=== PATIENT | female | born 1950 | race Two or more races ===

== ENCOUNTER 2021-05-01 09:41 | Emergency (ER) | payer MEDICARE, OTHER, SELFPAY ==
--- NOTE | ~2021-05-01 | XR_ITS ---
EXAMINATION: XR CHEST CLINICAL INFORMATION: Chest pain. COMPARISON: None TECHNIQUE: Frontal view of the chest was obtained. FINDINGS: The lungs are well-expanded and clear of acute process. Heart size and pulmonary vascularity is normal. There are dual pacer electrodes in right atrium and right ventricle. No gross bony abnormality seen. XR/XR chest 1V IMPRESSION: Unremarkable chest exam.
[2021-05-01 10:05] VITALS: BP 115/93; PULSE 60; RESP 18; TEMP 36.7; O2SAT 99; BMI 22.1
--- NOTE | 2021-05-01 10:23 | ED.GENADULT ---
HPI - General Adult General Chief complaint: General Medical Stated complaint: multiple complaints post vaccine Time Seen by Provider: 05/01/21 10:23 Source: patient Mode of arrival: ambulatory Limitations: no limitations History of Present Illness HPI narrative: 71 yo female with hx of HTN, HLD, PPM for ?heart block, cardiomyopathy states she has not felt well had diarrhea/constipation/body aches since January 29 post J+J shot last night felt sharp back and chest pain complaint: diffuse body pain Onset (ago): month(s) (January 29) Location: chest, back, abdomen and lower extremity Radiation: back Severity: moderate Quality: stabbing and aching Pain Consistency: intermittent Relieving factors: none Exacerbating factors: none Associated symptoms: chest pain, loss of appetite, malaise and weakness Treatments prior to arrival: none Related Data Allergies Allergy/AdvReac Type Severity Reaction Status Date / Time No Known Allergies Allergy Verified 05/01/21 10:33 Review of Systems Review of Systems: Constitutional : No Weight loss, No Fever, No Chills, No Fatigue, pos Malaise ENT/Mouth : No sore throat, No Rhinorrhea Eyes: No Eye Pain, No Swelling, No Redness Cardiovascular : pos Chest Pain, No SOB, No Dyspnea on Exertion, No Orthopnea, No Edema, No Palpitations Respiratory : No Cough, No Sputum, No Wheezing Gastrointestinal : No Nausea, No Vomiting, pos Diarrhea, pos Constipation, No abdominal Pain, No Hematochezia, No Melena Genitourinary : No Dysuria, No Urinary Frequency, No Hematuria, Musculoskeletal : No joint pain, pos Myalgias, No Joint Swelling Skin : No Skin Lesions, No rash Neuro : No Weakness, No Numbness, No Dizziness, No Headache Psych : No Anxiety/Panic, No Depression Heme/Lymph: No Bruising, No Bleeding,No Lymphadenopathy Endocrine : No Polyuria, No Polydipsia All other systems reviewed and are negative PMFSH Social History Social History Advance Directives: Yes Advance Directives Information Provided: Yes Advance Directives on File: No Physical Exam Vital Signs: Vital Signs: Last Vital Signs Temp 98.1 F 05/01/21 10:05 Pulse 60 05/01/21 10:05 Resp 18 05/01/21 10:05 BP 115/93 H 05/01/21 10:05 Pulse Ox 99 05/01/21 10:05 Body Mass Index 22.1 Appearance: Alert. Oriented X3. No acute distress. Eyes: Pupils equal, round and reactive to light. ENT: Pharynx normal. Neck: Normal inspection. Neck supple. CVS: Normal heart rate and rhythm. Pulses normal. Respiratory: No respiratory distress. Breath sounds normal. Abdomen: Soft and nontender. Skin: Skin warm and dry. Normal skin color. Normal skin turgor. Extremities: No lower extremity edema. No calf ttp Neuro: Oriented X 3. No motor deficit. No sensory deficit. Course Course Course Narrative: patient eloped from the ED Medical Decision Making [facility] Narrative Medical decision making narrative: 71 yo female with hx of HTN, HLD, PPM for ?heart block, cardiomyopathy states she has not felt well had diarrhea/constipation/body aches since January 29 post J+J shot last night felt sharp back and chest pain at this time very atypical presentation almost 3 months of issues, will obtain basic labs, infl markers, CXR and EKG - ACS and PE seem unlikely given the duratino of her symptoms, dispo per results and findings Lab Data Result diagrams: 05/01/21 10:56 05/01/21 10:56 Labs: Lab Results 05/01/21 05/01/21 05/01/21 Range/Units 10:56 10:56 10:56 WBC 8.4 (4.8-10.8) X10*3/uL RBC 4.20 (4.20-5.50) X10*6/uL Hgb 13.3 (12.0-16.0) g/dl Hct 41.8 (37-47) % MCV 99.5 H (80-98) fL MCH 31.7 (27.0-33.0) pg MCHC 31.8 (31.0-35.0) g/dl RDW 12.8 (11.0-16.0) % Plt Count 182 (160-400) X10*3/uL MPV 11.6 (9.4-12.3) fL Immature Gran % (Auto) 0.1 (0.0-0.4) % Neut % (Auto) 51.4 (45-73) % Lymph % (Auto) 38.1 (20-40) % Bureau % (Auto) 8.7 (2-11) % Eos % (Auto) 1.5 (0-4) % Baso % (Auto) 0.2 (0-2) % Lymph # (Auto) 3.2 (1.2-4.9) X10*3/uL Bureau # (Auto) 0.7 (0.1-1.2) X10*3/uL Eos # (Auto) 0.1 (0.0-0.4) X10*3/uL Baso # (Auto) 0.0 (0.0-0.2) X10*3/uL Abs Immat Gran (auto) 0.01 (0.00-0.03) X10*3/uL Absolute Neuts (auto) 4.3 (2.0-8.3) X10*3/uL Absolute Nucleated RBC 0.000 (0.0-0.012) X10*3/uL Nucleated RBC % (auto) 0.0 (0.0-0.2) /100WBC D-Dimer NG/ML Troponin I High Sens 3.6 (<3.5-17.0) ng/L Urine Color YELLOW Urine Appearance CLEAR Urine pH 7.0 (5.0-8.0) Ur Specific Elsie 1.015 (1.005-1.025) Urine Protein NEG (NEG-TRACE) MG/DL Urine Glucose (UA) NEG (NEG) MG/DL Urine Ketones NEG (NEG) MG/DL Urine Blood TRACE (NEG) Urine Nitrite NEG (NEG) Ur Leukocyte Esterase TRACE H (NEG) Urine RBC 0-2 (0) /HPF Urine WBC 1-4 (0-4) /HPF Ur Squamous Epith Cells 1+ /LPF Urine Bacteria NONE /LPF Urine Mucus 1+ /LPF COVID-19 (LEXIE) (Negative) COVID-19 Clin Com 05/01/21 05/01/21 Range/Units 10:57 12:04 WBC (4.8-10.8) X10*3/uL RBC (4.20-5.50) X10*6/uL Hgb (12.0-16.0) g/dl Hct (37-47) % MCV (80-98) fL MCH (27.0-33.0) pg MCHC (31.0-35.0) g/dl RDW (11.0-16.0) % Plt Count (160-400) X10*3/uL MPV (9.4-12.3) fL Immature Gran % (Auto) (0.0-0.4) % Neut % (Auto) (45-73) % Lymph % (Auto) (20-40) % Bureau % (Auto) (2-11) % Eos % (Auto) (0-4) % Baso % (Auto) (0-2) % Lymph # (Auto) (1.2-4.9) X10*3/uL Bureau # (Auto) (0.1-1.2) X10*3/uL Eos # (Auto) (0.0-0.4) X10*3/uL Baso # (Auto) (0.0-0.2) X10*3/uL Abs Immat Gran (auto) (0.00-0.03) X10*3/uL Absolute Neuts (auto) (2.0-8.3) X10*3/uL Absolute Nucleated RBC (0.0-0.012) X10*3/uL Nucleated RBC % (auto) (0.0-0.2) /100WBC D-Dimer 235 NG/ML Troponin I High Sens (<3.5-17.0) ng/L Urine Color Urine Appearance Urine pH (5.0-8.0) Ur Specific Elsie (1.005-1.025) Urine Protein (NEG-TRACE) MG/DL Urine Glucose (UA) (NEG) MG/DL Urine Ketones (NEG) MG/DL Urine Blood (NEG) Urine Nitrite (NEG) Ur Leukocyte Esterase (NEG) Urine RBC (0) /HPF Urine WBC (0-4) /HPF Ur Squamous Epith Cells /LPF Urine Bacteria /LPF Urine Mucus /LPF COVID-19 (LEXIE) Negative (Negative) COVID-19 Clin Com See Note ECG Data Attestation: I personally reviewed and interpreted this ECG as follows: Interpretation: Rate: 60 Rhythm: NSR [place]: normal Normal P waves. Normal SHANE. Normal QRS complex. ST T wave : no SAMMY, normal qTC: normal prior studies: no acute ischemia The study has been interpreted contemporaneously by me. . Discharge Plan Discharge Clinical Impression: Myalgia, Chest pain Patient Disposition: Elopement
--- NOTE | 2021-05-01 10:34 | ECG_ITS ---
Test Reason : SOB Blood Pressure : / mmHG Vent. Rate : 060 BPM Atrial Rate : 060 BPM P-R Int : 140 ms QRS Dur : 092 ms QT Int : 442 ms P-R-T Axes : -07 016 040 degrees QTc Int : 442 ms Normal sinus rhythm Normal ECG No previous ECGs available Referred By: Bell Chavez Electronically Signed By:James Milton
[2021-05-01 11:05] LABS: MANUAL DIFF FLAG NO
[2021-05-01 11:09] LABS: Appearance Urine CLEAR; Color Urine YELLOW; Glucose Urine UA NEG (NEG); Leukocyte Esterase Urine TRACE (NEG); Nitrite Urine NEG (NEG); Specific Gravity - Urine 1.015 (1.005-1.025); UACC Culture Trigger YES; Urine Blood TRACE (NEG); Urine Ketones NEG (NEG); Urine Protein NEG (NEG-TRACE)
[2021-05-01 11:15] LABS: Basophils Percent Auto 0.2 % (0-2); Eosinophils Absolute Auto 0.1 X10*3/uL (0.0-0.4); Eosinophils Percent Auto 1.5 % (0-4); Hematocrit 41.8 % (37-47); Hemoglobin 13.3 g/dl (12.0-16.0); Imm Gran Abs Auto 0.01 X10*3/uL (0.00-0.03); Imm Gran Pct Auto 0.1 % (0.0-0.4); Lymphocytes Absolute Auto 3.2 X10*3/uL (1.2-4.9); Lymphocytes Percent Auto 38.1 % (20-40); Mean Corpuscular HGB Conc 31.8 g/dl (31.0-35.0); Mean Corpuscular Hemoglobin 31.7 pg (27.0-33.0); Mean Corpuscular Volume 99.5 fL (80-98); Mean Platelet Volume 11.6 fL (9.4-12.3); Monocytes Absolute Auto 0.7 X10*3/uL (0.1-1.2); Monocytes Percent Auto 8.7 % (2-11); Neutrophils Absolute Auto 4.3 X10*3/uL (2.0-8.3); Neutrophils Percent Auto 51.4 % (45-73); Platelet Count 182 X10*3/uL (160-400); Red Cell Distribution Width 12.8 % (11.0-16.0); White Blood Count 8.4 X10*3/uL (4.8-10.8)
[2021-05-01 11:22] LABS: Mucus Urine 1+ /LPF; RBC Urine 0-2 /HPF (0); Squamous Epithelial Cell Urine 1+ /LPF
[2021-05-01 11:29] LABS: COVID-19 Test Negative (Negative); IDNOW Serial# 9DD0AD1C
[2021-05-01 11:32] LABS: Troponin-I High Sensitivity 3.6 ng/L (<3.5-17.0)
[2021-05-01 12:00] VITALS: BP 198/82; PULSE 59
[2021-05-01 12:24] LABS: D Dimer 235 NG/ML
[2021-05-01 13:54] LABS: Troponin-I High Sensitivity 3.7 ng/L (<3.5-17.0)
[2021-05-01 13:59] LABS: Alanine Aminotransferase 14 U/L (0-31); Albumin Level 4.1 g/dL (3.5-5.0); Alkaline Phosphatase 77 U/L (39-117); Anion Gap 14 (12-20); Aspartate Amino Transferase 19 U/L (5-31); Bilirubin Direct 0.2 mg/dL (0.0-0.5); Bilirubin Total 0.6 mg/dL (0.0-1.0); Blood Urea Nitrogen 13 mg/dL (9-16); C Reactive Protein 0.24 mg/dL (< or = 0.50); Calcium 9.8 mg/dL (8.4-10.2); Carbon Dioxide 25 mmol/L (22-29); Chloride 105 mmol/L (96-108); Creatinine Clr Calc Pharmacy 50.7; Estimated Glomerular Filt Rate > 60; Glucose Random 90 mg/dL (60-115); Lipase 28 U/L (8-78); Potassium 4.1 mmol/L (3.3-5.1); Sodium 140 mmol/L (135-145); Total Protein 7.5 g/dL (6.5-8.0)
--- NOTE | 2021-05-01 14:05 | PC.NURSE ---
DID NOT WANT TO WAIT, LAB CONTACTED AND THERE WAS A DELAY DUE TO BAR CODE SCANNER NOT WORKING WELL, PT LEFT AMA
[2021-05-01 14:19] LABS: Thyroid Stimulating Hormone 1.75 uIU/mL (0.32-4.0)
== END 2021-05-01 14:07 | disposition left against medical advice (07) ==
PROVIDERS: Emergency Provider Emergency Medicine; PCP Internal Medicine
DX: R07.9 Chest pain, unspecified (principal); M79.10 Myalgia, unspecified site; Z20.822 Contact with and (suspected) exposure to COVID-19; I10 Essential (primary) hypertension; E78.5 Hyperlipidemia, unspecified
CPT/HCPCS: 36415; 71045; 80048; 80076; 81001; 81003; 82550; 83690; 83735; 84443; 84484; 85025; 85379; 86140; 87086; 87635; 93005; 99283; 99284

== ENCOUNTER 2021-05-20 07:23 | Outpatient (REF) | payer MEDICARE, OTHER, SELFPAY ==
[2021-05-20 09:02] LABS: Alanine Aminotransferase 9 U/L (0-31); Alkaline Phosphatase 79 U/L (39-117); Anion Gap 12 (12-20); Aspartate Amino Transferase 15 U/L (5-31); Bilirubin Total 0.6 mg/dL (0.0-1.0); Blood Urea Nitrogen 18 mg/dL (9-16); Carbon Dioxide 27 mmol/L (22-29); Chloride 106 mmol/L (96-108); Cholesterol 160 mg/dL; Estimated Glomerular Filt Rate > 60; Glucose Fasting 108 mg/dL (60-99); HDL Cholesterol 33 mg/dL; LDL Cholesterol Calculated 98 mg/dl; Potassium 4.4 mmol/L (3.3-5.1); Sodium 141 mmol/L (135-145); Total Protein 7.2 g/dL (6.5-8.0); Triglycerides 147 mg/dL
[2021-05-20 09:10] LABS: B Type Natriuretic Peptide 44 pg/mL (<100)
[2021-05-24 13:01] LABS: Vitamin D 25-OH, D2 <4 ng/mL; Vitamin D 25-OH, D3 33 ng/mL; Vitamin D 25-OH, Total 33 ng/mL (30-100)
== END 2021-05-20 07:24 | disposition home or self-care (01) ==
LOC: HO.LAB 07:23
PROVIDERS: PCP Internal Medicine; Visit Provider Internal Medicine
DX: E78.5 Hyperlipidemia, unspecified (principal); I42.9 Cardiomyopathy, unspecified; E55.9 Vitamin D deficiency, unspecified
CPT/HCPCS: 36415; 80053; 80061; 82306; 83880

== ENCOUNTER 2021-05-24 09:50 | Outpatient (REF) | payer MEDICARE, OTHER, SELFPAY ==
--- NOTE | ~2021-05-24 | MM_ITS ---
EXAMINATION: MM SCREENING DIGITAL BREAST TOMOSYNTHESIS, BILATERAL CLINICAL INFORMATION: Screening. Asymptomatic. The lifetime risk of breast cancer based on the Tyrer-Cuzick Model is 2.1%. COMPARISON: Mammography: None TECHNIQUE: Digital breast tomosynthesis is performed in both the craniocaudal and mediolateral oblique views along with computer-aided detection (CAD). Synthesized 2D images are generated from the tomosynthesis. FINDINGS: The breasts are heterogeneously dense, which may obscure small masses (ACR BI-RADS breast composition Category c). About the retroareolar region of the right breast there is a 3 mm circumscribed density for which spot compression view and ultrasound is recommended. There is multiplicity and bilaterality of calcifications with no new abnormal left breast dominant mass. Pacemaker seen within the right axilla. MM/MM tomosynthesis screening BI IMPRESSION: 3 mm circumscribed right retroareolar density as described. ASSESSMENT: BI-RADS 0: Incomplete - Need Additional Imaging Evaluation RECOMMENDATION: 1. Additional views of the right breast. 2. Targeted ultrasound if warranted after review of the additional views. 3. Radiology department staff will contact the patient for additional imaging. This patient's information was entered into a reminder system with a target due date for their next mammogram.
== END 2021-05-24 09:51 | disposition home or self-care (01) ==
LOC: HO.MAMMO 09:50
PROVIDERS: Visit Provider Internal Medicine
DX: Z12.31 Encounter for screening mammogram for malignant neoplasm of breast (principal)
CPT/HCPCS: 77063; 77067

== ENCOUNTER → 2021-06-04 08:10 | Outpatient (BNVA) | payer MEDICARE, OTHER, SELFPAY | PROVIDERS: PCP Internal Medicine; Visit Provider Obstetrics & Gynecology ==

== ENCOUNTER → 2021-06-10 14:00 | Outpatient (BNVA) | payer MEDICARE, OTHER, SELFPAY | PROVIDERS: PCP Internal Medicine; Referring Provider Internal Medicine; Visit Provider Internal Medicine | DX: Z45.018 Encounter for adjustment and management of other part of cardiac pacemaker (principal); I49.5 Sick sinus syndrome; I42.9 Cardiomyopathy, unspecified; I65.29 Occlusion and stenosis of unspecified carotid artery; I10 Essential (primary) hypertension | CPT/HCPCS: 99202 ==

== ENCOUNTER → 2021-06-14 14:02 | Outpatient (BNVA) | payer MEDICARE, OTHER, SELFPAY | PROVIDERS: PCP Internal Medicine; Referring Provider Internal Medicine; Visit Provider Nurse Practitioner Family | DX: K21.9 Gastro-esophageal reflux disease without esophagitis (principal); K59.01 Slow transit constipation | CPT/HCPCS: 99202 ==

== ENCOUNTER 2021-06-16 | Outpatient (REF) | payer MEDICARE, OTHER, SELFPAY | END 2021-06-17 13:34 | disposition home or self-care (01) | LOC: HO.LNP | PROVIDERS: Visit Provider Nurse Practitioner Family | DX: K21.9 Gastro-esophageal reflux disease without esophagitis (principal) | CPT/HCPCS: 87338 ==

== ENCOUNTER 2021-06-28 15:08 | Outpatient (REF) | payer MEDICARE, OTHER, SELFPAY ==
--- NOTE | ~2021-06-28 | US_ITS ---
EXAMINATION: US EXTRACRANIAL CAROTID DUPLEX, BILATERAL CLINICAL INFORMATION: Occlusion and stenosis of bilateral carotid arteries COMPARISON: None TECHNIQUE: Real-time ultrasound and Doppler techniques (integrating B-mode 2-D vascular images, Doppler spectral analysis and color-flow Doppler imaging) were utilized to interrogate the extracranial carotid arteries, the vertebral arteries and proximal subclavian arteries bilaterally. The degree of stenosis is determined by criteria similar to NASCET. FINDINGS: Right Side: 1. There is mild atherosclerotic plaque seen in the bifurcation/proximal ICA region. 2. The common carotid artery PSV proximally is 60 cm/s and distally 76 cm/s. 3. The proximal internal carotid artery velocities are 50 cm/s systolic and 21 cm/s diastolic. 4. The proximal external carotid artery PSV is 99 cm/s. 5. The vertebral artery shows antegrade flow. 6. The subclavian artery waveforms are stenotic with peak systolic velocity of 247 cm/s. Left Side: 1. There is mild atherosclerotic plaque seen in the bifurcation/proximal ICA region. 2. The common carotid artery PSV proximally is 47 cm/s and distally 51 cm/s. 3. The proximal internal carotid artery velocities are 37 cm/s systolic and 11 cm/s diastolic. 4. The proximal external carotid artery PSV is 55 cm/s. 5. The vertebral artery shows antegrade flow. 6. The subclavian artery waveforms are normal. US/US carotid duplex BI IMPRESSION: 1. RIGHT: Minimal, non-hemodynamically significant stenosis of the proximal right internal carotid artery corresponding to a 0-49% stenosis by velocity criteria. 2. LEFT: Minimal, non-hemodynamically significant stenosis of the proximal left internal carotid artery corresponding to a 0-49% stenosis by velocity criteria. 3. Suspected stenosis in the right subclavian artery.
== END 2021-06-28 15:09 | disposition home or self-care (01) ==
LOC: HO.US 15:08
PROVIDERS: Visit Provider Internal Medicine
DX: I42.9 Cardiomyopathy, unspecified (principal); I65.23 Occlusion and stenosis of bilateral carotid arteries
CPT/HCPCS: 93880

== ENCOUNTER 2021-07-05 10:16 | Outpatient (REF) | payer MEDICARE, OTHER, SELFPAY ==
--- NOTE | ~2021-07-05 | MM_ITS ---
EXAMINATION: BONE DENSITOMETRY CLINICAL INDICATION: Menopause. COMPARISON: This is the patient's baseline examination. TECHNIQUE: Using a [employer] DXA System (software version: 13.1) manufactured by [employer], dual-energy x-ray absorptiometry was performed of the lumbar spine and left hip. The images are of good technical quality. Summary results are attached. FINDINGS: AP SPINE L1-L4: BMD 0.717 g/cm2, Z-score -1.8, T-score -3.9, osteoporosis. LEFT FEMUR, NECK: BMD 0.657 g/cm2, Z-score -0.7, T-score -2.7, osteoporosis. LEFT FEMUR, TOTAL: BMD 0.754 g/cm2, Z-score -0.2, T-score -2.0, osteopenia. IDENTIFIED RISK FACTORS: Menopause, height loss, history of fracture (adult), osteoporosis, tobacco use (current smoker). HISTORY OF FRACTURE: Wrist. MEDICATIONS: Calcium, vitamin D. MM/XR DEXA axial skeleton IMPRESSION: 1. DIAGNOSIS: Osteoporosis based on the lowest T-score value of -3.9 in the lumbar spine applying World Health Organization criteria. 2. 10-YEAR FRACTURE RISK PREDICTION, FRAX: Major osteoporotic fracture (clinical spine, forearm, hip or shoulder) 17.9%. Hip fracture 8.2%. 3. Treatment Recommendations: NOF guidelines recommend consideration for treatment in postmenopausal women and men age 50 and older presenting with the following: -A hip or vertebral (clinical or morphometric) fracture. -T-score less than or equal to -2.5 at the femoral neck or spine after appropriate evaluation to exclude secondary causes. -Low bone mass at the hip or spine and a 10-year fracture probability by FRAX of greater than or equal to 3% for hip fracture or greater than or equal to 20% for major osteoporotic fracture based on the [place] adapted WHO algorithm. 4. Other Recommendations: All treatment decisions require clinical judgment and consideration of individual patient factors, including patient preferences, comorbidities, previous drug use, risk factors not captured in the FRAX model (e.g. frailty, falls, vitamin D deficiency, increased bone turnover, interval significant decline in bone density) and possible under or overestimation of fracture risk by FRAX. Additional medical evaluation for secondary cause of low bone mineral density may be appropriate. FUTURE SCAN RECOMMENDATION: People with diagnosed cases of osteoporosis or at high risk for fracture should have regular bone mineral density tests. For patients eligible for Medicare, routine testing is allowed once every 2 years. The testing frequency can be increased to one year for patients who have rapidly progressing disease, those who are receiving or discontinuing medical therapy to restore bone mass, or have additional risk factors.
== END 2021-07-05 10:17 | disposition home or self-care (01) ==
LOC: HO.MAMMO 10:16
PROVIDERS: Visit Provider Obstetrics & Gynecology
DX: Z13.820 Encounter for screening for osteoporosis (principal); M81.0 Age-related osteoporosis without current pathological fracture; N95.1 Menopausal and female climacteric states; F17.200 Nicotine dependence, unspecified, uncomplicated; Z79.899 Other long term (current) drug therapy; K21.9 Gastro-esophageal reflux disease without esophagitis; K59.01 Slow transit constipation; Z87.81 Personal history of (healed) traumatic fracture; Z71.6 Tobacco abuse counseling
CPT/HCPCS: 77080; 99212

== ENCOUNTER → 2021-07-18 11:46 | Outpatient (BNVA) | payer MEDICARE, OTHER, SELFPAY | PROVIDERS: PCP Internal Medicine; Visit Provider Obstetrics & Gynecology | DX: M81.0 Age-related osteoporosis without current pathological fracture (principal) | CPT/HCPCS: Q3014 ==

== ENCOUNTER → 2021-07-23 09:00 | Outpatient (REF) | payer MEDICARE, OTHER, SELFPAY ==
--- NOTE | 2021-07-23 09:03 | CA_ITS ---
Transthoracic Echocardiogram Patient (Last, First, Middle): Sabina Roper, Gender: Female Date of : 1950 Age: 71 Procedure Date: 07/23/2021 Procedure Type: Transthoracic Echocardiogram Location: OP Height: 154.94 cm Weight: 56.25 kg BSA: 1.54 m2 Heart Rate: bpm BP: 180 / 88 mmHg Referring MD: Kalpesh Calderon MD Symptoms: I42.9 - Cardiomyopathy, unspecified Study Quality: Fair ECG Rhythm: Sinus Conclusions: - The left ventricular systolic function is low normal. The calculated ejection fraction is 54% by biplane method. - There is mild calcification of the aortic valve. - There is mild mitral annular calcification. - Small plaque is seen in the ascending aorta. Findings Left Ventricle Normal left ventricular cavity size. There is mildly increased left ventricular wall thickness. The left ventricular systolic function is low normal. The calculated ejection fraction is 54% by biplane method. E/E prime ratio is <8, consistent with normal filling pressures. Evidence suggests grade I (mild) diastolic dysfunction. Right Ventricle Normal right ventricular cavity size and systolic function. Atria Both atria are normal in size. Aortic Valve There is a normal trileaflet aortic valve. There is mild calcification of the aortic valve. There is no aortic valve stenosis. There is no aortic valve regurgitation. Mitral Valve There is mild mitral annular calcification. There is trace mitral valve regurgitation. There is no mitral valve stenosis. Pulmonic Valve The pulmonic valve was not well visualized. Tricuspid Valve There is trace tricuspid valve regurgitation. The pulmonary artery systolic pressure is normal. Great Vessels The asc aorta and aortic arch are normal in size. Small plaque is seen in the ascending aorta. Venous The inferior vena cava is normal in size and collapses greater than 50% with inspiration. Pericardium/Pleural There is no evidence of pericardial effusion. Prior Study Comparison No prior study available for comparison. Measurements 2D Linear Measurements RVIDd: 2.79 RVIDd Index: 1.81 IVSd: 1.26 0.6-0.9/0.6-1.0 cm LVIDd: 4.63 3.9-5.3/4.2-5.9 cm LVIDd Index: 3.01 2.4-3.2/2.2-3.1 cm/m2 LVIDs: 3.34 2.0-3.6 cm LVPWd: 1.11 0.7-1.1 cm Ao Root: 3.00 2.1-3.5 cm LA Diam: 3.90 2.7-3.8/3.0-4.0 cm LAIDs Index: 2.53 1.5-2.3 cm/m2 LV Mass: 253.50 67-162/88-224 g LV Mass Index: 164.61 43-95/49-115 g/m2 LVOT Diam: 2.20 3.0+(-)1.3 cm 2D Systolic Function EF 4C: 41.40 >55% EF 2C: 67.00 >55% EF BiP: 54.40 >55% Mitral Valve MV Pk E: 0.34 MV PK A: 0.70 MV Decel Time: 224.00 E/A: 0.50 E'Lateral: 5.87 E'Medial: 2.94 E/E' Med: 11.70 E/E' Lat: 5.80 Aortic Valve AoV Pk Gunnar: 1.06 AoV Mn Gunnar: 0.91 AoV VTI: 0.23 AoV Pk Grad: 4.00 Aov Mn Grad: 3.00 ALBERTINA Cont.VTI: 2.86 LVOT LVOT Pk Gunnar: 0.79 LVOT Mn Gunnar: 0.56 LVOT VTI: 0.18 LVOT Pk Grad: 2.00 LVOT Mn Grad: 1.00 LVOT Diam: 2.20 LVOT Area: 3.80 Diastolic Function MV Pk E: 0.34 MV Pk A: 0.70 E/A: 0.50 E'Medial: 2.94 E/E' Med: 11.70 E' Laterial: 5.87 E/E' Lat: 5.80 Tricuspid Valve TR Pk Gunnar: 2.16 TR Pk Grad: 19.00 RA Press: 3.00 RVSP: 22.00 Great Vessels Aorta Ao Root-2D: 3.00 2.0-3.7 cm Ao Asc: 3.00 2.1-3.4 cm Ao Arch: 2.50 Updated in Other Vendor System with Status of Final Kalpesh Calderon MD electronically signed on 07/23/2021 12:29:40 PM with status of Final
== END ==
LOC: HO.CARD 09:00
PROVIDERS: Visit Provider Internal Medicine
DX: I42.9 Cardiomyopathy, unspecified (principal)
CPT/HCPCS: 93306

== ENCOUNTER → 2021-08-09 11:34 | Outpatient (BNVA) | payer MEDICARE, OTHER, SELFPAY | PROVIDERS: PCP Internal Medicine; Referring Provider Internal Medicine; Visit Provider Nurse Practitioner Family | DX: Z12.11 Encounter for screening for malignant neoplasm of colon (principal); K21.9 Gastro-esophageal reflux disease without esophagitis; K59.04 Chronic idiopathic constipation | CPT/HCPCS: 99212 ==

== ENCOUNTER → 2021-08-13 09:01 | Outpatient (BNVA) | payer MEDICARE, OTHER, SELFPAY | PROVIDERS: PCP Internal Medicine; Referring Provider Internal Medicine; Visit Provider Internal Medicine | DX: Z01.810 Encounter for preprocedural cardiovascular examination (principal); I49.5 Sick sinus syndrome; I42.9 Cardiomyopathy, unspecified; I65.29 Occlusion and stenosis of unspecified carotid artery; I10 Essential (primary) hypertension | CPT/HCPCS: 99212 ==

== ENCOUNTER 2021-08-27 08:47 | Day surgery (SDC) | payer MEDICARE, OTHER, SELFPAY ==
[2021-08-22 09:39] VITALS: BMI 23.2
--- NOTE | 2021-08-26 10:13 | P.CONAN_ITS ---
Documented by User: Rashmi Murillo NP 08/26/21 10:18 HPI - Anesthesia Eval Consult details Narrative: 71yo F for Upper Endoscopy and Colonoscopy Cardiac cleared at low risk Pacemaker in situ (SSS) [facility] Active Problems Active Problems: All Active Problems (Updated 08/22/21 @ 09:37 by Helen Leone, LORI) Well woman exam (Acute) Menopausal state (Acute) Carotid artery disease (Acute) Carotid artery stenosis (Acute) Osteoporosis (Acute) Preoperative cardiovascular examination (Acute) Dyslipidemia (Acute) Sick sinus syndrome (Acute) Cardiomyopathy (Acute) GERD (gastroesophageal reflux disease) (Acute) Essential hypertension (Acute) Past Medical History Medical History Cardiomyopathy Dyslipidemia Essential hypertension GERD (gastroesophageal reflux disease) Sick sinus syndrome Stenosis of right subclavian artery Family History Family History Father Cancer Mother Stroke Surgical History Surgical History History of pacemaker (~09/2012) History of surgical procedure on eye proper using laser Social History Social History Household Members: None Housing: Apartment Alcohol intake: former Patient Tobacco Use Status: Current everyday Tobacco user Tobacco use type: Cigarette Cigarettes Per Day: 3 e-Cigarette/Vaping Use: Never Used Second Hand Smoke Exposure: No Are you DNR?: No Advance Directives: No Advance Directives Information Provided: No Advance Directives on File: No service: No Current occupational status: retired Meds Allergies Allergy/AdvReac Type Severity Reaction Status Date / Time iodine Allergy Severe swelling, Verified 08/22/21 09:34 rash Home Medications Medication Instructions Recorded Confirmed Last Taken Type aspirin 81 mg tablet,delayed 81 mg PO BEDTIME 05/13/21 08/27/21 08/26/21 06:00 History release (Adult Low Dose Aspirin) atorvastatin 40 mg tablet 40 mg PO BEDTIME 05/13/21 08/22/21 Unknown History omeprazole 20 mg capsule,delayed 20 mg PO BEDTIME 05/13/21 08/22/21 Unknown History release carvedilol 12.5 mg tablet 12.5 mg PO BEDTIME 08/22/21 08/22/21 Unknown History Exam Exam Date and Time: August 26, 2021 1013 Height,Weight and Vital Signs: Height 5 ft 1 in Weight 55.792 kg Pertinent Lab Results Pertinent Lab Results: Laboratory Tests 05/01/21 05/20/21 10:56 07:35 WBC 8.4 Hgb 13.3 Hct 41.8 Plt Count 182 Sodium 141 Potassium 4.4 Chloride 106 Carbon Dioxide 27 BUN 18 H Creatinine 0.79 Narrative Narrative: Pacer Interr 05/2021 This is a dual-chamber device programmed in DDD mode.? Battery life 3-5 years.? Normal lead parameters.? Atrial pacing 97%.? Ventricular pacing 0.1%. One tachy episode lasting for only a second, likely atrial tachycardia.? Overall, normal function. EKG 04/2021 Vent. Rate : 060 BPM ? ? Atrial Rate : 060 BPM ?? P-R Int : 140 ms? QRS Dur : 092 ms ? ? QT Int : 442 ms ? ? ? P-R-T Axes : -07 016 040 degrees ?? QTc Int : 442 ms ? Normal sinus rhythm Normal ECG No previous ECGs available ECHO 06/2021 Conclusions: - The left ventricular systolic function is low normal.? The ? ? calculated ejection fraction is 54% by biplane method. ? - There is mild calcification of the aortic valve. ? - There is mild mitral annular calcification.? - Small plaque is seen in the ascending aorta. ? ? US carotid duplex BI 05/2021 IMPRESSION: 1. RIGHT: Minimal, non-hemodynamically significant stenosis of the proximal right internal carotid artery corresponding to a 0-49% stenosis by velocity criteria. ? 2. LEFT: Minimal, non-hemodynamically significant stenosis of the proximal left internal carotid artery corresponding to a 0-49% stenosis by velocity criteria. ? 3. Suspected stenosis in the right subclavian artery. Assessment and Plan Assessment Anesthesia Assessment: Chart Reviewed Documented by User: Catalina Mitchell MD 08/27/21 10:53 [facility] Past Medical History Medical History Cardiomyopathy Dyslipidemia Essential hypertension GERD (gastroesophageal reflux disease) Sick sinus syndrome Stenosis of right subclavian artery Family History Family History Father Cancer Mother Stroke Surgical History Surgical History History of pacemaker (~09/2012) History of surgical procedure on eye proper using laser History of Problems with Anesthesia: No Social History Social History Household Members: None Housing: Apartment Alcohol intake: former Patient Tobacco Use Status: Current everyday Tobacco user Tobacco use type: Cigarette Cigarettes Per Day: 3 e-Cigarette/Vaping Use: Never Used Second Hand Smoke Exposure: No Are you DNR?: No Advance Directives: No Advance Directives Information Provided: No Advance Directives on File: No service: No Current occupational status: retired [email or web address] Allergies Allergy/AdvReac Type Severity Reaction Status Date / Time iodine Allergy Severe swelling, Verified 08/22/21 09:34 rash Home Medications Medication Instructions Recorded Confirmed Last Taken Type aspirin 81 mg tablet,delayed 81 mg PO BEDTIME 05/13/21 08/27/21 08/26/21 06:00 History release (Adult Low Dose Aspirin) atorvastatin 40 mg tablet 40 mg PO BEDTIME 05/13/21 08/22/21 Unknown History omeprazole 20 mg capsule,delayed 20 mg PO BEDTIME 05/13/21 08/22/21 Unknown History release carvedilol 12.5 mg tablet 12.5 mg PO BEDTIME 08/22/21 08/22/21 Unknown History Exam Airway Mallampati Class: II (Edentulous) TM Dist: >3cm Neck ROM: Full Denture: Upper Loose/Missing/Broken Teeth: Yes and Upper Heart: RRR Lungs: CTA Assessment and Plan Assessment Anesthesia Assessment: Anesthesia Plan Discussed Final Anesthetic Review History of Problems with Anesthesia: No NPO: Yes ASA Class: III Final Preanesthetic Review: Meds/Allgs Chart Reviewed, Consent Obtained/Reviewed and Anes Risks/Benef Reviewed Patient Risk: Intermediate Procedure Risk: Intermediate Anesthetic Plan Anesthetic Plan: MAC: Disposition: Standard PACU
[2021-08-27 09:28] VITALS: BP 153/62; PULSE 60; RESP 16; TEMP 36.6; O2SAT 97
[2021-08-27] MEDS: Lactated Ringers 1,000 ML 100 ML IVCONT (09:36)
--- NOTE | 2021-08-27 10:10 | MHC.SHP ---
Pre-Procedural Eval Section A Date of Service: 08/27/21 The patient is an INPATIENT: No Changes since office visit: Yes Patient answered all questions; No Cold of Flu in the past 2 weeks, No New Medical Problems and No Changes in Medication The History & Physical has been completed within 30 days and I have reviewed it.: Yes Section B Chief Complaint: Screening Details of Present Illness: Colon cancer screening, GERD, postprandial abdominal pain Allergies: Allergies Allergy/AdvReac Type Severity Reaction Status Date / Time iodine Allergy Severe swelling, Verified 08/22/21 09:34 rash Plan Diagnosis/Plan: Unchanged I have reviewed the history and physical and performed a pertinent physical examination on my patient. No changes have occurred unless specified.
--- NOTE | 2021-08-27 10:29 | P.BOP_ITS ---
Brief Operative Note Date of Service: 08/27/21 Pre-op diagnosis: COLON CANCER SCREENING, GERD, ABDOMINAL PAIN Post-op diagnosis: other (GERD, gastritis, colon polyps, diverticulosis, hemorrhoids) Procedure: FLEXIBLE TRANSORAL UPPER GASTROINTESTINAL ENDOSCOPY WITH BIOPSIES AND COLONOSCOPY TILL CECUM WITH BIOPSIES AND SNARE POLYPECTOMY UPPER ENDOSCOPY Consent: Indications for the procedure and potential complications of bleeding, perforation, reaction to medications and missed diagnosis were discussed with the patient and informed consent was obtained. Instrument: Olympus GIF H 190 mid size upper endoscope Monitoring: Vital signs and clinical assessment, continuous EKG monitoring, Pulse oximetry, Carbon Dioxide monitoring and blood pressure monitoring were done throughout the procedure. Procedure: The patient was placed in the left lateral decubitis position and pre-procedure medications were administered and a bite block was placed. The endoscope was inserted into the mouth and advanced under direct vision to the third part of duodenum. A careful inspection was made as the upper endoscope was withdrawn including a retroflexed examination of the proximal stomach; Findings and interventions are described below. Findings: Larynx: Normal Esophagus: GE junction at 35 cms. No esophagitis or Navarro's. Stomach: Mild patchy gastric erythema. Biopsies were obtained. Grade 2 flap valve on retroflexed examination of the cardia. Duodenum: Normal bulb and descending duodenum. Biopsies were obtained from 3rd part of duodenum to check for celiac sprue. Intervention: Biopsies as noted above COLONOSCOPY PROCEDURE NOTE Consent: Indications for the procedure and potential complications of bleeding, perforation, reaction to medications and missed diagnosis were discussed with the patient and informed consent was obtained. Instrument: Olympus PCF H 190 L variable stiffness pediatric colonoscope Monitoring: Vital signs and clinical assessment, intermittent blood pressure monitoring, continuous EKG monitoring, Pulse oximetry and Carbon Dioxide monitoring were done throughout the procedure. Colon withdrawl time was 25 minutes. Procedure: The patient was placed in the left lateral decubitis position and pre-procedure medications were administered. After a digital rectal examination of the ano-rectum, the video colonoscope was inserted into the rectum and advanced through the colon to the cecum. The colonoscope was slowly withdrawn in a retrograde panoramic fashion and the colon mucosa was carefully examined including a retroflexed view of the rectum. Findings and interventions are described below. Procedure Difficulty: Colon was long and tortuous in the was some loop formation. Patient was placed in the supine position and LLQ pressure was applied to intubate the ascending colon. Findings: Terminal Ileum: Not evaluated Cecum: Prominent ICV - biopsies were obtained Ascending Colon: A 10 mm sessile polyp removed with cold snare. Transverse Colon: Normal Descending Colon: Moderate diverticulosis Sigmoid Colon: Moderate diverticulosis Rectum: Normal Ano-rectum: Moderate internal hemorrhoids Colon preparation: Good to Fair despite copious irrigation Impression and Post Procedure Diagnosis: Endoscopy Findings: STOMACH: Gastritis DUODENUM: Normal - biopsied to check for celiac sprue Colonoscopy Findings: One medium sized polyp removed Moderate diverticulosis seen in the left colon Moderate hemorrhoids on retroflexed exam. Plan: Await pathology results Patient has an appointment on 09/10/21 in the GI Clinic with Anuja Rivas FN P-BC . Repeat Colonoscopy interval based on path results - in 2-3 years if polyps are adenomatous and due to fair prep. Above findings were reviewed with the patient and GERD, colon polyps and diver ticulosis handouts were given in the discharge area Surgeon: Gwendolyn Reyes MD Was an Bull Float Finisher used for this Procedure?: Yes Bull Float Finisher: Joan Singleton Estimated blood loss (mL): 0 Pathology: other ( A. small bowel, R/O Celiac B. gastric antrum, R/O H. pylori C. ascending colon polyp D. ileocecal valve biopsies) Condition: stable Disposition: PACU
--- NOTE | 2021-08-27 10:30 | W.PM.OPN ---
Operative Note Operative Note Date of Service: 08/27/21 Narrative: Pre-op diagnosis:?COLON CANCER SCREENING, GERD, ABDOMINAL PAIN Post-op diagnosis:?other (GERD, gastritis, colon polyps, diverticulosis, hemorrhoids) Procedure:? FLEXIBLE TRANSORAL UPPER GASTROINTESTINAL ENDOSCOPY WITH BIOPSIES AND COLONOSCOPY TILL CECUM WITH BIOPSIES AND SNARE POLYPECTOMY UPPER ENDOSCOPY Consent:?Indications for the procedure and potential complications of bleeding, perforation, reaction to medications and missed diagnosis were discussed with the patient and informed consent was obtained. Instrument:?Olympus GIF H 190 mid size upper endoscope Monitoring: Vital signs and clinical assessment, continuous EKG monitoring, Pulse oximetry, Carbon Dioxide monitoring and blood pressure monitoring were done throughout the procedure. Procedure:?The patient was placed in the left lateral decubitis position and pre-procedure medications were administered and a bite block was placed. The endoscope was inserted into the mouth and advanced under direct vision to the third part of duodenum. A careful inspection was made as the upper endoscope was withdrawn including a retroflexed examination of the proximal stomach; Findings and interventions are described below. Findings: Larynx:??Normal Esophagus:?GE junction at 35 cms. No esophagitis or Navarro's. Stomach:?Mild patchy gastric erythema. Biopsies were obtained. Grade 2 flap valve on retroflexed examination of the cardia. Duodenum:?Normal bulb and descending duodenum.? Biopsies were obtained from 3rd part of duodenum to check for celiac sprue. Intervention:?Biopsies as noted above COLONOSCOPY PROCEDURE NOTE Consent:?Indications for the procedure and potential complications of bleeding, perforation, reaction to medications and missed diagnosis were discussed with the patient and informed consent was obtained. Instrument:?Olympus PCF H 190 L variable stiffness pediatric colonoscope Monitoring:?Vital signs and clinical assessment, intermittent blood pressure monitoring, continuous EKG monitoring, Pulse oximetry and Carbon Dioxide monitoring were done throughout the procedure. Colon withdrawl time was 25 minutes. Procedure:?The patient was placed in the left lateral decubitis position and pre-procedure medications were administered. After a digital rectal examination of the ano-rectum, the video colonoscope was inserted into the rectum and advanced through the colon to the cecum. The colonoscope was slowly withdrawn in a retrograde panoramic fashion and the colon mucosa was carefully examined including a retroflexed view of the rectum. Findings and interventions are described below. Procedure Difficulty:??Colon was long and tortuous in the was some loop formation. Patient was placed in the supine position and LLQ pressure was applied to intubate the ascending colon. Findings: Terminal Ileum: Not evaluated Cecum:? Prominent ICV - biopsies were obtained Ascending Colon:??A 10 mm sessile polyp removed with cold snare. Transverse Colon:??Normal Descending Colon:? Moderate diverticulosis Sigmoid Colon:??Moderate diverticulosis Rectum:??Normal Ano-rectum:??Moderate internal hemorrhoids Colon preparation:? Good to Fair despite copious irrigation Impression and Post Procedure Diagnosis: Endoscopy Findings: STOMACH: Gastritis DUODENUM: Normal - biopsied to check for celiac sprue Colonoscopy Findings: One medium sized polyp removed Moderate diverticulosis seen in the left colon Moderate hemorrhoids on retroflexed exam. Plan: Await pathology results Patient has an appointment on 09/10/21 in the GI Clinic with Anuja Rivas FNP-BC . Repeat Colonoscopy interval based on path results - in 2-3 years if polyps are adenomatous and due to fair prep. Above findings were reviewed with the patient and GERD, colon polyps and diverticulosis handouts were given in the discharge area Surgeon:?Gwendolyn Reyes MD Was an Change Management Analyst used for this Procedure?:?Yes Change Management Analyst:?Joan Singleton Estimated blood loss (mL):?0 Pathology:?other ( A. small bowel, R/O Celiac? B. gastric antrum, R/O H. pylori? C. ascending colon polyp? D. ileocecal valve biopsies) Condition:?stable Disposition:?PACU
[2021-08-27 11:24] VITALS: BP 134/63; PULSE 60; RESP 16; TEMP 36.1; O2SAT 99
[2021-08-27 11:39] VITALS: BP 139/69; PULSE 60; RESP 18; TEMP 36.1; O2SAT 100
== END 2021-08-27 13:00 | disposition home or self-care (01) ==
PROVIDERS: Visit Provider Internal Medicine Gastroenterology
PROC: (CPT 45385; principal; 2021-08-27 10:00)
DX: Z12.11 Encounter for screening for malignant neoplasm of colon (principal); D12.2 Benign neoplasm of ascending colon; K57.30 Diverticulosis of large intestine without perforation or abscess without bleeding; K64.8 Other hemorrhoids; K56.2 Volvulus; K21.9 Gastro-esophageal reflux disease without esophagitis; K29.70 Gastritis, unspecified, without bleeding; K59.04 Chronic idiopathic constipation; I10 Essential (primary) hypertension; I42.9 Cardiomyopathy, unspecified; Z79.899 Other long term (current) drug therapy; Z95.0 Presence of cardiac pacemaker
CPT/HCPCS: 45385; 45380; 43239; 88305; 88342

== ENCOUNTER → 2021-09-10 11:47 | Outpatient (BNVA) | payer MEDICARE, OTHER, SELFPAY | PROVIDERS: PCP Internal Medicine; Visit Provider Nurse Practitioner Family | DX: K21.9 Gastro-esophageal reflux disease without esophagitis (principal); K59.04 Chronic idiopathic constipation; K57.90 Diverticulosis of intestine, part unspecified, without perforation or abscess without bleeding; D36.9 Benign neoplasm, unspecified site; Z98.890 Other specified postprocedural states | CPT/HCPCS: Q3014 ==

== ENCOUNTER 2021-09-11 08:13 | Outpatient (REF) | payer MEDICARE, OTHER, SELFPAY ==
[2021-09-12 13:37] LABS: Immunoglobulin A 231 mg/dL (70-320)
[2021-09-13 16:01] LABS: Transglutaminase Ab IgG <1.0 U/mL; Transglutaminase IgA <1.0 U/mL
== END 2021-09-11 08:14 | disposition home or self-care (01) ==
LOC: HO.LAB 08:13
PROVIDERS: PCP Student in an Organized Health Care Education/Training Program; Visit Provider Nurse Practitioner Family
DX: R14.0 Abdominal distension (gaseous) (principal); R10.11 Right upper quadrant pain; K21.9 Gastro-esophageal reflux disease without esophagitis
CPT/HCPCS: 36415; 82784; 83516

== ENCOUNTER 2022-02-19 08:15 | Outpatient (REF) | payer MEDICARE, OTHER, SELFPAY ==
[2022-02-19 08:36] LABS: MANUAL DIFF FLAG NO
[2022-02-19 08:44] LABS: Basophils Percent Auto 0.2 % (0-2); Eosinophils Absolute Auto 0.1 X10*3/uL (0.0-0.4); Eosinophils Percent Auto 1.2 % (0-4); Hematocrit 38.2 % (37.0-47.0); Hemoglobin 12.1 g/dl (12.0-16.0); Imm Gran Abs Auto 0.05 X10*3/uL (0.00-0.03); Imm Gran Pct Auto 0.5 % (0.0-0.4); Lymphocytes Absolute Auto 2.8 X10*3/uL (1.2-4.9); Lymphocytes Percent Auto 25.4 % (20-40); Mean Corpuscular HGB Conc 31.7 g/dl (31.0-35.0); Mean Corpuscular Hemoglobin 31.9 pg (27.0-33.0); Mean Corpuscular Volume 100.8 fL (80.0-98.0); Monocytes Absolute Auto 0.8 X10*3/uL (0.1-1.2); Monocytes Percent Auto 6.9 % (2-11); Neutrophils Absolute Auto 7.3 x10*3/uL (2.0-8.3); Neutrophils Percent Auto 65.8 % (45-73); Platelet Count 343 X10*3/uL (160-400); Red Blood Count 3.79 X10*6/uL (4.20-5.50); Red Cell Distribution Width 12.6 % (11.0-16.0)
[2022-02-19 09:30] LABS: Alanine Aminotransferase 14 U/L (0-31); Albumin Level 3.9 g/dL (3.5-5.0); Alkaline Phosphatase 70 U/L (39-117); Anion Gap 12 (12-20); Aspartate Amino Transferase 13 U/L (5-31); Bilirubin Total 0.5 mg/dL (0.0-1.0); Blood Urea Nitrogen 11 mg/dL (9-16); Calcium 10.2 mg/dL (8.4-10.2); Carbon Dioxide 30 mmol/L (22-29); Chloride 106 mmol/L (96-108); Cholesterol 150 mg/dL; Estimated Glomerular Filt Rate > 60; Glucose Fasting 101 mg/dL (60-99); HDL Cholesterol 27 mg/dL; LDL Cholesterol Calculated 102 mg/dl; Potassium 4.5 mmol/L (3.3-5.1); Sodium 143 mmol/L (135-145); Total Protein 7.5 g/dL (6.5-8.0); Triglycerides 109 mg/dL
[2022-02-19 09:39] LABS: Free T4 (Free Thyroxine) 1.08 ng/dL (0.71-1.85); Thyroid Stimulating Hormone 1.92 uIU/mL (0.32-4.0)
[2022-02-19 09:48] LABS: Folate 11.2 ng/mL (> or = 4.0); Vitamin B12 266 pg/mL (200-900)
== END 2022-02-19 08:16 | disposition home or self-care (01) ==
LOC: HO.LAB 08:15
PROVIDERS: PCP Internal Medicine; Visit Provider Internal Medicine
DX: R41.3 Other amnesia (principal); I10 Essential (primary) hypertension; E78.5 Hyperlipidemia, unspecified; K21.9 Gastro-esophageal reflux disease without esophagitis; E55.9 Vitamin D deficiency, unspecified; M81.0 Age-related osteoporosis without current pathological fracture
CPT/HCPCS: 36415; 80053; 80061; 82306; 82607; 82746; 84439; 84443; 85025

== ENCOUNTER → 2022-03-10 08:28 | Outpatient (BNVA) | payer MEDICARE, OTHER, SELFPAY | PROVIDERS: PCP Internal Medicine; Referring Provider Internal Medicine; Visit Provider Internal Medicine | DX: Z45.018 Encounter for adjustment and management of other part of cardiac pacemaker (principal); I49.5 Sick sinus syndrome; I42.9 Cardiomyopathy, unspecified; I65.29 Occlusion and stenosis of unspecified carotid artery; I10 Essential (primary) hypertension | CPT/HCPCS: 99212 ==

== ENCOUNTER → 2022-03-11 10:27 | Outpatient (BNVA) | payer MEDICARE, OTHER, SELFPAY | PROVIDERS: PCP Internal Medicine; Referring Provider Internal Medicine; Visit Provider Nurse Practitioner Family | DX: K21.9 Gastro-esophageal reflux disease without esophagitis (principal); K59.01 Slow transit constipation; K57.90 Diverticulosis of intestine, part unspecified, without perforation or abscess without bleeding; D12.6 Benign neoplasm of colon, unspecified; I10 Essential (primary) hypertension; E78.5 Hyperlipidemia, unspecified; Z88.8 Allergy status to other drugs, medicaments and biological substances | CPT/HCPCS: 99212 ==

== ENCOUNTER → 2022-03-27 14:23 | Outpatient (BNVA) | payer MEDICARE, OTHER, SELFPAY | PROVIDERS: PCP Internal Medicine; Visit Provider Internal Medicine Endocrinology, Diabetes & Metabolism | DX: M81.0 Age-related osteoporosis without current pathological fracture (principal) | CPT/HCPCS: 99202 ==

== ENCOUNTER 2022-04-03 08:26 | Outpatient (REF) | payer MEDICARE, OTHER, SELFPAY ==
[2022-04-03 09:20] LABS: Total Volume 24 Hour Urine 1950 mL
[2022-04-03 09:33] LABS: Phosphorus 3.2 mg/dL (2.7-4.5)
[2022-04-03 09:49] LABS: Creatinine, 24Hr Urine 1.5 G/Day (1.0-2.0); Creatinine, mg/dL 77.43
[2022-04-05 17:31] LABS: Calcium, 24 Hr Urine 199 mg/24 h; Calcium/Creatinine Ratio 134 mg/g creat (30-275); Creatinine 24Hr Urine 1.48 g/24 h (0.50-2.15)
[2022-04-07 22:07] LABS: Prot Elec - Albumin 3.9 g/dL (3.8-4.8); Prot Elec - Alpha1 0.3 g/dL (0.2-0.3); Prot Elec - Beta 1 0.4 g/dL (0.4-0.6); Prot Elec - Beta 2 0.4 g/dL (0.2-0.5); Prot Elec - Gamma 1.4 g/dL (0.8-1.7); Prot Elec - Total Protein 7.3 g/dL (6.1-8.1)
== END 2022-04-03 08:27 | disposition home or self-care (01) ==
LOC: HO.LAB 08:26
PROVIDERS: PCP Internal Medicine; Visit Provider Internal Medicine Endocrinology, Diabetes & Metabolism
DX: M81.0 Age-related osteoporosis without current pathological fracture (principal)
CPT/HCPCS: 82340; 82570; 84100; 84165; 86335

== ENCOUNTER 2022-05-28 10:03 | Outpatient (REF) | payer MEDICARE, OTHER, SELFPAY ==
--- NOTE | ~2022-05-28 | MM_ITS ---
EXAMINATION: MM SCREENING DIGITAL BREAST TOMOSYNTHESIS, BILATERAL CLINICAL INFORMATION: Screening. Asymptomatic. The lifetime risk of breast cancer based on the Tyrer-Cuzick Model is 2%. COMPARISON: Mammography: 05/24/2021; outside mammography 03/24/2019, 09/03/2017, 08/09/2015 ([facility] [place]). TECHNIQUE: Digital breast tomosynthesis is performed in both the craniocaudal and mediolateral oblique views along with computer-aided detection (CAD). Synthesized 2D images are generated from the tomosynthesis. FINDINGS: The breasts are heterogeneously dense, which may obscure small masses (ACR BI-RADS breast composition Category c). There are no significant masses, abnormal calcifications, or other abnormalities. Parenchymal pattern is similar to prior studies and there is no developing density or interval architectural abnormality. Pacemaker generator overlies left axilla on MLO view. There are scattered bilateral round and coarse round calcifications. No significant changes. MM/MM tomosynthesis screening BI IMPRESSION: No mammographic evidence of malignancy. ASSESSMENT: BI-RADS 2: Benign RECOMMENDATION: Routine annual mammography screening. This patient's information was entered into a reminder system with a target due date for their next mammogram.
== END 2022-05-28 10:04 | disposition home or self-care (01) ==
LOC: HO.MAMMO 10:03
PROVIDERS: PCP Internal Medicine; Visit Provider Internal Medicine
DX: Z12.31 Encounter for screening mammogram for malignant neoplasm of breast (principal)
CPT/HCPCS: 77063; 77067

== ENCOUNTER 2022-06-19 08:24 | Outpatient (REF) | payer MEDICARE, OTHER, SELFPAY ==
[2022-06-19 08:34] LABS: MANUAL DIFF FLAG NO
[2022-06-19 08:53] LABS: Basophils Percent Auto 0.4 % (0-2); Eosinophils Absolute Auto 0.3 X10*3/uL (0.0-0.4); Eosinophils Percent Auto 3.5 % (0-4); Hematocrit 38.2 % (37.0-47.0); Hemoglobin 11.8 g/dl (12.0-16.0); Imm Gran Abs Auto 0.02 X10*3/uL (0.00-0.03); Imm Gran Pct Auto 0.3 % (0.0-0.4); Lymphocytes Absolute Auto 3.6 X10*3/uL (1.2-4.9); Lymphocytes Percent Auto 44.4 % (20-40); Mean Corpuscular HGB Conc 30.9 g/dl (31.0-35.0); Mean Corpuscular Hemoglobin 30.9 pg (27.0-33.0); Mean Platelet Volume 11.6 fL (9.4-12.3); Monocytes Absolute Auto 0.8 X10*3/uL (0.1-1.2); Monocytes Percent Auto 9.6 % (2-11); Neutrophils Absolute Auto 3.3 x10*3/uL (2.0-8.3); Neutrophils Percent Auto 41.8 % (45-73); Platelet Count 215 X10*3/uL (160-400); Red Blood Count 3.82 X10*6/uL (4.20-5.50); Red Cell Distribution Width 13.9 % (11.0-16.0)
[2022-06-19 09:28] LABS: Alanine Aminotransferase 16 U/L (0-31); Alkaline Phosphatase 84 U/L (39-117); Anion Gap 11 (12-20); Aspartate Amino Transferase 18 U/L (5-31); Bilirubin Total 0.3 mg/dL (0.0-1.0); Blood Urea Nitrogen 13 mg/dL (9-16); Calcium 9.4 mg/dL (8.4-10.2); Carbon Dioxide 27 mmol/L (22-29); Chloride 108 mmol/L (96-108); Cholesterol 146 mg/dL; Estimated Glomerular Filt Rate > 60; Glucose Fasting 89 mg/dL (60-99); HDL Cholesterol 34 mg/dL; LDL Cholesterol Calculated 89 mg/dl; Potassium 4.6 mmol/L (3.3-5.1); Sodium 141 mmol/L (135-145); Total Protein 7.3 g/dL (6.5-8.0); Triglycerides 118 mg/dL
[2022-06-26 15:52] LABS: Vitamin D 25-OH, D2 <4 ng/mL; Vitamin D 25-OH, D3 25 ng/mL; Vitamin D 25-OH, Total 25 ng/mL (30-100)
== END 2022-06-19 08:25 | disposition home or self-care (01) ==
LOC: HO.LAB 08:24
PROVIDERS: PCP Internal Medicine; Visit Provider Internal Medicine
DX: E55.9 Vitamin D deficiency, unspecified (principal); D72.829 Elevated white blood cell count, unspecified; E78.5 Hyperlipidemia, unspecified
CPT/HCPCS: 36415; 80053; 80061; 82306; 85025

== ENCOUNTER → 2022-07-03 07:47 | Outpatient (BNVA) | payer MEDICARE, OTHER, SELFPAY | PROVIDERS: PCP Internal Medicine; Referring Provider Internal Medicine; Visit Provider Internal Medicine | DX: I49.5 Sick sinus syndrome (principal); I42.9 Cardiomyopathy, unspecified; I65.29 Occlusion and stenosis of unspecified carotid artery; I10 Essential (primary) hypertension | CPT/HCPCS: 93005; 99212 ==

== ENCOUNTER → 2022-07-07 14:16 | Outpatient (BNVA) | payer MEDICARE, OTHER, SELFPAY | PROVIDERS: PCP Internal Medicine; Visit Provider Internal Medicine | DX: I49.5 Sick sinus syndrome (principal) | CPT/HCPCS: 93280 ==

== ENCOUNTER → 2022-07-25 08:55 | Outpatient (BNVA) | payer MEDICARE, OTHER, SELFPAY | PROVIDERS: PCP Internal Medicine; Visit Provider Internal Medicine Endocrinology, Diabetes & Metabolism | DX: M81.0 Age-related osteoporosis without current pathological fracture (principal) | CPT/HCPCS: 99212 ==

== ENCOUNTER 2022-09-09 08:25 | Outpatient (REF) | payer MEDICARE, OTHER, SELFPAY ==
[2022-09-09 08:42] LABS: MANUAL DIFF FLAG NO
[2022-09-09 09:16] LABS: Basophils Percent Auto 0.3 % (0-2); Eosinophils Absolute Auto 0.1 X10*3/uL (0.0-0.4); Eosinophils Percent Auto 0.7 % (0-4); Hematocrit 41.3 % (37.0-47.0); Hemoglobin 13.2 g/dl (12.0-16.0); Imm Gran Abs Auto 0.06 X10*3/uL (0.00-0.03); Imm Gran Pct Auto 0.6 % (0.0-0.4); Lymphocytes Absolute Auto 3.2 X10*3/uL (1.2-4.9); Lymphocytes Percent Auto 33.8 % (20-40); Mean Corpuscular Hemoglobin 31.1 pg (27.0-33.0); Mean Corpuscular Volume 97.4 fL (80.0-98.0); Mean Platelet Volume 11.2 fL (9.4-12.3); Monocytes Absolute Auto 0.7 X10*3/uL (0.1-1.2); Monocytes Percent Auto 7.4 % (2-11); Neutrophils Absolute Auto 5.5 x10*3/uL (2.0-8.3); Neutrophils Percent Auto 57.2 % (45-73); Platelet Count 282 X10*3/uL (160-400); Red Blood Count 4.24 X10*6/uL (4.20-5.50); Red Cell Distribution Width 12.8 % (11.0-16.0); White Blood Count 9.6 X10*3/uL (4.8-10.8)
[2022-09-09 09:45] LABS: Alanine Aminotransferase 10 U/L (0-31); Albumin Level 4.1 g/dL (3.5-5.0); Alkaline Phosphatase 73 U/L (39-117); Anion Gap 15 (12-20); Aspartate Amino Transferase 14 U/L (5-31); Bilirubin Total 0.4 mg/dL (0.0-1.0); Blood Urea Nitrogen 18 mg/dL (9-16); Calcium 9.7 mg/dL (8.4-10.2); Carbon Dioxide 27 mmol/L (22-29); Chloride 104 mmol/L (96-108); Cholesterol 257 mg/dL; Estimated Glomerular Filt Rate 58; Glucose Fasting 144 mg/dL (60-99); HDL Cholesterol 33 mg/dL; Iron 69 mcg/dL (30-160); LDL Cholesterol Calculated 198 mg/dl; Percent Iron Saturation 26 % (15-50); Potassium 4.6 mmol/L (3.3-5.1); Sodium 141 mmol/L (135-145); Total Iron Binding Capacity 266 mcg/dL (228-428); Total Protein 7.8 g/dL (6.5-8.0); Triglycerides 134 mg/dL; Unsaturated Iron Binding 197 ug/dL
== END 2022-09-09 08:26 | disposition home or self-care (01) ==
LOC: HO.LAB 08:25
PROVIDERS: PCP Internal Medicine; Visit Provider Internal Medicine
DX: E78.5 Hyperlipidemia, unspecified (principal); M81.0 Age-related osteoporosis without current pathological fracture; D64.9 Anemia, unspecified
CPT/HCPCS: 36415; 80053; 80061; 83540; 85025

== ENCOUNTER → 2023-02-11 08:27 | Outpatient (BNVA) | payer MEDICARE, OTHER, SELFPAY | PROVIDERS: PCP Internal Medicine; Visit Provider Nurse Practitioner Family ==

== ENCOUNTER → 2023-02-13 08:29 | Outpatient (BNVA) | payer MEDICARE, OTHER, SELFPAY | PROVIDERS: PCP Internal Medicine; Visit Provider Internal Medicine Endocrinology, Diabetes & Metabolism | DX: M81.0 Age-related osteoporosis without current pathological fracture (principal) | CPT/HCPCS: 99212 ==

== ENCOUNTER → 2023-02-24 10:30 | Outpatient (BNVA) | payer MEDICARE, OTHER, SELFPAY | PROVIDERS: PCP Internal Medicine; Visit Provider Internal Medicine | DX: Z45.018 Encounter for adjustment and management of other part of cardiac pacemaker (principal); I42.9 Cardiomyopathy, unspecified; I49.5 Sick sinus syndrome; I10 Essential (primary) hypertension; E78.5 Hyperlipidemia, unspecified | CPT/HCPCS: 93280; 99212 ==

== ENCOUNTER 2023-03-03 09:27 | Outpatient (REF) | payer MEDICARE, OTHER, SELFPAY ==
[2023-03-03 13:05] LABS: Alanine Aminotransferase 13 U/L (0-31); Albumin Level 4.2 g/dL (3.5-5.0); Alkaline Phosphatase 69 U/L (39-117); Anion Gap 11 (12-20); Aspartate Amino Transferase 20 U/L (5-31); Bilirubin Total 0.8 mg/dL (0.0-1.0); Blood Urea Nitrogen 19 mg/dL (9-16); Calcium 9.7 mg/dL (8.4-10.2); Carbon Dioxide 25 mmol/L (22-29); Chloride 108 mmol/L (96-108); Cholesterol 181 mg/dL; Estimated Glomerular Filt Rate 52; Glucose Random 99 mg/dL (60-115); HDL Cholesterol 32 mg/dL; LDL Cholesterol Calculated 113 mg/dl; Potassium 4.8 mmol/L (3.3-5.1); Sodium 139 mmol/L (135-145); Total Protein 7.2 g/dL (6.5-8.0); Triglycerides 181 mg/dL
== END 2023-03-03 09:28 | disposition home or self-care (01) ==
LOC: HO.LAB 09:27
PROVIDERS: Nurse Practitioner Family; PCP Internal Medicine; Visit Provider Internal Medicine Endocrinology, Diabetes & Metabolism
DX: E78.5 Hyperlipidemia, unspecified (principal); I10 Essential (primary) hypertension; M81.0 Age-related osteoporosis without current pathological fracture
CPT/HCPCS: 36415; 80053; 80061

== ENCOUNTER → 2023-03-05 09:28 | Outpatient (BNVA) | payer MEDICARE, OTHER, SELFPAY | PROVIDERS: PCP Internal Medicine; Visit Provider Internal Medicine Endocrinology, Diabetes & Metabolism | DX: M81.0 Age-related osteoporosis without current pathological fracture (principal) | CPT/HCPCS: 96372; J0897 ==

== ENCOUNTER → 2023-03-11 10:29 | Outpatient (BNVA) | payer MEDICARE, OTHER, SELFPAY | PROVIDERS: PCP Internal Medicine; Referring Provider Internal Medicine; Visit Provider Nurse Practitioner Family | DX: K59.01 Slow transit constipation (principal); K21.9 Gastro-esophageal reflux disease without esophagitis | CPT/HCPCS: 99212 ==

== ENCOUNTER → 2023-03-26 09:28 | Outpatient (BNVA) | payer MEDICARE, OTHER, SELFPAY | PROVIDERS: PCP Internal Medicine; Referring Provider Internal Medicine; Visit Provider Nurse Practitioner Family ==

== ENCOUNTER → 2023-04-17 08:26 | Outpatient (BNVA) | payer MEDICARE, OTHER, SELFPAY | PROVIDERS: PCP Internal Medicine; Visit Provider Nurse Practitioner Family ==

== ENCOUNTER → 2023-05-04 08:27 | Outpatient (BNVA) | payer MEDICARE, OTHER, SELFPAY | PROVIDERS: PCP Internal Medicine; Visit Provider Nurse Practitioner Family ==

== ENCOUNTER 2023-06-09 08:35 | Outpatient (AMB) | payer MEDICARE, OTHER, SELFPAY ==
[2023-06-09 08:47] VITALS: BP 135/79; PULSE 59; BMI 22.8
--- NOTE | 2023-06-09 08:47 | MHC.OFFVIS ---
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 Patient will call the office if she feels that she to take any medications. So far patient has been doing well avoiding dietary triggers. Constipation Continue high-fiber diet. Patient was encouraged to increase fluid intake and activity to promote better bowel mobility. I will see patient in 3 months. We will discuss going for colonoscopy as he will be due in July. Patient then goes to [place] to stay with family for winter till spring time. We will try to get her in for colonoscopy before she leaves. Patient is agreeable to this plan and verbalizes understanding of instructions. She was given the opportunity to ask questions and all questions answered. ? TODAY'S VISIT Patient is here today for follow-up and to discuss going for colonoscopy. Patient states that she is using Dulcolax on as needed basis when she needs to go to the bathroom. Patient is eating lots of fruits and vegetables which also helps her to go to the bathroom. Recently patient had battery changed on her pacemaker. Patient no longer is using any PPI for acid reflux. Patient denies any issues with anesthesia in the past. No history of sleep apnea. On low-dose aspirin. Patient denies any cardiac or respiratory symptoms. Patient will be going to [place] for winter to spend time with family and would like to have the procedure done before she leaves. Patient states that she lives in September. Patient denies melena, hematochezia, unintentional weight loss or ribbon like stools. Patient denies dyspepsia, dysphagia or odynophagia PFSH Medical History Cardiomyopathy Dyslipidemia Essential hypertension GERD (gastroesophageal reflux disease) Memory loss Sick sinus syndrome Stenosis of right subclavian artery Tubular adenoma Surgical History History of esophagogastroduodenoscopy (EGD) History of pacemaker (~09/2012) History of surgical procedure on eye proper using laser Hx of colonoscopy Family History Father Cancer Mother Stroke Social History Household Members: None Housing: Apartment Alcohol intake: former Patient Tobacco Use Status: Current everyday Tobacco user Tobacco use type: Cigarette Cigarettes Per Day: 5 e-Cigarette/Vaping Use: Never Used Second Hand Smoke Exposure: No service: No Current occupational status: retired Cognitive needs: No Hearing needs: No Vision needs: Yes Female Reproductive History Menstrual Age of Menarche: 9 Review of Systems Const Denies weight gain and Denies weight loss ENT Reports no additional complaints, Denies dysphagia and Denies odynophagia Card Reports no additional complaints Resp Reports no additional complaints GI Denies abdominal pain, Denies belching, Denies melena, Denies bloating, Denies change in bowel habits, Denies dysphagia, Denies excessive flatus, Denies dyspepsia, Denies heartburn, Denies diarrhea, Denies loose stools, Denies nausea, Denies odynophagia and Denies vomiting Musc Reports no additional complaints Neuro Reports no additional complaints Psych Reports no additional complaints Endo Reports no additional complaints Physical Exam Vital Signs: Last Vital Signs Pulse 59 06/09/23 08:47 BP 135/79 06/09/23 08:47 BMI result Body Mass Index 22.8 Const General: healthy appearing, no acute distress and well developed Nutritional Appearance: well nourished Orientation/consciousness: patient oriented x3 HEENT Head: Yes normal to inspection, Yes normocephalic and Yes atraumatic Face and sinus: Yes normal facial exam Mouth: Normal oral and palatal mucosa present Throat: Yes posterior oropharynx normal, Yes tonsils normal and Yes uvula midline Eyes General: appearance normal, both eyes and all related structures Neck Neck: Yes normal visual inspection, Yes full ROM and Yes trachea midline Thyroid: Thyroid normal Resp Effort & Inspection: normal respiratory effort, able to speak in complete sentences, no tracheal deviation and symmetric chest movement Auscultation: clear to auscultation bilaterally Cardio Rate: regular rate Heart sounds: S1 normal heart sound present and S2 normal heart sound present GI Inspection: Yes normal to inspection and No distended Palpation (GI): Soft to palpation, not firm, nontender and No hepatosplenomegaly present Auscultation: normal bowel sounds General: Yes no CVA tenderness Back/Spine/Pelvis Back: no CVA tenderness Skin General skin exam: elasticity normal, turgor normal and dry skin Neuro General: patient oriented x3 Psych Appearance: grossly normal Mental Status: mental status grossly normal Speech and movement: Normal speech and movement present Affect: normal affect Assessment & Plan Assessment & Plan (1) Constipation by delayed colonic transit: Code(s): K59.01 - Slow transit constipation (2) GERD (gastroesophageal reflux disease): Code(s): K21.9 - Gastro-esophageal reflux disease without esophagitis Qualifiers: Esophagitis presence: without esophagitis Qualified Code(s): K21.9 - Gastro-esophageal reflux disease without esophagitis Plan: Continue avoiding dietary triggers and late night snacking. Staying upright for minimal 3 hours after meals discussed with patient. Patient denies dyspepsia, dysphagia or odynophagia (3) Screen for colon cancer: Code(s): Z12.11 - Encounter for screening for malignant neoplasm of colon Plan: Patient denies any ill effects from the anaesthesia or procedure in the past. Last colonoscopy 2 years ago and recommendation was made to repeat colorectal screening in 2 years. Patient denies melena, hematochezia, unintentional weight loss or ribbon like stools. Patient states that she is feeling fairly well. Recently had battery changed in her pacemaker. Will be seeing sales and service specialist in early July. Patient denies having any cardiac or respiratory issues. Patient is on low-dose aspirin. No issues with anesthesia in the past. We will do Dulcolax prep with 7 days before the procedure patient will take Dulcolax 2 tablets at nighttime. Day before the procedure she will do clear liquid diet and take to Dulcolax at noon and 2nd dose have in the evenings. Patient does not want to do any other prep that requires drinking lots of fluids. However patient was encouraged to drink fluids throughout the day to ensure that she does not become dehydrated. I will see her after the procedure, sooner on as needed basis. Patient is agreeable to this plan and verbalizes understanding of instructions. She was given the opportunity to ask questions and all questions answered. Thank you for allowing me to participate in her care Medications: Refilled bisacodyl 5 mg PO BEDTIME 30 days PRN 90 tabs 2RF constipation Coding Level of Care Code Est Pt Level 3 (34273) Diagnoses Constipation by delayed colonic transit K59.01 GERD (gastroesophageal reflux disease) K21.9 Esophagitis presence: without esophagitis Screen for colon cancer Z12.11 Time Spent (min) 35 Comment 15 minutes spent with patient and additional 10 minutes spent reviewing her records
== END 2023-06-09 10:08 | disposition home or self-care (01) ==
PROVIDERS: PCP Internal Medicine; Visit Provider Nurse Practitioner Family
DX: K59.01 Slow transit constipation (principal); K21.9 Gastro-esophageal reflux disease without esophagitis; Z12.11 Encounter for screening for malignant neoplasm of colon
CPT/HCPCS: 99213

== ENCOUNTER → 2023-06-09 08:35 | Outpatient (BNVA) | payer MEDICARE, OTHER, SELFPAY | PROVIDERS: PCP Internal Medicine; Visit Provider Nurse Practitioner Family | DX: Z12.11 Encounter for screening for malignant neoplasm of colon (principal); K59.01 Slow transit constipation; K21.9 Gastro-esophageal reflux disease without esophagitis | CPT/HCPCS: 99212 ==

== ENCOUNTER 2023-06-12 08:51 | Outpatient (AMB) | payer MEDICARE, OTHER, SELFPAY ==
--- NOTE | 2023-06-12 08:53 | MHC.OFFVIS ---
Intake Vital Signs 06/12/23 08:54 Height 5 ft 0.98 in Weight 120 lb 5.958 oz BMI 22.8 BP 140/78 H Blood Pressure Location Rt brachial Position Sitting Pulse 60 Pulse Source Pulse Oximeter Intake Visit Reasons: f/u osteoporosis Intake Note: Patient present for Osteoporosis follow up visit. Beater Out Required: No Accompanied by: Self / Same As Patient Allergies iodine Allergy (Severe, Verified 06/12/23 08:56) swelling, rash Medication List - Last Reconciled 06/12/23 by Karlos Crowe MD aspirin (Adult Low Dose Aspirin) 81 mg PO BEDTIME 90 days atorvastatin 80 mg PO BEDTIME 90 days bisacodyl 5 mg PO BEDTIME PRN 30 days carvedilol 12.5 mg PO ONCE cholecalciferol (vitamin D3) 25 mcg PO DAILY losartan 100 mg PO DAILY 90 days spironolactone 25 mg PO DAILY HPI HPI Comments History of Present Illness Details 73 YO Female with is seen in consultation at the request of PCP for Osteoporosis. First diagnosed in 6 mos ago . Received treatment in the past with alendronate , 6 mos ago for 2 mos . Was not able to Tolerate treatment well because of gastrointestinal side effects history of pathologic fracture in wrist bathroom fall or ONJ. Has several servings of dietary calcium per day Takes Calcium supplement 600 mg mg daily in divided doses. Takes ? IU of Vitamin D daily. uses PPI, but no anticoagulant, antiepileptic or glucocorticoid medication. Does weight bearing exercise walks every days per week in the form of walking . 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 No planned upcoming dental work or extractions.Has implants scheduled DXA dated 07/05/21 T Score -3.9 LS]: Labs: Secondary workup was negative. On alendrnate but having GI issues . Travels back and forth to [place] and can't recive anabolicc therapies. Wants to go with Prolia. Received a Prolia injection in January 2023 [facility] Medical History Cardiomyopathy Dyslipidemia Essential hypertension GERD (gastroesophageal reflux disease) Memory loss Sick sinus syndrome Stenosis of right subclavian artery Tubular adenoma Surgical History History of esophagogastroduodenoscopy (EGD) History of pacemaker (~09/2012) History of surgical procedure on eye proper using laser Hx of colonoscopy Family History Father Cancer Mother Stroke Social History Household Members: None Housing: Apartment Alcohol intake: former Patient Tobacco Use Status: Current everyday Tobacco user Tobacco use type: Cigarette Cigarettes Per Day: 5 e-Cigarette/Vaping Use: Never Used Second Hand Smoke Exposure: No service: No Current occupational status: retired Cognitive needs: No Hearing needs: No Vision needs: Yes Female Reproductive History Menstrual Age of Menarche: 9 Physical Exam Vital Signs: Last Vital Signs Pulse 60 06/12/23 08:54 BP 140/78 H 06/12/23 08:54 BMI result Body Mass Index 22.8 Assessment & Plan Assessment & Plan (1) Osteoporosis: Code(s): M81.0 - Age-related osteoporosis without current pathological fracture Plan: This is a 72-year-old female with a history of osteoporosis. Secondary causes have been ruled out. Currently on Prolia The plan is arrange for another Prolia injection in July 2023, will check basic metabolic panel with calcium 2 weeks prior Orders: Orders Albumin Level 6 Weeks M81.0 - Age-related osteoporosis without current pathological fracture Basic Metabolic Panel 6 Weeks M81.0 - Age-related osteoporosis without current pathological fracture Calcium 6 Weeks M81.0 - Age-related osteoporosis without current pathological fracture Coding Level of Care Code Est Pt Level 3 (45556) Diagnoses Osteoporosis M81.0
[2023-06-12 08:54] VITALS: BP 140/78; PULSE 60; BMI 22.8
== END 2023-06-12 09:08 | disposition home or self-care (01) ==
PROVIDERS: PCP Internal Medicine; Visit Provider Internal Medicine Endocrinology, Diabetes & Metabolism
DX: M81.0 Age-related osteoporosis without current pathological fracture (principal)
CPT/HCPCS: 99213

== ENCOUNTER → 2023-06-12 08:51 | Outpatient (BNVA) | payer MEDICARE, OTHER, SELFPAY | PROVIDERS: Visit Provider Internal Medicine Endocrinology, Diabetes & Metabolism | DX: M81.0 Age-related osteoporosis without current pathological fracture (principal) | CPT/HCPCS: 99212 ==

== ENCOUNTER 2023-06-15 13:37 | Outpatient (AMB) | payer MEDICARE, OTHER, SELFPAY ==
--- NOTE | 2023-06-15 13:43 | MHC.OFFVIS ---
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 No complaints. Last Pap/HPV was many years ago no history of abnormal Pap smear last 25 years Last Mammogram was BI-RADS 2 in 05/21, next screening mammogram scheduled in few months Last Colonoscopy was in 08/20, the recommendation was to repeat in 2-3 years, the patient has another screening colonoscopy scheduled in August Last DEXA scan was in 07/28 which showed osteoporosis, the patient took alendronate could not tolerated from GI side effects, recently was started on IV treatment by Dr. Crowe [facility] Medical History Cardiomyopathy Dyslipidemia Essential hypertension GERD (gastroesophageal reflux disease) Memory loss Sick sinus syndrome Stenosis of right subclavian artery Tubular adenoma Surgical History History of esophagogastroduodenoscopy (EGD) History of pacemaker (~09/2012) History of surgical procedure on eye proper using laser Hx of colonoscopy Family History Father Cancer Mother Stroke Social History Household Members: None Housing: Apartment Alcohol intake: former Patient Tobacco Use Status: Current everyday Tobacco user Tobacco use type: Cigarette Cigarettes Per Day: 5 Years Smoked: 25 e-Cigarette/Vaping Use: Never Used Second Hand Smoke Exposure: No service: No Current occupational status: retired Cognitive needs: No Hearing needs: No Vision needs: Yes Female Reproductive History Menstrual Age of Menarche: 9 Total pregnancies: 2 Full term: 2 Number of Living Children: 2 Date of Mammogram: 05/28/22 Date of last Bone Density Screenin07/05/21 Review of Systems Const All systems reviewed & are unremarkable except as noted in HPI and below Card Reports as per HPI Resp Reports as per HPI GI Reports as per HPI and Reports no additional complaints Reports as per HPI Physical Exam Vital Signs: Last Vital Signs BP 126/70 06/15/23 13:44 BMI result Body Mass Index 22.7 Const General: cooperative, healthy appearing and comfortable Chest Chest palpation & inspection: normal inspection of the chest and normal palpation of entire chest wall Breast/axilla inspection: normal inspection of the breasts and normal inspection of the axillae Breast/axilla palpation: normal palpation of the breasts, normal palpation of the axillae and no axillary lymphadenopathy Resp Effort & Inspection: normal respiratory effort Auscultation: clear to auscultation bilaterally Percussion: percussion normal Cardio Palpation: normal PMI Rate: regular rate Rhythm: regular rhythm Heart sounds: no murmurs and no rubs Peripheral pulses: Peripheral pulses 2+ throughout GI Inspection: Yes normal to inspection Palpation (GI): Soft to palpation, nontender, no guarding, not rigid and No hepatosplenomegaly present Percussion: Yes normal to percussion Auscultation: normal bowel sounds Rectal Exam - Female: deferred General: Yes bladder normal to palpation External Female Exam: No lesion Speculum Exam - Vagina: normal appearance of the vagina, normal palpation, normal vaginal discharge and not erythematous Speculum Exam - Cervix: normal appearance of the cervix and normal palpation Bimanual exam- vagina & uterus: normal bimanual exam, normal palpation, uterine size normal, bladder normal to palpation, consistency normal and normal palpation Bimanual Exam- Adnexa, other: normal adnexae, no masses and no tenderness Assessment & Plan Assessment & Plan (1) Well woman exam: Code(s): Z01.419 - Encounter for gynecological examination (general) (routine) without abnormal findings Plan: Co testing not indicated since the patient 's age is above 65 with no history of abnormal Pap smears last 25 years. Counseled the patient about the recommended dietary allowance of 1200 mg of Calcium & 800 IU of vitamin D. Mammogram ordered, referred her for screening colonoscopy done. Will order DEXA scan next year since the patient just restarted on IV treatment . The patient was instructed to schedule an annual exam in a year; all questions answered and the patient verbalized understanding. Orders: Orders XR DEXA axial skeleton Today N95.1 - Menopausal and female climacteric states MM screening mammo BI Today N95.1 - Menopausal and female climacteric states, Z12.31 - Encounter for screening mammogram for malignant neoplasm of breast Referrals Gastroenterology Referral N95.1 - Menopausal and female climacteric states, Z12.11 - Encounter for screening for malignant neoplasm of colon Coding Level of Care Code Est Pt Prev Care >65y(31107) Diagnoses Well woman exam Z01.419
[2023-06-15 13:44] VITALS: BP 126/70; BMI 22.7
== END 2023-06-15 14:36 | disposition home or self-care (01) ==
LOC: HO.HWS 13:37
PROVIDERS: PCP Internal Medicine; Visit Provider Obstetrics & Gynecology
DX: Z01.419 Encounter for gynecological examination (general) (routine) without abnormal findings (principal)
CPT/HCPCS: G0101

== ENCOUNTER → 2023-06-15 13:37 | Outpatient (BNVA) | payer MEDICARE, OTHER, SELFPAY | PROVIDERS: PCP Internal Medicine; Visit Provider Obstetrics & Gynecology | DX: Z01.419 Encounter for gynecological examination (general) (routine) without abnormal findings (principal) | CPT/HCPCS: G0101 ==

== ENCOUNTER 2023-07-02 08:28 | Outpatient (REF) | payer MEDICARE, OTHER, SELFPAY ==
--- NOTE | ~2023-07-02 | XR_ITS ---
EXAMINATION: XR LUMBOSACRAL SPINE CLINICAL INFORMATION: Low back pain. COMPARISON: None available. TECHNIQUE: Three views of the lumbosacral spine. FINDINGS: Dextroscoliosis of 15 degrees is measured from the superior endplate of T11 to the inferior plate of L4. The lumbar vertebra well preserved height and alignment. No vertebral compression fracture. Mild narrowing of disc spaces and small vertebral body osteophytes are present within the visualized lower thoracic and lumbar spine. Mild facet osteoarthritis of L4-5. Also, there appears to be right worse than left facet osteoarthritis at L5-S1. Sacrum and sacroiliac joints are intact. There is atherosclerotic calcification of the aorta and iliac arteries. XR/XR lumbar spine 2-3V IMPRESSION: * Mild discovertebral degenerative changes and dextroscoliosis of the lower thoracic and lumbar spine. * No vertebral compression fractures. * Facet osteoarthritis of the lumbar spine appears to be worst on the right at L5-S1.
[2023-07-02 09:37] LABS: Albumin Level 4.2 g/dL (3.5-5.0); Anion Gap 15 (12-20); Blood Urea Nitrogen 17 mg/dL (9-16); Calcium 10.5 mg/dL (8.4-10.2); Carbon Dioxide 21 mmol/L (22-29); Chloride 108 mmol/L (96-108); Estimated Glomerular Filt Rate 51; Glucose Random 113 mg/dL (60-115); Potassium 4.5 mmol/L (3.3-5.1); Sodium 139 mmol/L (135-145)
== END 2023-07-02 08:29 | disposition home or self-care (01) ==
LOC: HO.XRAY 08:28
PROVIDERS: Absent Provider Internal Medicine Endocrinology, Diabetes & Metabolism; PCP Internal Medicine; Visit Provider Internal Medicine
DX: M54.50 Low back pain, unspecified (principal); M81.0 Age-related osteoporosis without current pathological fracture
CPT/HCPCS: 36415; 72100; 80048; 82040

== ENCOUNTER 2023-07-09 09:07 | Outpatient (REF) | payer MEDICARE, OTHER, SELFPAY ==
--- NOTE | ~2023-07-09 | MM_ITS ---
EXAMINATION: BONE DENSITOMETRY CLINICAL INDICATION: Menopausal and female climacteric states. COMPARISON: Baseline BD dated 07/05/2021. TECHNIQUE: Using a [employer] DXA System (software version: 13.1) manufactured by [employer], dual-energy x-ray absorptiometry was performed of the lumbar spine and left hip. The images are of good technical quality. Summary results are attached. FINDINGS: LEFT FEMUR, NECK: Current: BMD 0.643 g/cm2, Z-score -0.7, T-score -2.8, osteoporosis. Baseline: BMD 0.657 g/cm2. LEFT FEMUR, TOTAL: Current: BMD 0.739 g/cm2, Z-score -0.1, T-score -2.1, osteopenia, 2.0% decrease from baseline (<5% change is not significant). Baseline: BMD 0.754 g/cm2. AP SPINE L1-L4: Current: BMD 0.720 g/cm2, Z-score -1.7, T-score -3.8, osteoporosis, 0.4% increase from baseline (<5% change is not significant). Baseline: BMD 0.717 g/cm2. IDENTIFIED RISK FACTORS: Osteoporosis, history of fracture (adult), tobacco use (current smoker), height loss, low body weight, low calcium intake, secondary osteoporosis, menopause. HISTORY OF FRACTURE: Wrist. MEDICATIONS: Calcium supplements or multivitamin, vitamin D. MM/XR DEXA axial skeleton IMPRESSION: 1. DIAGNOSIS: Severe osteoporosis based on the lowest T-score value of -3.8 in the lumbar spine and history of fracture applying World Health Organization criteria. 2. 10-YEAR FRACTURE RISK PREDICTION, FRAX: According to the guidelines, FRAX calculation should only be performed on patients in the osteopenia bone density category. Therefore, FRAX was not performed on this patient. 3. Treatment Recommendations: NOF guidelines recommend consideration for treatment in postmenopausal women and men age 50 and older presenting with the following: -A hip or vertebral (clinical or morphometric) fracture. -T-score less than or equal to -2.5 at the femoral neck or spine after appropriate evaluation to exclude secondary causes. -Low bone mass at the hip or spine and a 10-year fracture probability by FRAX of greater than or equal to 3% for hip fracture or greater than or equal to 20% for major osteoporotic fracture based on the [place] adapted WHO algorithm. 4. Other Recommendations: All treatment decisions require clinical judgment and consideration of individual patient factors, including patient preferences, comorbidities, previous drug use, risk factors not captured in the FRAX model (e.g. frailty, falls, vitamin D deficiency, increased bone turnover, interval significant decline in bone density) and possible under or overestimation of fracture risk by FRAX. Additional medical evaluation for secondary cause of low bone mineral density may be appropriate. FUTURE SCAN RECOMMENDATION: People with diagnosed cases of osteoporosis or at high risk for fracture should have regular bone mineral density tests. For patients eligible for Medicare, routine testing is allowed once every 2 years. The testing frequency can be increased to one year for patients who have rapidly progressing disease, those who are receiving or discontinuing medical therapy to restore bone mass, or have additional risk factors.
== END 2023-07-09 09:08 | disposition home or self-care (01) ==
LOC: HO.MAMMO 09:07
PROVIDERS: PCP Internal Medicine; Visit Provider Obstetrics & Gynecology
DX: Z13.820 Encounter for screening for osteoporosis (principal); Z78.0 Asymptomatic menopausal state
CPT/HCPCS: 77080

== ENCOUNTER → 2023-07-09 09:30 | Outpatient (BNV) | payer MEDICARE, OTHER, SELFPAY | PROVIDERS: PCP Internal Medicine; Visit Provider Radiology Diagnostic Radiology | DX: M81.0 Age-related osteoporosis without current pathological fracture (principal) | CPT/HCPCS: 77080 ==

== ENCOUNTER 2023-08-04 08:31 | Outpatient (AMB) | payer MEDICARE, OTHER, SELFPAY ==
--- NOTE | 2023-08-04 09:12 | A.OFFPC_ITS ---
Vital Signs 08/04/23 09:13 Height 5 ft 1 in Weight 114 lb 8 oz BMI 21.6 BP 110/64 Blood Pressure Location Lt brachial Position Sitting Pulse 60 Pulse Source Pulse Oximeter Pulse Oximetry (%) 95 Oxygen Delivery Method Room Air Intake Visit Reasons: bp,lipids Intake Note: Pt is here for BP and lipids F/U. Documentation Analyst Required: No Accompanied by: Self / Same As Patient Allergies iodine Allergy (Severe, Verified 08/04/23 09:30) swelling, rash Medication List - Last Reconciled 08/04/23 by Lucy Hodge MD aspirin (Adult Low Dose Aspirin) 81 mg PO BEDTIME 90 days atorvastatin 80 mg PO BEDTIME 90 days bisacodyl 5 mg PO BEDTIME PRN 30 days carvedilol 12.5 mg PO ONCE cholecalciferol (vitamin D3) 25 mcg PO DAILY losartan 100 mg PO DAILY 90 days spironolactone 25 mg PO DAILY Tobacco use date assessed: 03/03/23 Fall risk assessment: 1 Fall in past year Last assessed Fall Risk: 08/04/23 Dental Screening Dental Screen Date: 08/04/23 Did you have a dental visit in the last 12 months?: No Did you have a dental problem in the last 6 months where you did not have access to dental care?: No Was dental information given to patient?: Patient has dentist HPI HPI Comments History of Present Illness Details This is a 73-year-old female with hypertension, dyslipidemia, cardiomyopathy and severe osteoporosis that comes today for follow-up on her conditions. Blood pressure stable. Cholesterol well control. Euvolemic today denies gaining 5 lb in a week. On carvedilol for her cardiomyopathy and last ejection fraction was 54% in 2020. Bone density test done recently shows severe osteoporosis and she is currently on Prolia. No chest pain or shortness of breath. Complains of chronic low back pain and last x-ray shows osteoarthritis and also has neck pain with full active range of motion. I recommend to continue taking Tylenol since she declined physical therapy. [facility] Medical History Cardiomyopathy Dyslipidemia Essential hypertension GERD (gastroesophageal reflux disease) Memory loss Sick sinus syndrome Stenosis of right subclavian artery Tubular adenoma Surgical History History of esophagogastroduodenoscopy (EGD) History of pacemaker (~09/2012) History of surgical procedure on eye proper using laser Hx of colonoscopy Family History Father Cancer Mother Stroke Social History Household Members: None Housing: Apartment Alcohol intake: former Patient Tobacco Use Status: Current everyday Tobacco user Tobacco use type: Cigarette Cigarettes Per Day: 5 Years Smoked: 25 e-Cigarette/Vaping Use: Never Used Second Hand Smoke Exposure: No service: No Current occupational status: retired Cognitive needs: No Hearing needs: No Vision needs: Yes Female Reproductive History Menstrual Age of Menarche: 9 Questionnaire Thrive Questionnaire Date Thrive assessed: 03/03/23 DELIA-7 AMB Questionnaire DELIA-7 Date DELIA - 7 assessed: 03/03/23 Source: Developed by Drs. Karlos Espinosa, Denae Buckley, Aayush Veliz and colleagues, with an educational juliet from [employer]. Review of Systems Const All systems reviewed & are unremarkable except as noted in HPI and below Eyes Reports no additional complaints, Denies change in vision and Denies other visual disturbances Card Denies chest pain at rest, Denies chest pain with activity, Denies edema, Denies irregular heart rhythm, Denies claudication, Denies dyspnea, Denies dyspnea on exertion, Denies orthopnea, Denies paroxysmal nocturnal dyspnea and Denies slow heart rate Resp Denies cough, Denies dyspnea and Denies dyspnea on exertion GI Denies abdominal pain, Denies change in bowel habits, Denies excessive flatus, Denies nausea and Denies vomiting Denies urinary incontinence, Denies urinary hesitancy and Denies urinary urgency Musc Denies abnormal gait, Denies atrophy, Denies deformity and Denies limited range of motion Skin/Breast Denies bleeding lesions, Denies changing lesions and Denies rash Neuro Denies abnormal gait and Denies lack of coordination Physical exam (Primary Care) Vital Signs: Last Vital Signs Pulse 60 08/04/23 09:13 BP 110/64 08/04/23 09:13 Pulse Ox 95 08/04/23 09:13 Oxygen Delivery Method Room Air 08/04/23 09:13 BMI result Body Mass Index 21.6 Tobacco/Smoking Status: Tobacco use Status Tobacco use date assessed 03/03/23 08/04/23 09:13 Patient Tobacco Use Status Current everyday Tobacco 08/04/23 09:13 Tobacco use type Cigarette 08/04/23 09:13 e-Cigarette/Vaping Use Never Used 08/04/23 09:13 Thrive Assessment: Date of Thrive Assessment Date Thrive assessed 03/03/23 08/04/23 09:13 Eyes General: appearance normal, both eyes and all related structures Eyelids: Yes eyelids normal Conjunctivae: conjunctivae normal Neck Neck: Yes normal visual inspection and Yes supple Resp Effort & Inspection: normal respiratory effort Auscultation: clear to auscultation bilaterally Cardio Jugular venous distension: no JVD Rate: regular rate Rhythm: regular rhythm Heart sounds: S1 normal heart sound present and S2 normal heart sound present Extrem General: Yes full ROM Results AMB Hemoglobin A1c AMB Hemoglobin A1c 6.0 % Last Edit by SNOW O[place] on 08/04/23 09:27 Results Reviewed Results Reviewed: Laboratory Last Values Hgb A1c (Clinic) 6.0 % (4.0-6.0) 08/04/23 09:26 Assessment and Plan Assessment & Plan (1) Essential hypertension: Code(s): I10 - Essential (primary) hypertension Plan: Continue losartan. Blood pressure goal is equal or less than 130/80. (2) Cardiomyopathy: Code(s): I42.9 - Cardiomyopathy, unspecified Qualifiers: Cardiomyopathy type: unspecified Qualified Code(s): I42.9 - Cardiomyopathy, unspecified Plan: Continue carvedilol. (3) Dyslipidemia: Code(s): E78.5 - Hyperlipidemia, unspecified Plan: Continue statins. (4) Osteoporosis: Code(s): M81.0 - Age-related osteoporosis without current pathological fracture Plan: Continue Prolia. Follow-up with endocrinology. Orders: Orders AMB Hemoglobin A1c Today Z13.1 - Encounter for screening for diabetes mellitus Coding Level of Care Code Est Pt Level 4 (65869) Diagnoses Essential hypertension I10 Cardiomyopathy I42.9 Cardiomyopathy type: unspecified Dyslipidemia E78.5 Osteoporosis M81.0 Time Spent (min) 23
[2023-08-04 09:13] VITALS: BP 110/64; PULSE 60; O2SAT 95; BMI 21.6
== END 2023-08-04 09:44 | disposition home or self-care (01) ==
PROVIDERS: PCP Internal Medicine; Visit Provider Internal Medicine
DX: I10 Essential (primary) hypertension (principal); I42.9 Cardiomyopathy, unspecified; E78.5 Hyperlipidemia, unspecified; M81.0 Age-related osteoporosis without current pathological fracture; Z13.1 Encounter for screening for diabetes mellitus
CPT/HCPCS: 83036; 99214

== ENCOUNTER 2023-08-06 08:37 | Outpatient (AMB) | payer MEDICARE, OTHER, SELFPAY ==
[2023-08-06 09:13] VITALS: BP 116/60; BMI 21.2
--- NOTE | 2023-08-06 09:13 | MHC.OFFVIS ---
Intake Vital Signs 08/06/23 09:13 Height 5 ft 1 in Weight 112 lb 6.972 oz BMI 21.2 BP 116/60 Intake Visit Reasons: DEXA follow up Neurosurgical Nurse Practitioner Required: No Information Interpreted: non-clinical & clinical Accompanied by: Self / Same As Patient Allergies iodine Allergy (Severe, Verified 08/06/23 09:14) swelling, rash Post menopausal: Yes HPI HPI Comments History of Present Illness Details The patient is presenting for follow up regarding DEXA scan results. DEXA scan showed the following compared to DEXA scan done 2 years ago: LEFT FEMUR, NECK: Current: BMD 0.643 g/cm2, Z-score -0.7, T-score -2.8, osteoporosis. Baseline: BMD 0.657 g/cm2. LEFT FEMUR, TOTAL: Current: BMD 0.739 g/cm2, Z-score -0.1, T-score -2.1, osteopenia, 2.0% decrease from baseline (<5% change is not significant). Baseline: BMD 0.754 g/cm2. AP SPINE L1-L4: Current: BMD 0.720 g/cm2, Z-score -1.7, T-score -3.8, osteoporosis, 0.4% increase from baseline (<5% change is not significant). Baseline: BMD 0.717 g/cm2. The patient could not tolerate alendronate so was the refer to Rheumatology and was started on Prolia injection 6 months ago P [facility] Medical History Cardiomyopathy Dyslipidemia Essential hypertension GERD (gastroesophageal reflux disease) Memory loss Sick sinus syndrome Stenosis of right subclavian artery Tubular adenoma Surgical History History of esophagogastroduodenoscopy (EGD) History of pacemaker (~09/2012) History of surgical procedure on eye proper using laser Hx of colonoscopy Family History Father Cancer Mother Stroke Social History Household Members: None Housing: Apartment Alcohol intake: former Patient Tobacco Use Status: Current everyday Tobacco user Tobacco use type: Cigarette Cigarettes Per Day: 5 Years Smoked: 25 e-Cigarette/Vaping Use: Never Used Second Hand Smoke Exposure: No service: No Current occupational status: retired Cognitive needs: No Hearing needs: No Vision needs: Yes Female Reproductive History Menstrual Age of Menarche: 9 Physical Exam Vital Signs: Last Vital Signs BP 116/60 08/06/23 09:13 BMI result Body Mass Index 21.2 Assessment & Plan Assessment & Plan (1) Osteoporosis: Code(s): M81.0 - Age-related osteoporosis without current pathological fracture Plan: Discussed with the patient the results of DEXA scan showing T-score at-3.8 in the spine level and -2.8 at the femur levels, with a-2% decrease and +0.4% increase in bone mineral density at the spine and femur level respectively. Although the BMD changes are below 5% and not significant, given the severity of the T-score, the patient is a follow-up appointment with Rheumatology in a week. All questions answered, the patient verbalized understanding Coding Level of Care Code Est Pt Level 3 (02843) Diagnoses Osteoporosis M81.0
== END 2023-08-06 09:28 | disposition home or self-care (01) ==
PROVIDERS: PCP Internal Medicine; Visit Provider Obstetrics & Gynecology
DX: M81.0 Age-related osteoporosis without current pathological fracture (principal)
CPT/HCPCS: 99213

== ENCOUNTER → 2023-08-06 08:37 | Outpatient (BNVA) | payer MEDICARE, OTHER, SELFPAY | PROVIDERS: PCP Internal Medicine; Visit Provider Obstetrics & Gynecology | DX: M81.0 Age-related osteoporosis without current pathological fracture (principal); F17.210 Nicotine dependence, cigarettes, uncomplicated; Z78.0 Asymptomatic menopausal state; Z79.620 Long term (current) use of immunosuppressive biologic | CPT/HCPCS: 99212 ==

== ENCOUNTER 2023-08-28 07:47 | Day surgery (SDC) | payer MEDICARE, OTHER, SELFPAY ==
[2023-08-26 14:12] VITALS: BMI 22.9
[2023-08-28 08:27] VITALS: BMI 20.5
[2023-08-28 08:30] VITALS: PULSE 60; RESP 18; TEMP 36.3; O2SAT 96
[2023-08-28 08:43] VITALS: BMI 20.5
--- NOTE | 2023-08-28 09:10 | P.CONAN_ITS ---
[facility] Active Problems Active Problems: All Active Problems (Updated 08/26/23 @ 14:15 by Lindsay Whitmore RN) Constipation by delayed colonic transit (Acute) Lumbar pain (Acute) Hyperlipidemia (Acute) Leukocytosis (Acute) Preoperative cardiovascular examination (Acute) Osteoporosis (Acute) Carotid artery stenosis (Acute) Carotid artery disease (Acute) Menopausal state (Acute) Well woman exam (Acute) History of pacemaker (Acute ~09/2012) Memory loss (Acute) Tubular adenoma (Acute) Dyslipidemia (Acute) Sick sinus syndrome (Acute) Cardiomyopathy (Acute) GERD (gastroesophageal reflux disease) (Acute) Essential hypertension (Acute) Past Medical History Medical History (Updated 08/26/23 @ 14:15 by Lindsay Whitmore RN) Memory loss Tubular adenoma Stenosis of right subclavian artery Dyslipidemia Sick sinus syndrome Cardiomyopathy GERD (gastroesophageal reflux disease) Essential hypertension Family History Family History Father Cancer Mother Stroke Family history of problems with anesthesia: No Surgical History Surgical History (Updated 08/26/23 @ 14:15 by Lindsay Whitmore RN) History of esophagogastroduodenoscopy (EGD) Hx of colonoscopy History of surgical procedure on eye proper using laser History of pacemaker (~09/2012) History of Problems with Anesthesia: No Social History Social History Household Members: None Housing: Apartment Alcohol intake: former Patient Tobacco Use Status: Current everyday Tobacco user Tobacco use type: Cigarette Cigarettes Per Day: 3 Years Smoked: 25 e-Cigarette/Vaping Use: Never Used Second Hand Smoke Exposure: No Use of substances other than those prescribed or required for medical reasons: No Are you DNR?: No Advance Directives: No Advance Directives Information Provided: Yes service: No Current occupational status: retired Cognitive needs: No Hearing needs: No Vision needs: Yes Meds Allergies Allergy/AdvReac Type Severity Reaction Status Date / Time iodine Allergy Severe swelling, Verified 08/06/23 09:14 rash Home Medications Medication Instructions Recorded Confirmed Last Taken Type cholecalciferol (vitamin D3) 25 25 mcg PO DAILY 02/13/23 08/26/23 Unknown History mcg (1,000 unit) capsule carvedilol 12.5 mg tablet 12.5 mg PO DAILY 08/26/23 08/26/23 Unknown History spironolactone 25 mg tablet 25 mg PO DAILY 08/26/23 08/26/23 Unknown History Exam Exam Date and Time: August 28, 2023 0910 Height,Weight and Vital Signs: Height 5 ft 2.5 in Weight 51.71 kg Last Vital Signs Temp 97.4 F 08/28/23 08:30 Pulse 60 08/28/23 08:30 Resp 18 08/28/23 08:30 Pulse Ox 96 08/28/23 08:30 Airway Mallampati Class: II TM Dist: >3cm Neck ROM: Full Denture: Upper Heart: rrr Lungs: cta Assessment and Plan Assessment Anesthesia Assessment: Anesthesia Plan Discussed and Chart Reviewed Final Anesthetic Review Family History of Problems with Anesthesia: No History of Problems with Anesthesia: No NPO: Yes ASA Class: III Final Preanesthetic Review: No Changes in Pt Med Stat, Meds/Allgs Chart Reviewed and Consent Obtained/Reviewed Patient Risk: Intermediate Procedure Risk: Intermediate Anesthetic Plan Anesthetic Plan: MAC: Disposition: Standard PACU
[2023-08-28 09:11] VITALS: BP 135/69; PULSE 60; RESP 18; TEMP 36.3; O2SAT 96
[2023-08-28] MEDS: Lactated Ringers 1,000 ML 50 ML IVCONT (09:45)
--- NOTE | 2023-08-28 09:52 | MHC.SHP ---
Pre-Procedural Eval Section A Date of Service: 08/28/23 The patient is an INPATIENT: No The History & Physical has been completed within 30 days and I have reviewed it.: No Section B Chief Complaint: Surveillance for colon polyps Relevant Family History (Specify if Yes): No Relevant Social History: Tobacco Use Present Medications: see Short Stay Collaborative assessment Medical History: Significant History (Cardiomyopathy Dyslipidemia Essential hypertension GERD (gastroesophageal reflux disease) Memory loss Sick sinus syndrome Stenosis of right subclavian artery Tubular adenoma) History of Previous Operations: Relevant previous surgery/procedure and date(s) (History of esophagogastroduodenoscopy (EGD) History of pacemaker (~09/2012) History of surgical procedure on eye proper using laser Hx of colonoscopy) Allergies: Allergies Allergy/AdvReac Type Severity Reaction Status Date / Time iodine Allergy Severe swelling, Verified 08/06/23 09:14 rash Review of Systems Sugical H&P ROS: Negative: Constitution, Cardiovascular, Respiratory and Gastrointestinal Exam Surgical H&P Exam: Normal: Heart, Normal: Lungs, Normal: Extremities and Normal: Abdomen Plan Diagnosis/Plan: Unchanged I have reviewed the history and physical and performed a pertinent physical examination on my patient. No changes have occurred unless specified. Time Spent With Patient Time: Total time managing care of this patient today ____ minutes.
--- NOTE | 2023-08-28 11:22 | W.PM.OPN ---
Operative Note Operative Note Date of Service: 08/28/23 Narrative: COLONOSCOPY TILL CECUM WITH SNARE POLYPECTOMY Pre-op diagnosis: Surveillance for colon polyps Post-op diagnosis:? Colon polyp, diverticulosis, hemorrhoids Endoscopist:? Gwendolyn Reyes MD Anesthesia:?MAC Consent: Indications for the procedure and potential complications of bleeding, perforation, reaction to medications and missed diagnosis were discussed with the patient and informed consent was obtained. Instrument: Olympus CF H 190 L variable stiffness adult colonoscope Monitoring: Vital signs and clinical assessment, intermittent blood pressure monitoring, continuous EKG monitoring, Pulse oximetry and Carbon Dioxide monitoring were done throughout the procedure. Please see anesthesia flowsheet. Colon withdrawl time was 15 minutes. Procedure: The patient was placed in the left lateral decubitis position and pre-procedure medications were administered. After a digital rectal examination of the ano-rectum, the video colonoscope was inserted into the rectum and advanced through the colon to the cecum. The colonoscope was slowly withdrawn in a retrograde panoramic fashion and the colon mucosa was carefully examined including a retroflexed view of the rectum. Findings and interventions are described below. Procedure Difficulty: Without difficulty Findings: Terminal Ileum: Not evaluated Cecum: A 7-8 mm sessile polyp - removed with a cold snare Ascending Colon: Normal Transverse Colon: Normal Descending Colon: Moderate diverticulosis Sigmoid Colon: Moderate diverticulosis Rectum: Normal Ano-rectum: Moderate internal hemorrhoids Colon preparation: Fair - despite copious irrigation There was adherent stool throughout the colon which could not be suctioned. No large lesion seen - smaller polyps could be missed Impression and Post Procedure Diagnosis: Colonoscopy Findings: One small polyp removed Moderate diverticulosis seen in the left colon Moderate hemorrhoids on retroflexed exam. Colon preparation: Fair - despite copious irrigation There was adherent stool throughout the colon which could not be suctioned. No large lesion seen - smaller polyps could be missed Plan: Await pathology results Patient has an appointment on 09/10/23 in the GI Clinic with Anuja Rivas FNP-BC. Repeat Colonoscopy interval based on path results - in 5 years if polyps are adenomatous and due to a history of adenomatous colon polyps. Needs to use Miralax or solutab prep for future colonoscopies since pt had inadequate prep with dulcolax tablets Adult colonoscope for future colonoscopies. Above findings were reviewed with the patient and colon polyps handout was given in the discharge area
[2023-08-28 11:51] VITALS: BP 96/53; PULSE 60; RESP 16; TEMP 36.1; O2SAT 97
[2023-08-28 12:06] VITALS: BP 131/54; PULSE 59; RESP 16; O2SAT 97
[2023-08-28 12:21] VITALS: BP 149/69; PULSE 59; RESP 20; TEMP 36.5; O2SAT 98
== END 2023-08-28 13:00 | disposition home or self-care (01) ==
PROVIDERS: PCP Internal Medicine; Visit Provider Internal Medicine Gastroenterology
PROC: 0DJD8ZZ Inspection of Lower Intestinal Tract, Via Natural or Artificial Opening Endoscopic (ICD-10-PCS; CPT 45378; principal; 2023-08-28 10:10)
DX: Z12.11 Encounter for screening for malignant neoplasm of colon (principal); D12.0 Benign neoplasm of cecum; K57.30 Diverticulosis of large intestine without perforation or abscess without bleeding; K64.8 Other hemorrhoids; Z86.010 Personal history of colon polyps; K59.01 Slow transit constipation; I10 Essential (primary) hypertension; E78.5 Hyperlipidemia, unspecified; K21.9 Gastro-esophageal reflux disease without esophagitis; F17.210 Nicotine dependence, cigarettes, uncomplicated; Z95.0 Presence of cardiac pacemaker; Z79.82 Long term (current) use of aspirin; Z79.899 Other long term (current) drug therapy
CPT/HCPCS: 45385; 88305

== ENCOUNTER → 2023-08-28 07:47 | Outpatient (BNV) | payer MEDICARE, OTHER, SELFPAY | PROVIDERS: PCP Internal Medicine; Visit Provider Internal Medicine Gastroenterology | DX: Z12.11 Encounter for screening for malignant neoplasm of colon (principal); Z86.010 Personal history of colon polyps; D12.0 Benign neoplasm of cecum; K57.90 Diverticulosis of intestine, part unspecified, without perforation or abscess without bleeding | CPT/HCPCS: 45385 ==

== ENCOUNTER 2023-09-08 08:37 | Outpatient (AMB) | payer MEDICARE, OTHER, SELFPAY ==
--- NOTE | 2023-09-08 08:39 | MHC.OFFVIS ---
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 The vaginal discharge is whitish to yellowish in color, no redness or bleeding . [facility] Medical History Memory loss Tubular adenoma Stenosis of right subclavian artery Dyslipidemia Sick sinus syndrome Cardiomyopathy GERD (gastroesophageal reflux disease) Essential hypertension Surgical History History of esophagogastroduodenoscopy (EGD) Hx of colonoscopy History of surgical procedure on eye proper using laser History of pacemaker (~09/2012) Family History Father Cancer Mother Stroke Social History Household Members: None Housing: Apartment Alcohol intake: former Patient Tobacco Use Status: Current everyday Tobacco user Tobacco use type: Cigarette Cigarettes Per Day: 3 Years Smoked: 25 e-Cigarette/Vaping Use: Never Used Second Hand Smoke Exposure: No service: No Current occupational status: retired Cognitive needs: No Hearing needs: No Vision needs: Yes Female Reproductive History Menstrual Age of Menarche: 9 Review of Systems Const All systems reviewed & are unremarkable except as noted in HPI and below Physical Exam Vital Signs: Last Vital Signs BP 112/70 09/08/23 08:41 General: Yes no CVA tenderness External Female Exam: normal external appearance and normal appearance of the urethra Speculum Exam - Vagina: normal appearance of the vagina, normal palpation, no lesions and no masses Speculum Exam - Cervix: normal appearance of the cervix, normal palpation, no lesions, no masses and nontender Bimanual exam- vagina & uterus: normal bimanual exam, normal palpation, uterine size normal, normal palpation, uterine shape normal, No Cervical tenderness present and non-tender Bimanual Exam- Adnexa, other: Other (Right adnexa within normal, left adnexal fullness) Back/Spine/Pelvis Back: no CVA tenderness Results AMB Urinalysis Dipstick UR Leukocytes Negative Last Edit by Lachelle Cabrera, GIL on 09/08/23 09:08 UR Nitrite Negative Last Edit by Lachelle Cabrera, RADIATION PROTECTION TECHNICIAN on 09/08/23 09:08 UR Urobilinogen Normal Last Edit by Lachelle Cabrera, RADIATION PROTECTION TECHNICIAN on 09/08/23 09:08 UR Protein Negative Last Edit by Lachelle Cabrera, RADIATION PROTECTION TECHNICIAN on 09/08/23 09:08 UR Ph 6.0 Last Edit by Lachelle Cabrera, RADIATION PROTECTION TECHNICIAN on 09/08/23 09:08 UR Blood Moderate Last Edit by Lachelle Cabrera, RADIATION PROTECTION TECHNICIAN on 09/08/23 09:08 UR Specific [place] 1.015 Last Edit by Lachelle Cabrera, GIL on 09/08/23 09:08 UR Ketone Negative Last Edit by Lachelle Cabrera, RADIATION PROTECTION TECHNICIAN on 09/08/23 09:08 UR Bilirubin Negative Last Edit by Lachelle Cabrera, RADIATION PROTECTION TECHNICIAN on 09/08/23 09:08 UR Glucose Negative Last Edit by Lachelle Cabrera, GIL on 09/08/23 09:08 Assessment & Plan Assessment & Plan (1) Vaginal discharge: Code(s): N89.8 - Other specified noninflammatory disorders of vagina Plan: GC and chlamydia cultures with BV panel taken. Will treat with Flagyl 500 mg p.o. b.i.d. x 7 days, Instructions given to the patient to refrain from sexual activity or to use condoms consistently and correctly during the BV treatment regimen, not to douch, it might increase the risk for relapse, and to call if symptoms persist or recur. (2) Adnexal fullness: Code(s): N94.9 - Unspecified condition associated with female genital organs and menstrual cycle Plan: Discussed with the patient the finding on exam, left adnexal fullness. Will order pelvic ultrasound. Instructions given the patient to schedule a 2 week ultrasound for appointment. (3) Microscopic hematuria: Code(s): R31.29 - Other microscopic hematuria Plan: Urine dip showed +2 microscopic hematuria, urine culture sent, if positive will treat with antibiotics, if negative will repeat urine dip next visit if persistent microscopic hematuria will proceed with CT scan of abdomen pelvis and refer to urology for further management. All questions answered, the patient verbalized understanding Orders: Orders US pelvic and transvaginal Today N94.9 - Unspecified condition associated with female genital organs and menstrual cycle CT NG by PCR Today N89.8 - Other specified noninflammatory disorders of vagina Bacterial Vaginosis Panel Today N89.8 - Other specified noninflammatory disorders of vagina Medications: New metronidazole 500 mg PO BID 7 days 14 tabs 0RF Coding Level of Care Code Est Pt Level 3 (38704) Diagnoses Vaginal discharge N89.8 Adnexal fullness N94.9 Microscopic hematuria R31.29
[2023-09-08 08:41] VITALS: BP 112/70
== END 2023-09-08 09:06 | disposition home or self-care (01) ==
PROVIDERS: PCP Internal Medicine; Visit Provider Obstetrics & Gynecology
DX: N89.8 Other specified noninflammatory disorders of vagina (principal); N94.9 Unspecified condition associated with female genital organs and menstrual cycle; R31.29 Other microscopic hematuria; R35.0 Frequency of micturition
CPT/HCPCS: 99213

== ENCOUNTER 2023-09-08 08:37 | Outpatient (REF) | payer MEDICARE, OTHER, SELFPAY | END 2023-09-08 08:38 | disposition home or self-care (01) | LOC: HO.LNP 08:37 | PROVIDERS: PCP Internal Medicine; Visit Provider Obstetrics & Gynecology | DX: N89.8 Other specified noninflammatory disorders of vagina (principal); N94.9 Unspecified condition associated with female genital organs and menstrual cycle; R31.29 Other microscopic hematuria; R35.0 Frequency of micturition | CPT/HCPCS: 0353U; 81002; 87086; 87480; 87510; 87660; 96372; 99212; J0897 ==

== ENCOUNTER 2023-09-08 09:46 | Outpatient (AMB) | payer MEDICARE, OTHER, SELFPAY ==
--- NOTE | 2023-09-08 10:05 | AM.OFFVISNUR ---
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 60 mg subcut left upper arn 1 mL [id number] 04/26/26 [facility] Results AMB Urinalysis Dipstick UR Leukocytes Negative Last Edit by Lachelle Cabrera, CUSTOMER SERVICE TECHNICIAN on 09/08/23 09:08 UR Nitrite Negative Last Edit by Lachelle Cabrera, CUSTOMER SERVICE TECHNICIAN on 09/08/23 09:08 UR Urobilinogen Normal Last Edit by Lachelle Cabrera, CUSTOMER SERVICE TECHNICIAN on 09/08/23 09:08 UR Protein Negative Last Edit by Lachelle Cabrera, CUSTOMER SERVICE TECHNICIAN on 09/08/23 09:08 UR Ph 6.0 Last Edit by Lachelle Cabrera, CUSTOMER SERVICE TECHNICIAN on 09/08/23 09:08 UR Blood Moderate Last Edit by Lachelle Cabrera, CUSTOMER SERVICE TECHNICIAN on 09/08/23 09:08 UR Specific [place] 1.015 Last Edit by Lachelle Cabrera, CUSTOMER SERVICE TECHNICIAN on 09/08/23 09:08 UR Ketone Negative Last Edit by Lachelle Cabrera, CUSTOMER SERVICE TECHNICIAN on 09/08/23 09:08 UR Bilirubin Negative Last Edit by Lachelle Cabrera, CUSTOMER SERVICE TECHNICIAN on 09/08/23 09:08 UR Glucose Negative Last Edit by Lachelle Cabrera, CUSTOMER SERVICE TECHNICIAN on 09/08/23 09:08 Coding Assessment & Plan Assessment & Plan Orders: Orders AMB Denosumab Injection Practice Supplied Today M81.0 - Age-related osteoporosis without current pathological fracture
== END 2023-09-08 10:02 | disposition home or self-care (01) ==
PROVIDERS: Absent Provider Internal Medicine Endocrinology, Diabetes & Metabolism; PCP Internal Medicine; Referring Provider Internal Medicine; Visit Provider Internal Medicine Endocrinology, Diabetes & Metabolism
DX: M81.0 Age-related osteoporosis without current pathological fracture (principal)

== ENCOUNTER 2023-09-10 07:56 | Outpatient (AMB) | payer MEDICARE, OTHER, SELFPAY ==
--- NOTE | 2023-09-10 08:07 | MHC.OFFVIS ---
Intake Vital Signs 09/10/23 08:14 Height 5 ft 2 in Weight 114 lb BMI 20.8 BP 152/72 H Blood Pressure Location Lt brachial Position Sitting Pulse 59 Intake Visit Reasons: S/p colon- Eric Intake Note: Patient follow for Colonoscopy results. Patient cc: constipation on and off. Denies any other GI issues. Senior Policy Analyst Required: No Accompanied by: Self / Same As Patient Allergies iodine Allergy (Severe, Verified 09/10/23 08:07) swelling, rash HPI S/p colon- Eric HPI Details LAST VISIT Constipation by delayed colonic transit GERD (gastroesophageal reflux disease) Continue avoiding dietary triggers and late night snacking. Staying upright for minimal 3 hours after meals discussed with patient. Patient denies dyspepsia, dysphagia or odynophagia Screen for colon cancer Patient denies any ill effects from the anaesthesia or procedure in the past. Last colonoscopy 2 years ago and recommendation was made to repeat colorectal screening in 2 years. Patient denies melena, hematochezia, unintentional weight loss or ribbon like stools. Patient states that she is feeling fairly well. Recently had battery changed in her pacemaker. Will be seeing lens grinding machine operator in early July. Patient denies having any cardiac or respiratory issues. Patient is on low-dose aspirin. No issues with anesthesia in the past. We will do Dulcolax prep with 7 days before the procedure patient will take Dulcolax 2 tablets at nighttime. Day before the procedure she will do clear liquid diet and take to Dulcolax at noon and 2nd dose have in the evenings. Patient does not want to do any other prep that requires drinking lots of fluids. However patient was encouraged to drink fluids throughout the day to ensure that she does not become dehydrated. I will see her after the procedure, sooner on as needed basis. Patient is agreeable to this plan and verbalizes understanding of instructions. She was given the opportunity to ask questions and all questions answered. COLONOSCOPY Findings: Terminal Ileum: Not evaluated Cecum: A 7-8 mm sessile polyp - removed with a cold snare Ascending Colon: Normal Transverse Colon: Normal Descending Colon: Moderate diverticulosis Sigmoid Colon: Moderate diverticulosis Rectum: Normal Ano-rectum: Moderate internal hemorrhoids Colon preparation: Fair - despite copious irrigation There was adherent stool throughout the colon which could not be suctioned. No large lesion seen - smaller polyps could be missed Impression and Post Procedure Diagnosis: Colonoscopy Findings: One small polyp removed Moderate diverticulosis seen in the left colon Moderate hemorrhoids on retroflexed exam. Colon preparation: Fair - despite copious irrigation There was adherent stool throughout the colon which could not be suctioned. No large lesion seen - smaller polyps could be missed Plan: Repeat Colonoscopy interval based on path results - in 5 years if polyps are adenomatous and due to a history of adenomatous colon polyps. Needs to use Miralax or solutab prep for future colonoscopies since pt had inadequate prep with dulcolax tablets Adult colonoscope for future colonoscopies. PATHOLOGY Diagnosis Colon, cecal polyp: Tubular adenoma; negative for high-grade dysplasia and carcinoma TODAY'S VISIT: Patient is here today for follow-up and to discuss colonoscopy results. Patient denies any ill effects from the prep, anesthesia or procedure itself. One tubular adenoma found negative for high-grade dysplasia or carcinoma. Patient had suboptimal prep and will need to return for colorectal screening in 5 years, sooner if clinically necessary. Patient requested to take oral medications in pill form for prep instead of doing the MiraLax. Recommendation was made to try to do the MiraLax as well. Patient denies any issues with moving her bowels now that she is taking Dulcolax 10 mg every evening. Patient denies melena, hematochezia, unintentional weight loss or ribbon like stools. Patient no longer has acid reflux now that she is moving her bowels better. Patient reports to be feeling well. She is traveling to [place] October 03 and will state with her family till January. [facility] Medical History (Updated 09/08/23 @ 09:07 by Heath Blount MD) Memory loss Tubular adenoma Stenosis of right subclavian artery Dyslipidemia Sick sinus syndrome Cardiomyopathy GERD (gastroesophageal reflux disease) Essential hypertension Surgical History (Updated 09/10/23 @ 08:08 by Ana Luisa Minaya) History of esophagogastroduodenoscopy (EGD) Hx of colonoscopy History of surgical procedure on eye proper using laser History of pacemaker (~09/2012) Family History Father Cancer Mother Stroke Social History Household Members: None Housing: Apartment Alcohol intake: former Patient Tobacco Use Status: Current everyday Tobacco user Tobacco use type: Cigarette Cigarettes Per Day: 3 Years Smoked: 25 e-Cigarette/Vaping Use: Never Used Second Hand Smoke Exposure: No service: No Current occupational status: retired Cognitive needs: No Hearing needs: No Vision needs: Yes Female Reproductive History Menstrual Age of Menarche: 9 Review of Systems Const Denies weight gain and Denies weight loss ENT Reports no additional complaints, Denies dysphagia and Denies odynophagia Card Reports no additional complaints Resp Reports no additional complaints GI Denies abdominal pain, Denies belching, Denies melena, Denies bloating, Denies change in bowel habits, Denies dysphagia, Denies excessive flatus, Denies dyspepsia, Denies heartburn, Denies diarrhea, Denies loose stools, Denies nausea, Denies odynophagia and Denies vomiting Musc Reports no additional complaints Neuro Reports no additional complaints Psych Reports no additional complaints Endo Reports no additional complaints Physical Exam Vital Signs: Last Vital Signs Pulse 59 09/10/23 08:14 BP 152/72 H 09/10/23 08:14 BMI result Body Mass Index 20.8 Const General: healthy appearing, no acute distress and well developed Nutritional Appearance: well nourished Orientation/consciousness: patient oriented x3 HEENT Head: Yes normal to inspection, Yes normocephalic and Yes atraumatic Face and sinus: Yes normal facial exam Mouth: Normal oral and palatal mucosa present Throat: Yes posterior oropharynx normal, Yes tonsils normal and Yes uvula midline Eyes General: appearance normal, both eyes and all related structures Neck Neck: Yes normal visual inspection, Yes full ROM and Yes trachea midline Thyroid: Thyroid normal Resp Effort & Inspection: normal respiratory effort, able to speak in complete sentences, no tracheal deviation and symmetric chest movement Auscultation: clear to auscultation bilaterally Cardio Rate: regular rate Heart sounds: S1 normal heart sound present and S2 normal heart sound present GI Inspection: Yes normal to inspection and No distended Palpation (GI): Soft to palpation, not firm, nontender and No hepatosplenomegaly present Auscultation: normal bowel sounds General: Yes no CVA tenderness Back/Spine/Pelvis Back: no CVA tenderness Skin General skin exam: elasticity normal, turgor normal and dry skin Neuro General: patient oriented x3 Psych Appearance: grossly normal Mental Status: mental status grossly normal Speech and movement: Normal speech and movement present Assessment & Plan Assessment & Plan (1) GERD (gastroesophageal reflux disease): Code(s): K21.9 - Gastro-esophageal reflux disease without esophagitis Qualifiers: Esophagitis presence: without esophagitis Qualified Code(s): K21.9 - Gastro-esophageal reflux disease without esophagitis (2) Tubular adenoma: Code(s): D36.9 - Benign neoplasm, unspecified site (3) Status post colonoscopy: Code(s): Z98.890 - Other specified postprocedural states (4) Chronic idiopathic constipation: Code(s): K59.04 - Chronic idiopathic constipation Plan Continue Dulcolax tablets every day. Patient was encouraged to increase fluid intake and activity to promote better bowel motility. Patient will have colonoscopy in 5 years, sooner if clinically necessary. Patient currently reports to be feeling well. Denies acid reflux, dyspepsia, dysphagia or odynophagia. Patient was encouraged to continue avoiding dietary triggers. Patient states that now that she is moving her bowels better her symptoms of acid reflux have resolved. I will see patient in 6 months, sooner on as needed basis. Patient is agreeable to this plan and verbalizes understanding of instructions. She was given the opportunity to ask questions and all questions answered. Thank you for allowing me to participate in her care Medications: New bisacodyl (Dulcolax (bisacodyl)) 10 mg (2 x 5 mg) PO BEDTIME 180 tabs 4RF Coding Level of Care Code Est Pt Level 3 (92572) Diagnoses Gastroesophageal reflux disease without esophagitis K21.9 Esophagitis presence: without esophagitis Tubular adenoma D36.9 Status post colonoscopy Z98.890 Chronic idiopathic constipation K59.04 Time Spent (min) 30 Comment 20 minutes spent with patient and additional 10 minutes spent reviewing her records.
[2023-09-10 08:14] VITALS: BP 152/72; PULSE 59; BMI 20.8
== END 2023-09-10 08:33 | disposition home or self-care (01) ==
PROVIDERS: PCP Internal Medicine; Visit Provider Nurse Practitioner Family
DX: K21.9 Gastro-esophageal reflux disease without esophagitis (principal); D36.9 Benign neoplasm, unspecified site; Z98.890 Other specified postprocedural states; K59.04 Chronic idiopathic constipation
CPT/HCPCS: 99213

== ENCOUNTER → 2023-09-10 07:56 | Outpatient (BNVA) | payer MEDICARE, OTHER, SELFPAY | PROVIDERS: PCP Internal Medicine; Visit Provider Nurse Practitioner Family | DX: K21.9 Gastro-esophageal reflux disease without esophagitis (principal); K59.04 Chronic idiopathic constipation; Z86.010 Personal history of colon polyps | CPT/HCPCS: 99212 ==

== ENCOUNTER 2023-09-22 12:31 | Outpatient (REF) | payer MEDICARE, OTHER, SELFPAY ==
--- NOTE | ~2023-09-22 | US_ITS ---
EXAMINATION: ULTRASOUND PELVIC, COMPLETE CLINICAL INFORMATION: Adnexal fullness COMPARISON: None. TECHNIQUE: Pelvic ultrasound was performed using transvaginal and transabdominal technique with spectral doppler. FINDINGS: The uterus measures 4.2 x 2.2 x 3.4 cm. The uterus is anteverted. The endometrial stripe measures 3 mm. An 8 x 5 x 8 mm polyp and fluid are visible in the endometrial canal. The right ovary is not seen. The left ovary measures 3.0 x 2.6 x 2.7 cm, 8 mL. A 2.8 cm complex cyst with nonsimple fluid and an avascular mural nodule are seen. The mural nodule measures approximately 8 mm. Normal Doppler waveforms are seen in the left ovary. No free fluid in the pelvis. US/US pelvic and transvaginal IMPRESSION: 1. Endometrial polyp measuring 8 mm. Recommend biopsy. 2. 2.8 cm cyst with avascular mural nodule in the left ovary. Recommend MR pelvis without and with IV contrast or surgical evaluation.
== END 2023-09-22 12:32 | disposition home or self-care (01) ==
LOC: HO.US 12:31
PROVIDERS: PCP Internal Medicine; Visit Provider Obstetrics & Gynecology
DX: N94.9 Unspecified condition associated with female genital organs and menstrual cycle (principal)
CPT/HCPCS: 76830; 76856

== ENCOUNTER 2023-09-24 10:41 | Outpatient (REF) | payer MEDICARE, OTHER, SELFPAY ==
[2023-09-26 12:13] LABS: CA-125 15 U/mL (<35)
[2023-09-26 12:18] LABS: Carbohydrate Antigen 19-9 19 U/mL (<34)
== END 2023-09-24 10:42 | disposition home or self-care (01) ==
LOC: HO.LAB 10:41
PROVIDERS: Visit Provider Obstetrics & Gynecology
DX: N83.299 Other ovarian cyst, unspecified side (principal)
CPT/HCPCS: 36415; 82378; 86301; 86304

== ENCOUNTER 2023-09-25 11:41 | Outpatient (REF) | payer MEDICARE, OTHER, SELFPAY ==
--- NOTE | ~2023-09-25 | MM_ITS ---
EXAMINATION: MM SCREENING DIGITAL BREAST TOMOSYNTHESIS, BILATERAL CLINICAL INFORMATION: Screening. Asymptomatic. COMPARISON: Mammography: This study is compared with prior exams dating back to 2017. TECHNIQUE: Digital breast tomosynthesis is performed in both the craniocaudal and mediolateral oblique views along with computer-aided detection (CAD). Synthesized 2D images are generated from the tomosynthesis. FINDINGS: There are scattered areas of fibroglandular density (ACR BI-RADS breast composition Category b). There are no significant masses, abnormal calcifications, or other abnormalities. Scattered, bilateral, benign calcifications are present. Pacemaker is present in the superior aspect of the left side of the chest. MM/MM tomosynthesis screening BI IMPRESSION: No mammographic evidence of malignancy. ASSESSMENT: BI-RADS BI-RADS 1 - Negative RECOMMENDATION: Routine annual mammography screening. 1 year F/U This examination should not preclude the clinical evaluation of a suspicious palpable abnormality. This patient's information was entered into a reminder system with a target due date for their next mammogram.
== END 2023-09-25 11:42 | disposition home or self-care (01) ==
LOC: HO.MAMMO 11:41
PROVIDERS: Visit Provider Obstetrics & Gynecology
DX: Z12.31 Encounter for screening mammogram for malignant neoplasm of breast (principal)
CPT/HCPCS: 77063; 77067

== ENCOUNTER → 2023-09-25 13:00 | Outpatient (BNV) | payer MEDICARE, OTHER, SELFPAY | PROVIDERS: Visit Provider Radiology Diagnostic Radiology | DX: Z12.31 Encounter for screening mammogram for malignant neoplasm of breast (principal) | CPT/HCPCS: 77063; 77067 ==

== ENCOUNTER 2023-09-29 11:29 | Outpatient (AMB) | payer MEDICARE, OTHER, SELFPAY ==
[2023-09-29 12:40] VITALS: BP 140/80; PULSE 60; BMI 21.0
--- NOTE | 2023-09-29 12:40 | A.OFFVIS_ITS ---
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 Donaldson at [facility]. She had a pacemaker placed around 2011 for sick sinus syndrome. There is also a mention of cardiomyopathy, but she is not aware of any such thing. No prior heart failure of coronary disease or myocardial infarction. She is a chronic smoker and still smokes a few cigarettes a day. She has hypertension, high cholesterol. Since last seen, she has not had any new cardiac complaints like angina or shortness of breath or in fact anything cardiac related at all. Overall, she is feeling well. Since last seen by me, she has undergone pacemaker generator change. [facility], [facility] Medical History (Updated 09/29/23 @ 13:22 by Kalpesh Calderon MD) Memory loss Tubular adenoma Stenosis of right subclavian artery Dyslipidemia Sick sinus syndrome Cardiomyopathy GERD (gastroesophageal reflux disease) Essential hypertension Surgical History (Updated 09/10/23 @ 08:08 by Ana Luisa Minaya) History of esophagogastroduodenoscopy (EGD) Hx of colonoscopy History of surgical procedure on eye proper using laser History of pacemaker (~09/2012) Family History Father Cancer Mother Stroke Social History Household Members: None Housing: Apartment Alcohol intake: former Patient Tobacco Use Status: Current everyday Tobacco user Tobacco use type: Cigarette Cigarettes Per Day: 3 Years Smoked: 25 e-Cigarette/Vaping Use: Never Used Second Hand Smoke Exposure: No service: No Current occupational status: retired Cognitive needs: No Hearing needs: No Vision needs: Yes Female Reproductive History Menstrual Age of Menarche: 9 Review of Systems Const Denies chills, Denies fatigue, Denies fever(s), Denies frequent falls, Denies weakness, Denies weight gain and Denies weight loss ENT Denies dizziness Card Denies chest pain, Denies leg edema, Denies lightheadedness, Denies palpitations, Denies dyspnea, Denies dyspnea on exertion, Denies orthopnea and Denies other (Loss of consciousness) Resp Denies cough, Denies dyspnea and Denies dyspnea on exertion GI Denies hematochezia and Denies change in bowel habits Musc Denies abnormal gait, Denies muscle weakness, Denies numbness, Denies radiating pain into limb and Denies tingling Neuro Denies abnormal gait, Denies dizziness, Denies frequent falls, Denies numbness, Denies tingling and Denies weakness Endo Denies fatigue and Denies palpitations Physical Exam Vital Signs: Last Vital Signs Pulse 60 09/29/23 12:40 BP 140/80 H 09/29/23 12:40 BMI result Body Mass Index 21.0 Const General: comfortable and no acute distress Orientation/consciousness: patient oriented x3 HEENT Other: Unremarkable Head: Yes normal to inspection Neck Neck: Yes normal visual inspection Chest Chest palpation & inspection: normal inspection of the chest Resp Auscultation: clear to auscultation bilaterally Cardio Palpation: normal PMI Heart sounds: S1 normal heart sound present, S2 normal heart sound present, no gallops, no murmurs and no rubs GI Palpation (GI): Soft to palpation Back/Spine/Pelvis Other: unremarkable Skin General skin exam: no rashes or lesions noted Neuro General: patient oriented x3 Extrem General: Yes normal to inspection Psych Mental Status: mental status grossly normal Office Procedures Cardiac Device Check Cardiac Device Check Details: Pacemaker interrogated today. Dual-chamber device, programmed AAI-DDD mode. Battery status more than 13 years. Normal lead parameters. Atrial pacing 98%. No significant ventricular pacing. No significant arrhythmias. Overall, normal device function. 26382-DN Cardiac Device Check, pacemaker dual lead Procedure code (CPT) selection complete EKG Details: EKG with atrial paced rhythm at 60/Min. [id number], Complete Assessment & Plan Assessment & Plan (1) Sick sinus syndrome: Code(s): I49.5 - Sick sinus syndrome Plan: Status post pacemaker. Pacemaker interrogated today and function normally. Will need to arrange for remote monitoring. (2) Cardiomyopathy: Code(s): I42.9 - Cardiomyopathy, unspecified Qualifiers: Cardiomyopathy type: unspecified Qualified Code(s): I42.9 - Cardiomyopathy, unspecified Plan: She is on Carvedilol and Losartan. Patient herself is not aware of any cardiomyopathy or congestive heart failure. In the last echocardiogram, LVEF 54%. There was mild aortic and mitral calcification noted with small ascending aortic plaque. She is also on statins. Clinically, she does not have any shortness of breath or any other symptoms or signs of congestive heart failure. (3) Essential hypertension: Code(s): I10 - Essential (primary) hypertension Plan: Blood pressure is borderline high. Continue current medications. Medications: Changed From metronidazole 500 mg PO BID 7 days 14 tabs 0RF To metronidazole 500 mg PO BID Coding Level of Care Code Est Pt Level 3 (36020) Diagnoses Sick sinus syndrome I49.5 Cardiomyopathy, unspecified type I42.9 Cardiomyopathy type: unspecified Essential hypertension I10 CPT Codes Cardiac Device Check - Cardiac Device 2: 15051-CM Cardiac Device Check, pacemaker dual lead ([id number]) EKG - CPT: 18439-Lfhpreolvivpghnkp, Complete ([id number])
== END 2023-09-29 12:59 | disposition home or self-care (01) ==
PROVIDERS: PCP Internal Medicine; Visit Provider Internal Medicine
DX: I49.5 Sick sinus syndrome (principal); I42.9 Cardiomyopathy, unspecified; I10 Essential (primary) hypertension
CPT/HCPCS: 93010; 93280; 99213

== ENCOUNTER → 2023-09-29 11:29 | Outpatient (BNVA) | payer MEDICARE, OTHER, SELFPAY | PROVIDERS: PCP Internal Medicine; Visit Provider Internal Medicine | DX: Z45.018 Encounter for adjustment and management of other part of cardiac pacemaker (principal); I49.5 Sick sinus syndrome; I42.9 Cardiomyopathy, unspecified; I10 Essential (primary) hypertension | CPT/HCPCS: 93005; 93280; 99212 ==

== ENCOUNTER → 2023-10-06 23:59 | Outpatient (BNV) | payer MEDICARE, OTHER, SELFPAY ==
--- NOTE | 2023-10-09 09:20 | MHC.OFFVIS ---
Intake Intake Visit Reasons: Remote Device Check- [employer] Allergies iodine Allergy (Severe, Verified 10/07/23 08:02) swelling, rash PFSH Medical History Memory loss Tubular adenoma Stenosis of right subclavian artery Dyslipidemia Sick sinus syndrome Cardiomyopathy GERD (gastroesophageal reflux disease) Essential hypertension Surgical History History of esophagogastroduodenoscopy (EGD) Hx of colonoscopy History of surgical procedure on eye proper using laser History of pacemaker (~09/2012) Family History Father Cancer Mother Stroke Social History Household Members: None Housing: Apartment Alcohol intake: former Patient Tobacco Use Status: Current everyday Tobacco user Tobacco use type: Cigarette Cigarettes Per Day: 3 Years Smoked: 25 e-Cigarette/Vaping Use: Never Used Second Hand Smoke Exposure: No service: No Current occupational status: retired Cognitive needs: No Hearing needs: No Vision needs: Yes Female Reproductive History Menstrual Age of Menarche: 9 Office Procedures Cardiac Device Check Cardiac Device Check Details: Date of service- 10/06/2023 ; Battery life >13 years; normal lead parameters; AP 93%; 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 Overall normal device function. [id number] Cardiac Device Interrogation, pacemaker Procedure code (CPT) selection complete Assessment & Plan Assessment & Plan (1) Sick sinus syndrome: Code(s): I49.5 - Sick sinus syndrome Coding Level of Care Code Procedure Only Diagnoses Sick sinus syndrome I49.5 CPT Codes Cardiac Device Check - Cardiac Device 12: [id number] Cardiac Device Interrogation, pacemaker ([id number])
== END ==
PROVIDERS: PCP Internal Medicine; Visit Provider Internal Medicine
DX: I49.5 Sick sinus syndrome (principal); Z95.810 Presence of automatic (implantable) cardiac defibrillator
CPT/HCPCS: 93294

== ENCOUNTER 2023-10-07 07:57 | Outpatient (AMB) | payer MEDICARE, OTHER, SELFPAY ==
--- NOTE | 2023-10-07 07:58 | A.OFFVIS_ITS ---
Intake Vital Signs 10/07/23 08:01 Height 5 ft 2 in Weight 114 lb 10.246 oz BMI 21.0 BP 116/60 Intake Visit Reasons: ? EMB/ pre op Rn Clinical Required: No Information Interpreted: non-clinical & clinical Accompanied by: Self / Same As Patient Allergies iodine Allergy (Severe, Verified 10/07/23 08:02) swelling, rash Post menopausal: Yes HPI HPI Comments History of Present Illness Details Presenting for ultrasound follow-up. GC and chlamydia were negative BV panel was positive for Gardnerella, the patient was treated with Flagyl and her vaginal discharge persists Pelvic ultrasound showed the following: The uterus measures 4.2 x 2.2 x 3.4 cm. The uterus is anteverted. The endometrial stripe measures 3 mm. An 8 x 5 x 8 mm polyp and fluid are visible in the endometrial canal. The right ovary is not seen. The left ovary measures 3.0 x 2.6 x 2.7 cm, 8 mL. A 2.8 cm complex cyst with nonsimple fluid and an avascular mural nodule are seen. The mural nodule measures approximately 8 mm. Normal Doppler waveforms are seen in the left ovary. No free fluid in the pelvis. Screening mammogram was done in 09/21 was BI-RADS 1 CA 125, CEA and CA 19 9 were normal [facility] Medical History Memory loss Tubular adenoma Stenosis of right subclavian artery Dyslipidemia Sick sinus syndrome Cardiomyopathy GERD (gastroesophageal reflux disease) Essential hypertension Surgical History History of esophagogastroduodenoscopy (EGD) Hx of colonoscopy History of surgical procedure on eye proper using laser History of pacemaker (~09/2012) Family History Father Cancer Mother Stroke Social History Household Members: None Housing: Apartment Alcohol intake: former Patient Tobacco Use Status: Current everyday Tobacco user Tobacco use type: Cigarette Cigarettes Per Day: 3 Years Smoked: 25 e-Cigarette/Vaping Use: Never Used Second Hand Smoke Exposure: No service: No Current occupational status: retired Cognitive needs: No Hearing needs: No Vision needs: Yes Female Reproductive History Menstrual Age of Menarche: 9 Review of Systems Const All systems reviewed & are unremarkable except as noted in HPI and below Reports as per HPI and Reports no additional complaints GI Reports no additional complaints Reports no additional complaints Physical Exam Vital Signs: Last Vital Signs BP 116/60 10/07/23 08:01 BMI result Body Mass Index 21.0 Office Procedures Endometrial Biopsy Details: The patient was counseled regarding the indication and benefits of endometrial sampling to rule out endometrial pathology including not limited to endometrial hyperplasia or endometrial cancer and others; The alternatives (Either do nothing vs. hysteroscopy D&C) & the risks were discussed with the patient including but not limited: pain, uterine perforation, bleeding, infection, possible injury to bladder, bowel, ureter, possible need for blood transfusion with all its possible risks. The patient verbalized understanding all questions answered and signed consent. The patient was placed into the dorsal lithotomy position; a speculum was inserted in the vagina. Using aseptic technique for the procedure, the cervix was cleansed with Betadine. The anterior lip of the cervix was grasped with a single tooth tenaculum. The uterus was sounded to 5 cm with a 4 mm Pipelle was used. Tissues samples were obtained and placed in formalin, in a patient labeled container and sent to the pathology department. The patient as to abort the procedure because of her intolerance to pain after 2 passes. At the end of the procedure, there was minimal bleeding noted The patient tolerated the procedure well and was discharged in good condition with the following instructions: Nothing in the vagina until the bleeding stops. No sex until the bleeding stops, to call if any of the following occurs: fever (>100.4), flu-like symptoms, abdominal pain, heavy bleeding, four smelling vaginal discharge. The patient was instructed to schedule a Follow up appointment in 2 weeks to discuss pathology results of the biopsy and treatment options. This note was generated with a voice recognition program. Some errors may have been overlooked during the review of this note. Sometimes these errors may affect the content or meaning of a given sentence. [id number] Biopsy Assessment & Plan Assessment & Plan (1) Abnormal ultrasound of endometrium: Comment: Endometrial fluid with 0.8 cm possible polyp Code(s): R93.5 - Abnormal findings on diagnostic imaging of other abdominal regions, including retroperitoneum Plan: Discussed with the patient the pelvic ultrasound findings, endometrial fluid with possible endometrial polyp. Recommended to the patient that the next step is an endometrial sampling via hysteroscopy D&C possible polypectomy versus endometrial biopsy to r/o endometrial pathology including hyperplasia or cancer. All the pros and cons risks and benefits of each approach were discussed with the patient, endometrial biopsy being less invasive, office procedure with less sensitivity and inability diagnose a polyp and removal versus hysteroscopy done under anesthesia more invasive more sensitive to endometrial cancer and possibility of diagnosing and endometrial polyp with the possibility of polypectomy. All questions were answered pt verbalized understanding and decided to proceed with endometrial biopsy. EMB done, see procedure note. Instructions given the patient to schedule a 1 week follow-up appoint (2) Complex ovarian cyst: Code(s): N83.299 - Other ovarian cyst, unspecified side Plan: Discussed with the patient the finding on ultrasound showing a 2.8 cm complex ovarian cyst with a mural nodule, differential diagnosis discussed with the patient include but not limited to benign, pre malignant a malignant ovarian pathology; in addition, discussed the patient the normal levels of CA 125, CA 19-9 and CEA, with their sensitivity, specificity, false-positive and false- negative rates . Will order CT scan of abdomen pelvis with contrast and refer to [facility]c at [facility] for further management Orders: Orders CT abdomen pelvis w IV con Today N83.299 - Other ovarian cyst, unspecified side AMB Endometrial Biopsy Today R93.5 - Abnormal findings on diagnostic imaging of other abdominal regions, including retroperitoneum Referrals Gynecologic Oncology Referral N83.299 - Other ovarian cyst, unspecified side, R93.5 - Abnormal findings on diagnostic imaging of other abdominal regions, including retroperitoneum Coding Level of Care Code Est Pt Level 3 (76002) Procedure Only Diagnoses Abnormal ultrasound of endometrium R93.5 Complex ovarian cyst N83.299 CPT Codes Endometrial Biopsy - CPT: 28867-Dklxbvobnpn Biopsy ([id number])
[2023-10-07 08:01] VITALS: BP 116/60; BMI 21.0
== END 2023-10-07 08:38 | disposition home or self-care (01) ==
PROVIDERS: PCP Internal Medicine; Visit Provider Obstetrics & Gynecology
DX: N83.292 Other ovarian cyst, left side (principal); R93.5 Abnormal findings on diagnostic imaging of other abdominal regions, including retroperitoneum
CPT/HCPCS: 58100; 99213

== ENCOUNTER 2023-10-07 07:57 | Outpatient (REF) | payer MEDICARE, OTHER, SELFPAY | END 2023-10-07 07:58 | disposition home or self-care (01) | LOC: HO.LNP 07:57 | PROVIDERS: PCP Internal Medicine; Visit Provider Obstetrics & Gynecology | DX: R93.5 Abnormal findings on diagnostic imaging of other abdominal regions, including retroperitoneum (principal); N83.292 Other ovarian cyst, left side | CPT/HCPCS: 58100; 88305; 99212 ==

== ENCOUNTER 2023-10-15 07:55 | Outpatient (AMB) | payer MEDICARE, OTHER, SELFPAY ==
[2023-10-15 08:03] VITALS: BP 110/68; BMI 21.0
--- NOTE | 2023-10-15 08:03 | A.OFFVIS_ITS ---
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 The pathology showed the following: Endometrium, biopsy: Superficial fragments of inactive endometrium with some features of polyp; no atypia identified; blood and mucoinflammatory material The patient is scheduled to see Dr. Baird at [facility] On[facility] on 10[facility]21 [facility] Medical History Memory loss Tubular adenoma Stenosis of right subclavian artery Dyslipidemia Sick sinus syndrome Cardiomyopathy GERD (gastroesophageal reflux disease) Essential hypertension Surgical History History of esophagogastroduodenoscopy (EGD) Hx of colonoscopy History of surgical procedure on eye proper using laser History of pacemaker (~09/2012) Family History Father Cancer Mother Stroke Social History Household Members: None Housing: Apartment Alcohol intake: former Patient Tobacco Use Status: Current everyday Tobacco user Tobacco use type: Cigarette Cigarettes Per Day: 3 Years Smoked: 25 e-Cigarette/Vaping Use: Never Used Second Hand Smoke Exposure: No service: No Current occupational status: retired Cognitive needs: No Hearing needs: No Vision needs: Yes Female Reproductive History Menstrual Age of Menarche: 9 Physical Exam Vital Signs: Last Vital Signs BP 110/68 10/15/23 08:03 BMI result Body Mass Index 21.0 Assessment & Plan Assessment & Plan (1) Endometrial polyp: Code(s): N84.0 - Polyp of corpus uteri Plan: Discussed with the patient the results the pathology inactive endometrium with features of a polyp consistent with abnormal endometrium by ultrasound. Recommended to the patient hysteroscopy D&C possible polypectomy. Since the patient has complex medical history with being high surgical risk will refer to a tertiary care center with more resources, to [facility] for possible hysteroscopy D&C in case the plan was not to proceed with surgical management for the complex ovarian cyst by Dr. Baird and will send the pathology results to Dr. Baird office; depending on the surgical plan , the patient might need hysteroscopic polypectomy in addition to laparoscopic oophorectomy unless hysterectomy is planned. All questions answered, the patient verbalized understanding and agreed with the plan. Coding Level of Care Code Est Pt Level 3 (18990) Diagnoses Endometrial polyp N84.0
== END 2023-10-15 08:38 | disposition home or self-care (01) ==
PROVIDERS: PCP Internal Medicine; Visit Provider Obstetrics & Gynecology
DX: N84.0 Polyp of corpus uteri (principal)
CPT/HCPCS: 99213

== ENCOUNTER → 2023-10-15 07:55 | Outpatient (BNVA) | payer MEDICARE, OTHER, SELFPAY | PROVIDERS: PCP Internal Medicine; Visit Provider Obstetrics & Gynecology | DX: N84.0 Polyp of corpus uteri (principal) | CPT/HCPCS: 99212 ==

== ENCOUNTER 2023-11-04 09:47 | Outpatient (AMB) | payer MEDICARE, OTHER, SELFPAY ==
[2023-11-04 09:52] VITALS: BP 138/80; PULSE 60; O2SAT 98; BMI 20.8
--- NOTE | 2023-11-04 09:52 | MHC.PC.OV ---
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: Not Required per policy Accompanied by: Self / Same As Patient Allergies iodine Allergy (Severe, Verified 11/04/23 09:52) swelling, rash Medication List - Last Reconciled 11/04/23 by Julito Pittman MD aspirin (Adult Low Dose Aspirin) 81 mg PO BEDTIME 90 days atorvastatin 80 mg PO BEDTIME 90 days bisacodyl (Dulcolax (bisacodyl)) 10 mg (2 x 5 mg) PO BEDTIME carvedilol 12.5 mg PO DAILY cholecalciferol (vitamin D3) 25 mcg PO DAILY losartan 100 mg PO DAILY 90 days Tobacco use date assessed: 03/03/23 Fall risk assessment: No Falls in past year Last assessed Fall Risk: 11/04/23 Dental Screening Dental Screen Date: 11/04/23 Did you have a dental visit in the last 12 months?: Yes Did you have a dental problem in the last 6 months where you did not have access to dental care?: No Was dental information given to patient?: Patient has dentist HPI clearance for surgery on 11/17 hysterectomy HPI Details having a total hysterectomy at [facility];has HTN hyperlipidemia controlled; PPM for SSS functioning well [facility] Medical History Memory loss Tubular adenoma Stenosis of right subclavian artery Dyslipidemia Sick sinus syndrome Cardiomyopathy GERD (gastroesophageal reflux disease) Essential hypertension Surgical History History of esophagogastroduodenoscopy (EGD) Hx of colonoscopy History of surgical procedure on eye proper using laser History of pacemaker (~09/2012) Family History Father Cancer Mother Stroke Social History Household Members: None Housing: Apartment Alcohol intake: former Patient Tobacco Use Status: Current everyday Tobacco user Tobacco use type: Cigarette Cigarettes Per Day: 3 Years Smoked: 25 e-Cigarette/Vaping Use: Never Used Second Hand Smoke Exposure: No service: No Current occupational status: retired Cognitive needs: No Hearing needs: No Vision needs: Yes Female Reproductive History Menstrual Age of Menarche: 9 Questionnaire Thrive Questionnaire Date Thrive assessed: 03/03/23 DELIA-7 AMB Questionnaire DELIA-7 Date DELIA - 7 assessed: 03/03/23 Source: Developed by Drs. Karlos Espinosa, Denae Buckley, Aayush Veliz and colleagues, with an educational juliet from [employer]. Review of Systems Const Denies chills, Denies fatigue, Denies headache(s) and Denies weight loss Eyes Denies change in vision, Denies diplopia and Denies eye pain ENT Denies vertigo, Denies dizziness, Denies headache(s) and Denies nasal discharge Card Denies chest pain, Denies rapid heart rate and Denies dyspnea on exertion Resp Denies chest congestion, Denies cough, Denies pain with cough and Denies dyspnea on exertion GI Denies abdominal pain, Denies hematochezia and Denies change in bowel habits Musc Denies myalgias, Denies arthralgias and Denies joint swelling Skin/Breast Denies lesions and Denies unusual bruising Neuro Denies vertigo, Denies dizziness, Denies headache(s) and Denies focal weakness Endo Denies fatigue Physical exam (Primary Care) Vital Signs: Last Vital Signs Pulse 60 11/04/23 09:52 BP 138/80 11/04/23 09:52 Pulse Ox 98 11/04/23 09:52 Oxygen Delivery Method Room Air 11/04/23 09:52 BMI result Body Mass Index 20.8 Tobacco/Smoking Status: Tobacco use Status Tobacco use date assessed 03/03/23 11/04/23 09:53 Patient Tobacco Use Status Current everyday Tobacco 11/04/23 09:53 Tobacco use type Cigarette 11/04/23 09:53 e-Cigarette/Vaping Use Never Used 11/04/23 09:53 Thrive Assessment: Date of Thrive Assessment Date Thrive assessed 03/03/23 11/04/23 09:53 Const General: cooperative, healthy appearing and no acute distress Orientation/consciousness: oriented to person, oriented to place and oriented to time HENMT Head: Yes normal to inspection, Yes normocephalic and Yes atraumatic Mouth: Normal oral and palatal mucosa present and tongue normal Throat: Yes posterior oropharynx normal and Yes uvula midline Eyes General: appearance normal, both eyes and all related structures Neck Neck: Yes normal visual inspection, Yes full ROM and Yes no lymphadenopathy Thyroid: Thyroid normal Carotids: normal carotid upstroke Chest Chest palpation & inspection: normal inspection of the chest Resp Effort & Inspection: normal respiratory effort and able to speak in complete sentences Auscultation: clear to auscultation bilaterally Cardio Jugular venous distension: no JVD Palpation: normal PMI Rate: regular rate Rhythm: regular rhythm Heart sounds: S1 normal heart sound present and S2 normal heart sound present GI Inspection: Yes normal to inspection Palpation (GI): Soft to palpation and No hepatosplenomegaly present Auscultation: normal bowel sounds General: Yes no CVA tenderness Back/Spine/Pelvis Back: no CVA tenderness Skin General skin exam: no rashes or lesions noted Neuro General: oriented to person, oriented to place and oriented to time Extrem General: Yes normal to inspection and Yes full ROM Assessment and Plan Assessment & Plan (1) Preoperative cardiovascular examination: Code(s): Z01.810 - Encounter for preprocedural cardiovascular examination Plan: low risk for cardiovascular complications; cleared for surgery (2) History of pacemaker: Onset Date: ~09/2012 Comment: [employer] Pacemaker change April 2023 Code(s): Z95.0 - Presence of cardiac pacemaker Plan: stable (3) Dyslipidemia: Code(s): E78.5 - Hyperlipidemia, unspecified Plan: stable (4) Essential hypertension: Code(s): I10 - Essential (primary) hypertension Plan: stable Coding Level of Care Code Est Pt Level 4 (61238) Diagnoses Preoperative cardiovascular examination Z01.810 History of pacemaker Z95.0 Dyslipidemia E78.5 Essential hypertension I10
== END 2023-11-04 11:21 | disposition home or self-care (01) ==
PROVIDERS: PCP Internal Medicine; Visit Provider Internal Medicine
DX: Z01.810 Encounter for preprocedural cardiovascular examination (principal); Z95.0 Presence of cardiac pacemaker; E78.5 Hyperlipidemia, unspecified; I10 Essential (primary) hypertension
CPT/HCPCS: 99214

== ENCOUNTER → 2024-01-05 23:59 | Outpatient (BNV) | payer MEDICARE, OTHER, SELFPAY ==
--- NOTE | 2024-01-10 14:24 | A.OFFVIS_ITS ---
Intake Intake Visit Reasons: Remote Device Check- [employer] Allergies iodine Allergy (Severe, Verified 11/04/23 09:52) swelling, rash PFSH Medical History Memory loss Tubular adenoma Stenosis of right subclavian artery Dyslipidemia Sick sinus syndrome Cardiomyopathy GERD (gastroesophageal reflux disease) Essential hypertension Surgical History History of esophagogastroduodenoscopy (EGD) Hx of colonoscopy History of surgical procedure on eye proper using laser History of pacemaker (~09/2012) Family History Father Cancer Mother Stroke Social History Household Members: None Housing: Apartment Alcohol intake: former Patient Tobacco Use Status: Current everyday Tobacco user Tobacco use type: Cigarette Cigarettes Per Day: 3 Years Smoked: 25 e-Cigarette/Vaping Use: Never Used Second Hand Smoke Exposure: No service: No Current occupational status: retired Cognitive needs: No Hearing needs: No Vision needs: Yes Female Reproductive History Menstrual Age of Menarche: 9 Office Procedures Cardiac Device Check Cardiac Device Check Details: Date of service- 01/05/2024 ; Battery life >13 years; normal lead parameters; AP >95%; INSPECTOR SUBASSEMBLIES 0.1%; no significant arrhythmias. Overall normal device function. [id number] Cardiac Device Interrogation, pacemaker Procedure code (CPT) selection complete Assessment & Plan Assessment & Plan (1) Sick sinus syndrome: Code(s): I49.5 - Sick sinus syndrome Plan x Coding Level of Care Code Procedure Only Diagnoses Sick sinus syndrome I49.5 CPT Codes Cardiac Device Check - Cardiac Device 12: [id number] Cardiac Device Interrogation, pacemaker ([id number])
== END ==
PROVIDERS: PCP Internal Medicine; Visit Provider Internal Medicine
DX: I49.5 Sick sinus syndrome (principal); Z95.0 Presence of cardiac pacemaker
CPT/HCPCS: 93294

== ENCOUNTER 2024-03-02 09:02 | Outpatient (REF) | payer MEDICARE, OTHER, SELFPAY ==
[2024-03-02 11:27] LABS: Alanine Aminotransferase 14 U/L (0-31); Alkaline Phosphatase 59 U/L (39-117); Anion Gap 10 (12-20); Aspartate Amino Transferase 18 U/L (5-31); Bilirubin Total 0.8 mg/dL (0.0-1.0); Blood Urea Nitrogen 13 mg/dL (9-16); Calcium 9.8 mg/dL (8.4-10.2); Carbon Dioxide 27 mmol/L (22-29); Chloride 109 mmol/L (96-108); Cholesterol 168 mg/dL (<200); Estimated Glomerular Filt Rate 59; Glucose Fasting 104 mg/dL (60-99); Glucose Random 102 mg/dL (60-115); HDL Cholesterol 36 mg/dL (>40); LDL Cholesterol Calculated 104 mg/dL (<100); Potassium 4.4 mmol/L (3.3-5.1); Sodium 142 mmol/L (135-145); Total Protein 7.6 g/dL (6.5-8.0); Triglycerides 140 mg/dL (<150)
== END 2024-03-02 09:03 | disposition home or self-care (01) ==
LOC: HO.LAB 09:02
PROVIDERS: PCP Internal Medicine; Visit Provider Internal Medicine Endocrinology, Diabetes & Metabolism
DX: I10 Essential (primary) hypertension (principal); E78.5 Hyperlipidemia, unspecified; M81.0 Age-related osteoporosis without current pathological fracture
CPT/HCPCS: 36415; 80048; 80053; 80061

== ENCOUNTER 2024-03-04 09:37 | Outpatient (REF) | payer MEDICARE, OTHER, SELFPAY | END 2024-03-04 09:38 | disposition home or self-care (01) | LOC: HO.LAB 09:37 | PROVIDERS: PCP Internal Medicine; Visit Provider Internal Medicine Endocrinology, Diabetes & Metabolism | DX: M81.0 Age-related osteoporosis without current pathological fracture (principal) | CPT/HCPCS: 36415; 82310 ==

== ENCOUNTER 2024-03-10 08:44 | Outpatient (AMB) | payer MEDICARE, OTHER, SELFPAY ==
[2024-03-10 09:36] VITALS: BP 146/72; PULSE 70; BMI 20.8
--- NOTE | 2024-03-10 09:36 | MHC.OFFVIS ---
Intake Vital Signs 03/10/24 09:36 Height 5 ft 2 in Weight 114 lb BMI 20.8 BP 146/72 H Blood Pressure Location Lt brachial Position Sitting Pulse 70 Pulse Source Pulse Oximeter Intake Visit Reasons: f/u osteoporosis-confirmed Intake Note: Patient present today for Osteoporosis follow up visit. Sprinkler Tender Required: No Accompanied by: Self / Same As Patient Allergies iodine Allergy (Severe, Verified 03/10/24 09:49) swelling, rash Medication List - Last Reconciled 03/10/24 by Karlos Crowe MD aspirin (Adult Low Dose Aspirin) 81 mg PO BEDTIME 90 days atorvastatin 80 mg PO BEDTIME 90 days bisacodyl (Dulcolax (bisacodyl)) 10 mg (2 x 5 mg) PO BEDTIME carvedilol 12.5 mg PO DAILY cholecalciferol (vitamin D3) 25 mcg PO DAILY losartan 100 mg PO DAILY 90 days HPI HPI Comments History of Present Illness Details 74 YO Female with is seen in consultation at the request of PCP for Osteoporosis. First diagnosed in 6 mos ago . Received treatment in the past with alendronate , 6 mos ago for 2 mos . Was not able to Tolerate treatment well because of gastrointestinal side effects history of pathologic fracture in wrist bathroom fall or ONJ. Has several servings of dietary calcium per day Takes Calcium supplement 600 mg mg daily in divided doses. Takes ? IU of Vitamin D daily. uses PPI, but no anticoagulant, antiepileptic or glucocorticoid medication. Does weight bearing exercise walks every days per week in the form of walking . Fracture history: as above Height loss: Y PATIENT ACCESS history: menoapause at age 48 Denies history of Kidney stones: Has family history of Osteoporosis or hip fracture in sister UTD on dental cleanings and sees dentist every 6 months. No planned upcoming dental work or extractions.Has implants scheduled DXA dated 07/05/21 T Score -3.9 LS]: Labs: Secondary workup was negative. On alendrnate but having GI issues . Travels back and forth to [place] and can't recive anabolicc therapies. Wants to go with Prolia. Received a Prolia injection in January 2023. Due for another Prolia injection today No fx since last visit. No unusual back pain [facility] Medical History Memory loss Tubular adenoma Stenosis of right subclavian artery Dyslipidemia Sick sinus syndrome Cardiomyopathy GERD (gastroesophageal reflux disease) Essential hypertension Surgical History History of hysterectomy History of esophagogastroduodenoscopy (EGD) Hx of colonoscopy History of surgical procedure on eye proper using laser History of pacemaker (~09/2012) Family History Father Cancer Mother Stroke Social History Household Members: None Housing: Apartment Alcohol intake: former Patient Tobacco Use Status: Current everyday Tobacco user Tobacco use type: Cigarette Cigarettes Per Day: 3 Years Smoked: 25 e-Cigarette/Vaping Use: Never Used Second Hand Smoke Exposure: No service: No Current occupational status: retired Cognitive needs: No Hearing needs: No Vision needs: Yes Female Reproductive History Menstrual Age of Menarche: 9 Physical Exam Vital Signs: Last Vital Signs Pulse 70 03/10/24 09:36 BP 146/72 H 03/10/24 09:36 BMI result Body Mass Index 20.8 Assessment & Plan Assessment & Plan (1) Osteoporosis: Code(s): M81.0 - Age-related osteoporosis without current pathological fracture Plan: This is a 72-year-old female with a history of osteoporosis. Secondary causes have been ruled out. Currently on Prolia The plan is arrange for another Prolia injection today. Orders: Orders Calcium 6 Months M81.0 - Age-related osteoporosis without current pathological fracture Albumin Level 6 Months M81.0 - Age-related osteoporosis without current pathological fracture Basic Metabolic Panel 6 Months M81.0 - Age-related osteoporosis without current pathological fracture Coding Level of Care Code Est Pt Level 3 (54586) Diagnoses Osteoporosis M81.0
== END 2024-03-10 10:07 | disposition home or self-care (01) ==
PROVIDERS: PCP Internal Medicine; Visit Provider Internal Medicine Endocrinology, Diabetes & Metabolism
DX: M81.0 Age-related osteoporosis without current pathological fracture (principal)
CPT/HCPCS: 99213

== ENCOUNTER 2024-03-10 08:44 | Outpatient (AMB) | payer MEDICARE, OTHER, SELFPAY ==
--- NOTE | 2024-03-10 09:11 | AM.OFFVISNUR ---
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
== END 2024-03-10 11:32 | disposition home or self-care (01) ==
PROVIDERS: PCP Internal Medicine; Visit Provider Internal Medicine Endocrinology, Diabetes & Metabolism
DX: M81.0 Age-related osteoporosis without current pathological fracture (principal)

== ENCOUNTER → 2024-03-10 08:44 | Outpatient (BNVA) | payer MEDICARE, OTHER, SELFPAY | PROVIDERS: PCP Internal Medicine; Visit Provider Internal Medicine Endocrinology, Diabetes & Metabolism | DX: M81.0 Age-related osteoporosis without current pathological fracture (principal) | CPT/HCPCS: 96372; 99212; J0897 ==

== ENCOUNTER 2024-03-16 09:14 | Outpatient (AMB) | payer MEDICARE, OTHER, SELFPAY ==
--- NOTE | 2024-03-16 09:21 | A.OFFVIS_ITS ---
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: No Information Interpreted: non-clinical & clinical Bottle Packer: Bottle Packer Present (Lachelle Cabrera ERNSTAugusto) Accompanied by: Self / Same As Patient Allergies iodine Allergy (Severe, Verified 03/16/24 09:27) swelling, rash Post menopausal: Yes HPI HPI Comments History of Present Illness Details Presenting complaining of vaginal discharge associated with foul odor , urinary frequency and urgency [facility] Medical History Memory loss Tubular adenoma Stenosis of right subclavian artery Dyslipidemia Sick sinus syndrome Cardiomyopathy GERD (gastroesophageal reflux disease) Essential hypertension Surgical History History of hysterectomy History of esophagogastroduodenoscopy (EGD) Hx of colonoscopy History of surgical procedure on eye proper using laser History of pacemaker (~09/2012) Family History Father Cancer Mother Stroke Social History Household Members: None Housing: Apartment Alcohol intake: former Patient Tobacco Use Status: Current everyday Tobacco user Tobacco use type: Cigarette Cigarettes Per Day: 3 Years Smoked: 25 e-Cigarette/Vaping Use: Never Used Second Hand Smoke Exposure: No service: No Current occupational status: retired Cognitive needs: No Hearing needs: No Vision needs: Yes Female Reproductive History Menstrual Age of Menarche: 9 Review of Systems Const All systems reviewed & are unremarkable except as noted in HPI and below Card Reports as per HPI and Reports no additional complaints Resp Reports as per HPI and Reports no additional complaints GI Reports as per HPI and Reports no additional complaints Reports as per HPI Physical Exam Vital Signs: Last Vital Signs BP 116/74 03/16/24 09:26 BMI result Body Mass Index 20.6 Const General: cooperative, healthy appearing and comfortable General: Yes bladder normal to palpation External Female Exam: No lesion Speculum Exam - Vagina: normal appearance of the vagina, normal vaginal discharge and not erythematous Speculum Exam - Cervix: Cervix absent Bimanual exam- vagina & uterus: bladder normal to palpation and uterus absent Bimanual Exam- Adnexa, other: Other (No masses detected) Assessment & Plan Assessment & Plan (1) Bacterial vaginosis: Code(s): N76.0 - Acute vaginitis; B96.89 - Other specified bacterial agents as the cause of diseases classified elsewhere Plan: BV panel taken. Per CDC recommendation. Will treat with Metrogel 0.75% q.h.s. for 5 days, Instructions given to the patient to refrain from sexual activity or to use condoms consistently and correctly during the BV treatment regimen, not to douch, it might increase the risk for relapse, and to call if symptoms persist or recur. (2) UTI (urinary tract infection): Code(s): N39.0 - Urinary tract infection, site not specified Plan: Urine dip showed microscopic hematuria, will send urine for culture, treat with Macrobid 100 mg p.o. b.i.d. for 5 days. Instructions given to patient to call in case of fever above 100.4, persistent of her symptoms, flank pain, nausea or vomiting. (3) Microscopic hematuria: Code(s): R31.29 - Other microscopic hematuria Plan: Urine dip showed microscopic hematuria will send a urine for culture. Instructions given the patient to schedule a 2 week repeat urine dip appointment. All questions answered, the patient verbalized understanding. Medications: New metronidazole 0.75%(37.5mg/5gram) 1 appful vaginal BEDTIME 5 days 37.5 grams 0RF nitrofurantoin monohyd/m-cryst 100 mg (Macrobid) 100 mg PO BID 5 days 10 caps 0RF Coding Level of Care Code Est Pt Level 3 (87717) Diagnoses Bacterial vaginosis N76.0; B96.89 UTI (urinary tract infection) N39.0 Microscopic hematuria R31.29
[2024-03-16 09:26] VITALS: BP 116/74; BMI 20.6
== END 2024-03-16 09:51 | disposition home or self-care (01) ==
LOC: HO.HWS 09:14
PROVIDERS: PCP Internal Medicine; Visit Provider Obstetrics & Gynecology
DX: N76.0 Acute vaginitis (principal); B96.89 Other specified bacterial agents as the cause of diseases classified elsewhere; N39.0 Urinary tract infection, site not specified; R31.29 Other microscopic hematuria
CPT/HCPCS: 99213

== ENCOUNTER 2024-03-16 09:14 | Outpatient (REF) | payer MEDICARE, OTHER, SELFPAY ==
[2024-03-17 12:40] LABS: BV Int Neg Control Negative (Negative); BV Int Pos Control Positive (Positive)
== END 2024-03-16 09:15 | disposition home or self-care (01) ==
LOC: HO.LNP 09:14
PROVIDERS: PCP Internal Medicine; Visit Provider Obstetrics & Gynecology
DX: N76.0 Acute vaginitis (principal); B96.89 Other specified bacterial agents as the cause of diseases classified elsewhere; N39.0 Urinary tract infection, site not specified
CPT/HCPCS: 87086; 87480; 87510; 87660; 99212

== ENCOUNTER 2024-03-30 09:43 | Outpatient (REF) | payer MEDICARE, OTHER, SELFPAY ==
[2024-03-30 15:06] LABS: BV Int Neg Control Negative (Negative); BV Int Pos Control Positive (Positive)
== END 2024-03-30 09:44 | disposition home or self-care (01) ==
LOC: HO.LNP 09:43
PROVIDERS: PCP Internal Medicine; Visit Provider Obstetrics & Gynecology
DX: R31.29 Other microscopic hematuria (principal); N76.0 Acute vaginitis; B96.89 Other specified bacterial agents as the cause of diseases classified elsewhere
CPT/HCPCS: 81002; 87480; 87510; 87660; 99212

== ENCOUNTER 2024-03-30 09:43 | Outpatient (AMB) | payer MEDICARE, OTHER, SELFPAY ==
[2024-03-30 09:58] VITALS: BMI 20.6
--- NOTE | 2024-03-30 09:58 | MHC.OFFVIS ---
Vital Signs 03/30/24 09:58 Height 5 ft 2 in Weight 112 lb 6.972 oz BMI 20.6 Intake Visit Reasons: 2 week follow up per Dr. Blount Environmental Aid Required: No Information Interpreted: non-clinical & clinical Pecan Gatherer: Pecan Gatherer Present (Lachelle EVANS) Accompanied by: Self / Same As Patient Allergies iodine Allergy (Severe, Verified 03/30/24 09:59) swelling, rash Post menopausal: Yes HPI Comments Details: Presenting for follow-up regarding microscopic hematuria. The patient had vaginal discharge last visit BV panel showed positive Gardnerella vaginalis and urine dip was positive for microscopic hematuria. The patient was treated with Macrobid 100 mg p.o. b.i.d. for 5 days, urine culture was negative; in addition to metronidazole 500 mg p.o. b.i.d. for 7 days. The patient is still complaining of urinary frequency and back pain with vaginal odor discharge [facility] Medical History Memory loss Tubular adenoma Stenosis of right subclavian artery Dyslipidemia Sick sinus syndrome Cardiomyopathy GERD (gastroesophageal reflux disease) Essential hypertension Surgical History History of hysterectomy History of esophagogastroduodenoscopy (EGD) Hx of colonoscopy History of surgical procedure on eye proper using laser History of pacemaker (~09/2012) Family History Father Cancer Mother Stroke Social History Household Members: None Housing: Apartment Alcohol intake: former Patient Tobacco Use Status: Current everyday Tobacco user Tobacco use type: Cigarette Cigarettes Per Day: 3 Years Smoked: 25 e-Cigarette/Vaping Use: Never Used Second Hand Smoke Exposure: No service: No Current occupational status: retired Cognitive needs: No Hearing needs: No Vision needs: Yes Female Reproductive History Menstrual Age of Menarche: 9 Review of Systems Const All systems reviewed & are unremarkable except as noted in HPI and below Reports as per HPI and Reports no additional complaints Card Reports as per HPI and Reports no additional complaints Resp Reports as per HPI and Reports no additional complaints GI Reports no additional complaints Reports no additional complaints Physical Exam Vital Signs: BMI result Body Mass Index 20.6 Const General: cooperative, healthy appearing and comfortable General: Yes bladder normal to palpation External Female Exam: No lesion Speculum Exam - Vagina: normal appearance of the vagina, normal vaginal discharge and not erythematous Speculum Exam - Cervix: Cervix absent Bimanual exam- vagina & uterus: bladder normal to palpation and uterus absent Bimanual Exam- Adnexa, other: Other (No masses detected) Results AMB Urinalysis Dipstick UR Leukocytes Negative Last Edit by Lachelle Cabrera CMA on 03/30/24 10:24 UR Nitrite Negative Last Edit by Lachelle Cabrera, BB SHOT PACKER on 03/30/24 10:24 UR Urobilinogen Normal Last Edit by Lachelle Cabrera, GIL on 03/30/24 10:24 UR Protein Negative Last Edit by Lachelle Cabrera, GIL on 03/30/24 10:24 UR Ph 7.0 Last Edit by Lachelle Cabrera, GIL on 03/30/24 10:24 UR Blood Trace Last Edit by Lachelle Cabrera, GIL on 03/30/24 10:24 UR Specific [place] 1.010 Last Edit by Lachelle Cabrera, GIL on 03/30/24 10:24 UR Ketone Negative Last Edit by Lachelle Cabrera, BB SHOT PACKER on 03/30/24 10:24 UR Bilirubin Negative Last Edit by Lachelle Cabrera, GIL on 03/30/24 10:24 UR Glucose Negative Last Edit by Lachelle Cabrera, GIL on 03/30/24 10:24 Assessment & Plan Assessment & Plan (1) Microscopic hematuria: Code(s): R31.29 - Other microscopic hematuria Category: Medical Plan: Repeat urine dip showed persistent microscopic hematuria, will order CT scan of abdomen pelvis and refer to Urology for further management Discussed with the patient the possible causes of microscopic hematuria including but not limited to: interstitial cystitis, polyps, stones, masses, urethral inflammatory processes and others. Instructed the patient to call our office back in case a referral appointment is not scheduled, missed or canceled so that we will assist on rescheduling another appointment, the patient verbalized understanding agreed with the plan. All questions answered and the patient verbalized understanding. (2) Bacterial vaginosis: Code(s): N76.0 - Acute vaginitis; B96.89 - Other specified bacterial agents as the cause of diseases classified elsewhere Category: Medical Plan: BV panel collected will treat with clindamycin cream 2% 5 g applicator intravaginally at bedtime for 7 days, prescription sent to patient's pharmacy. Instructions given the patient to call in case symptoms not improve or get worse Orders: Orders Bacterial Vaginosis Panel Today B96.89 - Other specified bacterial agents as the cause of diseases classified elsewhere, N76.0 - Acute vaginitis AMB Urinalysis Dipstick Today R35.0 - Frequency of micturition CT abdomen pelvis wo/w IV con Today R31.29 - Other microscopic hematuria Referrals Urology Referral R31.29 - Other microscopic hematuria Medications: New clindamycin phosphate 2% for 3 days 1 appful vaginal BEDTIME 7 days 40 grams 0RF Coding Level of Care Code Est Pt Level 3 (89943) Diagnoses Microscopic hematuria R31.29 Bacterial vaginosis N76.0; B96.89
== END 2024-03-30 15:57 | disposition home or self-care (01) ==
LOC: HO.HWS 09:43
PROVIDERS: PCP Internal Medicine; Visit Provider Obstetrics & Gynecology
DX: R31.29 Other microscopic hematuria (principal); N76.0 Acute vaginitis; B96.89 Other specified bacterial agents as the cause of diseases classified elsewhere; R35.0 Frequency of micturition
CPT/HCPCS: 99213

== ENCOUNTER 2024-05-23 | Outpatient (REF) | payer MEDICARE, OTHER, SELFPAY | END 2024-05-23 00:01 | disposition home or self-care (01) | LOC: CF | PROVIDERS: Visit Provider Nurse Practitioner Family | DX: K59.04 Chronic idiopathic constipation (principal); K21.9 Gastro-esophageal reflux disease without esophagitis; R31.29 Other microscopic hematuria | CPT/HCPCS: 99212 ==

== ENCOUNTER 2024-05-23 08:16 | Outpatient (AMB) | payer MEDICARE, OTHER, SELFPAY ==
--- NOTE | 2024-05-23 08:30 | MHC.OFFVIS ---
Vital Signs 05/23/24 08:38 Height 5 ft 2 in Weight 111 lb 1.808 oz BMI 20.3 BP 146/76 H Blood Pressure Location Lt brachial Position Sitting Pulse 60 Pulse Source Pulse Oximeter Pulse Oximetry (%) 96 Oxygen Delivery Method Room Air Intake Visit Reasons: 6 Month Follow Up CIC, GERD Intake Note: Sabina presents in office today for a scheduled 6 mos. FUV CC: Sabina was rx'd dulcolax at her last visit. Pt reports that they are doing fairly well since their last visit. Pt denies any new concerns or sx. Pt does report a concern involving the inability for her to keep her weight consistent. Pt has been losing weight over the last year or two. Pt also has a question regarding her daily medication regimen. 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 Patient was encouraged to increase fluid intake and activity to promote better bowel motility. Patient will have colonoscopy in 5 years, sooner if clinically necessary. Patient currently reports to be feeling well. Denies acid reflux, dyspepsia, dysphagia or odynophagia. Patient was encouraged to continue avoiding dietary triggers. Patient states that now that she is moving her bowels better her symptoms of acid reflux have resolved. I will see patient in 6 months, sooner on as needed basis. Patient is agreeable to this plan and verbalizes understanding of instructions. She was given the opportunity to ask questions and all questions answered. ? Thank you for allowing me to participate in her care Medications New bisacodyl (Dulcolax (bisacodyl)) 10 mg (2 x 5 mg) PO BEDTIME 180 tabs 4RF TODAY'S VISIT Patient is here today for follow-up. Patient reports that since the last time I have seen her she has been having bowel movements daily. Patient takes Dulcolax as prescribed. Patient reports that she was unable to go to [place] over the winter as she had to go for hysterectomy. Since the procedure patient has been having issues urinating. Patient has urinary frequency. Frequent UTIs. Patient was on antibiotics last month for urinary tract infection. Patient has been following up with her therapist speech Dr. Blount as well as with urology. Patient has appointment with them in the next couple weeks. Patient denies any melena, hematochezia. Patient is concerned that she lost 10 lb or so within the last year. Patient reports that she has good appetite and is eating well. Denies any postprandial abdominal pain, cramping, bloating. Patient denies any dyspepsia, dysphagia or odynophagia [facility] Medical History Memory loss Tubular adenoma Stenosis of right subclavian artery Dyslipidemia Sick sinus syndrome Cardiomyopathy GERD (gastroesophageal reflux disease) Essential hypertension Surgical History History of hysterectomy History of esophagogastroduodenoscopy (EGD) Hx of colonoscopy History of surgical procedure on eye proper using laser History of pacemaker (~09/2012) Family History Father Cancer Mother Stroke Social History Household Members: None Housing: Apartment Alcohol intake: former Patient Tobacco Use Status: Current everyday Tobacco user Tobacco use type: Cigarette Cigarettes Per Day: 3 Years Smoked: 25 e-Cigarette/Vaping Use: Never Used Second Hand Smoke Exposure: No service: No Current occupational status: retired Cognitive needs: No Hearing needs: No Vision needs: Yes Female Reproductive History Menstrual Age of Menarche: 9 Review of Systems Const Denies weight gain and Denies weight loss ENT Reports no additional complaints, Denies dysphagia and Denies odynophagia Card Reports no additional complaints Resp Reports no additional complaints GI Denies abdominal pain, Denies belching, Denies melena, Denies bloating, Denies change in bowel habits, Denies dysphagia, Denies excessive flatus, Denies dyspepsia, Denies heartburn, Denies diarrhea, Denies loose stools, Denies nausea, Denies odynophagia and Denies vomiting Reports no additional complaints Musc Reports no additional complaints Neuro Reports no additional complaints Psych Reports no additional complaints Endo Reports no additional complaints Physical Exam Vital Signs: Last Vital Signs Pulse 60 05/23/24 08:38 BP 146/76 H 05/23/24 08:38 Pulse Ox 96 05/23/24 08:38 Oxygen Delivery Method Room Air 05/23/24 08:38 BMI result Body Mass Index 20.3 Const General: healthy appearing, no acute distress and well developed Nutritional Appearance: well nourished Orientation/consciousness: patient oriented x3 Resp Effort & Inspection: normal respiratory effort, able to speak in complete sentences, no tracheal deviation and symmetric chest movement Auscultation: clear to auscultation bilaterally Cardio Rate: regular rate Heart sounds: S1 normal heart sound present and S2 normal heart sound present GI Inspection: Yes normal to inspection and No distended Palpation (GI): Soft to palpation, not firm, nontender and No hepatosplenomegaly present Auscultation: normal bowel sounds General: Yes no CVA tenderness Back/Spine/Pelvis Back: no CVA tenderness Skin General skin exam: elasticity normal, turgor normal and dry skin Neuro General: patient oriented x3 Psych Appearance: grossly normal Mental Status: mental status grossly normal Speech and movement: Normal speech and movement present Assessment & Plan Assessment & Plan (1) Chronic idiopathic constipation: Code(s): K59.04 - Chronic idiopathic constipation Plan Patient will continue taking Dulcolax. Patient will try protein shakes 1 to 2 times a day. Patient denies any abdominal pain or discomfort. Reports to be feeling fairly well. Patient did lose few lb in the last year or so. Patient was encouraged to increase fluid intake and activity to promote better bowel motility. Patient will return in 6 months, sooner on as needed basis. She is agreeable to this plan and verbalizes understanding of instructions. She was given the opportunity to ask questions and all questions answered. Thank you for allowing me to participate in her care Coding Level of Care Code Est Pt Level 3 (38570) Diagnoses Chronic idiopathic constipation K59.04 Time Spent (min) 30 Comment 20 minutes spent with patient and additional 10 minutes spent reviewing her records
[2024-05-23 08:38] VITALS: BP 146/76; PULSE 60; O2SAT 96; BMI 20.3
== END 2024-05-23 09:10 | disposition home or self-care (01) ==
PROVIDERS: PCP Internal Medicine; Visit Provider Nurse Practitioner Family
DX: K59.04 Chronic idiopathic constipation (principal)
CPT/HCPCS: 99213

== ENCOUNTER 2024-06-01 13:43 | Outpatient (REF) | payer MEDICARE, OTHER, SELFPAY | END 2024-06-01 13:44 | disposition home or self-care (01) | LOC: HO.CT 13:43 | PROVIDERS: Visit Provider Obstetrics & Gynecology | DX: Z13.89 Encounter for screening for other disorder (principal) ==

== ENCOUNTER 2024-06-08 13:13 | Outpatient (REF) | payer MEDICARE, OTHER, SELFPAY | END 2024-06-08 13:14 | disposition home or self-care (01) | LOC: HO.CT 13:13 | PROVIDERS: Visit Provider Obstetrics & Gynecology | DX: Z13.89 Encounter for screening for other disorder (principal) ==

== ENCOUNTER 2024-06-30 08:42 | Outpatient (AMB) | payer MEDICARE, OTHER, SELFPAY ==
[2024-06-30 08:55] VITALS: BP 138/80; BMI 19.8
--- NOTE | 2024-06-30 08:55 | A.OFFVIS_ITS ---
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 Accompanied by: Self / Same As Patient Allergies iodine Allergy (Severe, Verified 06/30/24 09:13) swelling, rash Medication List - Last Reconciled 06/30/24 by Lucy Hodge MD aspirin (Adult Low Dose Aspirin) 81 mg PO BEDTIME 90 days atorvastatin 80 mg PO BEDTIME 90 days bisacodyl (Dulcolax (bisacodyl)) 10 mg (2 x 5 mg) PO BEDTIME carvedilol 12.5 mg PO DAILY cholecalciferol (vitamin D3) 25 mcg PO DAILY clindamycin phosphate 2% 1 appful vaginal BEDTIME 7 days losartan 100 mg PO DAILY 90 days methylprednisolone 32 mg PO DAILY 1 day metronidazole 0.75%(37.5mg/5gram) 1 appful vaginal BEDTIME 5 days nitrofurantoin monohyd/m-cryst 100 mg (Macrobid) 100 mg PO BID 5 days HPI HPI Comments History of Present Illness Details This is a 74-year-old female with sick sinus syndrome and cardiomyopathy that comes for her Medicare annual wellness exam. Sick sinus syndrome and cardiomyopathy are follow by cardiology. She denies gaining 5 lb in a week. No chest pain or shortness on breath. Mammogram done 2023 was normal. Colonoscopy done 2022. Pap smear and biopsy were done 2022. PPP handed to patient. She complains of some weight loss that has not been intentional and I will order a thyroid test. She also has some ear discomfort and would like to see ENT. Healthcare proxy is her sons and I gave her the paper to give it to them. DEXA scan done 2022 showing osteoporosis and this is follow by Endocrinology which is giving Prolia. [facility] Medical History (Updated 06/30/24 @ 10:57 by Lucy Hodge MD) Sick sinus syndrome Carotid artery disease Memory loss Tubular adenoma Stenosis of right subclavian artery Dyslipidemia Cardiomyopathy GERD (gastroesophageal reflux disease) Essential hypertension Surgical History History of hysterectomy History of esophagogastroduodenoscopy (EGD) Hx of colonoscopy History of surgical procedure on eye proper using laser History of pacemaker (~09/2012) Family History (Updated 06/30/24 @ 09:18 by Lucy Hodge MD) Father Cancer Mother Stroke Social History Household Members: None Housing: Apartment Alcohol intake: former Patient Tobacco Use Status: Current everyday Tobacco user Tobacco use type: Cigarette Cigarettes Per Day: 3 Years Smoked: 25 e-Cigarette/Vaping Use: Never Used Second Hand Smoke Exposure: No service: No Current occupational status: retired Cognitive needs: No Hearing needs: No Vision needs: Yes Female Reproductive History Menstrual Age of Menarche: 9 Questionnaire Medicare Wellness Checkup [age] What gender do you identify with?: female During the past 4 weeks, how much have you been bothered by emotional problems such as feeling anxious, depressed, irritable, sad or downhearted, and blue?: not at all During the past 4 weeks, has your physical & emotional health limited your social activities with family, friends, neighbors, or groups?: not at all During the past 4 weeks, how much bodily pain have you generally had?: severe pain During the past 4 weeks, was someone available to help you if you needed & wanted help?: yes, quite a bit During the past 4 weeks, what was the hardest physical activity you could do for at least 2 minutes?: light Can you get to places out of walking distance without help? (For eg., can you travel alone on buses, taxis or drive your car?): Yes Can you go shopping for groceries or clothes without someone's help?: Yes Can you prepare your own meals?: Yes Can you do your housework without help?: Yes Because of any health problems, do you need the help of another person with your personal care needs such as eating, bathing, dressing or getting around the house?: Yes Can you handle your own money without help?: Yes During the past 4 weeks, how would you rate your health in general?: good During the past 4 weeks how have things been going for you?: pretty well Are you having difficulties driving your car?: no Do you always fasten your seat belt when you are in a car?: yes, usually During past 4 weeks, have you been bothered by the following: never: Sexual problems? and Teeth or denture problems?, sometimes: Trouble eating well?, often: Falling or dizzy when standing up and Problems using the telephone? and always: Tiredness or fatigue? Have you fallen 2 or more times in the past year?: No Are you afraid of falling?: Yes Are you a smoker?: yes, but I'm not ready to quit During the past 4 weeks, how many drinks of wine, beer, or other alcoholic beverages did you have?: no alcohol at all Do you exercise for about 20 minutes 3 or more times a week?: no, I usually do not exercise this much Have you been given information to help with the following?: no: Hazards in your house that might hurt you? and no: Keeping track of your medications? How often do you have trouble taking medicines the way you have been told to take them?: I always take medicine as prescribed How confident are you that you can control & manage most of your health problems?: somewhat confident What is your race?: or origin or descent Mini Mental State Exam (MMSE) Orientation What is the (year) (season) (date) (day) (month)?: year, date, day and month Where are we (state) (county) (town or city) (hospital) (floor)?: state, county, town or city, hospital/clinic and floor Registration Name of 3 unrelated objects clearly and slowly, then ask patient to repeat all 3 of them. (1st repeat determines score. Make sure they can repeat all three): object 1, object 2 and object 3 Attention & Calculation (CHOOSE ONE) Spell WORLD backwards (DLROW): 5 letters Recall Ask patient to repeat the 3 items from question #3.: object 1 and object 2 Language Show patient a wristwatch & ask what it is. Repeat for pencil.: watch and pencil Ask the patient to repeat the phrase 'No ifs, ands, or buts' after you.: correct Ask the patient to 'take a piece of paper with their right hand' 'fold paper in half' 'place paper on floor': take paper in right hand, fold paper in half and place paper on floor Print the sentence 'CLOSE YOUR EYES' on a piece. If patient actually closes eyes then score.: followed written direction Give patient a blank piece of paper & ask to write a sentence. Score if it contains a noun & verb.: sentence contains subject and verb Score Score: 27 Activity of Daily Living Bathing - sponge bath, tub bath or shower: receives no assistance (gets in/out by self, if usual bathing means Dressing - getting clothes from closets & drawers, including inner/outer garments & fasteners.: gets clothes & gets completely dressed without help Transfer: moves in & out of bed and chair without help (may use support object) Continence: has occasional 'accidents' Feeding: feeds self without help Total Score: 0 Information obtained from: patient Using telephone: independent Traveling: independent Shopping: independent Preparing meals: independent Housework: independent Taking medicine: independent PHQ-9 Over the last 2 weeks, how often have you been bothered by any of the following problems? 1. Little interest or pleasure in doing things: more than half the days 2. Feeling down, depressed, or hopeless: more than half the days 3. Trouble falling or staying asleep, or sleeping too much: more than half the days 4. Feeling tired or having little energy: more than half the days 5. Poor appetite or overeating: more than half the days 6. Feeling bad about yourself - or that you are a failure or have let yourself or your family down: more than half the days 7. Trouble concentrating on things, such as reading the newspaper or watching television: more than half the days 8. Moving or speaking so slowly that other people could have noticed. Or the opposite - being so fidgety or restless that you have been moving around a lot more than usual: more than half the days 9. Thoughts that you would be better off or of hurting yourself in some way: not at all Total score: 16 Depression Screening Interpretation: Positive (no suicidal thoughts) Depression Screening Follow-up: Existing condition, Follow-up Visit Requested and Declines treatment Depression Screening Done: Yes 61030 - PHQ-9 Billing: Yes Source: Developed by Drs. Karlos Espinosa, Denae Buckley, Aayush Veliz and colleagues, with an educational juliet from [employer]. DELIA-7 AMB Questionnaire DELIA-7 Date DELIA - 7 assessed: 06/30/24 Feeling nervous, anxious, or on edge: 1 = Several days Not being able to stop or control worryin = Not at all Worrying too much about different things: 1 = Several days Trouble relaxin = Not at all Being so restless that it is hard to sit still: 0 = Not at all Becoming easily annoyed or irritable: 1 = Several days Feeling afraid as if something awful might happen: 1 = Several days Total DELIA-7 score (0-4 normal; 5-9 mild; 10-14 moderate; 15-21 severe): 4 Source: Developed by Drs. Karlos Espinosa, Denae Buckley, Aayush Veliz and colleagues, with an educational juliet from [employer]. DELIA-7 Assessment Billing DELIA-7 Assessment Tool: DELIA-7 Assessment 51762 Fall Risk Assessment Fall Risk Assessment Fall risk assessment: No Falls in past year Thrive Questionnaire Date Thrive assessed: 06/30/24 I am a: Patient What is your living situation today?: I have a steady place to live Within the past 12 months, did the food you bought not last and you didn't have the money to get more?: Never true Within the past 12 months, did you worry whether your food would run out before you got money to buy more?: Never true Do you have trouble paying for medicines?: No Do you have trouble getting transportation to medical appointments?: No Do you have trouble paying your heating and electricity bill?: No Do you have trouble taking care of your child, family member or friend?: No Do you have trouble with day-to-day activities such as bathing, preparing meals, shopping, managing finances, etc.?: No Are you currently unemployed and looking for a job?: No Are you interested in more education?: No Please select the resources that you would like help with: None Currently or been in a relationship where the following occur: No concerns reported THRIVE Score: 0 AUDIT C Alcohol Use Questionnaire (AUDIT-C) 1. How often do you have a drink containing alcohol?: Never Total Score: 0 Score Reviewed/Action Taken: No Review of Systems Const All systems reviewed & are unremarkable except as noted in HPI and below Card Denies chest pain at rest, Denies chest pain with activity, Denies edema, Denies irregular heart rhythm, Denies claudication, Denies dyspnea, Denies dyspnea on exertion, Denies orthopnea, Denies paroxysmal nocturnal dyspnea and Denies slow heart rate Resp Denies cough, Denies dyspnea and Denies dyspnea on exertion Musc Denies atrophy, Denies deformity and Denies limited range of motion Physical Exam Vital Signs: Last Vital Signs BP 138/80 06/30/24 08:55 BMI result Body Mass Index 19.8 Const General: cooperative Orientation/consciousness: patient oriented x3 Resp Effort & Inspection: normal respiratory effort Auscultation: clear to auscultation bilaterally Cardio Jugular venous distension: no JVD Rate: regular rate Rhythm: regular rhythm Heart sounds: S1 normal heart sound present and S2 normal heart sound present Neuro General: patient oriented x3 and no focal motor deficits Gait exam (Neuro): Normal gait present Romberg Test: Negative Extrem General: Yes full ROM Immunizations pneumoc 20-katie conj-dip cr(PF) 0.5 mL IM syringe Performing Provider: Lucy Hodge MD [facility] Administered by: NATHAN Taylor on 06/30/24 09:40 Dose Route Admin Location Dispensed Lot Number Expiration Date NDC Clinical Data Specialist 0.5 mL IM Left Deltoid 0.5 mL [id number] 06/30/25 0770-2028-55 [employer] VIS Given Date VIS Provided VIS Publication Date 06/30/24 Single Vaccine 22 Eligibility Eligibility Date Funding Source Not [facility] Eligible 06/30/24 Private Assessment & Plan Assessment & Plan (1) Medicare annual wellness visit, subsequent: Code(s): Z00.00 - Encounter for general adult medical examination without abnormal findings Plan: Repeat in a year. (2) Ear discomfort: Code(s): H92.09 - Otalgia, unspecified ear Plan: Referred to ENT. (3) Weight loss: Code(s): R63.4 - Abnormal weight loss Plan: TSH ordered. (4) Cardiomyopathy: Code(s): I42.9 - Cardiomyopathy, unspecified Qualifiers: Cardiomyopathy type: unspecified Qualified Code(s): I42.9 - Cardiomyopa thy, unspecified Plan: Follow-up with Cardiology. The goal is to not gain 5 lb in a week. (5) Sick sinus syndrome: Code(s): I49.5 - Sick sinus syndrome Plan: Follow-up with Cardiology. Continue pacemaker. Orders: Orders Thyroid Stimulating Hormone Today R63.4 - Abnormal weight loss Pneumococcal 20 Immunization Today Z23 - Encounter for immunization Referrals Ear/Nose/Throat Referral H92.09 - Otalgia, unspecified ear Quality Reporting (2019) Fall Risk Screening ([facility] 139) Fall risk assessment: No Falls in past year Depression/Bipolar (159/160/161/177) PHQ-9: Total score: 16 Coding Level of Care Code Medicare Subsequent (G0439) Est Pt Level 3 (16061) Diagnoses Medicare annual wellness visit, subsequent Z00.00 Ear discomfort H92.09 Weight loss R63.4 Cardiomyopathy, unspecified type I42.9 Cardiomyopathy type: unspecified Sick sinus syndrome I49.5 CPT Codes Advance Care Planning - Time spent: 1-15 minutes, on File ([id number]) Additional Codes DELIA-7 Assessment Billing - DELIA-7 Assessment Tool: DELIA-7 Assessment 16946 ([id number]) Time Spent (min) 40 Advance Care Planning Advance Care Planning discussion: Exists, not on file Date of discussion: 06/30/24 Who was present: Patient and me Forms completed: Health Care Proxy Time spent: 1-15 minutes, on File Actual minutes spent: 2
== END 2024-06-30 09:43 | disposition home or self-care (01) ==
PROVIDERS: PCP Internal Medicine; Visit Provider Internal Medicine
DX: Z23 Encounter for immunization (principal); Z00.00 Encounter for general adult medical examination without abnormal findings; H92.03 Otalgia, bilateral; R63.4 Abnormal weight loss; I42.9 Cardiomyopathy, unspecified; I49.5 Sick sinus syndrome
CPT/HCPCS: 1123F; 90471; 90677; 99213; G0439

== ENCOUNTER 2024-07-06 12:43 | Outpatient (REF) | payer MEDICARE, OTHER, SELFPAY ==
[2024-07-06 16:38] LABS: Urine Cytology See Pathology rpt
== END 2024-07-06 12:44 | disposition home or self-care (01) ==
LOC: HO.LNP 12:43
PROVIDERS: PCP Internal Medicine; Visit Provider Nurse Practitioner Family
DX: N39.0 Urinary tract infection, site not specified (principal); R31.29 Other microscopic hematuria; F17.210 Nicotine dependence, cigarettes, uncomplicated
CPT/HCPCS: 81003; 88112; 99202

== ENCOUNTER 2024-07-06 12:43 | Outpatient (AMB) | payer MEDICARE, OTHER, SELFPAY ==
--- NOTE | 2024-07-06 12:53 | A.OFFVIS_ITS ---
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 Hazel. She has a past medical history of nicotine dependence, sick sinus syndrome, carotid artery disease, memory loss, dyslipidemia, cardiomyopathy, GERD, and hypertension. She presents to the office today as a new patient for microscopic hematuria in the setting of nicotine dependence. In discussion with the patient today she reports having followed up with her PCP at which time urinalysis noted microscopic hematuria and recommendations were made for urology referral for further assessment evaluation. She reports being unable to perform CT urogram that was ordered as she has an allergy/anaphylaxis to iodine. When asked she reports a longstanding history of nicotine dependence for approximately 25 years. She reports currently she only smokes approximately 5 cigarettes per day. 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 In office urinalysis results reviewed with the patient today trace microscopic hematuria. Discussed at length potential causes of microscopic hematuria. Discussed further workup to include cystoscopy with bilateral retrogrades given patient's allergy to contrast dye. She otherwise denies any bothersome urinary issues or concerns. She denies urinary urgency, urinary frequency, incontinence, nocturia, dysuria, foul smelling urine, changes to urinary stream, flank pain, fever, and or chills. She is happy with her current voiding parameters. [facility] Medical History Sick sinus syndrome Carotid artery disease Memory loss Tubular adenoma Stenosis of right subclavian artery Dyslipidemia Cardiomyopathy GERD (gastroesophageal reflux disease) Essential hypertension Surgical History History of hysterectomy History of esophagogastroduodenoscopy (EGD) Hx of colonoscopy History of surgical procedure on eye proper using laser History of pacemaker (~09/2012) Family History (Updated 06/30/24 @ 09:18 by Lucy Hodge MD) Father Cancer Mother Stroke Social History Household Members: None Housing: Apartment Alcohol intake: former Patient Tobacco Use Status: Current everyday Tobacco user Tobacco use type: Cigarette Cigarettes Per Day: 3 Years Smoked: 25 e-Cigarette/Vaping Use: Never Used Second Hand Smoke Exposure: No service: No Current occupational status: retired Cognitive needs: No Hearing needs: No Vision needs: Yes Female Reproductive History Menstrual Age of Menarche: 9 Review of Systems Eyes Reports no additional complaints ENT Reports no additional complaints Card Reports as per HPI Resp Reports no additional complaints GI Reports as per HPI Reports as per HPI Musc Reports no additional complaints Neuro Reports as per HPI Psych Reports no additional complaints Endo Reports no additional complaints Dusty/Lymph Reports no additional complaints Aller/Immun Reports no additional complaints Physical Exam Const General: cooperative, healthy appearing, comfortable, no acute distress, well developed, alert and awake Orientation/consciousness: patient oriented x3 Limitations: no limitations HEENT Head: Yes normal to inspection, Yes normocephalic and Yes atraumatic Ears: hearing grossly normal bilaterally Eyes General: appearance normal, both eyes and all related structures Neck Neck: Yes normal visual inspection and Yes trachea midline Chest Chest palpation & inspection: normal inspection of the chest Resp Effort & Inspection: normal respiratory effort and able to speak in complete sentences Cardio Rate: regular rate GI Inspection: Yes normal to inspection General: Yes no CVA tenderness Back/Spine/Pelvis Back: no CVA tenderness Skin General skin exam: no rashes or lesions noted Neuro General: patient oriented x3 Extrem General: Yes normal to inspection Psych Appearance: grossly normal and well kempt Mental Status: mental status grossly normal Speech and movement: Normal speech and movement present and Clear speech present Affect: normal affect Attitude: cooperative Thought process: Normal thought process present Thought content: Normal thought content present Insight: Fair insight present (Psych) Judgement: Fair judgement present (Psych) Results AMB Urinalysis, Automated UA Leukoctes 15 Renetta/uL Last Edit by SNOW Amanda on 07/06/24 13:14 UA Nitrite Negative Last Edit by SNOW Amanda on 07/06/24 13:14 UA Urobilinogen 0.2 mg/dL Last Edit by Sedrick Perdomo CCM on 07/06/24 13:1 4 UA Protein 30 mg/dL Last Edit by Sedrick Perdomo [facility] on 07/06/24 13:14 UA pH 7.0 Last Edit by Sedrick Perdomo [facility] on 07/06/24 13:14 UA Blood 10 Luigi/uL Last Edit by Sedrick Perdomo [facility] on 07/06/24 13:14 UA Specific [place] 1.010 Last Edit by Sedrick Perdomo CCM on 07/06/24 13: 14 UA Ketone Positive Last Edit by Sedrick Perdomo CCM on 07/06/24 13:14 UA Bilirubin 1 mg/dL Last Edit by Sedrick Perdomo [facility] on 07/06/24 13:14 UA Glucose 0 mg/dL Last Edit by Sedrick Perdomo [facility] on 07/06/24 13:14 Results Reviewed Results Reviewed: Laboratory Last Values Urine pH (Auto) 7.0 07/06/24 13:14 Specific [place] (Auto) 1.010 07/06/24 13:14 Urine Protein (Auto) 30 mg/dL 07/06/24 13:14 Glucose (UA)(Auto) 0 mg/dL 07/06/24 13:14 Urine Ketones (Auto) Positive 07/06/24 13:14 Urine Blood (Auto) 10 Luigi/uL 07/06/24 13:14 Urine Nitrite (Auto) Negative 07/06/24 13:14 Urine Bilirubin (Auto) 1 mg/dL 07/06/24 13:14 Urine Urobilinogen (Auto) 0.2 mg/dL 07/06/24 13:14 Leukocyte Esterase (Auto) 15 Renetta/uL 07/06/24 13:14 Assessment & Plan Assessment & Plan (1) Microscopic hematuria: Code(s): R31.29 - Other microscopic hematuria Category: Medical (2) Nicotine dependence: Code(s): F17.200 - Nicotine dependence, unspecified, uncomplicated Category: Medical Plan: Risks, benefits and alternatives to therapy were discussed. These include but are not limited to infection, bleeding, damage to local organs and tissues, need for further interventions. ? Anesthetic risks regarding cardiac arrhythmia, blood clots, and potential mortality were discussed. The patient understands the typical recovery time and the outpatient nature of the procedure. After consideration of these risks the patient gives full informed consent and they wish to move ahead with the procedure. Plan In office urinalysis results reviewed with the patient today; as noted above; will send for urine cytology. Discussed at length potential causes of microscopic hematuria Discussed further workup to include cystoscopy with bilateral retrogrades in the OR as patient with iodine allergy Will obtain CT KUB for further assessment evaluation. Patient currently denies any bothersome urinary issues. She reports be happy with current voiding parameters. Follow-up per doctor's orders; or sooner with any issues, concerns, and or questions. Orders: Orders CT kidney stone Today R31.29 - Other microscopic hematuria AMB Urinalysis Automated Today Z13.9 - Encounter for screening, unspecified Patient Instructions: The patient had an opportunity to ask questions regarding the treatment plan. All questions were answered. Physical exam, labs, and imaging were discussed and reviewed in detail. As well as risks, benefits, and discussion of treatment choices. No major barriers to understanding were identified. The patient expressed understanding and agreement with the above treatment plan. The patient was made aware they should contact our office by phone for worsening of their current condition, the appearance of new symptoms, or with any questions or concerns. Compliance is encouraged with any medications and follow up testing that is ordered. It is a privilege to be allowed the opportunity to participate in? your urological care.? Again, if you have any questions or concerns If you have any questions or concerns please do not hesitate to contact me. The office is [phone]. This note is constructed using voice recognition software. While every effort has been made to ensure accuracy historical records administrator errors may have been included. Yours sincerely, GERMAINE Mae Coding Level of Care Code New Pt Level 4 (76713) Diagnoses Microscopic hematuria R31.29 Nicotine dependence F17.200
== END 2024-07-06 13:37 | disposition home or self-care (01) ==
PROVIDERS: PCP Internal Medicine; Visit Provider Nurse Practitioner Family
DX: R31.29 Other microscopic hematuria (principal); F17.200 Nicotine dependence, unspecified, uncomplicated; Z13.9 Encounter for screening, unspecified
CPT/HCPCS: 99204; 99214

== ENCOUNTER 2024-07-21 09:19 | Outpatient (AMB) | payer MEDICARE, OTHER, SELFPAY ==
[2024-07-21 09:48] VITALS: BP 138/82; PULSE 60; BMI 19.7
--- NOTE | 2024-07-21 09:48 | A.OFFVIS_ITS ---
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: No Allergies iodine Allergy (Severe, Verified 07/21/24 09:52) swelling, rash Medication List - Last Reconciled 07/21/24 by Santa England NP-C aspirin (Adult Low Dose Aspirin) 81 mg PO BEDTIME 90 days atorvastatin 80 mg PO BEDTIME 90 days carvedilol 12.5 mg PO DAILY cholecalciferol (vitamin D3) 25 mcg PO DAILY losartan 100 mg PO DAILY 90 days metronidazole 0.75%(37.5mg/5gram) 1 appful vaginal BEDTIME 5 days HPI HPI Preop/Carelink transmission for device ck: Details: Sabina is a 74-year-old female with past medical history of hypertension, hyperlipidemia, sick sinus syndrome status post pacemaker placement, cardiomyopathy with normalization of EF who presents for follow-up and preop clearance. Today she reports that she has been doing very well with no concerning cardiac symptoms. She denies chest discomfort at rest or with activity. No shortness of breath, PND, orthopnea or edema. No lightheadedness, presyncope, syncope, falls. Continues to smoke 4-5 cigarettes per day. Takes meds as directed. Has been busy with her gardening. [facility] Medical History Sick sinus syndrome Carotid artery disease Memory loss Tubular adenoma Stenosis of right subclavian artery Dyslipidemia Cardiomyopathy GERD (gastroesophageal reflux disease) Essential hypertension Surgical History History of hysterectomy History of esophagogastroduodenoscopy (EGD) Hx of colonoscopy History of surgical procedure on eye proper using laser History of pacemaker (~09/2012) Family History Father Cancer Mother Stroke Social History Household Members: None Housing: Apartment Alcohol intake: former Patient Tobacco Use Status: Current everyday Tobacco user Tobacco use type: Cigarette Cigarettes Per Day: 3 Years Smoked: 25 e-Cigarette/Vaping Use: Never Used Second Hand Smoke Exposure: No service: No Current occupational status: retired Cognitive needs: No Hearing needs: No Vision needs: Yes Female Reproductive History Menstrual Age of Menarche: 9 Review of Systems Const All systems reviewed & are unremarkable except as noted in HPI and below ENT Denies dizziness Card Denies chest pain, Denies chest pain at rest, Denies chest pain with activity, Denies rapid heart rate, Denies pedal edema, Denies edema, Denies leg edema, Denies lightheadedness, Denies palpitations, Denies dyspnea, Denies dyspnea on exertion and Denies orthopnea Resp Denies cough, Denies dyspnea and Denies dyspnea on exertion GI Denies hematochezia and Denies change in stool character Musc Denies abnormal gait, Denies limited range of motion, Denies muscle cramps, Denies muscle weakness, Denies numbness, Denies radiating pain into limb, Denies stiffness and Denies tingling Neuro Denies abnormal gait, Denies dizziness, Denies numbness and Denies tingling Endo Denies palpitations Physical Exam Vital Signs: Last Vital Signs BP 138/82 07/21/24 09:48 BMI result Body Mass Index 19.7 Const General: cooperative, healthy appearing, comfortable and no acute distress Orientation/consciousness: patient oriented x3 Neck Neck: Yes normal visual inspection and Yes no JVD Chest Other: pacer site benign Resp Effort & Inspection: normal respiratory effort Auscultation: clear to auscultation bilaterally, no rales, no rhonchi and no wheezes Cardio Jugular venous distension: no JVD Rate: regular rate Rhythm: regular rhythm Heart sounds: S1 normal heart sound present, S2 normal heart sound present, no murmurs and no rubs Neuro General: patient oriented x3 Extrem General: Yes normal to inspection and No no pedal edema Psych Appearance: grossly normal Mental Status: mental status grossly normal Speech and movement: Normal speech and movement present Office Procedures Cardiac Device Check Cardiac Device Check Details: Medtronic dual-chamber pacemaker interrogation today shows battery 12.7 years, AAI to DDD mode, low rate 60, atrial threshold 0.625 volts at 0.4 milliseconds, RV threshold 0.875 volts at 0.4 milliseconds, no AF, no VT, activity 2.8 hours per day, V paced 0.1%, a paced 97.2% [id number]-[id number] Cardiac Device Check, pacemaker dual lead Procedure code (CPT) selection complete EKG Details: Today, read by me, atrial paced rhythm with prolonged AV conduction, nonspecific T-wave rate 60, QTC 416 milliseconds [id number], Complete Assessment & Plan Assessment & Plan (1) Cardiomyopathy: Code(s): I42.9 - Cardiomyopathy, unspecified Category: Medical Qualifiers: Cardiomyopathy type: unspecified Qualified Code(s): I42.9 - Cardiomyopathy, unspecified Plan: Notes indicate history of cardiomyopathy. Last echocardiogram 07/23/2021 showed EF 54%, mild calcification of the aortic valve, mild mitral annular calcification, small plaque in the ascending aorta. He has been on carvedilol and losartan for neurohormonal modulation. She has no symptoms indicating decompensated heart failure. She has good activity tolerance. Blood pressure and heart rate well controlled. Labs done on 03/02/2024 showed potassium 4.4, creatinine 0.93. Will continue current med management. Will update echocardiogram. Echo does not need to be completed prior to her upcoming procedure. Cardiology follow-up in 1 year, sooner if needed. (2) History of pacemaker: Onset Date: ~09/2012 Comment: MEDTRONIC Pacemaker change April 2023 Code(s): Z95.0 - Presence of cardiac pacemaker Category: Surgical Plan: Medtronic dual-chamber pacemaker in place. Functioning normally on interrogation today. She has remote monitoring in use. Next office interrogation due in 1 year. (3) Sick sinus syndrome: Code(s): I49.5 - Sick sinus syndrome Category: Medical Plan: As above (4) Essential hypertension: Code(s): I10 - Essential (primary) hypertension Category: Medical Plan: Well controlled. No med changes made (5) Dyslipidemia: Code(s): E78.5 - Hyperlipidemia, unspecified Category: Medical Plan: [place] LDL goal less than 100. Labs done 03/02/2024 shows LDL 104. Continue atorvastatin. She tells me she has been losing weight and will discuss this with her PCP. (6) Preoperative cardiovascular examination: Code(s): Z01.810 - Encounter for preprocedural cardiovascular examination Category: Medical Plan: Preop for cystoscopy under general anesthesia next week. She may proceed with low cardiac risk. She does have a dual-chamber pacemaker in place. Echocardiogram has been ordered but does not need to be completed before this procedure. She was just seen in the office and has no signs of decompensated heart failure and no reports of anginal sounding symptoms. Plan Time spent on chart review, documentation, interview and assessment Orders: Orders CA echo transthoracic complete Today I42.9 - Cardiomyopathy, unspecified Coding Level of Care Code Est Pt Level 4 (85674) Diagnoses Cardiomyopathy, unspecified type I42.9 Cardiomyopathy type: unspecified History of pacemaker Z95.0 Sick sinus syndrome I49.5 Essential hypertension I10 Dyslipidemia E78.5 Preoperative cardiovascular examination Z01.810 CPT Codes Cardiac Device Check - Cardiac Device 2: [id number] Cardiac Device Check, pacemaker dual lead ([id number]) EKG - CPT: 09036-[id number], Complete ([id number]) Time Spent (min) 30
== END 2024-07-21 10:27 | disposition home or self-care (01) ==
PROVIDERS: PCP Internal Medicine; Visit Provider Nurse Practitioner Family
DX: I42.9 Cardiomyopathy, unspecified (principal); Z95.0 Presence of cardiac pacemaker; I49.5 Sick sinus syndrome; I10 Essential (primary) hypertension; E78.5 Hyperlipidemia, unspecified; Z01.810 Encounter for preprocedural cardiovascular examination
CPT/HCPCS: 93010; 93280; 99214

== ENCOUNTER → 2024-07-21 09:19 | Outpatient (BNVA) | payer MEDICARE, OTHER, SELFPAY | PROVIDERS: PCP Internal Medicine; Visit Provider Nurse Practitioner Family | DX: Z01.810 Encounter for preprocedural cardiovascular examination (principal); I42.9 Cardiomyopathy, unspecified; I49.5 Sick sinus syndrome; I10 Essential (primary) hypertension; E78.5 Hyperlipidemia, unspecified; F17.210 Nicotine dependence, cigarettes, uncomplicated; Z45.018 Encounter for adjustment and management of other part of cardiac pacemaker | CPT/HCPCS: 93005; 93280; 99212 ==

== ENCOUNTER 2024-07-26 07:40 | Day surgery (SDC) | payer MEDICARE, OTHER, SELFPAY ==
[2024-07-22 11:14] VITALS: BMI 19.6
[2024-07-26 08:50] VITALS: BMI 19.4
[2024-07-26 09:00] VITALS: BP 155/75; PULSE 60; RESP 16; TEMP 36.2; O2SAT 97
[2024-07-26] MEDS: Lactated Ringers 1,000 ML 80 ML IVCONT (09:12)
--- NOTE | 2024-07-26 09:38 | HO.ANESPROP2 ---
HPI - Anesthesia Eval Consult details Narrative: for cysto, retrogrades PMFSH Active Problems Active Problems: All Active Problems Nicotine dependence (Acute) Sick sinus syndrome (Acute) Medicare annual wellness visit, subsequent (Acute) Ear discomfort (Acute) Weight loss (Acute) UTI (urinary tract infection) (Acute) Urinary frequency (Acute) Bacterial vaginosis (Acute) Endometrial polyp (Acute) Complex ovarian cyst (Acute) Abnormal ultrasound of endometrium (Acute) Microscopic hematuria (Acute) Adnexal fullness (Acute) Vaginal discharge (Acute) Constipation by delayed colonic transit (Acute) Lumbar pain (Acute) Hyperlipidemia (Acute) Leukocytosis (Acute) Preoperative cardiovascular examination (Acute) Osteoporosis (Acute) Carotid artery stenosis (Acute) Menopausal state (Acute) Well woman exam (Acute) History of pacemaker (Acute ~09/2012) Memory loss (Acute) Tubular adenoma (Acute) Dyslipidemia (Acute) Cardiomyopathy (Acute) GERD (gastroesophageal reflux disease) (Acute) Essential hypertension (Acute) Past Medical History Medical History Sick sinus syndrome Carotid artery disease Memory loss Tubular adenoma Stenosis of right subclavian artery Dyslipidemia Cardiomyopathy GERD (gastroesophageal reflux disease) Essential hypertension Narrative: seen by cardiology 07/21. see note. Echo 2020 was OK, low-normal EF. Family History Family History Father Cancer Mother Stroke Family history of problems with anesthesia: No Surgical History Surgical History History of hysterectomy History of esophagogastroduodenoscopy (EGD) Hx of colonoscopy History of surgical procedure on eye proper using laser History of pacemaker (~09/2012) History of Problems with Anesthesia: No Social History Social History Household Members: None Housing: Apartment Alcohol intake: former Patient Tobacco Use Status: Current everyday Tobacco user Tobacco use type: Cigarette Cigarettes Per Day: 4 Years Smoked: 25 e-Cigarette/Vaping Use: Never Used Second Hand Smoke Exposure: No Use of substances other than those prescribed or required for medical reasons: No Are you DNR?: No Advance Directives: No Advance Directives Information Provided: Yes service: No Current occupational status: retired Cognitive needs: No Hearing needs: No Vision needs: Yes Meds Allergies Allergy/AdvReac Type Severity Reaction Status Date / Time iodine Allergy Severe swelling, Verified 07/26/24 08:49 rash Active Medications: Current Medications Lactated Ringer's (Lr) 1,000 mls @ 80 mls/hr IVCONT .[id number] Last Admin: 07/26/24 09:12 Dose: 80 mls/hr Home Medications ?Medication ?Instructions ?Recorded ?Confirmed ?Last Taken ?Type cholecalciferol (vitamin D3) 25 25 mcg PO DAILY 02/13/23 07/26/24 Unknown History mcg (1,000 unit) capsule Exam Height,Weight and Vital Signs: Height 5 ft 2 in Weight 48.081 kg Last Vital Signs Temp 97.2 F 07/26/24 09:00 Pulse 60 07/26/24 09:00 Resp 16 07/26/24 09:00 BP 155/75 H 07/26/24 09:00 Pulse Ox 97 07/26/24 09:00 O2 Del Method Room Air 07/26/24 09:00 Airway Mallampati Class: II TM Dist: >3cm Neck ROM: Full Denture: Upper Heart: ok. see above. Lungs: ok Assessment and Plan Assessment Anesthesia Assessment: Anesthesia Plan Discussed and Chart Reviewed Final Anesthetic Review Family History of Problems with Anesthesia: No History of Problems with Anesthesia: No NPO: Yes ASA Class: IV Final Preanesthetic Review: No Changes in Pt Med Stat, Meds/Allgs Chart Reviewed, Consent Obtained/Reviewed and Anes Risks/Benef Reviewed Patient Risk: Intermediate Procedure Risk: Low Anesthetic Plan Anesthetic Plan: GA and Agree w/ Assess. and Plan Disposition: Standard PACU
--- NOTE | 2024-07-26 09:47 | MHC.SHP ---
Pre-Procedural Eval Section A - 24 Hr Update-Section A only Date of Service: 07/26/24 The patient is an INPATIENT: No The patient has been examined within 24 hours of the surgical procedure. The History & Physical has been completed within 30 days and I have reviewed it.: Yes Section B - Complete if H&P > 30 days Chief Complaint: Other microscopic hematuria Allergies: Allergies Allergy/AdvReac Type Severity Reaction Status Date / Time iodine Allergy Severe swelling, Verified 07/26/24 08:49 rash Plan Diagnosis/Plan: Unchanged I have reviewed the history and physical and performed a pertinent physical examination on my patient. No changes have occurred unless specified. Cystoscopy bilateral retrogrades, possible bladder biopsy, resection bladder tumor. Time Spent With Patient Time: Total time managing care of this patient today ____ minutes.
[2024-07-26 10:43] VITALS: BP 128/76; PULSE 60; RESP 16; TEMP 36.4; O2SAT 96
[2024-07-26 10:48] VITALS: BP 136/76; PULSE 59; RESP 18; O2SAT 96
[2024-07-26 10:53] VITALS: BP 170/79; PULSE 59; RESP 16; O2SAT 95
--- NOTE | 2024-07-26 10:55 | P.OP_ITS ---
Operative Note Operative Note Date of Service: 07/26/24 Narrative: PreOperative Diagnosis:?? microscopic hematuria Post Operative Diagnosis:?? ?microscopic hematuria Procedure: Cystoscopy, Bilateral retrogrades Surgeon:?Dr Bud Mccann Anesthesia:? General Indications for procedure: Microscopic hematuria, nicotine dependence, patient has allergy to IV contrast. Procedure: After informed consent was verified the patient was brought to the operating placed on the OR table in supine position.? General Anesthesia was administered per protocol.? The patient was placed in lithotomy position, prepped and draped in the usual sterile fashion.? Safety pause time-out and side of surgery confirmed.? Antibiotics confirmed. A 22 Georgian cystoscope was inserted transurethrally, The bladder was visualized.? Moderate trabeculations, and cellule changes were noted. No suspicious bladder lesions visualized. Both ureteric orifices were in normal position. The? right ureteric orifice was cannulated? and a retrograde examination was performed, no abnormalities were noted. The left side was evaluated with retrograde in similar fashion, no abnormalities were noted. The bladder was emptied.? The rigid cystoscope was removed. ? The patient tolerated the procedure well and was brought to the recovery room in stable condition. Complications: None Drains: none
[2024-07-26 10:58] VITALS: BP 177/75; PULSE 60; RESP 16; O2SAT 96
[2024-07-26 11:12] VITALS: BP 160/72; PULSE 60; RESP 16; TEMP 36.2; O2SAT 96
== END 2024-07-26 11:40 | disposition home or self-care (01) ==
PROVIDERS: Visit Provider Urology
PROC: 0TJB8ZZ Inspection of Bladder, Via Natural or Artificial Opening Endoscopic (ICD-10-PCS; CPT 52005; principal; 2024-07-26 09:50)
DX: R31.29 Other microscopic hematuria (principal); N32.89 Other specified disorders of bladder; I49.5 Sick sinus syndrome; I25.10 Atherosclerotic heart disease of native coronary artery without angina pectoris; Z95.0 Presence of cardiac pacemaker; I10 Essential (primary) hypertension; Z79.82 Long term (current) use of aspirin; Z79.899 Other long term (current) drug therapy; Z91.041 Radiographic dye allergy status; F17.210 Nicotine dependence, cigarettes, uncomplicated; Z98.890 Other specified postprocedural states
CPT/HCPCS: 52005; C1758; C1769; J0690; J2704; J3010; Q9967

== ENCOUNTER → 2024-07-26 07:40 | Outpatient (BNV) | payer MEDICARE, OTHER, SELFPAY | PROVIDERS: Visit Provider Urology | DX: R31.29 Other microscopic hematuria (principal) | CPT/HCPCS: 74420 ==

== ENCOUNTER 2024-08-11 10:35 | Outpatient (AMB) | payer MEDICARE, OTHER, SELFPAY ==
--- NOTE | 2024-08-11 10:35 | A.OFFVIS_ITS ---
Vital Signs 08/11/24 10:39 Height 5 ft 2 in Weight 104 lb BMI 19.0 BP 130/74 Intake Visit Reasons: annual Repair Operator Required: No Information Interpreted: non-clinical & clinical Administrative Services Officer: Administrative Services Officer Present (Lachelle EVANS) Accompanied by: Self / Same As Patient Allergies iodine Allergy (Severe, Verified 08/11/24 10:40) swelling, rash Post menopausal: Yes HPI Comments Details: Presenting for annual exam. No complaints. Last Pap/HPV was many years ago with no history of abnormal Pap smears in the past 25 years Last Mammogram was BI-RADS 1 in 09/21 Last Colonoscopy was in 08/22 Last DEXA scan was done in 07/22 and the patient is receiving IV Prolia by endocrinology [facility] Medical History Sick sinus syndrome Carotid artery disease Memory loss Tubular adenoma Stenosis of right subclavian artery Dyslipidemia Cardiomyopathy GERD (gastroesophageal reflux disease) Essential hypertension Surgical History History of hysterectomy History of esophagogastroduodenoscopy (EGD) Hx of colonoscopy History of surgical procedure on eye proper using laser History of pacemaker (~09/2012) Family History Father Cancer Mother Stroke Social History Household Members: None Housing: Apartment Alcohol intake: former Patient Tobacco Use Status: Current everyday Tobacco user Tobacco use type: Cigarette Cigarettes Per Day: 4 Years Smoked: 25 e-Cigarette/Vaping Use: Never Used Second Hand Smoke Exposure: No service: No Current occupational status: retired Cognitive needs: No Hearing needs: No Vision needs: Yes Female Reproductive History Menstrual Age of Menarche: 9 Menopause type: surgical Date of Mammogram: 09/25/23 Review of Systems Const All systems reviewed & are unremarkable except as noted in HPI and below Card Reports as per HPI Resp Reports as per HPI GI Reports as per HPI and Reports no additional complaints Reports as per HPI Physical Exam Vital Signs: Last Vital Signs BP 130/74 08/11/24 10:39 BMI result Body Mass Index 19.0 Const General: cooperative, healthy appearing and comfortable Chest Chest palpation & inspection: normal inspection of the chest and normal palpation of entire chest wall Breast/axilla inspection: normal inspection of the breasts and normal inspection of the axillae Breast/axilla palpation: normal palpation of the breasts, normal palpation of the axillae and no axillary lymphadenopathy Resp Effort & Inspection: normal respiratory effort Auscultation: clear to auscultation bilaterally Percussion: percussion normal Cardio Palpation: normal PMI Rate: regular rate Rhythm: regular rhythm Heart sounds: no murmurs and no rubs Peripheral pulses: Peripheral pulses 2+ throughout GI Inspection: Yes normal to inspection Palpation (GI): Soft to palpation, nontender, no guarding, not rigid and No hepatosplenomegaly present Percussion: Yes normal to percussion Auscultation: normal bowel sounds Rectal Exam - Female: deferred General: Yes bladder normal to palpation External Female Exam: No lesion Speculum Exam - Vagina: normal appearance of the vagina, normal palpation, normal vaginal discharge and not erythematous Speculum Exam - Cervix: normal appearance of the cervix and normal palpation Bimanual exam- vagina & uterus: normal bimanual exam, normal palpation, uterine size normal, bladder normal to palpation, consistency normal and normal palpation Bimanual Exam- Adnexa, other: normal adnexae, no masses and no tenderness Assessment & Plan Assessment & Plan (1) Well woman exam: Code(s): Z01.419 - Encounter for gynecological examination (general) (routine) without abnormal findings Category: Medical Plan: Co testing not indicated since the patient 's age is above 65 with no history of abnormal Pap smears last 25 years. Counseled the patient about the recommended dietary allowance of 1200 mg of Calcium & 800 IU of vitamin D. Mammogram ordered. The patient was instructed to perform monthly self-breast exams and to schedule a 2 week DEXA scan follow-up appointment and an annual exam in a year; All questions answered and the patient verbalized understanding. Orders: Orders MM tomosynthesis screening BI Today Z12.31 - Encounter for screening mammogram for malignant neoplasm of breast Coding Level of Care Code Est Pt Prev Care >65y(84724) Diagnoses Well woman exam Z01.419
[2024-08-11 10:39] VITALS: BP 130/74; BMI 19.0
== END 2024-08-11 11:07 | disposition home or self-care (01) ==
LOC: HO.HWS 10:35
PROVIDERS: Visit Provider Obstetrics & Gynecology
DX: Z01.419 Encounter for gynecological examination (general) (routine) without abnormal findings (principal)
CPT/HCPCS: 99397

== ENCOUNTER → 2024-08-11 10:35 | Outpatient (BNVA) | payer MEDICARE, OTHER, SELFPAY | PROVIDERS: Visit Provider Obstetrics & Gynecology | DX: Z01.419 Encounter for gynecological examination (general) (routine) without abnormal findings (principal) | CPT/HCPCS: 99397 ==

== ENCOUNTER 2024-08-24 07:53 | Outpatient (AMB) | payer MEDICARE, OTHER, SELFPAY ==
[2024-08-24 08:04] VITALS: BP 134/86; PULSE 58; O2SAT 98; BMI 19.4
--- NOTE | 2024-08-24 08:04 | A.OFFVIS_ITS ---
Vital Signs 08/24/24 08:04 Height 5 ft 2 in Weight 106 lb 4.205 oz BMI 19.4 BP 134/86 Blood Pressure Location Rt brachial Position Sitting Pulse 58 Pulse Source Pulse Oximeter Pulse Oximetry (%) 98 Oxygen Delivery Method Room Air Intake Visit Reasons: 3 MONTH FOLLOW UP Intake Note: Sabina presents in office today for a scheduled 3 mos FUV. CC; Progress visit, no new rx or orders placed at last visit. Pt reports that they have been doing decent since their last visit. Pt denies any GI concerns at this time with the exception of the concern over their unintentional weight loss. Pt is happy to hear that they have gained 2 lbs. However, they are concerned that they are not able to keep weight on detention. Unified Communications Architect Required: No Allergies iodine Allergy (Severe, Verified 08/24/24 08:07) swelling, rash HPI HPI 3 MONTH FOLLOW UP: Details: LAST VISIT: Chronic idiopathic constipation Plan Patient will continue taking Dulcolax. Patient will try protein shakes 1 to 2 times a day. Patient denies any abdominal pain or discomfort. Reports to be feeling fairly well. Patient did lose few lb in the last year or so. Patient was encouraged to increase fluid intake and activity to promote better bowel motility. Patient will return in 6 months, sooner on as needed basis. She is agreeable to this plan and verbalizes understanding of instructions. She was given the opportunity to ask questions and all questions answered. ? Thank you for allowing me to participate in her care TODAY'S VISIT: Patient is here today for follow-up. Patient reports that she has been doing fairly well. Reports to have good appetite. Eating 3 meals a day with snacks in between. Patient is worried that she is still losing weight. Patient lost 10 lb in the last year Occasional left upper quadrant pain and cramping. Patient denies any nausea or vomiting. Patient denies any melena, hematochezia or ribbon like stools. Colonoscopy in July of 2023, tubular adenoma found and colonoscopy was recommended in 5 years [facility] Medical History Sick sinus syndrome Carotid artery disease Memory loss Tubular adenoma Stenosis of right subclavian artery Dyslipidemia Cardiomyopathy GERD (gastroesophageal reflux disease) Essential hypertension Surgical History History of hysterectomy History of esophagogastroduodenoscopy (EGD) Hx of colonoscopy History of surgical procedure on eye proper using laser History of pacemaker (~09/2012) Family History Father Cancer Mother Stroke Social History Household Members: None Housing: Apartment Alcohol intake: former Patient Tobacco Use Status: Current everyday Tobacco user Tobacco use type: Cigarette Cigarettes Per Day: 4 Years Smoked: 25 e-Cigarette/Vaping Use: Never Used Second Hand Smoke Exposure: No service: No Current occupational status: retired Cognitive needs: No Hearing needs: No Vision needs: Yes Female Reproductive History Menstrual Age of Menarche: 9 Review of Systems Const Denies weight gain and Denies weight loss ENT Reports no additional complaints, Denies dysphagia and Denies odynophagia Card Reports no additional complaints Resp Reports no additional complaints GI Reports abdominal pain, Denies belching, Denies melena, Reports bloating, Denies change in bowel habits, Denies dysphagia, Denies excessive flatus, Denies dyspepsia, Denies heartburn, Denies diarrhea, Denies loose stools, Denies nausea, Denies odynophagia and Denies vomiting Reports no additional complaints Musc Reports no additional complaints Neuro Reports no additional complaints Psych Reports no additional complaints Endo Reports no additional complaints Physical Exam Vital Signs: Last Vital Signs Pulse 58 08/24/24 08:04 BP 134/86 08/24/24 08:04 Pulse Ox 98 08/24/24 08:04 Oxygen Delivery Method Room Air 08/24/24 08:04 BMI result Body Mass Index 19.4 Const General: healthy appearing, no acute distress and well developed Nutritional Appearance: well nourished Orientation/consciousness: patient oriented x3 Resp Effort & Inspection: normal respiratory effort, able to speak in complete sentences, no tracheal deviation and symmetric chest movement Auscultation: clear to auscultation bilaterally Cardio Rate: regular rate Heart sounds: S1 normal heart sound present and S2 normal heart sound present GI Inspection: Yes normal to inspection and No distended Palpation (GI): Soft to palpation, not firm, nontender and No hepatosplenomegaly present Auscultation: normal bowel sounds General: Yes no CVA tenderness Back/Spine/Pelvis Back: no CVA tenderness Skin General skin exam: elasticity normal, turgor normal and dry skin Neuro General: patient oriented x3 Psych Appearance: grossly normal Mental Status: mental status grossly normal Speech and movement: Normal speech and movement present Assessment & Plan Assessment & Plan (1) Weight loss, unintentional: Code(s): R63.4 - Abnormal weight loss (2) Abdominal bloating: Code(s): R14.0 - Abdominal distension (gaseous) (3) Chronic idiopathic constipation: Code(s): K59.04 - Chronic idiopathic constipation Plan Patient continues to keep losing weight even though she is eating well. Discussed with patient high-calorie diet to help her gain weight. List of food and prep given to patient. Patient will be sent for MRI. Reports to have a left upper quadrant pain. Patient can have CT with IV contrast as she is allergic to iodine. Patient will return next month before she will had out to [place]. Patient is agreeable to this plan and verbalizes understanding of instructions. She was given the opportunity to ask questions and all questions answered. Thank you for allowing me to participate in her care Orders: Orders MR abdomen wo/w con Today K50.00 - Crohn's disease of small intestine without complications, R10.9 - Unspecified abdominal pain Coding Level of Care Code Est Pt Level 4 (17382) Diagnoses Weight loss, unintentional R63.4 Abdominal bloating R14.0 Chronic idiopathic constipation K59.04 Time Spent (min) 35 Comment 25 minutes spent with patient and additional 10 minutes spent reviewing her records
== END 2024-08-24 09:01 | disposition home or self-care (01) ==
PROVIDERS: PCP Internal Medicine; Visit Provider Nurse Practitioner Family
DX: R63.4 Abnormal weight loss (principal); R14.0 Abdominal distension (gaseous); K59.04 Chronic idiopathic constipation
CPT/HCPCS: 99214

== ENCOUNTER → 2024-08-24 07:53 | Outpatient (BNVA) | payer MEDICARE, OTHER, SELFPAY | PROVIDERS: PCP Internal Medicine; Visit Provider Nurse Practitioner Family | DX: R63.4 Abnormal weight loss (principal); K59.04 Chronic idiopathic constipation; R14.0 Abdominal distension (gaseous) | CPT/HCPCS: 99212 ==

== ENCOUNTER 2024-08-25 15:26 | Outpatient (AMB) | payer MEDICARE, OTHER, SELFPAY ==
--- NOTE | 2024-08-25 15:26 | MHC.OFFVIS ---
Intake Visit Reasons: BI retrograde- follow up Intake Note: Patient is present for Telephone Post Op Bi Retrograde Procedure Date: 07/26/24 Urology Med: None Antibiotic Allergy:None Blood Thinner: Aspirin Fund Accountant Required: No Accompanied by: Self / Same As Patient Allergies iodine Allergy (Severe, Verified 09/29/24 10:34) swelling, rash HPI Comments Details: 08/24/24--Sabina is here in telehealth follow-up, s/p cysto b/L -- discussed OR results WNL, no bx indicated sched for renal US FU 09/23/24. Review of chart: 07/06/24--Sabina is a very pleasant 74-year-old female patient of Dr. Hazel. She has a past medical history of nicotine dependence, sick sinus syndrome, carotid artery disease, memory loss, dyslipidemia, cardiomyopathy, GERD, and hypertension. She presents to the office today as a new patient for microscopic hematuria in the setting of nicotine dependence. In discussion with the patient today she reports having followed up with her PCP at which time urinalysis noted microscopic hematuria and recommendations were made for urology referral for further assessment evaluation. She reports being unable to perform CT urogram that was ordered as she has an allergy/anaphylaxis to iodine. When asked she reports a longstanding history of nicotine dependence for approximately 25 years. She reports currently she only smokes approximately 5 cigarettes per day. She discusses having had a recent hysterectomy for ongoing strap maker issues she had been experiencing. In office urinalysis results reviewed with the patient today trace microscopic hematuria. Discussed at length potential causes of microscopic hematuria. Discussed further workup to include cystoscopy with bilateral retrogrades given patient's allergy to contrast dye. She otherwise denies any bothersome urinary issues or concerns. She denies urinary urgency, urinary frequency, incontinence, nocturia, dysuria, foul smelling urine, changes to urinary stream, flank pain, fever, and or chills. She is happy with her current voiding parameters. FOR[facility]LY [facility] Medical History Compression fracture of T12 vertebra Sick sinus syndrome Carotid artery disease Memory loss Tubular adenoma Stenosis of right subclavian artery Dyslipidemia Cardiomyopathy GERD (gastroesophageal reflux disease) Essential hypertension Surgical History History of hysterectomy History of esophagogastroduodenoscopy (EGD) Hx of colonoscopy History of surgical procedure on eye proper using laser History of pacemaker (~09/2012) Family History Father Cancer Mother Stroke Social History Household Members: None Housing: Apartment Alcohol intake: former Patient Tobacco Use Status: Former Tobacco user Tobacco use type: Cigarette Cigarettes Per Day: 4 Years Smoked: 25 e-Cigarette/Vaping Use: Never Used Second Hand Smoke Exposure: No service: No Current occupational status: retired Cognitive needs: No Hearing needs: No Vision needs: Yes Female Reproductive History Menstrual Age of Menarche: 9 Review of Systems Const All systems reviewed & are unremarkable except as noted in HPI and below Reports no additional complaints Eyes Reports no additional complaints ENT Reports no additional complaints Card Reports no additional complaints Resp Reports no additional complaints GI Reports no additional complaints Reports as per HPI Musc Reports no additional complaints Skin/Breast Reports system reviewed and no additional complaints, except as documented Neuro Reports no additional complaints Psych Reports no additional complaints Endo Reports no additional complaints Dusty/Lymph Reports no additional complaints Aller/Immun Reports no additional complaints Telehealth Telehealth Telehealth Platform: Telephone Location of provider rendering services: practice address Location of patient: address on file Patient Identification confirmed using: Name, : Yes Telehealth method: voice only Patient verbally consented to treatment: Yes Patient verbally consented to billing insurance company: Yes Patient informed of any privacy concerns related to visit: Yes Minutes spent on Phone/Video with Pt.: 13 Assessment & Plan Assessment & Plan (1) Microscopic hematuria: Code(s): R31.29 - Other microscopic hematuria Category: Medical (2) Nicotine dependence: Code(s): F17.200 - Nicotine dependence, unspecified, uncomplicated Category: Medical Plan Persistent microscopic hematuria, History of nicotine use. Cystoscopy in OR - WNL; renal US pending Patient Instructions: The patient had an opportunity to ask questions regarding treatment plan. The patient expressed understanding and agreement with the above treatment plan. The patient is aware they should contact our office by phone for worsening of their current condition or the appearance of new symptoms. Compliance is encouraged with any medications and followup testing that is ordered. It is a privilege to be allowed the opportunity to participate in the urologic care of your patient. If you have any questions or concerns regarding treatment for the above conditions please do not hesitate to contact me. The office telephone contact is [phone]. This note is constructed in part using voice recognition software. While every effort has been made to ensure accuracy insurance verification specialist errors may have been included. Yours sincerely, Bud Mccann MD Coding Level of Care Code Tele Est Pt Level 3 (31340) Diagnoses Microscopic hematuria R31.29 Nicotine dependence F17.200
== END 2024-08-25 15:54 | disposition home or self-care (01) ==
LOC: HO.HUSH 15:26
PROVIDERS: PCP Internal Medicine; Visit Provider Urology
DX: R31.29 Other microscopic hematuria (principal); F17.200 Nicotine dependence, unspecified, uncomplicated
CPT/HCPCS: 99442

== ENCOUNTER → 2024-08-25 15:26 | Outpatient (BNVA) | payer MEDICARE, OTHER, SELFPAY | PROVIDERS: PCP Internal Medicine; Visit Provider Urology ==

== ENCOUNTER → 2024-08-31 10:06 | Outpatient (REF) | payer MEDICARE, OTHER, SELFPAY ==
--- NOTE | 2024-08-31 10:10 | CA_ITS ---
Transthoracic Echocardiogram Patient (Last, First, Middle): Sabina Roper, Gender: Female Date of : 1950 Age: 74 Procedure Date: 08/31/2024 Procedure Type: Transthoracic Echocardiogram Location: OP Height: 154.94 cm Weight: 48.08 kg BSA: 1.44 m2 Heart Rate: bpm BP: 140 / 84 mmHg Registered Nurse Practitioner: TO Referring MD: Santa England CONTINUOUS PROCESS MACHINE OPERATORQuin Trim Installer: Van Sparks MD Symptoms: I42.9 - Cardiomyopathy, unspecified Study Quality: Adequate ECG Rhythm: Sinus Conclusions: - 1. Normal LV ejection fraction 55-60% with impaired relaxation filling pattern 2. Mildly dilated left atrium next 3. Cardiac valvular Dopplers within normal limits 4. Normal RV systolic pressure 5. No gross pericardial effusion Findings Left Ventricle Normal left ventricular size, thickness, and systolic function. The visually estimated ejection fraction is between 55-60%. Spectral Doppler is indicative of an impaired relaxation filling pattern. E/E prime ratio is between 8 and 15 consistent with indeterminate filling pressures. Right Ventricle Normal right ventricular cavity size and systolic function. There is an ICD wire seen in the right ventricle. Atria The left atrium is mildly dilated. There is no evidence of interatrial shunt. The right atrium is normal in size. Aortic Valve Normal aortic valve structure and function. There is no aortic valve stenosis. There is no aortic valve regurgitation. Mitral Valve There is mild anterior and posterior mitral leaflet thickening. There is trace mitral valve regurgitation. There is no mitral valve stenosis. Pulmonic Valve The pulmonic valve is likely normal. Tricuspid Valve Likely normal tricuspid valve structure and function. There is mild tricuspid valve regurgitation. The right ventricular systolic pressure is normal. The right ventricular systolic pressure is 23 mmHg. Normal right atrial pressure. There is no evidence of pulmonary hypertension. Great Vessels The aorta was not well visualized. The pulmonary artery was not well visualized. There is no dilatation of the ascending aorta measuring 3.20 cm. Small plaque is seen in the sino tubular ridge. Venous The inferior vena cava is normal in size and collapses greater than 50% with inspiration. Pericardium/Pleural There is no evidence of pericardial effusion. Measurements 2D Linear Measurements IVSd: 1.34 0.6-0.9/0.6-1.0 cm LVIDd: 3.85 3.9-5.3/4.2-5.9 cm LVIDd Index: 2.67 2.4-3.2/2.2-3.1 cm/m2 LVIDs: 2.54 2.0-3.6 cm LVPWd: 0.85 0.7-1.1 cm LA Diam: 3.80 2.7-3.8/3.0-4.0 cm LAIDs Index: 2.64 1.5-2.3 cm/m2 LV Mass: 169.81 67-162/88-224 g LV Mass Index: 117.93 43-95/49-115 g/m2 LVOT Diam: 1.90 3.0+(-)1.3 cm 2D Systolic Function EF 4C: 55.90 >55% EF 2C: 57.00 >55% EF BiP: 55.40 >55% Mitral Valve MV Pk E: 0.38 MV PK A: 0.64 MV Decel Time: 195.00 E/A: 0.60 E'Lateral: 7.72 E'Medial: 3.37 E/E' Med: 11.20 E/E' Lat: 4.90 PHT: 57.00 MVA PHT: 3.86 Decel [place]: 1.93 Aortic Valve AoV Pk Gunnar: 1.23 AoV Mn Gunnar: 0.82 AoV VTI: 0.24 AoV Pk Grad: 6.00 Aov Mn Grad: 3.00 ALBERTINA Cont.VTI: 2.07 LVOT LVOT Pk Gunnar: 0.90 LVOT Mn Gunnar: 0.53 LVOT VTI: 0.18 LVOT Pk Grad: 3.00 LVOT Mn Grad: 1.00 LVOT Diam: 1.90 LVOT Area: 2.84 Diastolic Function MV Pk E: 0.38 MV Pk A: 0.64 E/A: 0.60 E'Medial: 3.37 E/E' Med: 11.20 E' Laterial: 7.72 E/E' Lat: 4.90 Right Ventricle TAPSE (mm): 17.70 TVS' Gunnar: 9.68 Tricuspid Valve TR Pk Gunnar: 2.24 TR Pk Grad: 20.00 RA Press: 3.00 RVSP: 23.00 Great Vessels Aorta Sinus of Valsalva: 3.49 2.0-3.5 cm Ao Asc: 3.20 2.1-3.4 cm Updated in Other Vendor System with Status of Final Van Sparks MD electronically signed on 08/31/2024 1:15:20 PM with status of Final
== END ==
LOC: HO.CARD 10:06
PROVIDERS: Visit Provider Nurse Practitioner Family
DX: I42.9 Cardiomyopathy, unspecified (principal)
CPT/HCPCS: 93306

== ENCOUNTER → 2024-08-31 10:10 | Outpatient (BNV) | payer MEDICARE, OTHER, SELFPAY | PROVIDERS: Visit Provider Internal Medicine Cardiovascular Disease | DX: I36.1 Nonrheumatic tricuspid (valve) insufficiency (principal); R93.1 Abnormal findings on diagnostic imaging of heart and coronary circulation | CPT/HCPCS: 93306 ==

== ENCOUNTER 2024-08-31 10:59 | Outpatient (REF) | payer MEDICARE, OTHER, SELFPAY ==
--- NOTE | ~2024-08-31 | US_ITS ---
EXAMINATION: US RETROPERITONEAL LIMITED (RENAL ONLY) CLINICAL INFORMATION: Other microscopic hematuria. COMPARISON: None available. TECHNIQUE: Real-time imaging of the kidneys. FINDINGS: RIGHT KIDNEY: 10.4 x 4.0 x 4.8 cm (SAG x AP x TRV). The kidney is normal in size, contour, and echogenicity. Renal cortical thickness is normal. No calculi or focal parenchymal lesions. No hydronephrosis. LEFT KIDNEY: 9.2 x 4.2 x 3.1 cm (SAG x AP x TRV). The kidney is normal in size, contour, and echogenicity. Renal cortical thickness is normal. No calculi or focal parenchymal lesions. No hydronephrosis. US/US renal BI IMPRESSION: Normal renal ultrasound.. Electronically signed by: Gilbert Daniel MD 10/13/2024 07:39 AM JOSHUA
== END 2024-08-31 11:00 | disposition home or self-care (01) ==
LOC: HO.US 10:59
PROVIDERS: Visit Provider Urology
DX: R31.29 Other microscopic hematuria (principal)
CPT/HCPCS: 76775

== ENCOUNTER 2024-09-05 08:02 | Outpatient (REF) | payer MEDICARE, OTHER, SELFPAY ==
[2024-09-05 09:07] LABS: Anion Gap 8 (12-20); Blood Urea Nitrogen 11 mg/dL (9-16); Calcium 9.4 mg/dL (8.4-10.2); Carbon Dioxide 28 mmol/L (22-29); Chloride 111 mmol/L (96-108); Estimated Glomerular Filt Rate > 60; Glucose Random 97 mg/dL (60-115); Potassium 3.8 mmol/L (3.3-5.1); Sodium 143 mmol/L (135-145)
== END 2024-09-05 08:03 | disposition home or self-care (01) ==
LOC: HO.LAB 08:02
PROVIDERS: PCP Internal Medicine; Visit Provider Internal Medicine Endocrinology, Diabetes & Metabolism
DX: M81.0 Age-related osteoporosis without current pathological fracture (principal)
CPT/HCPCS: 36415; 80048; 82040

== ENCOUNTER 2024-09-08 09:35 | Outpatient (AMB) | payer MEDICARE, OTHER, SELFPAY ==
--- NOTE | 2024-09-08 09:58 | AM.OFFVISNUR ---
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 Pt tolerated well. Pt denies any adverse reactions with previous injections. Pt reporting recent fall on Thursday that was unwitnessed and she fell on her back. Pt denies hitting her head of LOC. Pt does have a bruise to the inner calf of her left leg and on the left lower back. Pt is having pain even at rest. Pt is being seen by Dr. Crowe today will report this to him. Assessment & Plan Assessment & Plan Orders: Orders AMB Denosumab Injection Practice Supplied Today M81.0 - Age-related osteoporosis without current pathological fracture Medications: New Prolia (denosumab) 60 mg subcut ONCE 1 mL 0RF NS M81.0 - Age-related osteoporosis without current pathological fracture
== END 2024-09-08 14:13 | disposition home or self-care (01) ==
PROVIDERS: PCP Internal Medicine; Visit Provider Internal Medicine Endocrinology, Diabetes & Metabolism
DX: M81.0 Age-related osteoporosis without current pathological fracture (principal)

== ENCOUNTER 2024-09-08 09:35 | Outpatient (AMB) | payer MEDICARE, OTHER, SELFPAY ==
--- NOTE | 2024-09-08 09:44 | A.OFFVIS_ITS ---
Vital Signs 09/08/24 09:45 Height 5 ft 2 in Weight 107 lb 5.842 oz BMI 19.6 BP 108/82 Blood Pressure Location Rt brachial Position Sitting Pulse 61 Pulse Source Pulse Oximeter Intake Visit Reasons: f/u osteoporosis-conf Intake Note: Patient present today for Osteoporosis follow up visit. Retail Sales Consultant Required: No Accompanied by: Self / Same As Patient Allergies iodine Allergy (Severe, Verified 09/08/24 09:49) swelling, rash Medication List - Last Reconciled 09/08/24 by Karlos Crowe MD aspirin (Adult Low Dose Aspirin) 81 mg PO BEDTIME 90 days atorvastatin 80 mg PO BEDTIME 90 days carvedilol 12.5 mg PO DAILY cholecalciferol (vitamin D3) 25 mcg PO DAILY losartan 100 mg PO DAILY 90 days HPI Comments Details: 74 YO Female with is seen in consultation at the request of PCP for Osteoporosis. First diagnosed in 6 mos ago . Received treatment in the past with alendronate , 6 mos ago for 2 mos . Was not able to Tolerate treatment well because of gastrointestinal side effects history of pathologic fracture in wrist bathroom fall or ONJ. Has several servings of dietary calcium per day Takes Calcium supplement 600 mg mg daily in divided doses. Takes ? IU of Vitamin D daily. uses PPI, but no anticoagulant, antiepileptic or glucocorticoid medication. Does weight bearing exercise walks every days per week in the form of walking . 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 No planned upcoming dental work or extractions.Has implants scheduled DXA dated 07/05/21 T Score -3.9 LS]: Labs: Secondary workup was negative. On alendrnate but having GI issues . Travels back and forth to [place] and can't recive anabolicc therapies. Wants to go with Prolia. Received a Prolia injection in January 2023. Due for another Prolia injection today No fx since last visit. Did have fall. Receiving Prolia injection today. Feel outside and injured lower back. FORMERLY [facility] Medical History Sick sinus syndrome Carotid artery disease Memory loss Tubular adenoma Stenosis of right subclavian artery Dyslipidemia Cardiomyopathy GERD (gastroesophageal reflux disease) Essential hypertension Surgical History History of hysterectomy History of esophagogastroduodenoscopy (EGD) Hx of colonoscopy History of surgical procedure on eye proper using laser History of pacemaker (~09/2012) Family History Father Cancer Mother Stroke Social History Household Members: None Housing: Apartment Alcohol intake: former Patient Tobacco Use Status: Current everyday Tobacco user Tobacco use type: Cigarette Cigarettes Per Day: 4 Years Smoked: 25 e-Cigarette/Vaping Use: Never Used Second Hand Smoke Exposure: No service: No Current occupational status: retired Cognitive needs: No Hearing needs: No Vision needs: Yes Female Reproductive History Menstrual Age of Menarche: 9 Physical Exam Vital Signs: Last Vital Signs Pulse 61 09/08/24 09:45 BP 108/82 09/08/24 09:45 BMI result Body Mass Index 19.6 Const Other: Tenderness to palpation of lower lumbar spine Assessment & Plan Assessment & Plan (1) Osteoporosis: Code(s): M81.0 - Age-related osteoporosis without current pathological fracture Category: Medical Plan: This is a 72-year-old female with a history of osteoporosis. Secondary causes have been ruled out. Currently on Prolia The plan is received a Prolia injection today. Will check x-ray of the lumbar spine to rule out acute fracture. I also message patient's primary care provider for patient to follow up with primary care provider regarding pain management and management pending x-ray Orders: Orders XR lumbar spine 2-3V Today M81.0 - Age-related osteoporosis without current pathological fracture Coding Level of Care Code Est Pt Level 3 (45854) Diagnoses Osteoporosis M81.0
[2024-09-08 09:45] VITALS: BP 108/82; PULSE 61; BMI 19.6
== END 2024-09-08 10:32 | disposition home or self-care (01) ==
PROVIDERS: PCP Internal Medicine; Visit Provider Internal Medicine Endocrinology, Diabetes & Metabolism
DX: M81.0 Age-related osteoporosis without current pathological fracture (principal)
CPT/HCPCS: 99213

== ENCOUNTER 2024-09-08 09:35 | Outpatient (REF) | payer MEDICARE, OTHER, SELFPAY ==
--- NOTE | ~2024-09-08 | XR_ITS ---
EXAMINATION: XR LUMBAR SPINE CLINICAL INFORMATION: M81.0 - Age-related osteoporosis without current pathological fracture COMPARISON: Prior study July 02, 2023 TECHNIQUE: Frontal lateral and coned-down L5-S1 frontal lateral, total of 3 views FINDINGS: Five [id number] lumbar vertebrae were identified maintaining normal height and alignments. Newly developed partial compression fracture T12. Diffuse bone cortical thinning suggests demineralization, this can be more accurately measured on DEXA exam . Narrowing of intervertebral disc spaces suggest underlying degenerative disc disease. Next amount of stool in the colon possible constipation., Heavy aortic vascular calcifications. Paravertebral soft tissues are unremarkable. There are radiolucencies, most likely superimposed bowel gas.. No radiographic evidence of osteolytic or osteoblastic lesions. XR/XR lumbar spine 2-3V IMPRESSION: 1. Newly developed partial compression fracture of T12. Uncertain etiology. MRI could be utilized for further investigation. 2. Diffuse bone cortical thinning suggests demineralization, this can be more accurately measured on DEXA exam. 3. Narrowing of intervertebral disc spaces suggest underlying degenerative disc disease. 4. Heavy aortic vascular calcifications. 5. Excess amount of stool in the colon possible constipation. Electronically signed by: Gilbert Daniel MD 09/11/2024 09:40 AM EDT
== END 2024-09-08 09:36 | disposition home or self-care (01) ==
LOC: HO.XRAY 09:35
PROVIDERS: PCP Internal Medicine; Visit Provider Internal Medicine Endocrinology, Diabetes & Metabolism
DX: M81.0 Age-related osteoporosis without current pathological fracture (principal); M48.54XA Collapsed vertebra, not elsewhere classified, thoracic region, initial encounter for fracture; Z79.899 Other long term (current) drug therapy
CPT/HCPCS: 72100; 96372; 99212; J0897

== ENCOUNTER 2024-09-11 08:16 | Emergency (ER) | payer MEDICARE, OTHER, SELFPAY ==
--- NOTE | ~2024-09-11 | XR_ITS ---
EXAMINATION: XR RIBS, LEFT CLINICAL INFORMATION: Fall. COMPARISON: None available. TECHNIQUE: 3 views of the left ribs and frontal view of the chest were obtained. FINDINGS: The clinical history provided reads only fall. It does not indicate exactly where pathology is suspected, limiting the study. The study is further limited, as no BB marker is placed in the region of pain. Osseous structures are unremarkable. Ribs are intact. No fractures are identified. No infiltrate, effusion, or pneumothorax is appreciated. Moderate hiatus hernia. Cardiac silhouette appears normal in size. Tips of left subclavian pulse generator device leads project over the right atrium and right ventricle. Atherosclerotic aorta. Mild thoracolumbar dextrocurvature. XR/XR ribs LT min 3V w CXR1V IMPRESSION: No acute finding. Electronically signed by: Ruperto Elias MD 09/11/2024 10:23 AM EDT RP
[2024-09-11 08:23] VITALS: BP 186/94; PULSE 60; RESP 18; TEMP 35.9; O2SAT 98; BMI 18.3
--- NOTE | 2024-09-11 08:34 | ED_ITS ---
HPI - Back Pain/Injury General Chief Complaint: Back Pain/Injury Stated Complaint: back pain Time Seen by Provider: 09/11/24 08:24 Source: patient and family (son) Mode of arrival: ambulatory Limitations: no limitations History of Present Illness ED Provider: DR. Bah HPI Narrative: 74-year-old female brought in with her son for evaluation of low back pain, patient sustained a mechanical fall 4 days ago been having low back pain that is worsening now, patient was seen by her orthopedic who ordered some x-rays last week, patient has been taking Tylenol for the pain, pain started after the fall, worse with movement or taking a deep breath. No head injury, not an anticoagulation. Related Data Home Medications ?Medication ?Instructions ?Recorded ?Confirmed cholecalciferol (vitamin D3) 25 25 mcg PO DAILY 02/13/23 07/26/24 mcg (1,000 unit) capsule Previous Rx's ?Medication ?Instructions ?Recorded aspirin 81 mg tablet,delayed 81 mg PO BEDTIME 90 days #90 tabs 08/14/22 release (Adult Low Dose Aspirin) atorvastatin 80 mg tablet 80 mg PO BEDTIME 90 days #90 tabs 03/29/24 carvedilol 12.5 mg tablet 12.5 mg PO DAILY #90 tabs 08/07/24 losartan 100 mg tablet 100 mg PO DAILY 90 days #90 tabs 08/07/24 Allergies Allergy/AdvReac Type Severity Reaction Status Date / Time iodine Allergy Severe swelling, Verified 09/11/24 08:26 rash Review of Systems Review of Systems: All other systems are reviewed and are negative Constitutional: Reports as per HPI and Reports no additional constitutional complaints Eyes: Reports as per HPI and Reports no additional eye complaints Reports system reviewed and no additional complaints, except as documented Cardiovascular: Reports as per HPI and Reports no additional cardiovascular complaints Respiratory: Reports as per HPI and Reports no additional respiratory complaints Gastrointestinal: Reports as per HPI and Reports no additional gastrointestinal complaints Genitourinary: Reports no additional female genitourinary complaints Musculoskeletal: Reports no additional musculoskeletal complaints Skin/Breast: Reports system reviewed and no additional complaints, except as docu Psychiatric: Reports no additional psychiatric complaints Endocrine: Reports no additional endocrine complaints Hematologic/Lymphatic: Reports no additional hematologic/lymphatic complaints Allergic/Immunologic: Reports no additional allergic/immunologic complaints Reports system reviewed and no additional complaints, except as documented and Reports Abnormal speech present [facility] Past Medical History Medical History Sick sinus syndrome Carotid artery disease Memory loss Tubular adenoma Stenosis of right subclavian artery Dyslipidemia Cardiomyopathy GERD (gastroesophageal reflux disease) Essential hypertension Surgical History History of hysterectomy History of esophagogastroduodenoscopy (EGD) Hx of colonoscopy History of surgical procedure on eye proper using laser History of pacemaker (~09/2012) Family History Family History Father Cancer Mother Stroke Social History Social History Household Members: None Housing: Apartment Alcohol intake: former Patient Tobacco Use Status: Current everyday Tobacco user Tobacco use type: Cigarette Cigarettes Per Day: 4 Years Smoked: 25 e-Cigarette/Vaping Use: Never Used Second Hand Smoke Exposure: No Advance Directives: Yes Advance Directives Information Provided: Yes Advance Directives on File: No Do you have a plan to hurt others: No Plan service: No Current occupational status: retired Cognitive needs: No Hearing needs: No Vision needs: Yes Physical Exam Vital Signs: Vital Signs: Last Vital Signs Temp 96.6 F L 09/11/24 08:23 Pulse 60 09/11/24 08:23 Resp 18 09/11/24 08:23 BP 186/94 H 09/11/24 08:23 Pulse Ox 98 09/11/24 08:23 O2 Del Method Room Air 09/11/24 08:23 BMI result Body Mass Index 18.3 Vital signs have been reviewed and appear to be correct. Blood pressure elevated likely due to pain. Heart rate normal. Respiratory rate normal. Temperature normal. Oxygen saturation normal. Appearance: Alert. Oriented X3. No acute distress. Head: Normal external exam. Normocephalic. Atraumatic. No Cruz signs noted. No raccoon eyes noted Eyes: PERRLA. EOMI. Conjunctiva and sclera normal. Eyelids normal. ENT: TM's Normal. Pharynx normal. Uvula midline. Moist mucous membranes. No trismus noted. No drooling noted. No muffled voice noted. Neck: Normal inspection. Neck supple. FROM. No adenopathy. Thyroid Normal. No meningeal signs. No neck mass noted. CVS: Normal heart rate and rhythm. Heart sound normal. No murmurs noted. Pulses normal throughout. Respiratory: No respiratory distress. Painless inspiration. Breath sounds normal. No wheezes/rales/rhonchi noted. Chest nontender. No accessory muscle usage noted or decreased air movement noted. Abdomen: Soft and nontender. Bowel sounds normal in all 4 quadrants. No distention noted. No organomegaly noted. No visible injury noted. Back: left CVA tenderness, pain over left lower ribs, mid back tenderness with no step-off. Skin: Skin warm and dry. Normal skin color. Normal skin turgor. No rashes/lesions/lacerations noted. Extremities: No lower extremity edema. Extremities exhibit normal range of motion. Extremities nontender. Neuro: Oriented X 3. Cranial nerve exam: II-XII are grossly intact No motor deficit. No sensory deficit. Reflexes normal. Course Reevaluation(s) Reevaluation #1: Patient received oxycodone orally for the back pain but did not manage the pain well patient require a dose of 1 mg of Dilaudid with 15 mg Toradol, patient now start feel dizzy and nauseous, will give Zofran. Rib x-ray showed no acute rib fracture, back x-ray is showing T12 compression deformity. Patient was instructed to follow-up with PCP, use a back belt, use NSAIDs versus Tylenol to control pain. Time: 10:43 Medications Administered Discontinued Medications Generic Name Dose Route Start Last Admin Trade Name Sebastiánq PRN Reason Stop Dose Admin Hydromorphone HCl 1 mg 09/11/24 09:16 09/11/24 09:41 Hydromorphone Hcl 1 Mg/Ml Syringe IM 09/11/24 09:17 1 mg ONCE ONE Administration Protocol Ketorolac Tromethamine 15 mg 09/11/24 09:16 09/11/24 09:41 Ketorolac Tromethamine 15 Mg/Ml Vial IM 09/11/24 09:17 15 mg ONCE ONE Administration Ondansetron HCl 4 mg 09/11/24 10:08 09/11/24 10:11 Ondansetron Odt 4 Mg Tab.Rapdis TRANSLINGU 09/11/24 10:09 4 mg ONCE ONE Administration Oxycodone HCl 5 mg 09/11/24 08:33 09/11/24 08:41 Oxycodone Hcl Immed Release 5 Mg Tablet PO 09/11/24 08:34 5 mg ONCE ONE Administration Medical Decision Making Differential Diagnosis Differential Diagnoses: The differential diagnosis associated with the presentation includes ( Rib fracture, lumbar vertebral fracture, muscular pain.) Admission/Observation Consideration of admission/observation: Escalation of care including admission/observation considered Independent Interpretation I performed an independent interpretation of an: Plain X-Ray ( left rib/chest/ lumbar spine x-ray:Osseous structures are unremarkable. Ribs are intact. No fractures are identified. No infiltrate, effusion, or pneumothorax is appreciated.1. Newly developed partial compression fracture of T12. Uncertain etiology. ) Radiology Impression Discussion of test interpretation with radiology: I have reviewed the radiologist's reading. Discharge Plan Discharge Clinical Impression: Closed compression fracture of thoracic vertebra Patient Disposition: Home, Self-Care Instructions: Vertebral Compression Fracture (ED) Additional Instructions: Take Tylenol 500 mg tablet or ibuprofen 200 mg tablet (qstg-axh-arbjwme medication ) every 6 hours if needed for pain. Prescriptions: No Action aspirin [Adult Low Dose Aspirin] 81 mg tablet,delayed release (DR/EC) 81 mg PO BEDTIME 90 Days Qty: 90 0RF atorvastatin 80 mg tablet 80 mg PO BEDTIME 90 Days Qty: 90 0RF losartan 100 mg tablet 100 mg PO DAILY 90 Days Qty: 90 3RF carvedilol 12.5 mg tablet 12.5 mg PO DAILY Qty: 90 1RF cholecalciferol (vitamin D3) 25 mcg (1,000 unit) capsule 25 mcg PO DAILY Referrals: Lucy Haas MD [Primary Care Provider] - Print Language: Israeli
[2024-09-11] MEDS: oxyCODONE HCl Immed Release 5 MG TABLET PO (08:41)
[2024-09-11] MEDS: Ketorolac Tromethamine 15 MG/ML VIAL IM (09:41)
[2024-09-11] MEDS: HYDROmorphone HCl 1 MG/ML SYRINGE IM (09:41)
[2024-09-11] MEDS: Ondansetron ODT 4 MG TAB.RAPDIS TRANSLINGU ×2 (10:11→10:56)
[2024-09-11 11:08] VITALS: BP 186/94; PULSE 60; RESP 18; TEMP 35.9; O2SAT 98
== END 2024-09-11 11:09 | disposition home or self-care (01) ==
PROVIDERS: Emergency Provider Emergency Medicine; PCP Internal Medicine
DX: S22.089A Unspecified fracture of T11-T12 vertebra, initial encounter for closed fracture (principal); M54.50 Low back pain, unspecified; W19.XXXA Unspecified fall, initial encounter; Y93.89 Activity, other specified; Y92.89 Other specified places as the place of occurrence of the external cause; Y99.8 Other external cause status; Z79.899 Other long term (current) drug therapy
CPT/HCPCS: 71101; 96372; 99283; 99284; J1171; J1885

== ENCOUNTER 2024-09-15 12:45 | Outpatient (AMB) | payer MEDICARE, OTHER, SELFPAY ==
[2024-09-15 12:48] VITALS: PULSE 66; O2SAT 96; BMI 19.4
--- NOTE | 2024-09-15 12:48 | A.OFFPC_ITS ---
Vital Signs 09/15/24 12:48 Height 5 ft 2 in Weight 106 lb BMI 19.4 BP not taken reason Patient Refused Pulse 66 Pulse Source Pulse Oximeter Pulse Oximetry (%) 96 Oxygen Delivery Method Room Air Intake Visit Reasons: [facility] [place] Fell (back pain) Customer Order Clerk Required: No Accompanied by: Self / Same As Patient Allergies iodine Allergy (Severe, Verified 09/15/24 12:48) swelling, rash Tobacco use date assessed: 09/15/24 Fall risk assessment: 1 Fall in past year Last assessed Fall Risk: 09/15/24 Dental Screening Dental Screen Date: 09/15/24 Did you have a dental visit in the last 12 months?: No Did you have a dental problem in the last 6 months where you did not have access to dental care?: No Was dental information given to patient?: Patient has dentist HPI HPI Comments History of Present Illness Details 74 y/o female patient who [facility] for [facility]. Pt was admitted at [facility] on 09/11/23 after she suffered a mechanical Fall at home and injured her Back. She was discharged home the same day with pain medications. Lumbar Xray showed T12 compression fracture. Today Pt is in severe pain asking for something stronger that NSAIDs and Acetaminophen. Denies numbness or tingling. [facility] Medical History Sick sinus syndrome Carotid artery disease Memory loss Tubular adenoma Stenosis of right subclavian artery Dyslipidemia Cardiomyopathy GERD (gastroesophageal reflux disease) Essential hypertension Surgical History History of hysterectomy History of esophagogastroduodenoscopy (EGD) Hx of colonoscopy History of surgical procedure on eye proper using laser History of pacemaker (~09/2012) Family History Father Cancer Mother Stroke Social History Household Members: None Housing: Apartment Alcohol intake: former Patient Tobacco Use Status: Current everyday Tobacco user Tobacco use type: Cigarette Cigarettes Per Day: 4 Years Smoked: 25 e-Cigarette/Vaping Use: Never Used Second Hand Smoke Exposure: No service: No Current occupational status: retired Cognitive needs: No Hearing needs: No Vision needs: Yes Female Reproductive History Menstrual Age of Menarche: 9 Questionnaire PHQ-9 Over the last 2 weeks, how often have you been bothered by any of the following problems? 1. Little interest or pleasure in doing things: more than half the days 2. Feeling down, depressed, or hopeless: more than half the days 3. Trouble falling or staying asleep, or sleeping too much: more than half the days 4. Feeling tired or having little energy: more than half the days 5. Poor appetite or overeating: more than half the days 6. Feeling bad about yourself - or that you are a failure or have let yourself or your family down: more than half the days 7. Trouble concentrating on things, such as reading the newspaper or watching television: more than half the days 8. Moving or speaking so slowly that other people could have noticed. Or the opposite - being so fidgety or restless that you have been moving around a lot more than usual: more than half the days 9. Thoughts that you would be better off or of hurting yourself in some way: not at all Total score: 16 Depression Screening Interpretation: Positive (no suicidal thoughts) Depression Screening Follow-up: Existing condition, Follow-up Visit Requested and Declines treatment Depression Screening Done: Yes 40908 - PHQ-9 Billing: Yes Source: Developed by Drs. Karlos Espinosa, Aayush Hansen and colleagues, with an educational juliet from [employer]. Thrive Questionnaire Date Thrive assessed: 06/30/24 AUDIT C Alcohol Use Questionnaire (AUDIT-C) 1. How often do you have a drink containing alcohol?: Monthly or less 2. How many drinks containing alcohol do you have on a typical day when you are drinking?: 1 or 2 3. How often do you have six or more drinks on one occasion?: Never Total Score: 1 DELIA-7 AMB Questionnaire DELIA-7 Date DELIA - 7 assessed: 06/30/24 Source: Developed by Drs. Karlos Espinosa, Aayush Hansen and colleagues, with an educational juliet from [employer]. Review of Systems Const All systems reviewed & are unremarkable except as noted in HPI and below Physical exam (Primary Care) Vital Signs: Last Vital Signs Pulse 66 09/15/24 12:48 Pulse Ox 96 09/15/24 12:48 Oxygen Delivery Method Room Air 09/15/24 12:48 BMI result Body Mass Index 19.4 Tobacco/Smoking Status: Tobacco use Status Tobacco use date assessed 09/15/24 09/15/24 12:54 Patient Tobacco Use Status Current everyday Tobacco 09/15/24 12:54 Tobacco use type Cigarette 09/15/24 12:54 e-Cigarette/Vaping Use Never Used 09/15/24 12:54 PHQ-9: PHQ-9 Score PHQ-9: Total score 16 09/15/24 12:54 Depression Screening Interpretation: Positive (no suicidal thoughts) Depression Screening Follow-up: Existing condition, Follow-up Visit Requested and Declines treatment Thrive Assessment: Date of Thrive Assessment Date Thrive assessed 06/30/24 09/15/24 12:54 Const General: cooperative and no acute distress; No comfortable Nutritional Appearance: thin Orientation/consciousness: patient oriented x3 Back/Spine/Pelvis Back: back tenderness Thoracic/Lumbar Spine: pain with thoraco-lumbar ROM, thoraco-lumbar ROM limited, thoraco-lumbar spasm and thoracic spinal tenderness Skin General skin exam: no rashes or lesions noted Neuro General: patient oriented x3, gait normal and moves all extremities Coding Level of Care Code Est Pt Level 4 (16748) Diagnoses Compression fracture of T12 vertebra, initial encounter S22.080A Encounter type: initial encounter Time Spent (min) 20 Comment Spent reviewing Hospital notes and Patient education. Assessment & Plan Assessment & Plan (1) Compression fracture of T12 vertebra: Code(s): S22.080A - Wedge compression fracture of T11-T12 vertebra, initial encounter for closed fracture Category: Medical Qualifiers: Encounter type: initial encounter Qualified Code(s): S22.080A - Wedge compression fracture of T11-T12 vertebra, initial encounter for closed fracture Plan: Referred to Physical therapy, pain management and Orthopedics. Ordered NSAIDs and Acetaminophen Ordered Metaxalone. Orders: Orders PT Evaluation and Treatment Today S22.080A - Wedge compression fracture of T11- T12 vertebra, initial encounter for closed fracture Referrals Orthopedics Referral S22.080A - Wedge compression fracture of T11-T12 vertebra, initial encounter for closed fracture Pain Management Referral S22.080A - Wedge compression fracture of T11-T12 vertebra, initial encounter for closed fracture Medications: New metaxalone 800 mg PO TID 20 tabs 0RF S22.080A - Wedge compression fracture of T11-T12 vertebra, initial encounter for closed fracture lidocaine 5% leave on most painful area for up to 12 hrs 1 patch topical DAILY 30 ea 0RF S22.080A - Wedge compression fracture of T11-T12 vertebra, initial encounter for closed fracture acetaminophen 1,000 mg (2 x 500 mg) PO Q6H PRN 60 caps 0RF pain S22.080A - Wedge compression fracture of T11-T12 vertebra, initial encounter for closed fracture
== END 2024-09-15 13:29 | disposition home or self-care (01) ==
PROVIDERS: PCP Internal Medicine; Visit Provider Nurse Practitioner Family
DX: S22.080A Wedge compression fracture of T11-T12 vertebra, initial encounter for closed fracture (principal)

== ENCOUNTER → 2024-09-15 12:45 | Outpatient (BNVA) | payer MEDICARE, OTHER, SELFPAY | PROVIDERS: PCP Internal Medicine; Visit Provider Nurse Practitioner Family | DX: S22.080D Wedge compression fracture of T11-T12 vertebra, subsequent encounter for fracture with routine healing (principal); W19.XXXD Unspecified fall, subsequent encounter | CPT/HCPCS: 96127; 99212 ==

== ENCOUNTER 2024-09-23 12:56 | Outpatient (AMB) | payer MEDICARE, OTHER, SELFPAY ==
--- NOTE | 2024-09-23 13:03 | A.OFFVIS_ITS ---
Intake Visit Reasons: follow up US(US Pending) Intake Note: Patient is present for US F/U Urology Medication:NONE Antibiotic Allergy:NONE Blood Thinner:ASPIRIN Assistant Art Director Required: No Allergies iodine Allergy (Severe, Verified 09/23/24 13:04) swelling, rash HPI Comments Details: 09/23/24-- Sabina is here in follow-up, renal ultrasound films, 08/31/24--kidneys within normal limits, no parenchymal lesions, calculi or hydronephrosis noted. Persistent microscopic hematuria, Urinalysis 1+ blood in his signs of infection. History of nicotine use. Will continue to monitor. Follow-up in 1 year with nurse practitioner. Review of chart: 08/24/24--fu cysto b/L -- discussed OR results WNL, no bx indicated sched for renal US FU 09/23/24 07/06/24--Sabina is a very pleasant 74-year-old female patient of Dr. Hazel. She has a past medical history of nicotine dependence, sick sinus syndrome, carotid artery disease, memory loss, dyslipidemia, cardiomyopathy, GERD, and hypertension. She presents to the office today as a new patient for microscopic hematuria in the setting of nicotine dependence. In discussion with the patient today she reports having followed up with her PCP at which time urinalysis noted microscopic hematuria and recommendations were made for urology referral for further assessment evaluation. She reports being unable to perform CT urogram that was ordered as she has an allergy/anaphylaxis to iodine. When asked she reports a longstanding history of nicotine dependence for approximately 25 years. She reports currently she only smokes approximately 5 cigarettes per day. She discusses having had a recent hysterectomy for ongoing tobacco prevention health educator issues she had been experiencing. In office urinalysis results reviewed with the patient today trace microscopic hematuria. Discussed at length potential causes of microscopic hematuria. Discussed further workup to include cystoscopy with bilateral retrogrades given patient's allergy to contrast dye. She otherwise denies any bothersome urinary issues or concerns. She denies urinary urgency, urinary frequency, incontinence, nocturia, dysuria, foul smelling urine, changes to urinary stream, flank pain, fever, and or chills. She is happy with her current voiding parameters. [facility] Medical History Sick sinus syndrome Carotid artery disease Memory loss Tubular adenoma Stenosis of right subclavian artery Dyslipidemia Cardiomyopathy GERD (gastroesophageal reflux disease) Essential hypertension Surgical History History of hysterectomy History of esophagogastroduodenoscopy (EGD) Hx of colonoscopy History of surgical procedure on eye proper using laser History of pacemaker (~09/2012) Family History Father Cancer Mother Stroke Social History Household Members: None Housing: Apartment Alcohol intake: former Patient Tobacco Use Status: Current everyday Tobacco user Tobacco use type: Cigarette Cigarettes Per Day: 4 Years Smoked: 25 e-Cigarette/Vaping Use: Never Used Second Hand Smoke Exposure: No service: No Current occupational status: retired Cognitive needs: No Hearing needs: No Vision needs: Yes Female Reproductive History Menstrual Age of Menarche: 9 Review of Systems Const All systems reviewed & are unremarkable except as noted in HPI and below Reports no additional complaints Eyes Reports no additional complaints ENT Reports no additional complaints Card Reports no additional complaints Resp Reports no additional complaints GI Reports no additional complaints Reports as per HPI Musc Reports no additional complaints Skin/Breast Reports system reviewed and no additional complaints, except as documented Neuro Reports no additional complaints Psych Reports no additional complaints Endo Reports no additional complaints Dusty/Lymph Reports no additional complaints Aller/Immun Reports no additional complaints Results AMB Urinalysis, Automated UA Leukoctes 70 Renetta/uL Last Edit by SNOW Amanda on 09/23/24 13:18 UA Nitrite Negative Last Edit by SNOW Amanda on 09/23/24 13:18 UA Urobilinogen 0.2 mg/dL Last Edit by SNOW Amanda on 09/23/24 13:1 8 UA Protein 15 mg/dL Last Edit by SNOW Amanda on 09/23/24 13:18 UA pH 6.0 Last Edit by SNOW Amanda on 09/23/24 13:18 UA Blood 25 Luigi/uL Last Edit by SNOW Amanda on 09/23/24 13:18 UA Specific Cobb 1.015 Last Edit by SNOW Amanda on 09/23/24 13: 18 UA Ketone Negative Last Edit by SNOW Amanda on 09/23/24 13:18 UA Bilirubin 0 mg/dL Last Edit by SNOW Amanda on 09/23/24 13:18 UA Glucose 0 mg/dL Last Edit by SNOW Amanda on 09/23/24 13:18 Results Reviewed Results Reviewed: Laboratory Last Values Urine pH (Auto) 6.0 09/23/24 13:18 Specific Cobb (Auto) 1.015 09/23/24 13:18 Urine Protein (Auto) 15 mg/dL 09/23/24 13:18 Glucose (UA)(Auto) 0 mg/dL 09/23/24 13:18 Urine Ketones (Auto) Negative 09/23/24 13:18 Urine Blood (Auto) 25 Luigi/uL 09/23/24 13:18 Urine Nitrite (Auto) Negative 09/23/24 13:18 Urine Bilirubin (Auto) 0 mg/dL 09/23/24 13:18 Urine Urobilinogen (Auto) 0.2 mg/dL 09/23/24 13:18 Leukocyte Esterase (Auto) 70 Renetta/uL 09/23/24 13:18 08/31/24--US Renal- reviewed films- kidneys within normal limits, no parenchema lesions, calculi or hydronephrosis Collected: 07/06/24 Location: [facility] Received: 07/08/24 Diagnosis Urine: Negative for high-grade urothelial carcinoma. See comment. COMMENT: Cellular specimen consisting of rare single urothelial cells, numerous squamous cells and rare red blood cells. Assessment & Plan Assessment & Plan (1) Microscopic hematuria: Code(s): R31.29 - Other microscopic hematuria Category: Medical (2) Nicotine dependence: Code(s): F17.200 - Nicotine dependence, unspecified, uncomplicated Category: Medical Plan Persistent microscopic hematuria, Urinalysis 1+ blood in his signs of infection. History of nicotine use. Will continue to monitor. Follow-up in 1 year with nurse practitioner. Orders: Orders AMB Urinalysis Automated Today Z13.9 - Encounter for screening, unspecified Patient Instructions: The patient had an opportunity to ask questions regarding treatment plan. The patient expressed understanding and agreement with the above treatment plan. The patient is aware they should contact our office by phone for worsening of their current condition or the appearance of new symptoms. Compliance is encouraged with any medications and followup testing that is ordered. It is a privilege to be allowed the opportunity to participate in the urologic care of your patient. If you have any questions or concerns regarding treatment for the above conditions please do not hesitate to contact me. The office telephone contact is [phone]. This note is constructed in part using voice recognition software. While every effort has been made to ensure accuracy algorithm developer errors may have been included. Yours sincerely, Bud Mccann MD Coding Level of Care Code Est Pt Level 3 (70891) Diagnoses Microscopic hematuria R31.29 Nicotine dependence F17.200
== END 2024-09-23 13:36 | disposition home or self-care (01) ==
PROVIDERS: Visit Provider Urology
DX: R31.29 Other microscopic hematuria (principal); F17.200 Nicotine dependence, unspecified, uncomplicated; Z13.9 Encounter for screening, unspecified
CPT/HCPCS: 99213

== ENCOUNTER → 2024-09-23 12:56 | Outpatient (BNVA) | payer OTHER, SELFPAY | PROVIDERS: Visit Provider Urology | DX: R31.29 Other microscopic hematuria (principal); F17.210 Nicotine dependence, cigarettes, uncomplicated | CPT/HCPCS: 81003 ==

== ENCOUNTER 2024-09-28 12:15 | Outpatient (REF) | payer MEDICARE, OTHER, SELFPAY ==
--- NOTE | ~2024-09-28 | MM_ITS ---
EXAMINATION: MM SCREENING DIGITAL BREAST TOMOSYNTHESIS, BILATERAL CLINICAL INFORMATION: Screening. Asymptomatic. COMPARISON: Mammography: Comparison is made with available priors TECHNIQUE: Digital breast mammography with tomosynthesis is performed in both the craniocaudal and mediolateral oblique views along with computer-aided detection (CAD). FINDINGS: The breasts are heterogeneously dense, which may obscure small masses (ACR BI-RADS breast composition Category c). Pacemaker obscures the superior posterior left breast on MLO view. There are no significant masses, abnormal calcifications, or other abnormalities. MM/MM tomosynthesis screening BI IMPRESSION: No mammographic evidence of malignancy. ASSESSMENT: BI-RADS BI-RADS 2 - Benign Findings RECOMMENDATION: Routine annual mammography screening. 1 year F/U This examination should not preclude the clinical evaluation of a suspicious palpable abnormality. This patient's information was entered into a reminder system with a target due date for their next mammogram. Electronically signed by: Brielle Chamberlain DO 10/07/2024 09:35 AM JOSHUA
== END 2024-09-28 12:16 | disposition home or self-care (01) ==
LOC: HO.MAMMO 12:15
PROVIDERS: PCP Internal Medicine; Visit Provider Obstetrics & Gynecology
DX: Z12.31 Encounter for screening mammogram for malignant neoplasm of breast (principal)
CPT/HCPCS: 77063; 77067

== ENCOUNTER → 2024-09-28 12:30 | Outpatient (BNV) | payer MEDICARE, OTHER, SELFPAY | PROVIDERS: PCP Internal Medicine; Visit Provider Internal Medicine | DX: Z12.31 Encounter for screening mammogram for malignant neoplasm of breast (principal) | CPT/HCPCS: 77063; 77067 ==

== ENCOUNTER 2024-09-29 09:08 | Outpatient (AMB) | payer MEDICARE, OTHER, SELFPAY ==
[2024-09-29 09:21] VITALS: BP 158/71; PULSE 59; O2SAT 100; BMI 19.4
--- NOTE | 2024-09-29 09:21 | A.OFFVIS_ITS ---
Vital Signs 09/29/24 09:21 Height 5 ft 2 in Weight 106 lb BMI 19.4 BP 158/71 H Blood Pressure Location Lt brachial Position Sitting Pulse 59 Pulse Source Pulse Oximeter Pulse Oximetry (%) 100 Oxygen Delivery Method Room Air Intake Visit Reasons: Wedge compression fracture of T11-T12 vertebra Allergies iodine Allergy (Severe, Verified 09/29/24 09:22) swelling, rash Medication List - Last Reconciled 09/29/24 by Bambi Begum acetaminophen 1,000 mg (2 x 500 mg) PO Q6H PRN aspirin (Adult Low Dose Aspirin) 81 mg PO BEDTIME 90 days atorvastatin 80 mg PO BEDTIME 90 days carvedilol 12.5 mg PO DAILY cholecalciferol (vitamin D3) 25 mcg PO DAILY lidocaine 5% 1 patch topical DAILY losartan 100 mg PO DAILY 90 days metaxalone 800 mg PO TID naproxen 500 mg PO BID PRN 5 days HPI Comments Details: Sabina is a very pleasant 74-year-old female who presents the office today for evaluation and management of her lower back pain Three weeks ago patient presented to the emergency room for back pain after fall. She states she was picking up some toys off the floor, holding onto a gate and the gait moved and she fell backwards. She suffered immediate back pain that persisted so she sought treatment in the ER. X-ray was performed, results as per below, diagnosed with a T12 compression fracture Since the ER visit pain has improved some, rated today as 5/10. Taking over the counter medications, nonsteroidal anti-inflammatory medications, Tylenol and muscle relaxers with some improvement Wearing a back brace which provides her the most comfort. She is requesting a refill of the metaxalone. She endorses midline lower back pain over T12 vertebrae, tender to palpation and worse with moving, deep breathing, sneezing Pain is most significant during the day. In terms of muscle damage condition is described as shooting, shocking, tingling Denies radiation of the pain down either lower extremity. Denies red flag symptoms including new loss of bowel, bladder or saddle anesthesia. Denies history of back surgeries. Denies current use of anticoagulants. Does have a pacemaker, this was replaced about 1 year ago at [facility] in [place] Denies current use of nicotine, tobacco, alcohol or illicit substances [facility] Medical History (Updated 09/29/24 @ 09:52 by Maricruz Crespo APRN, MARKETING SUPPORT SPECIALIST) Compression fracture of T12 vertebra Sick sinus syndrome Carotid artery disease Memory loss Tubular adenoma Stenosis of right subclavian artery Dyslipidemia Cardiomyopathy GERD (gastroesophageal reflux disease) Essential hypertension Surgical History History of hysterectomy History of esophagogastroduodenoscopy (EGD) Hx of colonoscopy History of surgical procedure on eye proper using laser History of pacemaker (~09/2012) Family History Father Cancer Mother Stroke Social History Household Members: None Housing: Apartment Alcohol intake: former Patient Tobacco Use Status: Current everyday Tobacco user Tobacco use type: Cigarette Cigarettes Per Day: 4 Years Smoked: 25 e-Cigarette/Vaping Use: Never Used Second Hand Smoke Exposure: No service: No Current occupational status: retired Cognitive needs: No Hearing needs: No Vision needs: Yes Female Reproductive History Menstrual Age of Menarche: 9 Review of Systems Const All systems reviewed & are unremarkable except as noted in HPI and below Physical Exam Vital Signs: Last Vital Signs Pulse 59 09/29/24 09:21 BP 158/71 H 09/29/24 09:21 Pulse Ox 100 09/29/24 09:21 Oxygen Delivery Method Room Air 09/29/24 09:21 BMI result Body Mass Index 19.4 General: awake, alert, oriented. Answers questions appropriately. Fully engaged in examination. Skin: warm, dry, intact HEENT: Normocephalic. Hearing intact. Cardiac: External chest normal in appearance. Respiratory: No cough, audible wheezing or stridor. Abdomen: without gross distension. MS: No obvious swelling or deformities. Able to stand on bilateral tiptoes and bilateral heels.? Able to transition from sit to stand unassisted. Ambulates with bilaterally normal heel strike and toe off Bilateral lower extremity strength 5/5 SLR negative bilaterally Valsalva positive Tenderness to palpation over T12 vertebrae 2+ Patellar Reflexes Bilaterally Neurological: Oriented to person, place, time and situation. Thought process intact. No gait abnormalities appreciated. Psychiatric: Appropriate mood and affect. Good judgment and insight. Results Reviewed Results Reviewed: 09/11/24 XR/XR lumbar spine 2-3V FINDINGS: Five [id number] lumbar vertebrae were identified maintaining normal height and alignments. Newly developed partial compression fracture T12. Diffuse bone cortical thinning suggests demineralization, this can be more accurately measured on DEXA exam . Narrowing of intervertebral disc spaces suggest underlying degenerative disc disease. Next amount of stool in the colon possible constipation., Heavy aortic vascular calcifications. Paravertebral soft tissues are unremarkable. There are radiolucencies, most likely superimposed bowel gas.. No radiographic evidence of osteolytic or osteoblastic lesions. IMPRESSION: 1. Newly developed partial compression fracture of T12. Uncertain etiology. MRI could be utilized for further investigation. 2. Diffuse bone cortical thinning suggests demineralization, this can be more accurately measured on DEXA exam. 3. Narrowing of intervertebral disc spaces suggest underlying degenerative disc disease. 4. Heavy aortic vascular calcifications. 5. Excess amount of stool in the colon possible constipation. 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 metaxalone 400 mg PO TID PRN 60 tabs. Patient was prescribed this previously reports good pain relief with this medication Discussed options for treatment including kyphoplasty.. Informational pamphlets provided. Patient is aware that we need the results of the MRI before proceeding with any interventional treatments. We will follow up after MRI to review with plan for T12 kypho under sedation. All questions and concerns have been answered and patient agrees with the plan. Follow up after MRI, sooner if needed. Orders: Orders MR thoracic spine wo con Today S22.000A - Wedge compression fracture of unspecified thoracic vertebra, initial encounter for closed fracture Medications: Changed From metaxalone 800 mg PO TID 20 tabs 0RF S22.080A - Wedge compression fracture of T11-T12 vertebra, initial encounter for closed fracture To metaxalone 400 mg PO TID PRN 60 tabs 0RF muscle pain S22.080A - Wedge compression fracture of T11-T12 vertebra, initial encounter for closed fracture Coding Level of Care Code New Pt Level 4 (69904) Complex EM visit Add On G2211 Diagnoses Traumatic compression fracture of T12 thoracic vertebra S22.080A Back pain M54.9
== END 2024-09-29 09:53 | disposition home or self-care (01) ==
LOC: HO.PMC 09:09
PROVIDERS: PCP Internal Medicine; Visit Provider Registered Nurse Emergency
DX: S22.080A Wedge compression fracture of T11-T12 vertebra, initial encounter for closed fracture (principal); M54.9 Dorsalgia, unspecified
CPT/HCPCS: 99204; 99214; G2211

== ENCOUNTER → 2024-09-29 09:08 | Outpatient (BNVA) | payer MEDICARE, OTHER, SELFPAY | PROVIDERS: PCP Internal Medicine; Visit Provider Registered Nurse Emergency | DX: S22.080A Wedge compression fracture of T11-T12 vertebra, initial encounter for closed fracture (principal); W18.30XA Fall on same level, unspecified, initial encounter; Y93.9 Activity, unspecified; Y92.9 Unspecified place or not applicable; Y99.9 Unspecified external cause status; M80.08XA Age-related osteoporosis with current pathological fracture, vertebra(e), initial encounter for fracture; I42.9 Cardiomyopathy, unspecified; I10 Essential (primary) hypertension; E78.5 Hyperlipidemia, unspecified; Z28.21 Immunization not carried out because of patient refusal | CPT/HCPCS: 90471; 99202; 99212 ==

== ENCOUNTER 2024-09-29 09:49 | Outpatient (AMB) | payer MEDICARE, OTHER, SELFPAY ==
[2024-09-29 10:15] VITALS: BP 142/80; BMI 18.8
--- NOTE | 2024-09-29 10:15 | MHC.PC.OV ---
Vital Signs 09/29/24 10:15 Height 5 ft 2 in Weight 103 lb BMI 18.8 BP 142/80 H Blood Pressure Location Lt brachial Position Sitting Intake Visit Reasons: 4 month f/u - see comments Intake Note: Patient here for a 4 month follow up Spinner Fixer Required: No Accompanied by: Self / Same As Patient Allergies iodine Allergy (Severe, Verified 09/29/24 10:34) swelling, rash Medication List - Last Reconciled 09/29/24 by Lucy Hodge MD acetaminophen 1,000 mg (2 x 500 mg) PO Q6H PRN aspirin (Adult Low Dose Aspirin) 81 mg PO BEDTIME 90 days atorvastatin 80 mg PO BEDTIME 90 days carvedilol 12.5 mg PO DAILY cholecalciferol (vitamin D3) 25 mcg PO DAILY lidocaine 5% 1 patch topical DAILY losartan 100 mg PO DAILY 90 days metaxalone 400 mg PO TID PRN naproxen 500 mg PO BID PRN 5 days Tobacco use date assessed: 09/15/24 Fall risk assessment: 1 Fall in past year Last assessed Fall Risk: 09/29/24 Dental Screening Dental Screen Date: 09/15/24 HPI HPI Comments History of Present Illness Details This is a 74-year-old female with hypertension, dyslipidemia, osteoporosis and cardiomyopathy that comes today complaining of back pain that has been aggravated after she fell with no loss of consciousness. Went to ER and say that pain was relieved by naproxen. Had x-ray of lumbar spine showing wedge compression fracture of T12. MRI still pending. Went to pain management and was evaluated for this matter. Blood pressure borderline normal to elevated and she is compliant with her medications. On statins for her dyslipidemia and lipid panel will be order. DEXA scan shows severe osteoporosis in 2022 that is follow by Endocrinology and currently is taking Prolia every 6 months. Has cardiomyopathy with preserved ejection fraction and echocardiogram done this month shows impaired relaxation fillimg pattern. Denies gaining 5 lb in a week. No chest pain or shortness on breath. [facility] Medical History (Updated 09/29/24 @ 11:55 by Lucy Hodge MD) Compression fracture of T12 vertebra Sick sinus syndrome Carotid artery disease Memory loss Tubular adenoma Stenosis of right subclavian artery Dyslipidemia Cardiomyopathy GERD (gastroesophageal reflux disease) Essential hypertension Surgical History History of hysterectomy History of esophagogastroduodenoscopy (EGD) Hx of colonoscopy History of surgical procedure on eye proper using laser History of pacemaker (~09/2012) Family History Father Cancer Mother Stroke Social History Household Members: None Housing: Apartment Alcohol intake: former Patient Tobacco Use Status: Former Tobacco user Tobacco use type: Cigarette Cigarettes Per Day: 4 Years Smoked: 25 e-Cigarette/Vaping Use: Never Used Second Hand Smoke Exposure: No service: No Current occupational status: retired Cognitive needs: No Hearing needs: No Vision needs: Yes Female Reproductive History Menstrual Age of Menarche: 9 Questionnaire Thrive Questionnaire Date Thrive assessed: 06/30/24 DELIA-7 AMB Questionnaire DELIA-7 Date DELIA - 7 assessed: 06/30/24 Source: Developed by Drs. Karlos Espinosa, Denae Buckley, Aayush Veliz and colleagues, with an educational juliet from [employer]. Review of Systems Const All systems reviewed & are unremarkable except as noted in HPI and below Card Denies chest pain at rest, Denies chest pain with activity, Denies edema, Denies irregular heart rhythm, Denies claudication, Denies dyspnea, Denies dyspnea on exertion, Denies orthopnea, Denies paroxysmal nocturnal dyspnea and Denies slow heart rate Resp Denies cough, Denies dyspnea and Denies dyspnea on exertion Musc Denies abnormal gait, Reports back pain, Denies atrophy, Denies deformity and Denies limited range of motion Neuro Denies abnormal gait and Denies lack of coordination Physical exam (Primary Care) Vital Signs: Last Vital Signs BP 142/80 H 09/29/24 10:15 BMI result Body Mass Index 18.8 Tobacco/Smoking Status: Tobacco use Status Tobacco use date assessed 09/15/24 09/29/24 10:23 Patient Tobacco Use Status Former Tobacco user 09/29/24 10:23 Tobacco use type Cigarette 09/29/24 10:23 e-Cigarette/Vaping Use Never Used 09/29/24 10:23 Thrive Assessment: Date of Thrive Assessment Date Thrive assessed 06/30/24 09/29/24 10:23 Resp Effort & Inspection: normal respiratory effort Auscultation: clear to auscultation bilaterally Cardio Jugular venous distension: no JVD Rate: regular rate Rhythm: regular rhythm Heart sounds: S1 normal heart sound present and S2 normal heart sound present Extrem General: Yes full ROM Office Procedures Flu Questionnaire Does the patient have a severe egg allergy?: No Immunizations Fluarix Triv [id number] (PF) 45 mcg (15 mcg x 3)/0.5 mL IM syringe Performing Provider: Lucy Hodge MD [facility] [place] [facility] Documented (not given) by: NATHAN Taylor on 09/29/24 10:28 Reason Not Given: Patient Refused Coding Level of Care Code Est Pt Level 4 (27484) Complex EM visit Add On G2211 Diagnoses Traumatic compression fracture of T12 thoracic vertebra, closed, initial encounter S22.080A Encounter type: initial encounter Fracture type: closed Age-related osteoporosis with current pathological fracture, initial encounter M80.00XA Osteoporosis type: age-related Presence of current pathological fracture: with current pathological fracture Encounter type: initial encounter Dyslipidemia E78.5 Essential hypertension I10 Cardiomyopathy, unspecified type I42.9 Cardiomyopathy type: unspecified Time Spent (min) 24 Assessment & Plan Assessment & Plan (1) Traumatic compression fracture of T12 thoracic vertebra: Code(s): S22.080A - Wedge compression fracture of T11-T12 vertebra, initial encounter for closed fracture Category: Medical Qualifiers: Encounter type: initial encounter Fracture type: closed Qualified Code(s): S22.080A - Wedge compression fracture of T11-T12 vertebra, initial encounter for closed fracture Plan: Continue naproxen as needed. MRI still pending. Follow-up with pain management. (2) Osteoporosis: Code(s): M81.0 - Age-related osteoporosis without current pathological fracture Category: Medical Qualifiers: Osteoporosis type: age-related Presence of current pathological fracture: with current pathological fracture Encounter type: initial encounter Qualified Code(s): M80.00XA - Age-related osteoporosis with current pathological fracture, unspecified site, initial encounter for fracture Plan: Continue Prolia every 6 months. (3) Dyslipidemia: Code(s): E78.5 - Hyperlipidemia, unspecified Category: Medical Plan: Continue statins. Follow a low-cholesterol diet. Repeat lipid panel. (4) Essential hypertension: Code(s): I10 - Essential (primary) hypertension Category: Medical Plan: Continue losartan. Blood pressure goal is equal or less than 130/80. (5) Cardiomyopathy: Code(s): I42.9 - Cardiomyopathy, unspecified Category: Medical Qualifiers: Cardiomyopathy type: unspecified Qualified Code(s): I42.9 - Cardiomyopathy, unspecified Plan: Continue carvedilol. Follow-up with Cardiology. The goal is to not gain 5 lb in a week. Orders: Orders Lipid Panel 4 Months E78.5 - Hyperlipidemia, unspecified Comprehensive Aspen. Panel Fast 4 Months S22.080A - Wedge compression fracture of T11-T12 vertebra, initial encounter for closed fracture Influenza [id number] Immunization Today Z23 - Encounter for immunization Medications: Refilled naproxen 500 mg PO BID 5 days PRN 10 tabs 0RF pain
== END 2024-09-29 10:45 | disposition home or self-care (01) ==
LOC: HO.HMCH 09:50
PROVIDERS: PCP Internal Medicine; Visit Provider Internal Medicine
DX: S22.080A Wedge compression fracture of T11-T12 vertebra, initial encounter for closed fracture (principal); I42.9 Cardiomyopathy, unspecified; M80.00XA Age-related osteoporosis with current pathological fracture, unspecified site, initial encounter for fracture; E78.5 Hyperlipidemia, unspecified; I10 Essential (primary) hypertension

== ENCOUNTER 2024-10-05 08:13 | Outpatient (AMB) | payer MEDICARE, OTHER, SELFPAY ==
[2024-10-05 08:30] VITALS: PULSE 60; O2SAT 98; BMI 18.9
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
== END 2024-10-05 09:19 | disposition home or self-care (01) ==
LOC: HO.HGI 08:14
PROVIDERS: PCP Internal Medicine; Visit Provider Nurse Practitioner Family
DX: R63.4 Abnormal weight loss (principal); R14.0 Abdominal distension (gaseous); K59.04 Chronic idiopathic constipation
CPT/HCPCS: 99213

== ENCOUNTER → 2024-10-05 08:13 | Outpatient (BNVA) | payer OTHER, SELFPAY | PROVIDERS: PCP Internal Medicine; Visit Provider Nurse Practitioner Family ==

== ENCOUNTER → 2025-02-16 09:28 | Outpatient (BNV) | payer MEDICARE, OTHER, SELFPAY | PROVIDERS: PCP Internal Medicine; Visit Provider Radiology Diagnostic Radiology | DX: R10.9 Unspecified abdominal pain (principal); R63.4 Abnormal weight loss | CPT/HCPCS: 74183 ==

== ENCOUNTER 2025-02-16 10:37 | Outpatient (REF) | payer MEDICARE, OTHER, SELFPAY ==
--- NOTE | ~2025-02-16 | MR_ITS ---
EXAMINATION: MRI Abdomen without and with contrast HISTORY: Unspecified abdominal pain, WEIGHT LOSS, EVAL PANCREAS COMPARISON: None TECHNIQUE: Axial in and out of phase T1-weighted gradient echo, axial diffusion weighted, and axial and coronal HASTE T2 with fat saturation images were obtained through the abdomen. 3D MRCP Reconstructed and thin and thick slab images of the biliary tree were obtained. Subsequently, fat suppressed axial and coronal T1-weighted images were obtained after the intravenous administration of 4.5 mL Gadavist. FINDINGS: There is no significant signal loss within the liver on opposed phase images to suggest steatosis. No enhancing liver mass is seen. The hepatic and portal veins are patent. There is no intra or extrahepatic biliary ductal dilatation. The gallbladder is unremarkable. The common bile duct is normal in caliber. No filling defects are identified to suggest choledocholithiasis. The pancreas is unremarkable. No pancreatic mass is seen. The pancreatic duct is normal in caliber. The spleen and adrenal glands are unremarkable. Tiny T2 hyperintense, nonenhancing foci are seen in the kidneys consistent with cysts. No retroperitoneal adenopathy or ascites is identified in the upper abdomen. There is a small hiatal hernia. There is a severe compression deformity of T12. The L1 vertebral body demonstrates increased T1 and T2 signal intensity, with fat suppression consistent with a hemangioma. 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 MR/MR abdomen wo/w con IMPRESSION: No evidence of a pancreatic mass. No explanation is seen for the patient's abdominal pain and weight loss. Electronically signed by: Karlos Padron MD 02/17/2025 07:10 AM EDT
[2025-02-16] MEDS: gadobutroL 7.5 ML VIAL IVPUSH (12:05)
--- OUTSIDE RECORDS SUMMARY | 2025-02-16 12:22 | XMS_ITS | Data Portability ---
Author Organization [place] - [facility], Allergy Address [address] [address] Care Team Providers Care Plate And Weld Inspector Name Role Phone PILI KAY Referring Provider [phone] Assessment Encounter Date Assessment Date Assessment LastModified by Organization Details LastModified Time 02/07/2025 02/07/2025 75-year-old female presents for evaluation of right ear fullness. On examination there is a large ball of fungal and squamous debris removed from the canal today. TM normal to inspection. Recommended Lotrisone injection was was performed today. She was instructed in dry ear precaution and will follow-up in 2 to 3 weeks for reevaluation. [email or web address] Not available 02/07/2025 15:00:53 Plan of Treatment Reminders Order Date Submit Date Provider Last Modified By Organization Details Last Modified Time Details Appointments Establish ed 15 2024 01:00P M JOSE DENSON PA-C Not available Not available Not available Lab None recorded. Referral None recorded. Procedures None recorded. Surgeries None recorded. Imaging None recorded. Medication Orders None recorded. Patient TargetsNo targets recorded. Patient InstructionsNo instructions recorded. Reason for Referral None Reported. Problems Name Problem SNOMED Code Status Onset Date Resolution Date Notes Provider Name and Address Organization Details Recorded Time Candidal otitis externa 27777133 Active 025 JOSE DENSON PA-C 100 [facility], [place], [address] , [facility] 15:00:58 Problem Notes None recorded. Medical Equipment None Reported. Allergies No known drug allergies Medications Name Sig Start Date Stop Date Status Note LastModified by Organization Details LastModified Time atorvastatin 80 mg tablet TAKE 1 TABLET BY MOUTH EVERYDAY AT BEDTIME active Not Available Not Available No t Available carvedilol 12.5 mg tablet TAKE 1 TABLET BY MOUTH EVERY DAY active Not Available Not Available No t Available metronidazol e 0.75 % (37.5 mg/5 gram) vaginal gel INSERT 1 APPFUL VAGINALLY BEDTIME FOR 5 DAYS active Not Available Not Available No t Available methylpredni solone 32 mg tablet TAKE 1 TABLET BY MOUTH EVERY DAY ONCE active Not Available Not Available No t Available Mapap (acetaminoph en) 500 mg capsule TAKE 2 CAPSULES BY MOUTH EVERY 6 HOURS NEEDED FOR PAIN active Not Available Not Available No t Available clindamycin 2 % vaginal cream INSERT 1 APPLICATORF UL VAGINALLY BEDTIME FOR 7 DAYS FOR 3 DAYS active Not Available Not Available No t Available losartan 100 mg tablet TAKE 1 TABLET ORALLY DAILY FOR 90 DAYS active Not Available Not Available No t Available naproxen 500 mg tablet TAKE 1 TABLET BY MOUTH 2 TIMES A DAY NEEDED FOR PAIN FOR 5 DAYS active Not Available Not Available N ot Available metaxalone 800 mg tablet TAKE 1 TABLET ORALLY 3 TIMES A DAY active Not Available Not Available Not Available nitrofuranto in monohydrate/ macrocrystal s 100 mg capsule TAKE 1 CAPSULE BY MOUTH TWICE A DAY FOR 5 DAYS active Not Available Not Available No t Available Vitals Date Recorded Body height Body mass index (BMI) Body weight Provider Name and Address Organization Details Last Updated DateTime 02/07/2025 157.48 cm 18.3 kg/m2 42946.24 g Lory Mane [facility] 02/07/2025 13:37:06 Social History Question Answer Notes LastModified by Organizat ion Details LastModified Time Tobacco Smoking Status Current Every Day Smoker Lory ho [facility] 02/07/2025 13:37:57 What Is Your Level Of Alcohol Consumption? None [email or web address] Information not available 02/07/2025 Sex: Unknown Functional Status None recorded. Mental Status None recorded. Family History Nothing Reported. Medical History Condition Response Allergies/Hayfever N Heart Problems Y Anxiety N Tonsil Infections N Emphysema N Migraines N Thyroid Problems N Glaucoma N Depression N COPD N Developmental Delay N Nasal or Sinus Problems N Anemia N Immune System Disorder N Anesthesia Complications N Heart Attack ([place]) N Other Skin Condition N Diabetes N Rhinitis N Bleeding Disorder N Food Allergy N Arthritis N Hearing Loss N Hyperlipidemia N Cancer N Stroke N Dementia N Nasal polyps N Asthma N High Cholesterol N Sleep Disorder N GERD/Reflux N Liver Disease N Headaches N Fibromyalgia N Hypertension Y Speech Delay N Kidney Disease N Gynecological HistoryNo gynecological history recorded. Obstetrics History GPAL:G 0 P 0 0 0 0 Past Encounters Encounter ID Performer Location Encounter Start Date Encounter Closed Date Diagnosis/Indication Diagnosis SNOMED-CT Code Diagnosis ICD10 Code Diagnosis Note [id number] JOSE DENSON PA-C [facility] [address] [place] [address] 02/07/2025 13:02:11 02/07/2025 14:01:33 Candidal otitis externa 48387458 B37.84 Health Concerns Section Related Observation LastModified by Organization Detai ls LastModified Time None Recorded Concern Status LastModified by Organization Details LastModified Time None Recorded Advance Directives Directive None Recorded Payers Encounter Date Sequence Insurance Name Policy Number Policy Moreno Covered Member ID Moreno Member ID Guarantor Name 02/07/2025 1 [place]: [facility] [id number] [address] [facility] 02/07/2025 2 [facility] INDEMNITY PLAN - [employer] [id number] [facility] [id number] [facility] Notes Date Note Type Note Provider Name and Address Organization Details Recorded Time 02/07/2025 text/html 75-year-old female presents for evaluation of right ear blockage that has been present for over 6 months. No pain or drainage. The ear is itchy. JOSE DENSON PA-C [address] [place] [address], [place], [address], [facility] - [facility] 02/07/2025 15:01:18 OBGyn Episode No OBEpisode recorded.
--- OUTSIDE RECORDS SUMMARY | 2025-02-16 12:22 | XMS_ITS | Continuity of Care Document ---
Author Organization [place] - [facility], [facility] Address [address] [place] [address] Care Team Providers Care Analytical Data Miner Name Role Phone PILI KAY Referring Provider [phone] Assessment Encounter Date Assessment Date Assessment LastModified [...] in 2 to 3 weeks for reevaluation. [email or web address] Not available 02/07/2025 15:00:53 Plan of Treatment [...] Organization Details Recorded Time Candidal otitis externa 21380091 Active 025 JOSE DENSON PA-C [address] [place] [address], [place], [address] , [facility] 15:00:58 Problem Notes None recorded. Medical [...] Updated DateTime 02/07/2025 157.48 cm 18.3 kg/m2 36618.24 g Lory Mane [facility] 02/07/2025 13:37:06 Social History Question Answer Notes LastModified by Organizat ion Details LastModified Time Tobacco Smoking Status Current Every Day Smoker Lory ho [facility] 02/07/2025 13:37:57 What Is Your Level [...] Disorder N Anesthesia Complications N Heart Attack ([place]) N Other Skin Condition N Diabetes N [...] SNOMED-CT Code Diagnosis ICD10 Code Diagnosis Note [id number] JOSE DENSON PA-C [facility] [address] [place] [address] 02/07/2025 13:02:11 02/07/2025 14:01:33 Candidal otitis externa [id number] B37.84 Health Concerns Section Related Observation LastModified by Organization Detai ls LastModified Time None Recorded Concern Status LastModified by Organization Details LastModified Time None Recorded Payers Encounter Date Sequence Insurance Name Policy Number Policy Moreno Covered Member ID Moreno Member ID Guarantor Name 02/07/2025 1 [place] [facility] [id number] [facility] 02/07/2025 2 [facility] INDEMNITY PLAN - [facility] [id number] [facility] [id number] [facility] Notes Date Note Type Note Provider Name and Address Organization Details Recorded Time 02/07/2025 text/html 75-year-old female presents for evaluation of right ear blockage that has been present for over 6 months. No pain or drainage. The ear is itchy. JOSE DENSON PA-C [address] [place] [address], [phone], [facility] - [facility] 02/07/2025 15:01:18 OBGyn Episode No OBEpisode recorded.
== END 2025-02-16 10:38 | disposition home or self-care (01) ==
LOC: HO.MRI 10:37
PROVIDERS: PCP Internal Medicine; Visit Provider Nurse Practitioner Family
DX: R10.9 Unspecified abdominal pain (principal); K50.00 Crohn's disease of small intestine without complications; R63.4 Abnormal weight loss
CPT/HCPCS: 74183; A9585

== ENCOUNTER 2025-03-01 09:13 | Outpatient (AMB) | payer MEDICARE, OTHER, SELFPAY ==
--- NOTE | 2025-03-01 09:44 | A.OFFPC_ITS ---
Vital Signs 03/01/25 09:46 Height 5 ft 2 in Weight 102 lb BMI 18.7 BP 132/82 Blood Pressure Location Lt brachial Position Sitting Intake Visit Reasons: bp Intake Note: Patient here for a follow up BP Exercise Manager Required: No Accompanied by: Self / Same As Patient Allergies iodine Allergy (Severe, Verified 03/01/25 10:05) swelling, rash Medication List - Last Reconciled 03/01/25 by Lucy Hodge MD aspirin (Adult Low Dose Aspirin) 81 mg PO BEDTIME 90 days atorvastatin 80 mg PO BEDTIME 90 days carvedilol 12.5 mg PO DAILY cholecalciferol (vitamin D3) 25 mcg PO DAILY lidocaine 5% 1 patch topical DAILY losartan 100 mg PO DAILY 90 days Tobacco use date assessed: 03/01/25 Fall risk assessment: No Falls in past year Last assessed Fall Risk: 03/01/25 Dental Screening Dental Screen Date: 03/01/25 Did you have a dental visit in the last 12 months?: Yes Did you have a dental problem in the last 6 months where you did not have access to dental care?: No Was dental information given to patient?: Patient has dentist HPI HPI Comments History of Present Illness Details The patient is a 75-year-old female presenting with ongoing back pain due to a compression fracture of the T12 vertebra. She reports the fracture occurred following a fall, after which she saw a rug touch up painter, Patricia Crespo, in August. The specialist ordered an MRI of the thoracic spine to further evaluate the fracture, but the patient has not had it completed due to administrative issues. She also notes suffering from additional symptoms of sciatic pain, which have impacted her mobility and daily activities. The patient's medical history is significant for osteoporosis, which is managed with Prolia injections twice yearly; her next injection is scheduled for next month. The patient also has a history of hypertension, managed with losartan 100 mg daily, and hyperlipidemia, for which she takes atorvastatin. She suffers from chronic constipation, but denies incontinence. 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 [facility] Medical History (Updated 03/01/25 @ 10:18 by Lucy Hodge MD) Compression fracture of T12 vertebra Sick sinus syndrome Carotid artery disease Memory loss Tubular adenoma Stenosis of right subclavian artery Dyslipidemia Cardiomyopathy GERD (gastroesophageal reflux disease) Essential hypertension Surgical History History of hysterectomy History of esophagogastroduodenoscopy (EGD) Hx of colonoscopy History of surgical procedure on eye proper using laser History of pacemaker (~09/2012) Family History Father Cancer Mother Stroke Social History Household Members: None Housing: Apartment Alcohol intake: former Patient Tobacco Use Status: Current everyday Tobacco user Tobacco use type: Cigarette Cigarettes Per Day: 4 Years Smoked: 25 e-Cigarette/Vaping Use: Never Used Second Hand Smoke Exposure: No service: No Current occupational status: retired Cognitive needs: No Hearing needs: No Vision needs: Yes Female Reproductive History Menstrual Age of Menarche: 9 Questionnaire PHQ-9 Over the last 2 weeks, how often have you been bothered by any of the following problems? 1. Little interest or pleasure in doing things: not at all 2. Feeling down, depressed, or hopeless: not at all 3. Trouble falling or staying asleep, or sleeping too much: not at all 4. Feeling tired or having little energy: several days 5. Poor appetite or overeating: several days 6. Feeling bad about yourself - or that you are a failure or have let yourself or your family down: not at all 7. Trouble concentrating on things, such as reading the newspaper or watching television: not at all 8. Moving or speaking so slowly that other people could have noticed. Or the opposite - being so fidgety or restless that you have been moving around a lot more than usual: not at all 9. Thoughts that you would be better off or of hurting yourself in some way: not at all Total score: 2 Depression Screening Interpretation: Negative Depression Screening Done: Yes 26694 - PHQ-9 Billing: Yes Source: Developed by Drs. Karlos Espinosa, Denae Buckley, Aayush Veliz and colleagues, with an educational juliet from [employer]. Thrive Questionnaire Date Thrive assessed: 03/01/25 I am a: Patient What is your living situation today?: I have a steady place to live Within the past 12 months, did the food you bought not last and you didn't have the money to get more?: Never true Within the past 12 months, did you worry whether your food would run out before you got money to buy more?: Never true Do you have trouble paying for medicines?: No Do you have trouble getting transportation to medical appointments?: No Do you have trouble paying your heating and electricity bill?: No Do you have trouble taking care of your child, family member or friend?: No Do you have trouble with day-to-day activities such as bathing, preparing meals, shopping, managing finances, etc.?: No Are you currently unemployed and looking for a job?: No Are you interested in more education?: No Please select the resources that you would like help with: None Currently or been in a relationship where the following occur: No concerns reported THRIVE Score: 0 AUDIT C Alcohol Use Questionnaire (AUDIT-C) 1. How often do you have a drink containing alcohol?: Monthly or less 2. How many drinks containing alcohol do you have on a typical day when you are drinking?: 1 or 2 3. How often do you have six or more drinks on one occasion?: Never Total Score: 1 Score Reviewed/Action Taken: No DELIA-7 AMB Questionnaire DELIA-7 Date DELIA - 7 assessed: 03/01/25 Feeling nervous, anxious, or on edge: 0 = Not at all Not being able to stop or control worryin = Not at all Worrying too much about different things: 0 = Not at all Trouble relaxin = Not at all Being so restless that it is hard to sit still: 0 = Not at all Becoming easily annoyed or irritable: 0 = Not at all Feeling afraid as if something awful might happen: 0 = Not at all Total DELIA-7 score (0-4 normal; 5-9 mild; 10-14 moderate; 15-21 severe): 0 Source: Developed by Drs. Karlos Espinosa, Aayush Hansen and colleagues, with an educational juliet from [employer]. DELIA-7 Assessment Billing DELIA-7 Assessment Tool: DELIA-7 Assessment 29038 Review of Systems Const All systems reviewed & are unremarkable except as noted in HPI and below Card Denies chest pain at rest, Denies chest pain with activity, Denies edema, Denies irregular heart rhythm, Denies claudication, Denies dyspnea, Denies dyspnea on exertion, Denies orthopnea, Denies paroxysmal nocturnal dyspnea and Denies slow heart rate Resp Denies cough, Denies dyspnea and Denies dyspnea on exertion GI Denies abdominal pain, Denies change in bowel habits, Denies excessive flatus, Denies nausea and Denies vomiting Denies urinary incontinence, Denies urinary hesitancy and Denies urinary urgency Musc Denies abnormal gait, Reports back pain, Denies atrophy, Denies deformity and Denies limited range of motion Skin/Breast Denies bleeding lesions, Denies changing lesions and Denies rash Neuro Denies abnormal gait and Denies lack of coordination Physical exam (Primary Care) Vital Signs: Last Vital Signs BP 132/82 03/01/25 09:46 BMI result Body Mass Index 18.7 Tobacco/Smoking Status: Tobacco use Status Tobacco use date assessed 03/01/25 03/01/25 09:54 Patient Tobacco Use Status Current everyday Tobacco 03/01/25 09:54 Tobacco use type Cigarette 03/01/25 09:54 e-Cigarette/Vaping Use Never Used 03/01/25 09:54 PHQ-9: PHQ-9 Score PHQ-9: Total score 2 03/01/25 10:08 Depression Screening Interpretation: Negative Thrive Assessment: Date of Thrive Assessment Date Thrive assessed 03/01/25 03/01/25 09:54 Currently or been in a relationship where the following occur: No concerns reported Resp Effort & Inspection: normal respiratory effort Auscultation: clear to auscultation bilaterally Cardio Jugular venous distension: no JVD Rate: regular rate Rhythm: regular rhythm Heart sounds: S1 normal heart sound present and S2 normal heart sound present Extrem General: Yes full ROM Coding Level of Care Code Est Pt Level 4 (15344) Complex EM visit Add On G2211 Diagnoses Traumatic compression fracture of T12 thoracic vertebra, closed, initial encounter S22.080A Encounter type: initial encounter Fracture type: closed 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 Age-related osteoporosis with current pathological fracture, initial encounter M80.00XA Osteoporosis type: age-related Presence of current pathological fracture: with current pathological fracture Encounter type: initial encounter Essential hypertension I10 Cardiomyopathy, unspecified type I42.9 Cardiomyopathy type: unspecified Dyslipidemia E78.5 Additional Codes DELIA-7 Assessment Billing - DELIA-7 Assessment Tool: DELIA-7 Assessment 52435 ([id number]) PHQ-9 - 44037 - PHQ-9 Billing: Yes ([id number]) Time Spent (min) 24 Assessment & Plan Assessment & Plan (1) Traumatic compression fracture of T12 thoracic vertebra: Code(s): S22.080A - Wedge compression fracture of T11-T12 vertebra, initial encounter for closed fracture Category: Medical Qualifiers: Encounter type: initial encounter Fracture type: closed Qualified Code(s): S22.080A - Wedge compression fracture of T11-T12 vertebra, initial en counter for closed fracture (2) Tarlov cyst: Code(s): G96.191 - Perineural cyst Category: Medical (3) Osteoporosis: Code(s): M81.0 - Age-related osteoporosis without current pathological fracture Category: Medical Qualifiers: Osteoporosis type: age-related Presence of current pathological fracture: with current pathological fracture Encounter type: initial encounter Qualified Code(s): M80.00XA - Age-related osteoporosis with current pathological fracture, unspecified site, initial encounter for fracture (4) Essential hypertension: Code(s): I10 - Essential (primary) hypertension Category: Medical (5) Cardiomyopathy: Code(s): I42.9 - Cardiomyopathy, unspecified Category: Medical Qualifiers: Cardiomyopathy type: unspecified Qualified Code(s): I42.9 - Cardiomyopathy, unspecified (6) Dyslipidemia: Code(s): E78.5 - Hyperlipidemia, unspecified Category: Medical Plan The plan involves expediting the thoracic spine MRI and coordinating a neurosurgical consultation for the spinal cyst. Pain management follow-up is essential, and the patient is encouraged to ensure the MRI is completed. Continued management of osteoporosis with Prolia is integral to her care, and she should maintain an active lifestyle as tolerated to prevent deconditioning. Routine blood work will be performed in six months. The patient's standing issues with constipation will be addressed through ongoing medication and dietary management. Patient was informed and verbally consented to the use of an ambient scribe for clinic note documentation during this visit. I discussed with the patient the current state of her back pain, emphasizing the necessity of completing the thoracic spine MRI to guide further management. We reviewed her recent MRI findings, indicating a T12 compression deformity and benign findings at L1 and S2. I recommended a neurosurgical consultation for the Tarlov cyst and explained that it may not necessitate intervention unless symptomatic. I provided information on maintaining activity levels to prevent further loss of mobility and outlined the follow-up required with her pain management team. Potential adjustments in her regimen are on hold until MRI results are available. Orders: Orders Lipid Panel 6 Months E78.5 - Hyperlipidemia, unspecified Vitamin D 25-OH Total 6 Months E55.9 - Vitamin D deficiency, unspecified Comprehensive [place]. Panel Fast 6 Months I42.9 - Cardiomyopathy, unspecified Referrals Neurosurgery Referral G96.191 - Perineural cyst Medications: Refilled atorvastatin 80 mg PO BEDTIME 90 tabs 3RF 90 days aspirin (Adult Low Dose Aspirin) 81 mg PO BEDTIME 90 tabs 0RF 90 days losartan 100 mg PO DAILY 90 tabs 3RF 90 days carvedilol 12.5 mg PO DAILY 90 tabs 1RF lidocaine 5% leave on most painful area for up to 12 hrs 1 patch topical DAILY 30 ea 0RF S22.080A - Wedge compression fracture of T11-T12 vertebra, initial encounter for closed fracture Patient Instructions: - Follow up with Patricia Crespo to schedule your thoracic spine MRI. - Maintain activity to your tolerance to prevent further deconditioning. - Await further instructions after completing the MRI. - Contact the neurosurgeon, Bert Grijalva, for an appointment. - Keep up with routine medications, including Prolia for your osteoporosis. - Expect routine blood work in six months. - Monitor for any new symptoms and report to the clinic if necessary.
[2025-03-01 09:46] VITALS: BP 132/82; BMI 18.7
--- OUTSIDE RECORDS SUMMARY | 2025-03-01 10:11 | XMS_ITS | Data Portability ---
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 [email or web address] Not available 02/07/2025 15:00:53 Plan of Treatment [...] Organization Details Recorded Time Candidal otitis externa 15011037 Active 025 JOSE DENSON PA-C 100 [facility] 100, [place], [address] , [facility] 15:00:58 Problem Notes None recorded. Medical [...] Updated DateTime 02/07/2025 157.48 cm 18.3 kg/m2 64409.24 g Lory Mane [facility] 02/07/2025 13:37:06 Social History Question Answer Notes LastModified by Organizat ion Details LastModified Time Tobacco Smoking Status Current Every Day Smoker Lory ho [facility] 02/07/2025 13:37:57 What Is Your Level [...] Disorder N Anesthesia Complications N Heart Attack (LA) N Other Skin Condition N Diabetes N Rhinitis N Bleeding Disorder N Food Allergy N Arthritis N Hearing Loss N Hyperlipidemia N Cancer N Stroke N Dementia N Nasal polyps N Asthma N Sleep Disorder N GERD/Reflux N High Cholesterol N Liver Disease N Headaches N Fibromyalgia N Hypertension Y Speech Delay N Kidney Disease N Gynecological HistoryNo gynecological history recorded. Obstetrics History GPAL:G 0 P 0 0 0 0 Past Encounters Encounter ID Performer Location Encounter Start Date Encounter Closed Date Diagnosis/Indication Diagnosis SNOMED-CT Code Diagnosis ICD10 Code Diagnosis Note [id number] JOSE DENSON PA-C [facility] [address] [address] 02/07/2025 13:02:11 02/07/2025 14:01:33 Candidal otitis externa 83878052 B37.84 Health Concerns Section Related Observation LastModified by Organization Detai ls LastModified Time None Recorded Concern Status LastModified by Organization Details LastModified Time None Recorded Advance Directives Directive None Recorded Payers Encounter Date Sequence Insurance Name Policy Number Policy Moreno Covered Member ID Moreno Member ID Guarantor Name 02/07/2025 1 [place] [facility] Ramu Alarcon [place] [id number] 02/07/2025 2 [facility] INDEMNITY PLAN - UNICARE [id number] 38 Sabina Alarcon-Lit axel [id number] [facility] Notes Date Note Type Note Provider Name and Address Organization Details Recorded Time 02/07/2025 text/html 75-year-old female presents for evaluation of right ear blockage that has been present for over 6 months. No pain or drainage. The ear is itchy. JOSE DENSON PA-C [address] [place] [address], [phone], [facility] - [facility] 02/07/2025 15:01:18 OBGyn Episode No OBEpisode recorded.
== END 2025-03-01 10:22 | disposition home or self-care (01) ==
LOC: HO.HMCH 09:14
PROVIDERS: PCP Internal Medicine; Visit Provider Internal Medicine
DX: S22.080A Wedge compression fracture of T11-T12 vertebra, initial encounter for closed fracture (principal); I42.9 Cardiomyopathy, unspecified; G96.191 Perineural cyst; M80.00XA Age-related osteoporosis with current pathological fracture, unspecified site, initial encounter for fracture; I10 Essential (primary) hypertension; E78.5 Hyperlipidemia, unspecified

== ENCOUNTER → 2025-03-01 09:13 | Outpatient (BNVA) | payer MEDICARE, OTHER, SELFPAY | PROVIDERS: PCP Internal Medicine; Visit Provider Internal Medicine | DX: S22.080D Wedge compression fracture of T11-T12 vertebra, subsequent encounter for fracture with routine healing (principal); G96.191 Perineural cyst; I10 Essential (primary) hypertension; E78.5 Hyperlipidemia, unspecified; I42.9 Cardiomyopathy, unspecified; M81.0 Age-related osteoporosis without current pathological fracture | CPT/HCPCS: 96127; 99212 ==

== ENCOUNTER 2025-03-03 08:28 | Outpatient (REF) | payer MEDICARE, OTHER, SELFPAY ==
--- OUTSIDE RECORDS SUMMARY | 2025-03-03 08:55 | XMS_ITS | Data Portability ---
Author Organization [place] - [facility], Allergy Address [address] [address] Care Team Providers Care Sr. Manager Marketing Name Role Phone PILI KAY Referring Provider [phone] Assessment Encounter Date Assessment Date Assessment LastModified [...] in 2 to 3 weeks for reevaluation. [email or web address] Not available 02/07/2025 15:00:53 Plan of Treatment [...] Organization Details Recorded Time Candidal otitis externa 55445535 Active 025 JOSE DENSON PA-C 100 [facility] 100, [place], [address] , [facility] 15:00:58 Problem Notes None recorded. Medical [...] Updated DateTime 02/07/2025 157.48 cm 18.3 kg/m2 72481.24 g Lory Mane [facility] 02/07/2025 13:37:06 Social History Question Answer Notes LastModified by Organizat ion Details LastModified Time Tobacco Smoking Status Current Every Day Smoker Lory ho [facility] 02/07/2025 13:37:57 What Is Your Level Of Alcohol Consumption? None [email or web address] Information not available 02/07/2025 Sex: Unknown Functional Status None recorded. Mental Status None recorded. Family History Nothing Reported. Medical History Condition Response Allergies/Hayfever N Heart Problems Y Anxiety N Tonsil Infections N Emphysema N Migraines N Thyroid Problems N Depression N COPD N Developmental Delay N Glaucoma N Nasal or Sinus Problems N Anemia N Immune System Disorder N Anesthesia Complications N Heart Attack (SD) N Other Skin Condition N Diabetes N Rhinitis N Bleeding Disorder N Food Allergy N Hearing Loss N Arthritis N Hyperlipidemia N Cancer N Stroke N Dementia N Nasal polyps N Asthma N Sleep Disorder N High Cholesterol N GERD/Reflux N Liver Disease N Headaches N Fibromyalgia N Hypertension Y Speech Delay N Kidney Disease N Gynecological HistoryNo gynecological history recorded. Obstetrics History GPAL:G 0 P 0 0 0 0 Past Encounters Encounter ID Performer Location Encounter Start Date Encounter Closed Date Diagnosis/Indication Diagnosis SNOMED-CT Code Diagnosis ICD10 Code Diagnosis Note [id number] JOSE DENSON PA-C [facility] [address] [address] 02/07/2025 13:02:11 02/07/2025 14:01:33 Candidal otitis externa 66643738 B37.84 Health Concerns Section Related Observation LastModified by Organization Detai ls LastModified Time None Recorded Concern Status LastModified by Organization Details LastModified Time None Recorded Advance Directives Directive None Recorded Payers Encounter Date Sequence Insurance Name Policy Number Policy Moreno Covered Member ID Moreno Member ID Guarantor Name 02/07/2025 1 [place]: [facility] Ramu Alarcon [place] [id number] 44 [facility] 02/07/2025 2 [facility] INDEMNITY PLAN - UNICARE [id number] 38 Sabina Alarcon-Lit axel [id number] [facility] Notes Date Note Type Note Provider Name and Address Organization Details Recorded Time 02/07/2025 text/html 75-year-old female presents for evaluation of right ear blockage that has been present for over 6 months. No pain or drainage. The ear is itchy. JOSE DENSON PA-C [address] [place] [address], [phone], [facility] - [facility] 02/07/2025 15:01:18 OBGyn Episode No OBEpisode recorded.
[2025-03-03 11:08] LABS: Alanine Aminotransferase 16 U/L (0-31); Albumin Level 4.1 g/dL (3.5-5.0); Alkaline Phosphatase 63 U/L (39-117); Anion Gap 9 (12-20); Aspartate Amino Transferase 23 U/L (5-31); Bilirubin Total 0.4 mg/dL (0.0-1.0); Blood Urea Nitrogen 15 mg/dL (9-16); Calcium 9.9 mg/dL (8.4-10.2); Carbon Dioxide 28 mmol/L (22-29); Chloride 110 mmol/L (96-108); Cholesterol 192 mg/dL (<200); Estimated Glomerular Filt Rate > 60; Glucose Fasting 88 mg/dL (60-99); Glucose Random 88 mg/dL (60-115); HDL Cholesterol 47 mg/dL (>40); LDL Cholesterol Calculated 120 mg/dL (<100); Potassium 4.1 mmol/L (3.3-5.1); Sodium 143 mmol/L (135-145); Total Protein 7.4 g/dL (6.5-8.0); Triglycerides 129 mg/dL (<150)
== END 2025-03-03 08:29 | disposition home or self-care (01) ==
LOC: HO.LAB 08:28
PROVIDERS: PCP Internal Medicine; Visit Provider Internal Medicine Endocrinology, Diabetes & Metabolism
DX: M81.0 Age-related osteoporosis without current pathological fracture (principal); S22.080A Wedge compression fracture of T11-T12 vertebra, initial encounter for closed fracture; X58.XXXA Exposure to other specified factors, initial encounter; Y93.9 Activity, unspecified; Y92.9 Unspecified place or not applicable; Y99.9 Unspecified external cause status; E78.5 Hyperlipidemia, unspecified
CPT/HCPCS: 36415; 80048; 80053; 80061

== ENCOUNTER 2025-03-09 09:03 | Outpatient (AMB) | payer MEDICARE, OTHER, SELFPAY ==
--- NOTE | 2025-03-09 09:25 | A.OFFVIS_ITS ---
Vital Signs 03/09/25 09:28 Height 4 ft 11.37 in Weight 101 lb 13.657 oz BMI 20.3 BP 150/88 H Blood Pressure Location Lt brachial Position Sitting Pulse 62 Pulse Source Pulse Oximeter Pulse Oximetry (%) 98 Oxygen Delivery Method Room Air Intake Visit Reasons: Osteoporosis/prolia injection Intake Note: Patient present today for Osteoporosis follow up visit. Insurance Claims Clerk Required: No Accompanied by: Self / Same As Patient Allergies iodine Allergy (Severe, Verified 03/09/25 09:29) swelling, rash HPI Comments Details: 75 YO Female with is seen in consultation at the request of PCP for Osteoporosis. First diagnosed in 6 mos ago . Received treatment in the past with alendronate , 6 mos ago for 2 mos . Was not able to Tolerate treatment well because of gastrointestinal side effects history of pathologic fracture in wrist bathroom fall or ONJ. Has several servings of dietary calcium per day Takes Calcium supplement 600 mg mg daily in divided doses. Takes ? IU of Vitamin D daily. uses PPI, but no anticoagulant, antiepileptic or glucocorticoid medication. Does weight bearing exercise walks every days per week in the form of walking . 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 No planned upcoming dental work or extractions.Has implants scheduled DXA dated 07/05/21 T Score -3.9 LS]: Labs: Secondary workup was negative. On alendrnate but having GI issues . Travels back and forth to [place] and can't recive anabolicc therapies. Wants to go with Prolia. Received a Prolia injection in January 2023. Due for another Prolia injection today Had a new compression fracture on the Prolia in 08/2024. Due for another Prolia injection today The patient is a 75-year-old female presenting with concerns about the effectiveness of her current osteoporosis treatment. She has been receiving Prolia (denosumab) injections but recently experienced a spinal compression fracture after a significant fall. The incident has raised questions regarding the adequacy of Prolia in maintaining her bone density, as her low bone density persists, presenting a risk for future fractures, including hip fractures. This risk is heightened due to her active lifestyle, including frequent travel to [place] during aguilar. Alternative treatment options were reviewed, highlighting the possibility of transitioning from Prolia to Evenity (romosozumab). Evenity requires monthly office visits, creating logistical challenges due to the patient's travel patterns. While the benefits of increased bone density and reduced fracture risk were considered, the patient decided to continue with Prolia to maintain her tra margot routine and due to concerns about accessibility and insurance coverage for Evenity. [facility] Medical History Compression fracture of T12 vertebra Sick sinus syndrome Carotid artery disease Memory loss Tubular adenoma Stenosis of right subclavian artery Dyslipidemia Cardiomyopathy GERD (gastroesophageal reflux disease) Essential hypertension Surgical History History of hysterectomy History of esophagogastroduodenoscopy (EGD) Hx of colonoscopy History of surgical procedure on eye proper using laser History of pacemaker (~09/2012) Family History Father Cancer Mother Stroke Social History Household Members: None Housing: Apartment Alcohol intake: former Patient Tobacco Use Status: Current everyday Tobacco user Tobacco use type: Cigarette Cigarettes Per Day: 4 Years Smoked: 25 e-Cigarette/Vaping Use: Never Used Second Hand Smoke Exposure: No service: No Current occupational status: retired Cognitive needs: No Hearing needs: No Vision needs: Yes Female Reproductive History Menstrual Age of Menarche: 9 Physical Exam Vital Signs: Last Vital Signs Pulse 62 03/09/25 09:28 BP 150/88 H 03/09/25 09:28 Pulse Ox 98 03/09/25 09:28 Oxygen Delivery Method Room Air 03/09/25 09:28 BMI result Body Mass Index 20.3 Assessment & Plan Assessment & Plan (1) Osteoporosis: Code(s): M81.0 - Age-related osteoporosis without current pathological fracture Category: Medical Qualifiers: Encounter type: initial encounter Osteoporosis type: age-related Presence of current pathological fracture: with current pathological fracture Qualified Code(s): M80.00XA - Age-related osteoporosis with current pathological fracture, unspecified site, initial encounter for fracture Plan: This is a 75-year-old female with a history of osteoporosis. Secondary causes have been ruled out. Currently on Prolia but did have a compression fracture of T12 on Prolia The plan is talk to the patient about potentially switching the Prolia to anabolic agent. Data shows that switching from Prolia to Forteo and possibly Tymlos might have a negative effect on bone density based on Switch study. However there is emerging data that switching to Evenity my prove to be helpful in this circumstance with a switch back to Prolia after the 1 year of Evenity. Patient has some constraints that she travels and would need to come in once a month for the Evenity injections. 1. Osteoporosis with history of spinal compression fracture The patient remains on Prolia (denosumab) as her chosen osteoporosis management strategy despite experiencing a compression fracture. This decision considers the patient's travel commitments and logistical challenges with transitioning to Evenity. Continuous monitoring of bone density is planned, alongside lifestyle modifications to prevent further fractures. 2. Increased risk of hip fracture Due to the patient's low bone density and history of fracture, there is an i ncreased risk of hip fractures. While Prolia treatment continues, the importance of follow-up evaluations and lifestyle interventions to minimize fracture risks was discussed, with a plan to reassess treatment efficacy in upcoming appointments. During the consultation, we discussed the patient's osteoporosis management, wherein she has been receiving Prolia injections but experienced a spinal com pression fracture post-treatment, suggesting suboptimal efficacy. We reviewed the option of transitioning to Evenity to possibly increase bone density and reduce fracture risk. However, the logistical challenges associated with the required monthly injections conflicted with her regular travel to [place]. The potential insurance coverage hurdles were also noted. I explained the benefits of Evenity in enhancing bone density, yet the complexity of coordinating its administration during travel posed significant obstacles. We discussed the cost implications, as Evenity is costly , which may not be fully covered by insurance. Given these considerations, the patient chose to continue with Prolia despite the need to assess other therapeutic options if ongoing treatment does not yield desired results. We agreed to prioritize lifestyle interventions to minimize fracture risks and maintain bone health. Future reassessment intervals and conditions for transitioning treatments were also outlined, contingent on future fracture occurrences or changes in insurance coverage terms. - Continue with Prolia (denosumab) injections as previously scheduled. - Be vigilant about fall prevention strategies and maintain safety precautions. - Engage in lifestyle practices that support bone health, such as a balanced diet and regular weight-bearing exercise, as tolerated. - Schedule follow-up appointments regularly for monitoring bone density. - Report any new fractures or significant changes in physical health promptly. - The patient had an opportunity to ask questions regarding treatment plan. The patient expressed understanding and agreement with the above treatment plan. Patient was informed and verbally consented to the use of an ambient scribe for clinic note documentation during this visit. Coding Level of Care Code Est Pt Level 3 (04147) Diagnoses Age-related osteoporosis with current pathological fracture, initial encounter M80.00XA Encounter type: initial encounter Osteoporosis type: age-related Presence of current pathological fracture: with current pathological fracture
[2025-03-09 09:28] VITALS: BP 150/88; PULSE 62; O2SAT 98; BMI 20.3
--- OUTSIDE RECORDS SUMMARY | 2025-03-09 09:37 | XMS_ITS | Data Portability ---
Author Organization [place] - [facility], Allergy Address [address] [place] [phone] Care Team Providers Care Mortgage Operations Manager Name Role Phone SELAM ISAC PILI Referring Provider Assessment Encounter Date Assessment Date [...] in 2 to 3 weeks for reevaluation. [email or web address] Not available 02/07/2025 15:00:53 03/03/2025 03/03/2025 75-year-old female presents for reevaluation of fungal otitis externa. Otologic exam is unremarkable bilaterally. TMs normal to inspection. Fungal infection has cleared nicely. Recommended audiometric testing today as she continues to have some hearing loss. Audiometric testing today shows sloping sensorineural hearing loss bilaterally, only slightly worse than the right side. She would be an excellent candidate for amplification but not sure she can afford it at this time. She was provided a copy of her hearing test and medical clearance. Recommended repeat hearing test every 1 to 2 years or sooner for acute changes in hearing. Will return in 6 months for cerumen removal. All questions were answered. Not available 03/03/2025 14:29:21 Plan of Treatment Reminders Order Date Submit [...] instructions recorded. Reason for Referral None Reported. Results Created Date Observation Date Name Description Value Unit Range Abnormal Flag Note LastModifiedBy Organization Detail LastModifiedTime 03/06/20 25 audio gram No observ ation record ed. BAR[facility] Not Available 2024 10:19:15 Result Notes None recorded. Problems Name Problem SNOMED Code Status Onset Date Resolution Date Notes Provider Name and Address Organization Details Recorded Time Candidal otitis externa 11802180 Active 2024 JOSE DENSON PA-C 100 [facility],[place] [address], [place], [address], [facility] 15:00:58 Sensorineural hearing loss of bilateral ears 854611840 Active 2024 ASHANTI LEVI 100 [facility],[place] [address], [place], [address], [facility] 14:00:35 Problem Notes None recorded. Procedures Surgical History Date Name Laterality Status Provider Name and Address Organization Details Recorded Time 03/03/2025 Comp Audio with Tymps (42147 & 66239) completed ASHANTI LEVI 100 [facility],[place] [address], [place], [address], [facility] 03/03/2025 14:00:31 Imaging Results Imaging Date Name Status LastModified by Organiz ation Details LastModified Time 03/06/2025 audiogram completed BAR[facility] Information no t available 03/06/2025 10:19:15 Procedure Notes None recorded. Medical Equipment None Reported. [...] Updated DateTime 02/07/2025 157.48 cm 18.3 kg/m2 13362.24 g Lory Mane [facility] 02/07/2025 13:37:06 Date Recorded Body height Provider Name an d Address Organization Details Last Updated DateTime 03/03/2025 157.48 cm Lory Mane [facility] 03/03/2025 13:08:42 Social History Question Answer Notes LastModified by Organizat ion Details LastModified Time Tobacco Smoking Status Current Every Day Smoker Lory ho [facility] [...] Disorder N Anesthesia Complications N Heart Attack (PR) N Other Skin Condition N Diabetes N [...] SNOMED-CT Code Diagnosis ICD10 Code Diagnosis Note [id number] JOSE DENOSN PA-C [facility] 100 [facility] [place] [address] 02/07/2025 13:02:11 02/07/2025 14:01:33 Candidal otitis externa 62362131 B37.84 [id number] JOSE DENSON PA-C [facility] 100 [facility] [place] [address] 03/03/2025 13:00:10 03/03/2025 14:21:09 Candidal otitis externa 80417113 B37.84 Sensorineu ral hearing loss of bilateral ears 094707514 H90.3 [id number] ASHANTI LEVI [facility] of [address] [place] [address] 03/03/2025 13:58:35 03/04/2025 13:53:37 Sensorineural hearing loss of bilateral ears 316564915 H90.3 Audiologic al evaluation results: Right ear: {{Normal* Normal through 2 kHz Mild M oderate Mo derately-s evere Jo Ann re Profoun d}} {{hearing hearing. s loping to a mild slopi ng to a moderate s loping to moderately severe slo ping to severe slo ping to profound* flat high frequency low frequency mid frequency cookie bite bartholomew curve}} {{with sen sorineural hearing loss with* cond uctive hearing loss with mixed hearing loss with}} {{excellen t good beverley r poor no measurable very good#}} word recognitio n. Left ear: {{Normal* Normal through 2 kHz Mild M oderate Mo derately-s evere Jo Ann re Profoun d}} {{hearing hearing. s loping to a mild slopi ng to a moderate* sloping to moderately severe slo ping to severe slo ping to profound f lat high frequency low frequency mid frequency cookie bite bartholomew curve}} {{with sen sorineural hearing loss with* cond uctive hearing loss with mixed hearing loss with}} {{excellen t good beverley r poor no measurable very good#}} word recognitio n. Tympanomet ry: Right Ear:{{Type A* Type A with rounded peak Type A with double peak Type As Type As with rounded peak Type Ad Type C Type C, shallow & rounded peak Type B Type B with large volume Cou ld not maintain a hermetic seal}} Left Ear:{{Type A* Type A with rounded peak Type A with double peak Type As Type As with rounded peak Type Ad Type C Type C, shallow & rounded peak Type B Type B with large volume Cou ld not maintain a hermetic seal}} Health Concerns Section Related Observation LastModified by Organization Detai ls LastModified Time None Recorded Concern Status LastModified by Organization Details LastModified Time None Recorded Advance Directives Directive None Recorded Payers Encounter Date Sequence Insurance Name Policy Number Policy Moreno Covered Member ID Moreno Member ID Guarantor Name 02/07/2025 1 [place]: [facility] [id number] [facility] 02/07/2025 2 [facility] INDEMNITY PLAN - UNICARE [id number] 38 Sabina Alarcon-Littl axel [id number] [facility] 03/03/2025 1 MED[place] B-[place]: [facility] [id number] 44 [facility] 03/03/2025 2 [facility] INDEMNITY PLAN - UNICARE [id number] 38 Sabina Alarcon-Littl axel [id number] [facility] 03/03/2025 1 MED[place] B-[place]: [facility] [id number] 44 Sabina Alarcon [place] 03/03/2025 2 [facility] INDEMNITY PLAN - UNICARE [id number] 38 Sabina Alarcon-Littl axel [id number] [facility] Notes Date Note Type Note Provider Name and Address Organization Details Recorded Time 02/07/2025 text/html 75-year-old fema minerva presents for evaluation of right ear blockage that has been present for over 6 months. No pain or drainage. The ear is itchy. JOSE DENSON PA-C 100 [facility],[place] [address], [place], [address], [place] - [facility] 02/07/2025 15:01:18 03/03/2025 text/html 75-year-old femnicky palma presents for reevaluation of fungal otitis externa on the right side. Lotrisone was injected at last visit. She has been maintaining dry ear precaution. Feels much improved. JOSE DENSON PA-C 100 [facility],[place] [address], [place], [address], [facility] 03/03/2025 14:30:14 OBGyn Episode No OBEpisode recorded.
== END 2025-03-09 09:54 | disposition home or self-care (01) ==
LOC: HO.ENCR 09:03
PROVIDERS: PCP Internal Medicine; Visit Provider Internal Medicine Endocrinology, Diabetes & Metabolism
DX: M80.00XA Age-related osteoporosis with current pathological fracture, unspecified site, initial encounter for fracture (principal)
CPT/HCPCS: 99213

== ENCOUNTER → 2025-03-09 09:03 | Outpatient (BNVA) | payer MEDICARE, OTHER, SELFPAY | PROVIDERS: PCP Internal Medicine; Visit Provider Internal Medicine Endocrinology, Diabetes & Metabolism | DX: M80.00XA Age-related osteoporosis with current pathological fracture, unspecified site, initial encounter for fracture (principal); X58.XXXA Exposure to other specified factors, initial encounter; Y93.9 Activity, unspecified; Y92.9 Unspecified place or not applicable; Y99.9 Unspecified external cause status | CPT/HCPCS: 96372; 99212; J0897 ==

== ENCOUNTER 2025-04-11 08:24 | Outpatient (AMB) | payer MEDICARE, OTHER, SELFPAY ==
--- OUTSIDE RECORDS SUMMARY | 2025-04-11 08:35 | XMS_ITS | Data Portability ---
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 All questions were answered. [email or web address] Not available 03/03/2025 14:29:21 Plan of Treatment [...] Organization Details Recorded Time Candidal otitis externa 47744197 Active 2024 JOSE DENSON PA-C [address] [facility],[place] [address], [place], [phone], [facility] 15:00:58 Sensorineural hearing loss of bilateral ears 578076194 Active 2024 ASHANTI LEVI [address] [facility],[place] [address], [place], [address], [facility] 14:00:35 Problem Notes None recorded. Procedures Surgical History Date Name Laterality Status Provider Name and Address Organization Details Recorded Time 03/03/2025 Comp Audio with Tymps - 59887 & 41531 completed ASHANTI LEVI [address] [facility],[place] [address], [place], [address], [facility] 03/03/2025 14:00:31 Imaging Results Imaging Date [...] Updated DateTime 02/07/2025 157.48 cm 18.3 kg/m2 23145.24 g [facility] 02/07/2025 13:37:06 Date Recorded Body height Provider Name an d Address Organization Details Last Updated DateTime 03/03/2025 157.48 cm [facility] 03/03/2025 13:08:42 Social History None recorded. Functional Status Question Answer Note LastModified by Organization D etails LastModified Time What is your level of alcohol consumption? None [email or web address] Information not available 02/07/2025 Mental Status None recorded. Family History Nothing Reported. Medical History Condition Response Allergies/Hayfever N Heart Problems Y Anxiety N Tonsil Infections N Emphysema N Migraines N Thyroid Problems N Glaucoma N Depression N COPD N Developmental Delay N Nasal or Sinus Problems N Anemia N Immune System Disorder N Anesthesia Complications N Heart Attack ([place]) N Other Skin Condition N Diabetes N [...] SNOMED-CT Code Diagnosis ICD10 Code Diagnosis Note [id number] JOSE DENSON PA-C [facility] [address] [place] [address] 02/07/2025 13:02:11 02/07/2025 14:01:33 Candidal otitis externa 69854566 B37.84 [id number] JOSE DENSON PA-C [facility] [address] [address] 03/03/2025 13:00:10 03/03/2025 14:21:09 Candidal otitis externa 53570535 B37.84 Sensorineu ral hearing loss of bilateral ears 413508331 H90.3 [id number] ASHANTI LEVI [facility] [address] [address] 03/03/2025 13:58:35 03/04/2025 13:53:37 Sensorineural hearing loss of bilateral ears 255269958 H90.3 Audiologic al evaluation results: Right ear: [...] Recorded Advance Directives Directive None Recorded Payers Insurance Date Sequence Insurance Name Policy Number Policy Moreno Covered Member ID Moreno Member ID Guarantor Name 02/28/2025 1 [place]IC[place] B-[place]: [employer] Ramu Donnellyfield [id number] Sabina Donnellyfield 03/01/2025 2 [facility] IN[employer]ITY [employer] - UNICARE [id number] 38 Sabinaarmin Alarcon-Littl axel [id number] [facility] Notes Date Note Type Note Provider Name and Address Organization Details Recorded Time 02/07/2025 text/html 75-year-old cornelio palma presents for evaluation of right ear blockage that has been present for over 6 months. No pain or drainage. The ear is itchy. JOSE DENSON PA-C [address] [place] [address], [phone], [facility] 02/07/2025 15:01:18 03/03/2025 text/html 75-year-old cornelio palma presents for reevaluation of fungal otitis externa on the right side. Lotrisone was injected at last visit. She has been maintaining dry ear precaution. Feels much improved. JOSE DENSON PA-C [address] [place] [address], [phone], [facility] 03/03/2025 14:30:14 OBGyn Episode No OBEpisode recorded.
[2025-04-11 08:36] VITALS: BP 148/79; PULSE 60; O2SAT 99; BMI 19.2
--- NOTE | 2025-04-11 08:36 | MHC.OFFVIS ---
Vital Signs 04/11/25 08:36 Height 5 ft 2 in Weight 104 lb 15.04 oz BMI 19.2 BP 148/79 H Blood Pressure Location Lt brachial Position Sitting Pulse 60 Pulse Source Pulse Oximeter Pulse Oximetry (%) 99 Oxygen Delivery Method Room Air Intake Visit Reasons: Discuss MRI results. Mgmt of CIC. Intake Note: Pt presents to the office today to discuss MRI results and management of CIC. Allergies iodine Allergy (Severe, Verified 04/11/25 08:40) swelling, rash HPI HPI Discuss MRI results. Mgmt of CIC.: Details: LAST VISIT: Weight loss, unintentional Abdominal bloating Chronic idiopathic constipation Plan Will try to arrange for patient MRI. Staff will assist and call the department. Patient will return in 5 months, however she was instructed to call our office if she will have any GI concerning symptoms. Patient states that she is leaving in couple weeks to go to [place] to see her family and friends. Patient does admit that she had no appetite due to her recent accident. Patient reports that she was taking pain medication that was making her nauseous and was unable to eat as much. She was however encouraged to increase protein intake, drink plenty fluids. Patient is agreeable to current plan of care and verbalizes understanding of instructions. She was given the opportunity to ask questions and all questions answered. TODAY'S VISIT: Patient is here today for follow-up and to discuss MRI results. Patient reports that she has been feeling well. Reports to have good appetite. Patient reports that she is eating variety of food, lots of vegetables and fruits. Patient denies any dyspepsia, dysphagia or odynophagia. Denies melena, hematochezia, unintentional weight loss or ribbon like stools. Patient had colonoscopy in 2022, 5 year surveillance recommended. Occasional postprandial abdominal bloating depending on what she eats. MRI results discussed with patient. No acute processes found. [facility] Medical History Compression fracture of T12 vertebra Sick sinus syndrome Carotid artery disease Memory loss Tubular adenoma Stenosis of right subclavian artery Dyslipidemia Cardiomyopathy GERD (gastroesophageal reflux disease) Essential hypertension Surgical History History of hysterectomy History of esophagogastroduodenoscopy (EGD) Hx of colonoscopy History of surgical procedure on eye proper using laser History of pacemaker (~09/2012) Family History Father Cancer Mother Stroke Social History Household Members: None Housing: Apartment Alcohol intake: former Patient Tobacco Use Status: Current everyday Tobacco user Tobacco use type: Cigarette Cigarettes Per Day: 4 Years Smoked: 25 e-Cigarette/Vaping Use: Never Used Second Hand Smoke Exposure: No service: No Current occupational status: retired Cognitive needs: No Hearing needs: No Vision needs: Yes Female Reproductive History Menstrual Age of Menarche: 9 Review of Systems Const Denies weight gain and Denies weight loss ENT Reports no additional complaints, Denies dysphagia and Denies odynophagia Card Reports no additional complaints Resp Reports no additional complaints GI Denies abdominal pain, Denies belching, Denies melena, Denies bloating, Denies change in bowel habits, Denies dysphagia, Denies excessive flatus, Denies dyspepsia, Denies heartburn, Denies diarrhea, Denies loose stools, Denies nausea, Denies odynophagia and Denies vomiting Musc Reports no additional complaints Neuro Reports no additional complaints Psych Reports no additional complaints Endo Reports no additional complaints Physical Exam Vital Signs: Last Vital Signs Pulse 60 04/11/25 08:36 BP 148/79 H 04/11/25 08:36 Pulse Ox 99 04/11/25 08:36 Oxygen Delivery Method Room Air 04/11/25 08:36 BMI result Body Mass Index 19.2 Const General: healthy appearing, no acute distress and well developed Nutritional Appearance: well nourished Orientation/consciousness: patient oriented x3 Resp Effort & Inspection: normal respiratory effort, able to speak in complete sentences, no tracheal deviation and symmetric chest movement Auscultation: clear to auscultation bilaterally Cardio Rate: regular rate Heart sounds: S1 normal heart sound present and S2 normal heart sound present GI Inspection: Yes normal to inspection and No distended Palpation (GI): Soft to palpation, not firm, nontender and No hepatosplenomegaly present Auscultation: normal bowel sounds General: Yes no CVA tenderness Back/Spine/Pelvis Back: no CVA tenderness Skin General skin exam: elasticity normal, turgor normal and dry skin Neuro General: patient oriented x3 Psych Appearance: grossly normal Mental Status: mental status grossly normal Speech and movement: Normal speech and movement present Results Reviewed Results Reviewed: MRI OF ABDOMEN FINDINGS: There is no significant signal loss within the liver on opposed phase images to suggest steatosis. No enhancing liver mass is seen. The hepatic and portal veins are patent. There is no intra or extrahepatic biliary ductal dilatation. The gallbladder is unremarkable. The common bile duct is normal in caliber. No filling defects are identified to suggest choledocholithiasis. The pancreas is unremarkable. No pancreatic mass is seen. The pancreatic duct is normal in caliber. The spleen and adrenal glands are unremarkable. Tiny T2 hyperintense, nonenhancing foci are seen in the kidneys consistent with cysts. No retroperitoneal adenopathy or ascites is identified in the upper abdomen. There is a small hiatal hernia. There is a severe compression deformity of T12. The L1 vertebral body demonstrates increased T1 and T2 signal intensity, with fat suppression consistent with a hemangioma. 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 MR/MR abdomen wo/w con IMPRESSION: No evidence of a pancreatic mass. No explanation is seen for the patient's abdominal pain and weight loss. Assessment & Plan Assessment & Plan (1) GERD (gastroesophageal reflux disease): Code(s): K21.9 - Gastro-esophageal reflux disease without esophagitis Category: Medical Qualifiers: Esophagitis presence: without esophagitis Qualified Code(s): K21.9 - Gastro-esophageal reflux disease without esophagitis (2) Weight loss, unintentional: Code(s): R63.4 - Abnormal weight loss (3) Abdominal bloating: Code(s): R14.0 - Abdominal distension (gaseous) (4) Chronic idiopathic constipation: Code(s): K59.04 - Chronic idiopathic constipation Plan Patient will continue avoiding dietary triggers and late night snacking. Staying upright for minimum 3 hours after meals discussed with patient. Continue high-fiber diet. Increase fluid intake and activity to promote better bowel motility. Patient was encouraged to eat high-protein diet. Try more protein shakes to help her gain weight. Follow-up in 4 months, sooner on as needed basis. She is agreeable to this plan and verbalizes understanding of instructions. She was given the opportunity to ask questions and all questions answered. Thank you for allowing me to participate in her care Coding Level of Care Code Est Pt Level 3 (66159) Diagnoses Gastroesophageal reflux disease without esophagitis K21.9 Esophagitis presence: without esophagitis Weight loss, unintentional R63.4 Abdominal bloating R14.0 Chronic idiopathic constipation K59.04 Time Spent (min) 25 Comment 15 minutes spent with patient and additional 10 minutes spent reviewing her records
== END 2025-04-11 09:09 | disposition home or self-care (01) ==
LOC: HO.HGI 08:24
PROVIDERS: PCP Internal Medicine; Visit Provider Nurse Practitioner Family
DX: K21.9 Gastro-esophageal reflux disease without esophagitis (principal); R63.4 Abnormal weight loss; R14.0 Abdominal distension (gaseous); K59.04 Chronic idiopathic constipation
CPT/HCPCS: 99213

== ENCOUNTER → 2025-04-11 08:24 | Outpatient (BNVA) | payer MEDICARE, OTHER, SELFPAY | PROVIDERS: PCP Internal Medicine; Visit Provider Nurse Practitioner Family | DX: K59.04 Chronic idiopathic constipation (principal); K21.9 Gastro-esophageal reflux disease without esophagitis; R63.4 Abnormal weight loss; R14.0 Abdominal distension (gaseous) | CPT/HCPCS: 99212 ==

== ENCOUNTER 2025-05-03 15:04 | Outpatient (AMB) | payer MEDICARE, OTHER, SELFPAY ==
--- OUTSIDE RECORDS SUMMARY | 2025-05-03 15:14 | XMS_ITS | Data Portability ---
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 Name Role Phone SELAM COLORADOTEIPILI Referring Provider Assessment Encounter Date Assessment Date [...] Organization Details Recorded Time Candidal otitis externa 20216049 Active 2024 JOSE DENSON PA-C [address] [facility],[place] [address], [place], [phone], [facility] 15:00:58 Sensorineural hearing loss of bilateral ears 656318899 Active 2024 ASHANTI LEVI [address] [facility],[place] [address], [place], [phone], [facility] 14:00:35 Problem Notes None recorded. Procedures Surgical History Date Name Laterality Status Provider Name and Address Organization Details Recorded Time 03/03/2025 Comp Audio with Tymps - 45942 & 87484 completed ASHANTI LEVI [address] [facility],[place] [address], [place], [address], [facility] 03/03/2025 14:00:31 Imaging Results None recorded. Procedure Notes None recorded. Medical Equipment None [...] Updated DateTime 02/07/2025 157.48 cm 18.3 kg/m2 81477.24 g [facility] 02/07/2025 13:37:06 Date Recorded Body height Provider Name an d Address Organization Details Last Updated DateTime 03/03/2025 157.48 cm [facility] 03/03/2025 13:08:42 Social History None recorded. Functional Status Question Answer Note LastModified by Organization D etails LastModified Time What is your level of alcohol consumption? None [email or web address] Information not available 02/07/2025 Mental Status None recorded. Family History Nothing Reported. Medical History Condition Response Allergies/Hayfever N Heart Problems Y Anxiety N Tonsil Infections N Emphysema N Migraines N Thyroid Problems N Glaucoma N Developmental Delay N Depression N COPD N Nasal or Sinus Problems N Anemia N Immune System Disorder N Anesthesia Complications N Heart Attack ([place]) N Other Skin Condition N Diabetes N [...] SNOMED-CT Code Diagnosis ICD10 Code Diagnosis Note [id number] JOSE DENSON PA-C [facility] [place] [address] [place] [address] 02/07/2025 13:02:11 02/07/2025 14:01:33 Candidal otitis externa [id number] B37.84 [id number] JOSE DENSON PA-C [facility] [address] [address] 03/03/2025 13:00:10 03/03/2025 14:21:09 Candidal otitis externa 67782135 B37.84 Sensorineu ral hearing loss of bilateral ears 795113079 H90.3 [id number] ASHANTI LEVI [facility] [address] [address] 03/03/2025 13:58:35 03/04/2025 13:53:37 Sensorineural hearing loss of bilateral ears 850872614 H90.3 Audiologic al evaluation results: Right ear: Normal sloping to profound sensorineu ral hearing loss with excellent good fair poor no measurable very good word recognitio n. Left ear: Normal sloping to a moderate sensorineu ral hearing loss with excellent good fair poor no measurable very good word recognitio n. Tympanomet ry: Right Ear:Type A Left Ear:Type A Health Concerns Section Related Observation LastModified by Organization Detai ls LastModified Time None Recorded Concern Status LastModified by Organization Details LastModified Time None Recorded Advance Directives Directive None Recorded Payers Insurance Date Sequence Insurance Name Policy Number Policy Moreno Covered Member ID Moreno Member ID Guarantor Name 02/28/2025 1 MEDICARE B-[place]: [facility] [employer] Ramu Alarcon Patterson [id number] Sabina Alarcon Patterson 03/01/2025 2 [facility] INDEMNITY PLAN - [facility] [id number] [address] [facility] axel [id number] [facility] Notes Date Note Type Note Provider Name and Address Organization Details Recorded Time 02/07/2025 text/html 75-year-old fema minerva presents for evaluation of right ear blockage that has been present for over 6 months. No pain or drainage. The ear is itchy. JOSE DENSON PA-C [address] [place] [address], [phone], [facility] - [facility] 02/07/2025 15:01:18 03/03/2025 text/html 75-year-old femnicky palma presents for reevaluation of fungal otitis externa on the right side. Lotrisone was injected at last visit. She has been maintaining dry ear precaution. Feels much improved. JOSE DENSON PA-C [address] [facility], [place], [phone], [facility] - [facility] 03/03/2025 14:30:14 OBGyn Episode No OBEpisode recorded.
[2025-05-03 15:21] VITALS: BP 132/82; BMI 19.2
--- NOTE | 2025-05-03 15:21 | MHC.PC.OV ---
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 Accompanied by: Self / Same As Patient Allergies iodine Allergy (Severe, Verified 05/03/25 15:47) swelling, rash Medication List - Last Reconciled 05/03/25 by Lucy Hodge MD aspirin (Adult Low Dose Aspirin) 81 mg PO BEDTIME 90 days atorvastatin 80 mg PO BEDTIME 90 days carvedilol 12.5 mg PO DAILY cholecalciferol (vitamin D3) 25 mcg PO DAILY lidocaine 5% 1 patch topical DAILY losartan 100 mg PO DAILY 90 days Tobacco use date assessed: 03/01/25 Fall risk assessment: No Falls in past year Last assessed Fall Risk: 05/03/25 Dental Screening Dental Screen Date: 03/01/25 HPI HPI Comments History of Present Illness Details The patient is a 75-year-old female presenting for an evaluation primarily centered around her advanced directives, fall-related pain, and increased frequency of urination. She notes increased urination without dysuria or other aggravating factors, and current treatments or conditions do not explain this symptom. The persistent lower back pain stems from a fall on cement, causing a fracture at T12, with no surgical intervention yet initiated. This pain continued for nearly a year, with recent consultations potentially revisiting kyphoplasty as an option. Her tobacco use has decreased, and she actively plans to quit. Given her age, the patient is proactive in discussing her end-of-life care preferences, expressing a clear desire for minimal intervention in terminal conditions. On carvedilol for her cardiomyopathy. [facility], LAT[facility] Medical History Compression fracture of T12 vertebra Sick sinus syndrome Carotid artery disease Memory loss Tubular adenoma Stenosis of right subclavian artery Dyslipidemia Cardiomyopathy GERD (gastroesophageal reflux disease) Essential hypertension Surgical History History of hysterectomy History of esophagogastroduodenoscopy (EGD) Hx of colonoscopy History of surgical procedure on eye proper using laser History of pacemaker (~09/2012) Family History Father Cancer Mother Stroke Social History Household Members: None Housing: Apartment Alcohol intake: former Patient Tobacco Use Status: Current everyday Tobacco user Tobacco use type: Cigarette Cigarettes Per Day: 4 Years Smoked: 25 e-Cigarette/Vaping Use: Never Used Second Hand Smoke Exposure: No service: No Current occupational status: retired Cognitive needs: No Hearing needs: No Vision needs: Yes Female Reproductive History Menstrual Age of Menarche: 9 Questionnaire PHQ-9 Over the last 2 weeks, how often have you been bothered by any of the following problems? 1. Little interest or pleasure in doing things: not at all 2. Feeling down, depressed, or hopeless: not at all 3. Trouble falling or staying asleep, or sleeping too much: not at all 4. Feeling tired or having little energy: not at all 5. Poor appetite or overeating: not at all 6. Feeling bad about yourself - or that you are a failure or have let yourself or your family down: not at all 7. Trouble concentrating on things, such as reading the newspaper or watching television: not at all 8. Moving or speaking so slowly that other people could have noticed. Or the opposite - being so fidgety or restless that you have been moving around a lot more than usual: not at all 9. Thoughts that you would be better off or of hurting yourself in some way: not at all Total score: 0 Depression Screening Interpretation: Negative Depression Screening Done: Yes 27915 - PHQ-9 Billing: Yes Source: Developed by Drs. Karlos Espinosa, Denae Buckley, Aayush Veliz and colleagues, with an educational juliet from [employer]. Thrive Questionnaire Date Thrive assessed: 03/01/25 I am a: Patient What is your living situation today?: I have a steady place to live Within the past 12 months, did the food you bought not last and you didn't have the money to get more?: Never true Within the past 12 months, did you worry whether your food would run out before you got money to buy more?: Never true Do you have trouble paying for medicines?: No Do you have trouble getting transportation to medical appointments?: No Do you have trouble paying your heating and electricity bill?: No Do you have trouble taking care of your child, family member or friend?: No Do you have trouble with day-to-day activities such as bathing, preparing meals, shopping, managing finances, etc.?: No Are you currently unemployed and looking for a job?: No Are you interested in more education?: No Please select the resources that you would like help with: None Currently or been in a relationship where the following occur: No concerns reported THRIVE Score: 0 AUDIT C Alcohol Use Questionnaire (AUDIT-C) 1. How often do you have a drink containing alcohol?: Never Total Score: 0 Score Reviewed/Action Taken: No DELIA-7 AMB Questionnaire DELIA-7 Date DELIA - 7 assessed: 03/01/25 Feeling nervous, anxious, or on edge: 0 = Not at all Not being able to stop or control worryin = Not at all Worrying too much about different things: 0 = Not at all Trouble relaxin = Not at all Being so restless that it is hard to sit still: 0 = Not at all Becoming easily annoyed or irritable: 0 = Not at all Feeling afraid as if something awful might happen: 0 = Not at all Total DELIA-7 score (0-4 normal; 5-9 mild; 10-14 moderate; 15-21 severe): 0 Source: Developed by Drs. Karlos Espinosa, Denae Buckley, Aayush Veliz and colleagues, with an educational juliet from [employer]. DELIA-7 Assessment Billing DELAI-7 Assessment Tool: DELIA-7 Assessment 10299 Review of Systems Const All systems reviewed & are unremarkable except as noted in HPI and below Card Denies chest pain at rest, Denies chest pain with activity, Denies edema, Denies irregular heart rhythm, Denies claudication, Denies dyspnea, Denies dyspnea on exertion, Denies orthopnea, Denies paroxysmal nocturnal dyspnea and Denies slow heart rate Resp Denies cough, Denies dyspnea and Denies dyspnea on exertion GI Denies abdominal pain, Denies change in bowel habits, Denies excessive flatus, Denies nausea and Denies vomiting Denies urinary incontinence, Denies urinary hesitancy and Denies urinary urgency Physical exam (Primary Care) Vital Signs: Last Vital Signs BP 132/82 05/03/25 15:21 BMI result Body Mass Index 19.2 Tobacco/Smoking Status: Tobacco use Status Tobacco use date assessed 03/01/25 05/03/25 15:25 Patient Tobacco Use Status Current everyday Tobacco 05/03/25 15:25 Tobacco use type Cigarette 05/03/25 15:25 e-Cigarette/Vaping Use Never Used 05/03/25 15:25 PHQ-9: PHQ-9 Score PHQ-9: Total score 0 05/03/25 20:15 Depression Screening Interpretation: Negative Thrive Assessment: Date of Thrive Assessment Date Thrive assessed 03/01/25 05/03/25 15:25 Currently or been in a relationship where the following occur: No concerns reported Resp Effort & Inspection: normal respiratory effort Auscultation: clear to auscultation bilaterally Cardio Jugular venous distension: no JVD Rate: regular rate Rhythm: regular rhythm Heart sounds: S1 normal heart sound present and S2 normal heart sound present Extrem General: Yes full ROM Office Procedures Advance Care Planning Advance Care Planning discussion: Exists, not on file Date of discussion: 05/03/25 Who was present: patient's son, patient and me Forms completed: MOLST Time spent: 1-15 minutes, on File Actual minutes spent: 5 Coding Level of Care Code Est Pt Level 4 (86686) Complex EM visit Add On G2211 Diagnoses Traumatic compression fracture of T12 thoracic vertebra, closed, initial encounter S22.080A Encounter type: initial encounter Fracture type: closed 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 Sick sinus syndrome I49.5 Essential hypertension I10 Gastroesophageal reflux disease without esophagitis K21.9 Esophagitis presence: without esophagitis Cardiomyopathy, unspecified type I42.9 Cardiomyopathy type: unspecified Dyslipidemia E78.5 CPT Codes Advance Care Planning - Time spent: 1-15 minutes, on File ([id number]) Additional Codes DELIA-7 Assessment Billing - DELIA-7 Assessment Tool: DELIA-7 Assessment 67069 ([id number]) PHQ-9 - 86925 - PHQ-9 Billing: Yes ([id number]) Time Spent (min) 28 Assessment & Plan Assessment & Plan (1) Traumatic compression fracture of T12 thoracic vertebra: Code(s): S22.080A - Wedge compression fracture of T11-T12 vertebra, initial encounter for closed fracture Category: Medical Qualifiers: Encounter type: initial encounter Fracture type: closed Qualified Code(s): S22.080A - Wedge compression fracture of T11-T12 vertebra, initial encounter for closed fracture (2) Tarlov cyst: Code(s): G96.191 - Perineural cyst Category: Medical (3) Sick sinus syndrome: Code(s): I49.5 - Sick sinus syndrome Category: Medical (4) Essential hypertension: Code(s): I10 - Essential (primary) hypertension Category: Medical (5) GERD (gastroesophageal reflux disease): Code(s): K21.9 - Gastro-esophageal reflux disease without esophagitis Category: Medical Qualifiers: Esophagitis presence: without esophagitis Qualified Code(s): K21.9 - Gastro-esophageal reflux disease without esophagitis (6) Cardiomyopathy: Code(s): I42.9 - Cardiomyopathy, unspecified Category: Medical Qualifiers: Cardiomyopathy type: unspecified Qualified Code(s): I42.9 - Cardiomyopathy, unspecified (7) Dyslipidemia: Code(s): E78.5 - Hyperlipidemia, unspecified Category: Medical Plan Continue management of hypertension with losartan. Monitor increased urination frequency and reassess if symptoms persist. A referral to pain management for kyphoplasty consideration remains in place for her fracture, with Patricia Crespo overseeing this. Encouragement was provided for smoking cessation, acknowledging her current efforts. The patient's advanced directives were reviewed comprehensively, documenting her wishes against resuscitation and life-extending interventions in terminal scenarios. Patient was informed and verbally consented to the use of an ambient scribe for clinic note documentation during this visit. I reviewed the patient's advanced directives, ensuring her preferences are documented, notably her wishes against resuscitation. We discussed potential kyphoplasty for her T12 fracture, with the patient expressing hesitancy about surgical interventions. I encouraged her efforts in quitting smoking, noting her reduction in cigarette use. We addressed her increased urination without an evident cause, with plans to monitor. An open dialogue surrounding her end-of-life care was conducted, focusing on her comfort and autonomy. Orders: Orders Lipid Panel 4 Months E78.5 - Hyperlipidemia, unspecified Comprehensive [place]. Panel Fast 4 Months I42.9 - Cardiomyopathy, unspecified Patient Instructions: - Continue taking losartan for blood pressure management. - Monitor urination frequency; report changes or persistence. - Maintain follow-up with pain management for potential kyphoplasty. - Continue with efforts to quit smoking; consider cessation resources. - Ensure advanced directives are available and communicated with relevant parties. - Seek further medical evaluation if new symptoms or significant changes occur.
== END 2025-05-03 16:18 | disposition home or self-care (01) ==
PROVIDERS: PCP Internal Medicine; Visit Provider Internal Medicine
DX: Z00.00 Encounter for general adult medical examination without abnormal findings (principal)

== ENCOUNTER → 2025-05-03 15:04 | Outpatient (BNVA) | payer MEDICARE, OTHER, SELFPAY | PROVIDERS: PCP Internal Medicine; Visit Provider Internal Medicine | DX: S22.080D Wedge compression fracture of T11-T12 vertebra, subsequent encounter for fracture with routine healing (principal); G96.191 Perineural cyst; I49.5 Sick sinus syndrome; I10 Essential (primary) hypertension; K21.9 Gastro-esophageal reflux disease without esophagitis; I42.9 Cardiomyopathy, unspecified; E78.5 Hyperlipidemia, unspecified | CPT/HCPCS: 96127; 99212 ==

== ENCOUNTER → 2025-07-08 23:59 | Outpatient (BNV) | payer MEDICARE, OTHER, SELFPAY ==
--- NOTE | 2025-08-09 10:19 | A.OFFVIS_ITS ---
Intake Visit Reasons: Remote Device Check- [employer] Allergies iodine Allergy (Severe, Verified 05/03/25 15:47) swelling, rash PFSH Medical History Compression fracture of T12 vertebra Sick sinus syndrome Carotid artery disease Memory loss Tubular adenoma Stenosis of right subclavian artery Dyslipidemia Cardiomyopathy GERD (gastroesophageal reflux disease) Essential hypertension Surgical History History of hysterectomy History of esophagogastroduodenoscopy (EGD) Hx of colonoscopy History of surgical procedure on eye proper using laser History of pacemaker (~09/2012) Family History Father Cancer Mother Stroke Social History Household Members: None Housing: Apartment Alcohol intake: former Patient Tobacco Use Status: Current everyday Tobacco user Tobacco use type: Cigarette Cigarettes Per Day: 4 Years Smoked: 25 e-Cigarette/Vaping Use: Never Used Second Hand Smoke Exposure: No service: No Current occupational status: retired Cognitive needs: No Hearing needs: No Vision needs: Yes Female Reproductive History Menstrual Age of Menarche: 9 Office Procedures Cardiac Device Check Cardiac Device Check Details: Date of service- 07/08/2025 ; Battery life >11 years; normal lead parameters; AP 98%; [employer] <0.1%; no significant arrhythmias. Overall normal device function. [id number] Cardiac Device Interrogation, pacemaker Procedure code (CPT) selection complete Assessment & Plan Assessment & Plan (1) History of pacemaker: Onset Date: ~09/2012 Comment: [employer] Pacemaker change April 2023 Code(s): Z95.0 - Presence of cardiac pacemaker Category: Surgical (2) Cardiomyopathy: Code(s): I42.9 - Cardiomyopathy, unspecified Category: Medical Qualifiers: Cardiomyopathy type: unspecified Qualified Code(s): I42.9 - Cardiomyopathy, unspecified (3) Sick sinus syndrome: Code(s): I49.5 - Sick sinus syndrome Category: Medical Plan x Coding Level of Care Code Procedure Only Diagnoses History of pacemaker Z95.0 Cardiomyopathy, unspecified type I42.9 Cardiomyopathy type: unspecified Sick sinus syndrome I49.5 CPT Codes Cardiac Device Check - Cardiac Device 12: [id number] Cardiac Device Interrogation, pacemaker ([id number])
== END ==
PROVIDERS: Visit Provider Internal Medicine
DX: I42.9 Cardiomyopathy, unspecified (principal); Z95.0 Presence of cardiac pacemaker; I49.5 Sick sinus syndrome
CPT/HCPCS: 93294

== ENCOUNTER 2025-07-10 13:14 | Outpatient (AMB) | payer MEDICARE, OTHER, SELFPAY ==
--- OUTSIDE RECORDS SUMMARY | 2025-07-10 13:25 | XMS_ITS | Encounter Summary ---
Author Organization [facility] Address [address] [place] [address] [place] [phone] Phone Care Team Providers Care Office Cleaner Name Role Phone Unknown, Unknown Primary Care Provider Abby Jaramillo MD Primary Care Provider Encounter Details Date Type Department Care Team (Late st Contact Info) Description 01/25/2018 Ancillary Orders [address] [address] Abby Hale PA-C [address] [place] [address] Orthopedics & Sports Medicine, [place] [address] [email or web address] Left wrist pain Social History Tobacco Use Types Packs/Day Years Used Date Smoking Tobacco: Every Day Smokeless Tobacco: Never Alcohol Use Standard Drinks/Week Comments No 0 (1 standard drink = 0.6 oz pur e alcohol) Comments Unknown Sex and Gender Information Value Date Recorded Sex Assigned at Not on file Legal Sex Female 9:15 AM EST Gender Identity Not on file Sexual Orientation Not on file documented as of this encounter Plan of Treatment Not on file documented as of this encounter Results * XR WRIST 2 VIEWS (LEFT) (01/28/2018 8:59 AM EST) Narrative Eda Lester - 01/28/2018 8:59 AM EST This image report has been auto-finalized and has not been read by a Radiologist. Interpretation has been included in the provider encounter note for this date of service. us Abby Hale PA-C IMG XR UPPER EXTREMI TY Final Result documented in this encounter Visit Diagnoses Diagnosis Left wrist pain Pain in joint, forearm Left wrist pain Pain in joint, forearm documented in this encounter Care Teams Office Cleaner Relationship Specialty Start Date End Date Unknown, Unknown, MD PCP - General 12/11/17 05/11/18 Abby Ordaz MD [address] [place] [phone] PCP - General Family Medicine 05/12/18 documented as of this encounter Additional Source Comments The information contained in this document represents components of the legal health record. It is not the complete legal health record.[facility]
--- NOTE | 2025-07-10 13:31 | MHC.OFFVIS ---
Vital Signs 07/10/25 13:32 Height 5 ft 2 in Weight 100 lb BMI 18.3 BP 120/66 Blood Pressure Location Lt brachial Position Sitting Pulse 60 Pulse Source Monitor Intake Visit Reasons: 1 yr w/ med ck Allergies iodine Allergy (Severe, Verified 05/03/25 15:47) swelling, rash Medication List - Last Reconciled 07/10/25 by Kalpesh Calderon MD aspirin (Adult Low Dose Aspirin) 81 mg PO BEDTIME 90 days atorvastatin 80 mg PO BEDTIME 90 days carvedilol 12.5 mg PO DAILY losartan 100 mg PO DAILY 90 days HPI Comments Details: Sabina returns for follow-up Previously, patient of Dr. Donaldson at [facility]. She had a pacemaker placed around 2011 for sick sinus syndrome. There is also a mention of cardiomyopathy, but she is not aware of any such thing. No prior heart failure of coronary disease or myocardial infarction. She is a chronic smoker and still smokes a few cigarettes a day. She has hypertension, high cholesterol. Since last seen, she has not had any new cardiac complaints like angina or shortness of breath or in fact anything cardiac related at all. Overall, she is feeling well. Since last seen by me, she has undergone pacemaker generator change. [facility] Medical History Compression fracture of T12 vertebra Sick sinus syndrome Carotid artery disease Memory loss Tubular adenoma Stenosis of right subclavian artery Dyslipidemia Cardiomyopathy GERD (gastroesophageal reflux disease) Essential hypertension Surgical History History of hysterectomy History of esophagogastroduodenoscopy (EGD) Hx of colonoscopy History of surgical procedure on eye proper using laser History of pacemaker (~09/2012) Family History Father Cancer Mother Stroke Social History Household Members: None Housing: Apartment Alcohol intake: former Patient Tobacco Use Status: Current everyday Tobacco user Tobacco use type: Cigarette Cigarettes Per Day: 4 Years Smoked: 25 e-Cigarette/Vaping Use: Never Used Second Hand Smoke Exposure: No service: No Current occupational status: retired Cognitive needs: No Hearing needs: No Vision needs: Yes Female Reproductive History Menstrual Age of Menarche: 9 Review of Systems Const Denies weakness ENT Denies dizziness Card Denies chest pain, Denies chest pain with activity, Denies syncope, Denies rapid heart rate, Denies pedal edema, Denies edema, Denies leg edema, Denies lightheadedness, Denies palpitations, Denies dyspnea, Denies dyspnea on exertion and Denies orthopnea Resp Denies cough, Denies dyspnea and Denies dyspnea on exertion GI Denies hematochezia and Denies change in stool character Musc Denies abnormal gait, Reports back pain, Denies muscle cramps, Denies muscle weakness, Denies numbness, Denies radiating pain into limb and Denies tingling Neuro Denies abnormal gait, Denies dizziness, Denies syncope, Denies numbness, Denies tingling and Denies weakness Endo Denies palpitations Physical Exam Vital Signs: Last Vital Signs Pulse 60 07/10/25 13:32 BP 120/66 07/10/25 13:32 BMI result Body Mass Index 18.3 Office Procedures Cardiac Device Check Cardiac Device Check Details: Pacemaker interrogated today. Dual-chamber device. Battery status more than 11 years. Normal lead parameters. Atrial pacing 96.5%. Minimal ventricular pacing. No episodes. Overall, normal device function. 49230-BB Cardiac Device Check, pacemaker dual lead Procedure code (CPT) selection complete EKG Details: EKG with underlying atrial paced rhythm at 60/Min. Nonspecific ST[place]. [address]-Nyjjwpjbmkirhrtos, Complete Assessment & Plan Assessment & Plan (1) Sick sinus syndrome: Code(s): I49.5 - Sick sinus syndrome Category: Medical Plan: Pacemaker interrogated today and function normally. (2) Cardiomyopathy: Code(s): I42.9 - Cardiomyopathy, unspecified Category: Medical Qualifiers: Cardiomyopathy type: unspecified Qualified Code(s): I42.9 - Cardiomyopathy, unspecified Plan: In a prior echocardiogram, LVEF is 54%. There was mild aortic and mitral calcification noted with small ascending aortic plaque. Remains on Coreg/losartan. She is also on statins. (3) Essential hypertension: Code(s): I10 - Essential (primary) hypertension Category: Medical Plan: Stable. No changes. Plan Discussion Notes I discussed with the patient the importance of ensuring her pacemaker monitor is functioning correctly and transmitting data. We talked about the need to check the device's connectivity, especially during her trip to [place]. I also recommended a cardiac ultrasound as it has been several years since last study. Patient was informed and verbally consented to the use of an ambient scribe for clinic note documentation during this visit. Orders: Orders CA echo transthoracic complete Today I42.9 - Cardiomyopathy, unspecified Patient Instructions: - Check your pacemaker monitor to ensure it is working and transmitting data. - Make sure the device is plugged in and operational, especially during your trip to [place]. Coding Level of Care Code Est Pt Level 3 (20296) Diagnoses Sick sinus syndrome I49.5 Cardiomyopathy, unspecified type I42.9 Cardiomyopathy type: unspecified Essential hypertension I10 CPT Codes Cardiac Device Check - Cardiac Device 2: 26337-MX Cardiac Device Check, pacemaker dual lead ([id number]) EKG - CPT: 61618-Zenycuzxnhfjuudbm, Complete ([id number])
[2025-07-10 13:32] VITALS: BP 120/66; PULSE 60; BMI 18.3
== END 2025-07-10 14:28 | disposition home or self-care (01) ==
LOC: HO.HCS 13:15
PROVIDERS: PCP Internal Medicine; Visit Provider Internal Medicine
DX: I49.5 Sick sinus syndrome (principal); I42.9 Cardiomyopathy, unspecified; I10 Essential (primary) hypertension
CPT/HCPCS: 93010; 93280; 99213

== ENCOUNTER → 2025-07-10 13:14 | Outpatient (BNVA) | payer MEDICARE, OTHER, SELFPAY | PROVIDERS: PCP Internal Medicine; Visit Provider Internal Medicine | DX: Z45.018 Encounter for adjustment and management of other part of cardiac pacemaker (principal); I49.5 Sick sinus syndrome; I42.9 Cardiomyopathy, unspecified; I10 Essential (primary) hypertension | CPT/HCPCS: 93005; 93280; 99212 ==

== ENCOUNTER 2025-08-11 08:35 | Outpatient (AMB) | payer MEDICARE, OTHER, SELFPAY ==
--- NOTE | 2025-08-11 08:39 | A.OFFVIS_ITS ---
Vital Signs 08/11/25 08:40 Height 5 ft 1 in Weight 104 lb BMI 19.6 BP 116/60 Blood Pressure Location Lt brachial Position Sitting Pulse 60 Pulse Source Pulse Oximeter Pulse Oximetry (%) 99 Oxygen Delivery Method Room Air Intake Visit Reasons: 4m Intake Note: Est pt for mgmt of chronic abd pain + CIC. CC; Manager Of Disaster Recovery Required: No Accompanied by: Self / Same As Patient Allergies iodine Allergy (Severe, Verified 05/03/25 15:47) swelling, rash HPI HPI 4m: Details: LAST VISIT GERD (gastroesophageal reflux disease) Weight loss, unintentional Abdominal bloating Chronic idiopathic constipation Plan Patient will continue avoiding dietary triggers and late night snacking. Staying upright for minimum 3 hours after meals discussed with patient. Continue high- fiber diet. Increase fluid intake and activity to promote better bowel motility. Patient was encouraged to eat high-protein diet. Try more protein shakes to help her gain weight. Follow-up in 4 months, sooner on as needed basis. She is agreeable to this plan and verbalizes understanding of instructions. She was given the opportunity to ask questions and all questions answer TODAY'S VISIT Patient is here today for follow-up. Patient reports that and of August she will be leaving for [place] to spend the winter in her home there. Patient reports that she is feeling well. Patient denies any GI concerning symptoms. Still complains about her back pain after she sustained a fall several months ago. Patient denies any dizziness. Denies any presyncope or syncope. Has appointment with her senior tax manager and tissue inserter before she leaves the country. Patient reports that she has good appetite, however she does not feel like she is gaining any weight. Patient denies melena, hematochezia, unintentional weight loss or ribbon like stools. Patient denies dyspepsia, dysphagia or odynophagia. [facility] Medical History Compression fracture of T12 vertebra Sick sinus syndrome Carotid artery disease Memory loss Tubular adenoma Stenosis of right subclavian artery Dyslipidemia Cardiomyopathy GERD (gastroesophageal reflux disease) Essential hypertension Surgical History History of hysterectomy History of esophagogastroduodenoscopy (EGD) Hx of colonoscopy History of surgical procedure on eye proper using laser History of pacemaker (~09/2012) Family History Father Cancer Mother Stroke Social History Household Members: None Housing: Apartment Alcohol intake: former Patient Tobacco Use Status: Current everyday Tobacco user Tobacco use type: Cigarette Cigarettes Per Day: 4 Years Smoked: 25 e-Cigarette/Vaping Use: Never Used Second Hand Smoke Exposure: No service: No Current occupational status: retired Cognitive needs: No Hearing needs: No Vision needs: Yes Female Reproductive History Menstrual Age of Menarche: 9 Review of Systems Const Denies weight gain and Denies weight loss ENT Reports no additional complaints, Denies dysphagia and Denies odynophagia Card Reports no additional complaints Resp Reports no additional complaints GI Denies abdominal pain, Denies belching, Denies melena, Denies bloating, Denies change in bowel habits, Denies dysphagia, Denies excessive flatus, Denies dyspepsia, Denies heartburn, Denies diarrhea, Denies loose stools, Denies nausea, Denies odynophagia and Denies vomiting Musc Reports no additional complaints Neuro Reports no additional complaints Psych Reports no additional complaints Endo Reports no additional complaints Physical Exam Vital Signs: Last Vital Signs Pulse 60 08/11/25 08:40 BP 116/60 08/11/25 08:40 Pulse Ox 99 08/11/25 08:40 Oxygen Delivery Method Room Air 08/11/25 08:40 BMI result Body Mass Index 19.6 Const General: healthy appearing, no acute distress and well developed Nutritional Appearance: well nourished Orientation/consciousness: patient oriented x3 Resp Effort & Inspection: normal respiratory effort, able to speak in complete sentences, no tracheal deviation and symmetric chest movement Auscultation: clear to auscultation bilaterally Cardio Rate: regular rate Heart sounds: S1 normal heart sound present and S2 normal heart sound present GI Inspection: Yes normal to inspection and No distended Palpation (GI): Soft to palpation, not firm, nontender and No hepatosplenomegaly present Auscultation: normal bowel sounds General: Yes no CVA tenderness Back/Spine/Pelvis Back: no CVA tenderness Skin General skin exam: elasticity normal, turgor normal and dry skin Neuro General: patient oriented x3 Psych Appearance: grossly normal Mental Status: mental status grossly normal Speech and movement: Normal speech and movement present Assessment & Plan Assessment & Plan (1) GERD (gastroesophageal reflux disease): Code(s): K21.9 - Gastro-esophageal reflux disease without esophagitis Category: Medical Qualifiers: Esophagitis presence: without esophagitis Qualified Code(s): K21.9 - Gastro-esophageal reflux disease without esophagitis (2) Constipation by delayed colonic transit: Code(s): K59.01 - Slow transit constipation Category: Medical Plan Patient denies any GI concerning symptoms, however she is concerned about that she can not gain weight. Patient can take mirtazapine 7.5 mg at bedtime. Patient was encouraged to take it right before she goes to sleep. Script for Pepcid given to patient's she can take it as needed if she will have any GI concerning symptoms. Avoid dietary triggers and late night snacking. Staying upright for minimum 3 hours after meals discussed with patient. Patient was encouraged to follow high calorie diet. List of food and shakes to make for her to gain weight given to her. Patient was also encouraged to get protein shakes or make protein shakes herself. Patient will follow-up in 8 months. She is agreeable to current plan of care and verbalizes understanding of instructions. She was given the opportunity to ask questions and all questions answered. Thank you for allowing me to participate in her care Medications: New famotidine (Pepcid) 20 mg PO BEDTIME 90 tabs 1RF K21.9 - Gastro-esophageal reflux disease without esophagitis mirtazapine Tomelo todas las noches antes de acostarse 7.5 mg PO BEDTIME 90 tabs 2RF K31.84 - Gastroparesis Coding Level of Care Code Est Pt Level 3 (28705) Diagnoses Gastroesophageal reflux disease without esophagitis K21.9 Esophagitis presence: without esophagitis Constipation by delayed colonic transit K59.01 Time Spent (min) 30 Comment 20 minutes spent with patient and additional 10 minutes spent reviewing her records
[2025-08-11 08:40] VITALS: BP 116/60; PULSE 60; O2SAT 99; BMI 19.6
--- OUTSIDE RECORDS SUMMARY | 2025-08-11 09:13 | XMS_ITS | Encounter Summary ---
Author Organization [facility] Address [address] [facility] [address] [place] [address] Phone Care Team Providers Care Matrix Supervisor Name Role Phone Unknown, Unknown Primary Care Provider Abby Jaramillo MD Primary Care Provider Encounter Details Date Type Department Care Team (Late st Contact Info) Description 01/25/2018 Ancillary Orders [address] [address] Abby Hale PA-C [address] [place] [address] Orthopedics & Sports Medicine, [place] [address] [email or web address] Left wrist pain Social History Tobacco Use [...] forearm documented in this encounter Care Teams Matrix Supervisor Relationship Specialty Start Date End Date Unknown, Unknown, MD PCP - General 12/11/17 05/11/18 Abby Ordaz MD [address] [place] [id number] PCP - General Family Medicine 05/12/18 documented as of this encounter Additional Source Comments The information contained in this document represents components of the legal health record. It is not the complete legal health record.[facility]
--- OUTSIDE RECORDS SUMMARY | 2025-08-11 09:13 | XMS_ITS | Encounter Summary ---
Author Organization [facility] Address [address] [place] [address] Phone Care Team Providers Care Replenishment Analyst Name Role Phone Unknown, Unknown Primary Care Provider Abby Jaramillo MD Primary Care Provider Encounter Details Date Type Department Care Team (Late st Contact Info) Description 12/29/2017 Ancillary Orders [facility] Orthopedics & Sports Medicine [address] [place] [address] Abby Hale PA-C [address] [place] [address] Orthopedics & Sports Medicine, [facility] [place] [address] [email or web address] Social History Tobacco Use Types Packs/Day Years [...] on file documented as of this encounter Visit Diagnoses Not on filedocumented in this encounter Care Teams Replenishment Analyst Relationship Specialty Start Date End Date Unknown, Unknown, PCP - General 12/11/17 05/11/18 Abby Ordaz MD [address] [place] [address] PCP - General Family Medicine 05/12/18 documented as of this encounter Additional Source Comments The information contained in this document represents components of the legal health record. It is not the complete legal health record.[facility]
--- OUTSIDE RECORDS SUMMARY | 2025-08-11 09:13 | XMS_ITS | Encounter Summary ---
Author Organization [facility] Address [address] [place] [address] [place] [address] Phone Care Team Providers Care Hat Sprayer Name Role Phone Unknown, Unknown Primary Care Provider Abby Jaramillo MD Primary Care Provider Encounter Details Date Type Department Care Team (Late st Contact Info) Description 12/29/2017 Ancillary Orders [address] [address] Abby Hale PA-C [address] [place] [address] Orthopedics & Sports Medicine, [place] [address] [email or web address] Left wrist pain Social [...] of this encounter Results * XR WRIST 3 OR MORE VIEWS (LEFT) (12/31/2017 8:35 AM EST) Narrative Marcelina Garcia Lukasz - 12/31/2017 8:35 AM EST This image report has been auto-finalized and has not been read by a Radiologist. Interpretation has been included in the provider encounter note for this date of service. Abby Hale PA-C IMG XR UPPER EXTREMI TY Final Result documented in this encounter Visit Diagnoses Diagnosis Left wrist pain Pain in joint, forearm Left wrist pain Pain in joint, forearm documented in this encounter Care Teams Hat Sprayer Relationship Specialty Start Date End Date Unknown, Unknown, MD PCP - General 12/11/17 05/11/18 Abby Ordaz MD [address] [place] [address] PCP - General Family Medicine 05/12/18 documented as of this encounter Additional Source Comments The information contained in this document represents components of the legal health record. It is not the complete legal health record.[facility]
--- OUTSIDE RECORDS SUMMARY | 2025-08-11 09:13 | XMS_ITS | Encounter Summary ---
Author Organization [facility] Address [address] [place] [address] Phone Care Team Providers Care Manager Sports Name Role Phone Unknown, Unknown Primary Care Provider Abby Jaramillo MD Primary Care Provider Encounter Details Date Type Department Care Team (Late st Contact Info) Description 01/25/2018 Ancillary Orders [facility] Orthopedics & Sports Medicine [address] [place] [address] Abby Hale PA-C [address] [place] [address] Orthopedics & Sports Medicine, [facility] [place] [address] [email or web address] Social History Tobacco Use Types Packs/Day Years [...] on filedocumented in this encounter Care Teams Manager Sports Relationship Specialty Start Date End Date Unknown, Unknown, PCP - General 12/11/17 05/11/18 Abby Ordaz MD [address] [place] [id number] PCP - General Family Medicine 05/12/18 documented as of this encounter Additional Source Comments The information contained in this document represents components of the legal health record. It is not the complete legal health record.[facility]
--- OUTSIDE RECORDS SUMMARY | 2025-08-11 09:13 | XMS_ITS | Clinical Summary ---
Author Organization [facility] Address [address] [facility] [address] [place] [address] Phone Care Team Providers Care Supervisor Net Making Name Role Phone Abby Ordaz MD Primary Care Provider Allergies Active Allergy Reactions Criticality Noted Date Comments Iodine 12/11/2017 Penicillins 12/11/2017 Medications losartan (COZAAR) 100 MG tablet Take 100 mg by mouth daily. Active atorvastatin (LIPITOR) 10 MG tablet Take 10 mg by mouth daily. Active carvedilol (COREG) 12.5 MG tablet Take 12.5 mg by mouth 2 (two) times a day with meals. Active aspirin 81 MG EC tablet Take 81 mg by mouth daily. Active ascorbic acid, vitamin C, (VITAMIN C) 500 MG tablet Take 500 mg by mouth daily. Active cyanocobalamin (VIT B-12) 1000 MCG tablet Take 100 mcg by mouth daily. Active Active Problems No known active problems Resolved Problems Problem Noted Date Diagnosed Date Resolved Date Closed fracture of radius 12/16/2017 Social History Tobacco Use Types Packs/Day Years Used Date Smoking Tobacco: Every Day Smokeless Tobacco: Never Alcohol Use Standard Drinks/Week Comments No 0 (1 standard drink = 0.6 oz pur e alcohol) Education Answer Date Recorded Are you interested in more education? Not on jose e 03/27/2023 Are you concerned about learning? Not on file 03/27/2023 No 03/27/2023 No 03/27/2023 Digital Access Answer Date Recorded No 04/25/2023 No 04/25/2023 No 04/25/2023 Reliable internet access at home? Not on file 04/25/2023 Device with a working camera? Not on file Comments Unknown Sex and Gender Information Value Date Recorded Sex Assigned at Not on file Legal Sex Female 9:15 AM EST Gender Identity Not on file Sexual Orientation Not on file Last Filed Vital Signs Vital Sign Reading Time Taken Comments Blood Pressure 144/65 12/16/2017 3:22 PM EST Pulse 62 12/16/2017 3:22 PM EST Temperature 36.7 C (98.1 F) 12/16/2017 3:22 PM EST Respiratory Rate 16 12/16/2017 3:22 PM EST Oxygen Saturation 98% 12/16/2017 3:22 PM EST Inhaled Oxygen Concentration - - Weight 59 kg (130 lb 1.1 oz) 06/10/2018 9:15 AM EDT Height 157.5 cm (5' 2.01 ) 06/10/2018 9:15 AM ED T Body Mass Index 23.78 06/10/2018 9:15 AM EDT Plan of Treatment Health Maintenance Due Date Last Done Comments Adult Td,Tdap Booster 1948 CREATININE LEVEL 1950 LIPID PANEL 1948 POTASSIUM LEVEL 1948 DEPRESSION SCREENING 1960 SMOKING Hx and SMOKELESS TOB ACCO SCREENING 02/01/1961 HEPATITIS C SCREENING 02/01/1966 PNEUMOCOCCAL VACCINES (50+ y ears) (1 of 2 - PCV) 02/01/1967 ZOSTER VACCINES (1 of 2) 02/01/1998 OSTEOPOROSIS SCREENING INITI AL (ONE-TIME) 02/01/2013 RSV VACCINE (1 - 1-dose 75+ series) 02/01/2023 INFLUENZA VACCINE (#1) 2025 COVID-19 VACCINE ( - 2023-2 5 season) 2025 HEPATITIS A VACCINES Aged Out No long er eligible based on patient's age to complete this topic HIB VACCINES Aged Out No longer eligi ble based on patient's age to complete this topic MENINGOCOCCAL VACCINES (ACWY) Aged Out No longer eligible based on patient's age to complete this topic MENINGOCOCCAL VACCINES (B) Aged Out N o longer eligible based on patient's age to complete this topic Medical Devices Implanted Type Area Land Acquisition Analyst Device Identifier Shelf Expiration Date Model / Serial / Lot Pacemaker Plate Hook Volar Distal Radius Geminus Narrow 3hole Left - Discontinued Per Contracts - [id number] Implanted:Qty: 1 on 12/16/2017 by Joellen Allison MD at [facility] Left: Wrist [employer] [id number] L-HP / / Peg Threaded Locking 2.2tth12vl - [id number] Implanted:Qty: 2 on 12/16/2017 by Joellen Allison MD at [facility] Left: Wrist [employer] [id number] -[id number] / / Peg Threaded Locking 2.3x18mm - [id number] Implanted:Qty: 3 on 12/16/2017 by Joellen Allison MD at [facility] Left: Wrist [employer] [id number] -TS / / Screw Bone L10x3.5mm Locking Cortical Geminus Titanium Implantable Non-Sterile Fossa Specific Plating System - [id number] Implanted:Qty: 2 on 12/16/2017 by Joellen Allison MD at [facility] Left: Wrist [employer] [id number] -TS / / Screw Cortical Nonlocking 3.5x10mm - [id number] Implanted:Qty: 1 on 12/16/2017 by Joellen Allison MD at [facility] Left: Wrist [employer] [id number] -TS / / K-Wire Standard Tip 1.6d613po - [id number] Implanted:Qty: 2 on 12/16/2017 by Joellen Allison MD at [facility] Left: Wrist [employer] [id number] / / Insurance MEDICARE PART A & B [facility] TOTAL CHOICE INDEMNITY MEDICARE PART A & B [facility] TOTAL CHOICE INDEMNITY MEDICARE PART A & B [id number] [place] [address] TOTAL CHOICE INDEMNITY MEDICARE PART A & B [facility] TOTAL CHOICE INDEMNITY MEDICARE PART A & B [employer] TOTAL CHOICE INDEMNITY MEDICARE PART A & B [facility] TOTAL CHOICE INDEMNITY MEDICARE PART A & B [facility] TOTAL CHOICE INDEMNITY MEDICARE PART A & B [employer] INDEMNITY MEDICARE PART A & [place] [address] [place] [address] TOTAL CHOICE INDEMNITY Advance Directives For more information, please contact: [phone] (9AM - 5PM Nesha/[facility], Thursday-Thursday) Documents on File Type Date Recorded 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 It is not the complete legal health record.[facility]
--- OUTSIDE RECORDS SUMMARY | 2025-08-11 09:14 | XMS_ITS | Encounter Summary ---
Author Organization [facility] Address [address] [facility] [address] [place] [address] Phone Care Team Providers Care Licensed Massage Therapist Name Role Phone Unknown, Unknown Primary Care Provider Abby Jaramillo MD Primary Care Provider Encounter Details Date Type Department Care Team (Late st Contact Info) Description 04/22/2018 Procedure Pass [facility], Ct Scan - [address] [address] Social History Tobacco Use Types Packs/Day Years [...] on filedocumented in this encounter Care Teams Licensed Massage Therapist Relationship Specialty Start Date End Date Unknown, Unknown, PCP - General 12/11/17 05/11/18 Abby Ordaz MD [address] [place] [id number] PCP - General Family Medicine 05/12/18 documented as of this encounter Additional Source Comments The information contained in this document represents components of the legal health record. It is not the complete legal health record.[facility]
--- OUTSIDE RECORDS SUMMARY | 2025-08-11 09:14 | XMS_ITS | Encounter Summary ---
Author Organization [facility] Address [address] [place] [address] Phone Care Team Providers Care Cognos Developer Name Role Phone Unknown, Unknown Primary Care Provider Abby Jaramillo MD Primary Care Provider Encounter Details Date Type Department Care Team (Latest Contact Info) Description 12/15/2017 Prep for Surgery [facility] Orthopedics & Sports Medicine [address] [place] [address] Joellen Allison MD [address] [place] [address] Orthopedics & Sports Medicine, [facility] [place] [address] [email or web address] Other closed intra-articular fracture of distal end of left radius with routine healing, subsequent encounter (Primary Dx) Social History Tobacco Use Types Packs/Day Years [...] documented as of this encounter Visit Diagnoses Diagnosis Other closed intra-articular fracture of distal end of left radius with routine healing, subsequent encounter- Primary documented in this encounter Care Teams Cognos Developer Relationship Specialty Start Date End Date Unknown, Unknown, PCP - General 12/11/17 05/11/18 Abby Ordaz MD [address] [place] [id number] PCP - General Family Medicine 05/12/18 documented as of this encounter Additional Source Comments The information contained in this document represents components of the legal health record. It is not the complete legal health record.[facility]
--- OUTSIDE RECORDS SUMMARY | 2025-08-11 09:14 | XMS_ITS | Encounter Summary ---
Author Organization [facility] Address [address] [facility] [address] [place] [address] Phone Care Team Providers Care Awning Installer Name Role Phone Unknown, Unknown Primary Care Provider Abby Jaramillo MD Primary Care Provider Encounter Details Date Type Department Care Team (Late st Contact Info) Description 12/16/2017 Procedure Pass [place] Admitting Dept - Virtual Department [address] [place] [address] Social History Tobacco Use Types Packs/Day Years [...] on filedocumented in this encounter Care Teams Awning Installer Relationship Specialty Start Date End Date Unknown, Unknown, PCP - General 12/11/17 05/11/18 Abby Ordaz MD [address] [place] [id number] PCP - General Family Medicine 05/12/18 documented as of this encounter Additional Source Comments The information contained in this document represents components of the legal health record. It is not the complete legal health record.[facility]
== END 2025-08-11 09:01 | disposition home or self-care (01) ==
LOC: HO.HGI 08:36
PROVIDERS: PCP Internal Medicine; Visit Provider Nurse Practitioner Family
DX: K21.9 Gastro-esophageal reflux disease without esophagitis (principal); K59.01 Slow transit constipation
CPT/HCPCS: 99213

== ENCOUNTER → 2025-08-11 08:35 | Outpatient (BNVA) | payer MEDICARE, OTHER, SELFPAY | PROVIDERS: PCP Internal Medicine; Visit Provider Nurse Practitioner Family | DX: K21.9 Gastro-esophageal reflux disease without esophagitis (principal); K59.01 Slow transit constipation | CPT/HCPCS: 99212 ==

== ENCOUNTER 2025-08-14 08:13 | Outpatient (AMB) | payer MEDICARE, OTHER, SELFPAY ==
--- OUTSIDE RECORDS SUMMARY | 2025-08-14 08:56 | XMS_ITS | Clinical Summary ---
Author Organization [facility] Address [address] [facility] [address] [place] [address] Phone Care Team Providers Care Ocean Export Coordinator Name Role Phone Abby Ordaz MD Primary [...] this topic Medical Devices Implanted Type Area Dinkey Locomotive Operator Device Identifier Shelf Expiration Date Model / Serial / Lot Pacemaker Plate Hook Volar Distal Radius Geminus Narrow 3hole Left - Discontinued Per Contracts - [id number] Implanted:Qty: 1 on 12/16/2017 by Joellen Allison MD at [facility] Left: [employer]rist [employer] [id number]-3H L-HP / / Peg Threaded Locking [id number] - [id number] Implanted:Qty: 2 on 12/16/2017 by Joellen Allison MD at [facility] Left: [employer]rist [employer] [id number] -TS / / Peg Threaded Locking 2.3x18mm - [id number] Implanted:Qty: 3 on 12/16/2017 by Joellen Allison MD at [facility] Left: Wrist [employer] [id number] -TS / / Screw Bone L10x3.5mm Locking Cortical Geminus Titanium Implantable Non-Sterile Fossa Specific Plating System - [id number] Implanted:Qty: 2 on 12/16/2017 by Joellen Allison MD at [facility] Left: Wrist [employer] [id number] -TS / / Screw Cortical Nonlocking 3.5x10mm - [id number] Implanted:Qty: 1 on 12/16/2017 by Joellen Allison MD at [facility] Left: Wrist [employer] [id number] -TS / / K-Wire Standard Tip 1.7n373ly - [id number] Implanted:Qty: 2 on 12/16/2017 by Joellen Allison MD at [facility] Left: Wrist [employer] [id number] / / Insurance MEDICARE PART A & B [facility] TOTAL CHOICE INDEMNITY MEDICARE PART A & B [facility] TOTAL CHOICE INDEMNITY MEDICARE PART A & B [id number] [place] [address] TOTAL CHOICE INDEMNITY MEDICARE PART A & B [facility] TOTAL CHOICE INDEMNITY MEDICARE PART A & B [employer] TOTAL CHOICE INDEMNITY MEDICARE PART A & B [facility] TOTAL CHOICE INDEMNITY MEDICARE PART A & B [facility] TOTAL CHOICE INDEMNITY MEDICARE PART A & B [employer] INDEMNITY MEDICARE PART A & [place] [place] [address] TOTAL CHOICE INDEMNITY Advance Directives For more information, please contact: [phone] (9AM - 5PM Nesha/[facility], Thursday-Thursday) Documents on File Type Date Recorded 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 It is not the complete legal health record.[facility]
--- OUTSIDE RECORDS SUMMARY | 2025-08-14 08:56 | XMS_ITS | Encounter Summary ---
Author Organization [facility] Address [address] [facility] [address] [place] [address] Phone Care Team Providers Care Crime Prevention Police Officer Name Role Phone Unknown, Unknown Primary Care Provider Abby Jaramillo MD Primary Care Provider Encounter Details Date Type Department Care Team (Late st Contact Info) Description 01/25/2018 Ancillary Orders [address] [address] Abby Hale PA-C [address] [place] [address] Orthopedics & Sports Medicine, [place] [address] [email or web address] Left wrist pain Social History Tobacco Use [...] forearm documented in this encounter Care Teams Crime Prevention Police Officer Relationship Specialty Start Date End Date Unknown, Unknown, MD PCP - General 12/11/17 05/11/18 Abby Ordaz MD [address] [place] [address] PCP - General Family Medicine 05/12/18 documented as of this encounter Additional Source Comments The information contained in this document represents components of the legal health record. It is not the complete legal health record.[facility]
--- OUTSIDE RECORDS SUMMARY | 2025-08-14 08:57 | XMS_ITS | Encounter Summary ---
Author Organization [facility] Address [address] [place] [address] [place] [address] Phone Care Team Providers Care Informal Waiter/Waitress Name Role Phone Unknown, Unknown Primary Care Provider Abby Jaramillo MD Primary Care Provider Encounter Details Date Type Department Care Team (Late st Contact Info) Description 12/29/2017 Ancillary Orders [facility] Orthopedics & Sports Medicine [address] [place] [address] Abby Hale PA-C [address] [place] [address] Orthopedics & Sports Medicine, [place] [address] [email or web address] Social History Tobacco Use Types Packs/Day Years [...] on filedocumented in this encounter Care Teams Informal Waiter/Waitress Relationship Specialty Start Date End Date Unknown, Unknown, PCP - General 12/11/17 05/11/18 Abby Ordaz MD [address] [place] [address] PCP - General Family Medicine 05/12/18 documented as of this encounter Additional Source Comments The information contained in this document represents components of the legal health record. It is not the complete legal health record.[facility]
--- OUTSIDE RECORDS SUMMARY | 2025-08-14 08:57 | XMS_ITS | Encounter Summary ---
Author Organization [facility] Address [address] [facility] [address] [place] [address] Phone Care Team Providers Care Printed Circuit Boards Stripper Etcher Name Role Phone Unknown, Unknown Primary Care Provider Abby Jaramillo MD Primary Care Provider Encounter Details Date Type Department Care Team (Late st Contact Info) Description 12/16/2017 Procedure Pass [place] Admitting Dept - Virtual Department [address] [place] [address] Social History Tobacco Use Types Packs/Day Years [...] on filedocumented in this encounter Care Teams Printed Circuit Boards Stripper Etcher Relationship Specialty Start Date End Date Unknown, Unknown, PCP - General 12/11/17 05/11/18 Abby Ordaz MD [address] [place] [phone] PCP - General Family Medicine 05/12/18 documented as of this encounter Additional Source Comments The information contained in this document represents components of the legal health record. It is not the complete legal health record.[facility]
--- OUTSIDE RECORDS SUMMARY | 2025-08-14 08:57 | XMS_ITS | Encounter Summary ---
Author Organization [facility] Address [address] [place] [address] Phone Care Team Providers Care Account Contact Associate Name Role Phone Unknown, Unknown Primary Care Provider Abby Jaramillo MD Primary Care Provider Encounter Details Date Type Department Care Team (Late st Contact Info) Description 01/25/2018 Ancillary Orders [facility] Orthopedics & Sports Medicine [address] [place] [address] Abby Hale PA-C [address] [place] [address] Orthopedics & Sports Medicine, [facility] [place] [address] [email or web address] Social History Tobacco Use Types Packs/Day Years [...] on filedocumented in this encounter Care Teams Account Contact Associate Relationship Specialty Start Date End Date Unknown, Unknown, PCP - General 12/11/17 05/11/18 Abby Ordaz MD [address] [place] [address] PCP - General Family Medicine 05/12/18 documented as of this encounter Additional Source Comments The information contained in this document represents components of the legal health record. It is not the complete legal health record.[facility]
--- OUTSIDE RECORDS SUMMARY | 2025-08-14 08:57 | XMS_ITS | Encounter Summary ---
Author Organization [facility] Address [address] [place] [address] Phone Care Team Providers Care Worm Farmer Name Role Phone Unknown, Unknown Primary Care Provider Abby Jaramillo MD Primary Care Provider Encounter Details Date Type Department Care Team (Latest Contact Info) Description 12/15/2017 Prep for Surgery [facility] Orthopedics & Sports Medicine [address] [place] [address] Joellen Allison MD [address] [place] [address] Orthopedics & Sports Medicine, [place] [address] [email or web address] Other closed intra-articular fracture of distal end [...] Primary documented in this encounter Care Teams Worm Farmer Relationship Specialty Start Date End Date Unknown, Unknown, PCP - General 12/11/17 05/11/18 Abby Ordaz MD [address] [place] [address] [phone] PCP - General Family Medicine 05/12/18 documented as of this encounter Additional Source Comments The information contained in this document represents components of the legal health record. It is not the complete legal health record.[facility]
--- OUTSIDE RECORDS SUMMARY | 2025-08-14 08:57 | XMS_ITS | Encounter Summary ---
Author Organization [facility] Address [address] [facility] [address] [place] [address] Phone Care Team Providers Care Assistant Produce Manager Name Role Phone Unknown, Unknown Primary Care Provider Abby Jaramillo MD Primary Care Provider Encounter Details Date Type Department Care Team (Late st Contact Info) Description 04/22/2018 Procedure Pass [facility], Ct Scan - [address] [address] Social History Tobacco Use Types Packs/Day Years [...] on filedocumented in this encounter Care Teams Assistant Produce Manager Relationship Specialty Start Date End Date Unknown, Unknown, PCP - General 12/11/17 05/11/18 Abby Ordaz MD [address] [place] [address] PCP - General Family Medicine 05/12/18 documented as of this encounter Additional Source Comments The information contained in this document represents components of the legal health record. It is not the complete legal health record.[facility]
--- OUTSIDE RECORDS SUMMARY | 2025-08-14 08:57 | XMS_ITS | Encounter Summary ---
Author Organization [facility] Address [address] [place] [address] [place] [phone] Phone Care Team Providers Care Pharmacoepidemiologist Name Role Phone Unknown, Unknown Primary Care Provider Abby Jaramillo MD Primary Care Provider Encounter Details Date Type Department Care Team (Late st Contact Info) Description 12/29/2017 Ancillary Orders [address] [address] Abby Hale PA-C [address] [place] [address] Orthopedics & Sports Medicine, [place] [address] [email or web address] Left wrist pain Social History Tobacco Use [...] forearm documented in this encounter Care Teams Pharmacoepidemiologist Relationship Specialty Start Date End Date Unknown, Unknown, MD PCP - General 12/11/17 05/11/18 Abby Ordaz MD [address] [place] [address] PCP - General Family Medicine 05/12/18 documented as of this encounter Additional Source Comments The information contained in this document represents components of the legal health record. It is not the complete legal health record.[facility]
--- NOTE | 2025-08-14 09:04 | A.OFFVIS_ITS ---
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 Complaining of vaginal discharge yellowish in nature no itching or foul odor Last Pap/HPV was many years ago with no history of abnormal Pap smears in the past 25 years Last Mammogram was BI-RADS 2 in 09/22 Last Colonoscopy was in 08/22 Last DEXA scan was done in 07/22 and the patient is receiving IV Prolia by endocrinology [facility] Medical History Compression fracture of T12 vertebra Sick sinus syndrome Carotid artery disease Memory loss Tubular adenoma Stenosis of right subclavian artery Dyslipidemia Cardiomyopathy GERD (gastroesophageal reflux disease) Essential hypertension Surgical History History of hysterectomy History of esophagogastroduodenoscopy (EGD) Hx of colonoscopy History of surgical procedure on eye proper using laser History of pacemaker (~09/2012) Family History Father Cancer Mother Stroke Social History Household Members: None Housing: Apartment Alcohol intake: former Patient Tobacco Use Status: Current everyday Tobacco user Tobacco use type: Cigarette Cigarettes Per Day: 4 Years Smoked: 25 e-Cigarette/Vaping Use: Never Used Second Hand Smoke Exposure: No service: No Current occupational status: retired Cognitive needs: No Hearing needs: No Vision needs: Yes Female Reproductive History Menstrual Age of Menarche: 9 Menopause type: surgical Date of Mammogram: 09/28/24 Review of Systems Const All systems reviewed & are unremarkable except as noted in HPI and below Card Reports as per HPI Resp Reports as per HPI GI Reports as per HPI and Reports no additional complaints Reports as per HPI Physical Exam Vital Signs: Last Vital Signs BP 116/68 08/14/25 09:15 BMI result Body Mass Index 19.5 Const General: cooperative, healthy appearing and comfortable Chest Chest palpation & inspection: normal inspection of the chest and normal palpation of entire chest wall Breast/axilla inspection: normal inspection of the breasts and normal inspection of the axillae Breast/axilla palpation: normal palpation of the breasts, normal palpation of the axillae and no axillary lymphadenopathy Resp Effort & Inspection: normal respiratory effort Auscultation: clear to auscultation bilaterally Percussion: percussion normal Cardio Palpation: normal PMI Rate: regular rate Rhythm: regular rhythm Heart sounds: no murmurs and no rubs Peripheral pulses: Peripheral pulses 2+ throughout GI Inspection: Yes normal to inspection Palpation (GI): Soft to palpation, nontender, no guarding, not rigid and No hepatosplenomegaly present Percussion: Yes normal to percussion Auscultation: normal bowel sounds Rectal Exam - Female: deferred General: Yes bladder normal to palpation External Female Exam: No lesion Speculum Exam - Vagina: normal appearance of the vagina, normal palpation, normal vaginal discharge and not erythematous Speculum Exam - Cervix: normal appearance of the cervix and normal palpation Bimanual exam- vagina & uterus: normal bimanual exam, normal palpation, uterine size normal, bladder normal to palpation, consistency normal and normal palpation Bimanual Exam- Adnexa, other: normal adnexae, no masses and no tenderness Assessment & Plan Assessment & Plan (1) Well woman exam: Code(s): Z01.419 - Encounter for gynecological examination (general) (routine) without abnormal findings Category: Medical Plan: Co testing not indicated since the patient 's age is above 65 with no history of abnormal Pap smears last 25 years, adequately screen for the last 10 years with no history of immunosuppression. Counseled the patient about the recommended dietary allowance of 1200 mg of Calcium & 800 IU of vitamin D. Mammogram ordered. The patient was instructed to perform monthly self-breast exams and to schedule an annual exam in a year; All questions answered and the patient verbalized understanding. (2) Vaginal discharge: Code(s): N89.8 - Other specified noninflammatory disorders of vagina Category: Medical Plan: BV panel taken will check the results and treat accordingly Orders: Orders MM tomosynthesis screening BI Today Z12.31 - Encounter for screening mammogram for malignant neoplasm of breast Coding Level of Care Code New Pt Prev Care >65yr (44269) Diagnoses Well woman exam Z01.419 Vaginal discharge N89.8
[2025-08-14 09:15] VITALS: BP 116/68; BMI 19.5
== END 2025-08-14 09:36 | disposition home or self-care (01) ==
LOC: HO.HWS 08:13
PROVIDERS: PCP Internal Medicine; Visit Provider Obstetrics & Gynecology
DX: Z01.419 Encounter for gynecological examination (general) (routine) without abnormal findings (principal); N89.8 Other specified noninflammatory disorders of vagina
CPT/HCPCS: 99397; 99459

== ENCOUNTER 2025-08-14 08:13 | Outpatient (REF) | payer MEDICARE, OTHER, SELFPAY ==
[2025-08-14 23:16] LABS: Bacterial Vaginosis PCR NEGATIVE (Negative); Candida Group PCR NOT DETECTED (Not Detect); Candida glab krusei PCR NOT DETECTED (Not Detect); Trichomonas vaginalis PCR NOT DETECTED (Not Detect)
== END 2025-08-14 08:14 | disposition home or self-care (01) ==
LOC: HO.LNP 08:13
PROVIDERS: PCP Internal Medicine; Visit Provider Obstetrics & Gynecology
DX: Z01.419 Encounter for gynecological examination (general) (routine) without abnormal findings (principal); N89.8 Other specified noninflammatory disorders of vagina; Z12.31 Encounter for screening mammogram for malignant neoplasm of breast
CPT/HCPCS: 81515; 99397

== ENCOUNTER → 2025-08-22 07:52 | Outpatient (REF) | payer MEDICARE, OTHER, SELFPAY ==
--- NOTE | 2025-08-22 07:55 | CA_ITS ---
Transthoracic Echocardiogram Patient (Last, First, Middle): Sabina Lechuga P Gender: F Date of : 1950 Age: 75 Procedure Date: 08/22/2025 Procedure Type: Transthoracic Echocardiogram Location: OP Height: 154.94 cm Weight: 46.72 kg BSA: 1.42 m2 Heart Rate: 60 bpm BP: 116 / 68 mmHg Postal Carrier: SB Referring MD: Kalpesh Calderon MD Symptoms: I42.9 - Cardiomyopathy, unspecified Study Quality: Adequate ECG Rhythm: Sinus Conclusions: - The left ventricular systolic function is normal. The calculated ejection fraction is 60% by biplane method. - No obvious valvular pathology seen on this study. Findings Left Ventricle Normal left ventricular cavity size. There is normal left ventricular wall thickness. The left ventricular systolic function is normal. The calculated ejection fraction is 60% by biplane method. There is no evidence of regional wall motion abnormalities. Evidence suggests grade I (mild) diastolic dysfunction. LV peak GLS -14%. Right Ventricle Normal right ventricular cavity size. There is mildly decreased right ventricular systolic function. There is a pacemaker wire seen in the right ventricle. Atria The left atrium is mildly dilated. The right atrium is normal in size. Aortic Valve There is a normal trileaflet aortic valve. There is mild calcification of the aortic valve. There is no aortic valve stenosis. There is no aortic valve regurgitation. Mitral Valve There is mild mitral annular calcification. There is trace mitral valve regurgitation. There is no mitral valve stenosis. Pulmonic Valve The pulmonic valve is likely normal. Tricuspid Valve There is mild tricuspid valve regurgitation. There is no evidence of pulmonary hypertension. Great Vessels The asc aorta is normal in size. Small plaque is seen in the sino tubular ridge. Venous The inferior vena cava is normal in size and collapses greater than 50% with inspiration. Pericardium/Pleural There is no evidence of pericardial effusion. Prior Study Comparison No significant change compared to prior study dated: 08/31/2024. Recommendations, Care & Conclusions No obvious valvular pathology seen on this study. Measurements 2D Linear Measurements IVSd: 0.73 0.6-0.9/0.6-1.0 cm LVIDd: 4.58 3.9-5.3/4.2-5.9 cm LVIDd Index: 3.23 2.4-3.2/2.2-3.1 cm/m2 LVIDs: 3.82 2.0-3.6 cm LVPWd: 0.73 0.7-1.1 cm LA Diam: 3.90 2.7-3.8/3.0-4.0 cm LAIDs Index: 2.75 1.5-2.3 cm/m2 LV Mass: 129.93 67-162/88-224 g LV Mass Index: 91.50 43-95/49-115 g/m2 LVOT Diam: 2.00 3.0+(-)1.3 cm 2D Systolic Function EF 4C: 56.50 >55% EF 2C: 66.70 >55% EF BiP: 60.20 >55% Mitral Valve MV Pk E: 0.38 MV PK A: 0.55 MV Decel Time: 339.00 E/A: 0.70 E'Lateral: 6.64 E'Medial: 3.26 E/E' Med: 11.60 E/E' Lat: 5.70 PHT: 99.00 MVA PHT: 2.22 Decel Bandera: 1.11 Aortic Valve AoV Pk Gunnar: 0.97 AoV Pk Grad: 4.00 ALBERTINA: 2.67 LVOT LVOT Pk Gunnar: 0.81 LVOT Mn Gunnar: 0.52 LVOT VTI: 0.15 LVOT Pk Grad: 3.00 LVOT Mn Grad: 1.00 LVOT Diam: 2.00 LVOT Area: 3.14 Diastolic Function MV Pk E: 0.38 MV Pk A: 0.55 E/A: 0.70 E'Medial: 3.26 E/E' Med: 11.60 E' Laterial: 6.64 E/E' Lat: 5.70 Right Ventricle TAPSE (mm): 13.40 TVS' Gunnar: 8.16 Tricuspid Valve TR Pk Gunnar: 2.20 TR Pk Grad: 19.00 RA Press: 3.00 RVSP: 22.00 Great Vessels Aorta Sinus of Valsalva: 3.00 2.0-3.5 cm Ao Asc: 3.30 2.1-3.4 cm Pulmonary Valve PV Pk Gunnar: 0.61 Peak PV Grad: 1.00 Updated in Other Vendor System with Status of Final Kalpesh Calderon MD electronically signed on 08/23/2025 1:51:01 PM with status of Final
--- OUTSIDE RECORDS SUMMARY | 2025-08-22 07:56 | XMS_ITS | Encounter Summary ---
Author Organization [facility] Address [address] [place] [address] [place] [address] Phone Care Team Providers Care Aviation Project Manager Name Role Phone Unknown, Unknown Primary Care Provider Abby Jaramillo MD Primary Care Provider Encounter Details Date Type Department Care Team (Late st Contact Info) Description 01/25/2018 Ancillary Orders [address] [address] Abby Hale PA-C [address] [place] [address] Orthopedics & Sports Medicine, [place] [address] [email or web address] Left wrist pain Social History Tobacco Use [...] forearm documented in this encounter Care Teams Aviation Project Manager Relationship Specialty Start Date End Date Unknown, Unknown, MD PCP - General 12/11/17 05/11/18 Abby Ordaz MD [address] [place] [address] PCP - General Family Medicine 05/12/18 documented as of this encounter Additional Source Comments The information contained in this document represents components of the legal health record. It is not the complete legal health record.[facility]
--- OUTSIDE RECORDS SUMMARY | 2025-08-22 07:56 | XMS_ITS | Encounter Summary ---
Author Organization [facility] Address [address] [place] [address] Phone Care Team Providers Care Sql Data Analyst Name Role Phone Unknown, Unknown Primary Care Provider Abby Jaramillo MD Primary Care Provider Encounter Details Date Type Department Care Team (Late st Contact Info) Description 01/25/2018 Ancillary Orders [facility] Orthopedics & Sports Medicine [address] [place] [address] Abby Hale PA-C [address] [place] [address] Orthopedics & Sports Medicine, [facility] [place] [address] [email or web address] Social History Tobacco Use Types Packs/Day [...] on filedocumented in this encounter Care Teams Sql Data Analyst Relationship Specialty Start Date End Date Unknown, Unknown, PCP - General 12/11/17 05/11/18 Abby Ordaz MD [address] [place] [address] PCP - General Family Medicine 05/12/18 documented as of this encounter Additional Source Comments The information contained in this document represents components of the legal health record. It is not the complete legal health record.[facility]
--- OUTSIDE RECORDS SUMMARY | 2025-08-22 07:56 | XMS_ITS | Clinical Summary ---
Author Organization [facility] Address [address] [facility] [address] [place] [address] Phone Care Team Providers Care High School Music Director Name Role Phone Abby Ordaz MD Primary [...] this topic Medical Devices Implanted Type Area Leak Inspector Device Identifier Shelf Expiration Date Model / Serial / Lot Pacemaker Plate Hook Volar Distal Radius Geminus Narrow 3hole Left - Discontinued Per Contracts - [id number] Implanted:Qty: 1 on 12/16/2017 by Joellen Allison MD at [facility] Left: [employer]rist [employer] GMN-LTN-3H L-HP / / Peg Threaded Locking [id number] - [id number] Implanted:Qty: 2 on 12/16/2017 by Joellen Allison MD at [facility] Left: [employer]rist [employer] TPLS-16534 -TS / / Peg Threaded Locking 2.3x18mm - [id number] Implanted:Qty: 3 on 12/16/2017 by Joellen Allison MD at [facility] Left: Wrist [employer] TPLS-98210 -TS / / Screw Bone L10x3.5mm Locking Cortical Geminus Titanium Implantable Non-Sterile Fossa Specific Plating System - [id number] Implanted:Qty: 2 on 12/16/2017 by Joellen Allison MD at [facility] Left: Wrist [employer] COLS-61099 -TS / / Screw Cortical Nonlocking 3.5x10mm - [id number] Implanted:Qty: 1 on 12/16/2017 by Joellen Allison MD at [facility] Left: Wrist [employer] PANL-36320 -TS / / K-Wire Standard Tip 1.0o798xt - [id number] Implanted:Qty: 2 on 12/16/2017 by Joellen Allison MD at [facility] Left: Wrist [employer] [id number] / / Insurance MEDICARE PART A & B [facility] TOTAL CHOICE INDEMNITY MEDICARE PART A & B [facility] TOTAL CHOICE INDEMNITY MEDICARE PART A & B [id number] [place] [address] TOTAL CHOICE INDEMNITY MEDICARE PART A & B [facility] TOTAL CHOICE INDEMNITY MEDICARE PART A & B [employer] TOTAL CHOICE INDEMNITY MEDICARE PART A & B [facility] TOTAL CHOICE INDEMNITY MEDICARE PART A & B [facility] TOTAL CHOICE INDEMNITY MEDICARE PART A & B [employer] INDEMNITY MEDICARE PART A & [place] [address] [address] TOTAL CHOICE INDEMNITY Advance Directives For more information, please contact: [phone] (9AM - 5PM Nesha/[facility] [place], Thursday-Thursday) Documents on File Type Date Recorded Patient Project/Production Manager Imaging Expl anation Healthcare Proxy 12/17/2017 11:03 AM * Full Code (Presumed) (Latest Code Status on File) Date Activated Date Inactivated Comments 12/16/2017 9:43 AM 12/16/2017 6:01 PM Care Teams High School Music Director Relationship Specialty Start Date End Date Abby Ordaz MD [address] [place] [address] PCP - General Family Medicine 05/12/18 Additional Source Comments The information contained in this document represents components of the legal health record. It is not the complete legal health record.[facility]
--- OUTSIDE RECORDS SUMMARY | 2025-08-22 07:57 | XMS_ITS | Encounter Summary ---
Author Organization [facility] Address [address] [place] [address] [place] [address] Phone Care Team Providers Care Enrollment Advisor Name Role Phone Unknown, Unknown Primary Care Provider Abby Jaramillo MD Primary Care Provider Encounter Details Date Type Department Care Team (Late st Contact Info) Description 12/29/2017 Ancillary Orders [address] [address] Abby Hale PA-C [address] [place] [address] Orthopedics & Sports Medicine, [place] [address] [email or web address] Left wrist pain Social History [...] forearm documented in this encounter Care Teams Enrollment Advisor Relationship Specialty Start Date End Date Unknown, Unknown, MD PCP - General 12/11/17 05/11/18 Abby Ordaz MD [address] [place] [address] PCP - General Family Medicine 05/12/18 documented as of this encounter Additional Source Comments The information contained in this document represents components of the legal health record. It is not the complete legal health record.[facility]
--- OUTSIDE RECORDS SUMMARY | 2025-08-22 07:57 | XMS_ITS | Encounter Summary ---
Author Organization [facility] Address [address] [facility] [address] [place] [address] Phone Care Team Providers Care Supervisor Advice Name Role Phone Unknown, Unknown Primary Care Provider Abby Jaramillo MD Primary Care Provider Encounter Details Date Type Department Care Team (Late st Contact Info) Description 12/16/2017 Procedure Pass [place] Admitting Dept - Virtual Department [address] [place] [address] Social History Tobacco Use Types Packs/Day Years [...] on filedocumented in this encounter Care Teams Supervisor Advice Relationship Specialty Start Date End Date Unknown, Unknown, PCP - General 12/11/17 05/11/18 Abby Ordaz MD [address] [place] [address] PCP - General Family Medicine 05/12/18 documented as of this encounter Additional Source Comments The information contained in this document represents components of the legal health record. It is not the complete legal health record.[facility]
--- OUTSIDE RECORDS SUMMARY | 2025-08-22 07:57 | XMS_ITS | Encounter Summary ---
Author Organization [facility] Address [address] [place] [address] Phone Care Team Providers Care Clinical Trial Coordinator Name Role Phone Unknown, Unknown Primary Care Provider Abby Jaramillo MD Primary Care Provider Encounter Details Date Type Department Care Team (Latest Contact Info) Description 12/15/2017 Prep for Surgery [facility] Orthopedics & Sports Medicine [address] [place] [address] Joellen Allison MD [address] [place] [address] Orthopedics & Sports Medicine, [facility] [place] [address] [email or web address] Other closed intra-articular fracture of distal end [...] Primary documented in this encounter Care Teams Clinical Trial Coordinator Relationship Specialty Start Date End Date Unknown, Unknown, PCP - General 12/11/17 05/11/18 Abby Ordaz MD [address] [place] [address] [phone] PCP - General Family Medicine 05/12/18 documented as of this encounter Additional Source Comments The information contained in this document represents components of the legal health record. It is not the complete legal health record.[facility]
--- OUTSIDE RECORDS SUMMARY | 2025-08-22 07:57 | XMS_ITS | Encounter Summary ---
Author Organization [facility] Address [address] [place] [address] Phone Care Team Providers Care Produce Production Team Member Name Role Phone Unknown, Unknown Primary Care Provider Abby Jaramillo MD Primary Care Provider Encounter Details Date Type Department Care Team (Late st Contact Info) Description 12/29/2017 Ancillary Orders [facility] Orthopedics & Sports Medicine [address] [place] [address] Abby Hale PA-C [address] [place] [address] Orthopedics & Sports Medicine, [place] [address] [email or web address] Social History Tobacco Use Types [...] on filedocumented in this encounter Care Teams Produce Production Team Member Relationship Specialty Start Date End Date Unknown, Unknown, PCP - General 12/11/17 05/11/18 Abby Ordaz MD [address] [place] [address] PCP - General Family Medicine 05/12/18 documented as of this encounter Additional Source Comments The information contained in this document represents components of the legal health record. It is not the complete legal health record.[facility]
--- OUTSIDE RECORDS SUMMARY | 2025-08-22 07:57 | XMS_ITS | Encounter Summary ---
Author Organization [facility] Address [address] [facility] [address] [place] [address] Phone Care Team Providers Care Search And Rescue Officer Name Role Phone Unknown, Unknown Primary Care Provider Abby Jaramillo MD Primary Care Provider Encounter Details Date Type Department Care Team (Late st Contact Info) Description 04/22/2018 Procedure Pass [facility], Ct Scan - [address] [address] Social History Tobacco Use Types Packs/Day Years [...] on filedocumented in this encounter Care Teams Search And Rescue Officer Relationship Specialty Start Date End Date Unknown, Unknown, PCP - General 12/11/17 05/11/18 Abby Ordaz MD [address] [place] [address] PCP - General Family Medicine 05/12/18 documented as of this encounter Additional Source Comments The information contained in this document represents components of the legal health record. It is not the complete legal health record.[facility]
== END ==
LOC: HO.CARD 07:52
PROVIDERS: Visit Provider Internal Medicine
DX: I42.9 Cardiomyopathy, unspecified (principal)
CPT/HCPCS: 93306

== ENCOUNTER → 2025-08-22 07:55 | Outpatient (BNV) | payer MEDICARE, OTHER, SELFPAY | PROVIDERS: Visit Provider Internal Medicine | DX: I42.9 Cardiomyopathy, unspecified (principal); I35.8 Other nonrheumatic aortic valve disorders; I36.1 Nonrheumatic tricuspid (valve) insufficiency; I34.81 Nonrheumatic mitral (valve) annulus calcification | CPT/HCPCS: 93306; 93356 ==

== ENCOUNTER 2025-08-24 07:58 | Outpatient (REF) | payer MEDICARE, OTHER, SELFPAY ==
--- OUTSIDE RECORDS SUMMARY | 2025-08-24 08:02 | XMS_ITS | Encounter Summary ---
Author Organization [facility] Address [address] [facility] [address] [place] [address] Phone Care Team Providers Care Public Health Doctor Name Role Phone Unknown, Unknown Primary Care Provider Abby Jaramillo MD Primary Care Provider Encounter Details Date Type Department Care Team (Late st Contact Info) Description 12/16/2017 Procedure Pass OR Admitting Dept - Virtual Department 30 [place] [address] Social History Tobacco Use Types Packs/Day Years [...] on filedocumented in this encounter Care Teams Public Health Doctor Relationship Specialty Start Date End Date Unknown, Unknown, PCP - General 12/11/17 05/11/18 Abby Ordaz MD [address] [place] [address] PCP - General Family Medicine 05/12/18 documented as of this encounter Additional Source Comments The information contained in this document represents components of the legal health record. It is not the complete legal health record.[facility]
--- OUTSIDE RECORDS SUMMARY | 2025-08-24 08:02 | XMS_ITS | Clinical Summary ---
Author Organization [facility] Address [address] [facility] [address] [place] [address] Phone Care Team Providers Care Environmental Studies Program Director Name Role Phone Abby Ordaz MD [...] this topic Medical Devices Implanted Type Area Cost Accounting Manager Device Identifier Shelf Expiration Date Model / Serial / Lot Pacemaker Plate Hook Volar Distal Radius Geminus Narrow 3hole Left - Discontinued Per Contracts - [id number] Implanted:Qty: 1 on 12/16/2017 by Joellen Allison MD at [facility] Left: [employer]rist [employer] GMN-LTN-3H L-HP / / Peg Threaded Locking 2.1tul31qw - [id number] Implanted:Qty: 2 on 12/16/2017 by Joellen Allison MD at [facility] Left: [employer] TPLS-88598 -TS / / Peg Threaded Locking 2.3x18mm - [id number] Implanted:Qty: 3 on 12/16/2017 by Joellen Allison MD at [facility] Left: Wrist [employer] TPLS-85748 -TS / / Screw Bone L10x3.5mm Locking Cortical Geminus Titanium Implantable Non-Sterile Fossa Specific Plating System - [id number] Implanted:Qty: 2 on 12/16/2017 by Joellen Allison MD at [facility] Left: W[employer] COLS-48163 -TS / / Screw Cortical Nonlocking 3.5x10mm - [id number] Implanted:Qty: 1 on 12/16/2017 by Joellen Allison MD at [facility] Left: Wrist [employer] PANL-19216 -TS / / K-Wire Standard Tip 1.3c640gp - [id number] Implanted:Qty: 2 on 12/16/2017 by Joellen Allison MD at [facility] Left: W[employer] [id number] / / Insurance MEDICARE PART A & B [facility] TOTAL CHOICE INDEMNITY MEDICARE PART A & B [facility] TOTAL CHOICE INDEMNITY MEDICARE PART A & B [id number] [place] [address] TOTAL CHOICE INDEMNITY MEDICARE PART A & B [facility] TOTAL CHOICE INDEMNITY MEDICARE PART A & B [employer] TOTAL CHOICE INDEMNITY MEDICARE PART A & B [facility] TOTAL CHOICE INDEMNITY MEDICARE PART A & B [facility] TOTAL CHOICE INDEMNITY MEDICARE PART A & B [employer] INDEMNITY MEDICARE PART A & [place] [address] TOTAL CHOICE INDEMNITY Advance Directives For more information, please contact: [phone] (9AM - 5PM Nesha/[facility], Thursday-Thursday) Documents on File Type Date Recorded Patient Geotechnical Intern Expl anation Healthcare Proxy 12/17/2017 11:03 AM * Full Code (Presumed) (Latest Code Status on File) Date Activated Date Inactivated Comments 12/16/2017 9:43 AM 12/16/2017 6:01 PM Care Teams Environmental Studies Program Director Relationship Specialty Start Date End Date Abby Ordaz MD [address] [place] [address] PCP - General Family Medicine 05/12/18 Additional Source Comments The information contained in this document represents components of the legal health record. It is not the complete legal health record.[facility]
--- OUTSIDE RECORDS SUMMARY | 2025-08-24 08:02 | XMS_ITS | Encounter Summary ---
Author Organization [facility] Address [address] [place] [address] Phone Care Team Providers Care Instant Potato Processing Supervisor Name Role Phone Unknown, Unknown Primary Care Provider Abby Jaramillo MD Primary Care Provider Encounter Details Date Type Department Care Team (Latest Contact Info) Description 12/15/2017 Prep for Surgery [facility] Orthopedics & Sports Medicine [address] [place] [address] Joellen Allison MD [address] [place] [address] Orthopedics & Sports Medicine, [facility] [place] [address] [email or web address] Other closed intra-articular fracture of distal end [...] Primary documented in this encounter Care Teams Instant Potato Processing Supervisor Relationship Specialty Start Date End Date Unknown, Unknown, PCP - General 12/11/17 05/11/18 Abby Ordaz MD [address] [place] [address] [phone] PCP - General Family Medicine 05/12/18 documented as of this encounter Additional Source Comments The information contained in this document represents components of the legal health record. It is not the complete legal health record.[facility]
--- OUTSIDE RECORDS SUMMARY | 2025-08-24 08:02 | XMS_ITS | Encounter Summary ---
Author Organization [facility] Address [address] [place] [address] Phone Care Team Providers Care On Site Coordinator Name Role Phone Unknown, Unknown Primary Care Provider Abby Jaramillo MD Primary Care Provider Encounter Details Date Type Department Care Team (Late st Contact Info) Description 01/25/2018 Ancillary Orders [facility] [place] Orthopedics & Sports Medicine [address] [place] [address] Abby Hale PA-C [address] [place] [address] Orthopedics & Sports Medicine, [facility] [place] [address] [email or web address] Social History Tobacco Use Types Packs/Day Years [...] on filedocumented in this encounter Care Teams On Site Coordinator Relationship Specialty Start Date End Date Unknown, Unknown, PCP - General 12/11/17 05/11/18 Abby Ordaz MD [address] [place] [address] PCP - General Family Medicine 05/12/18 documented as of this encounter Additional Source Comments The information contained in this document represents components of the legal health record. It is not the complete legal health record.[facility]
--- OUTSIDE RECORDS SUMMARY | 2025-08-24 08:02 | XMS_ITS | Encounter Summary ---
Author Organization [facility] Address [address] [facility] [address] [place] [address] Phone Care Team Providers Care Tire Layer Name Role Phone Unknown, Unknown Primary Care Provider Abby Jaramillo MD Primary Care Provider Encounter Details Date Type Department Care Team (Late st Contact Info) Description 04/22/2018 Procedure Pass [facility], Ct Scan - [address] [address] Social History Tobacco Use Types Packs/Day Years [...] on filedocumented in this encounter Care Teams Tire Layer Relationship Specialty Start Date End Date Unknown, Unknown, PCP - General 12/11/17 05/11/18 Abby Ordaz MD [address] [place] [address] PCP - General Family Medicine 05/12/18 documented as of this encounter Additional Source Comments The information contained in this document represents components of the legal health record. It is not the complete legal health record.[facility]
--- OUTSIDE RECORDS SUMMARY | 2025-08-24 08:02 | XMS_ITS | Encounter Summary ---
Author Organization [facility] Address [address] [place] [address] [place] [address] Phone Care Team Providers Care Dimpling Machine Operator Name Role Phone Unknown, Unknown Primary Care Provider Abby Jaramillo MD Primary Care Provider Encounter Details Date Type Department Care Team (Late st Contact Info) Description 12/29/2017 Ancillary Orders [facility] Orthopedics & Sports Medicine [address] [place] [address] Abby Hale PA-C [address] [place] [address] Orthopedics & Sports Medicine, [facility] [place] [address] [email or web address] Social History Tobacco Use [...] on filedocumented in this encounter Care Teams Dimpling Machine Operator Relationship Specialty Start Date End Date Unknown, Unknown, PCP - General 12/11/17 05/11/18 Abby Ordaz MD [address] [place] [address] PCP - General Family Medicine 05/12/18 documented as of this encounter Additional Source Comments The information contained in this document represents components of the legal health record. It is not the complete legal health record.[facility]
--- OUTSIDE RECORDS SUMMARY | 2025-08-24 08:02 | XMS_ITS | Encounter Summary ---
Author Organization [facility] Address [address] [place] [address] [place] [address] Phone Care Team Providers Care Corporate Associate Name Role Phone Unknown, Unknown Primary Care Provider Abby Jaramillo MD Primary Care Provider Encounter Details Date Type Department Care Team (Late st Contact Info) Description 12/29/2017 Ancillary Orders [address] [address] Abby Hale PA-C [address] [place] [address] Orthopedics & Sports Medicine, [place] [address] [email or web address] Left wrist pain Social History Tobacco Use [...] forearm documented in this encounter Care Teams Corporate Associate Relationship Specialty Start Date End Date Unknown, Unknown, MD PCP - General 12/11/17 05/11/18 Abby Ordaz MD [address] [place] [address] PCP - General Family Medicine 05/12/18 documented as of this encounter Additional Source Comments The information contained in this document represents components of the legal health record. It is not the complete legal health record.[facility]
--- OUTSIDE RECORDS SUMMARY | 2025-08-24 08:02 | XMS_ITS | Encounter Summary ---
Author Organization [facility] Address [address] [facility] [address] [place] [address] Phone Care Team Providers Care Microsoft Crm Developer Name Role Phone Unknown, Unknown Primary Care Provider Abby Jaramillo MD Primary Care Provider Encounter Details Date Type Department Care Team (Late st Contact Info) Description 01/25/2018 Ancillary Orders [address] [address] Abby Hale PA-C [address] [place] [address] Orthopedics & Sports Medicine, [place] [address] [email or web address] Left wrist pain Social History Tobacco Use [...] forearm documented in this encounter Care Teams Microsoft Crm Developer Relationship Specialty Start Date End Date Unknown, Unknown, MD PCP - General 12/11/17 05/11/18 Abby Ordaz MD [address] [place] [address] PCP - General Family Medicine 05/12/18 documented as of this encounter Additional Source Comments The information contained in this document represents components of the legal health record. It is not the complete legal health record.[facility]
[2025-08-24 09:46] LABS: Alanine Aminotransferase 15 U/L (0-31); Albumin Level 4.1 g/dL (3.5-5.0); Alkaline Phosphatase 64 U/L (39-117); Anion Gap 9 (12-20); Aspartate Amino Transferase 27 U/L (5-31); Blood Urea Nitrogen 18 mg/dL (9-16); Calcium 9.4 mg/dL (8.4-10.2); Carbon Dioxide 29 mmol/L (22-29); Chloride 110 mmol/L (96-108); Cholesterol 152 mg/dL (<200); Estimated Glomerular Filt Rate > 60; HDL Cholesterol 36 mg/dL (>40); Potassium 3.8 mmol/L (3.3-5.1); Sodium 144 mmol/L (135-145); Total Protein 7.3 g/dL (6.5-8.0); Triglycerides 102 mg/dL (<150)
== END 2025-08-24 07:59 | disposition home or self-care (01) ==
LOC: HO.LAB 07:58
PROVIDERS: Absent Provider Internal Medicine; PCP Internal Medicine; Visit Provider Internal Medicine Endocrinology, Diabetes & Metabolism
DX: M80.00XA Age-related osteoporosis with current pathological fracture, unspecified site, initial encounter for fracture (principal); E78.5 Hyperlipidemia, unspecified; I42.9 Cardiomyopathy, unspecified
CPT/HCPCS: 36415; 80048; 80053; 80061; 82306

== ENCOUNTER 2025-09-04 08:17 | Outpatient (AMB) | payer MEDICARE, OTHER, SELFPAY ==
--- NOTE | 2025-09-04 08:22 | A.OFFVIS_ITS ---
Vital Signs 09/04/25 08:23 Height 4 ft 11.8 in Weight 105 lb 9.623 oz BMI 20.8 BP 138/74 Blood Pressure Location Lt brachial Position Sitting Pulse 64 Pulse Source Pulse Oximeter Pulse Oximetry (%) 98 Oxygen Delivery Method Room Air Intake Visit Reasons: f/u osteoporosis/Prolia Intake Note: Patient present today for Osteoporosis follow up visit. Visual Basic Developer Required: No Accompanied by: Self / Same As Patient Allergies iodine Allergy (Severe, Verified 09/04/25 08:23) swelling, rash Medication List - Last Reconciled 09/04/25 by Karlos Crowe MD aspirin (Adult Low Dose Aspirin) 81 mg PO BEDTIME 90 days atorvastatin 80 mg PO BEDTIME 90 days carvedilol 12.5 mg PO DAILY famotidine (Pepcid) 20 mg PO BEDTIME losartan 100 mg PO DAILY 90 days mirtazapine 7.5 mg PO BEDTIME HPI Comments Details: 75 YO Female with is seen in consultation at the request of PCP for Osteoporosis. First diagnosed in 6 mos ago . Received treatment in the past with alendronate , 6 mos ago for 2 mos . Was not able to Tolerate treatment well because of gastrointestinal side effects history of pathologic fracture in wrist bathroom fall or ONJ. Has several servings of dietary calcium per day Takes Calcium supplement 600 mg mg daily in divided doses. Takes ? IU of Vitamin D daily. uses PPI, but no anticoagulant, antiepileptic or glucocorticoid medication. Does weight bearing exercise walks every days per week in the form of walking . Fracture history: as above Height loss: Y CLAIMS AGENT RIGHT OF WAY history: menoapause at age 48 Denies history of Kidney stones: Has family history of Osteoporosis or hip fracture in sister UTD on dental cleanings and sees dentist every 6 months. No planned upcoming dental work or extractions.Has implants scheduled DXA dated 07/05/21 T Score -3.9 LS]: Labs: Secondary workup was negative. On alendrnate but having GI issues . Travels back and forth to [place] and can't recive anabolicc therapies. Wants to go with Prolia. Received a Prolia injection in January 2023. Due for another Prolia injection today Had a new compression fracture on the Prolia in 08/2024. Due for another Prolia injection today The patient is a 75-year-old female presenting with concerns about the effectiveness of her current osteoporosis treatment. She has been receiving Prolia (denosumab) injections but recently experienced a spinal compression fracture after a significant fall. The incident has raised questions regarding the adequacy of Prolia in maintaining her bone density, as her low bone density persists, presenting a risk for future fractures, including hip fractures. This risk is heightened due to her active lifestyle, including frequent travel to [place] during aguilar. Alternative treatment options were reviewed, highlighting the possibility of transitioning from Prolia to Evenity (romosozumab). Evenity requires monthly office visits, creating logistical challenges due to the patient's travel patterns. While the benefits of increased bone density and reduced fracture risk were considered, the patient decided to continue with Prolia to maintain her travel routine and due to concerns about accessibility and insurance coverage for Evenity. Receiving a Prolia injection today currently on Prolia since 2022. No fracture since last visit.Contin ued back pain of same quality [facility] Medical History Compression fracture of T12 vertebra Sick sinus syndrome Carotid artery disease Memory loss Tubular adenoma Stenosis of right subclavian artery Dyslipidemia Cardiomyopathy GERD (gastroesophageal reflux disease) Essential hypertension Surgical History History of hysterectomy History of esophagogastroduodenoscopy (EGD) Hx of colonoscopy History of surgical procedure on eye proper using laser History of pacemaker (~09/2012) Family History Father Cancer Mother Stroke Social History Household Members: None Housing: Apartment Alcohol intake: former Patient Tobacco Use Status: Current everyday Tobacco user Tobacco use type: Cigarette Cigarettes Per Day: 4 Years Smoked: 25 e-Cigarette/Vaping Use: Never Used Second Hand Smoke Exposure: No service: No Current occupational status: retired Cognitive needs: No Hearing needs: No Vision needs: Yes Female Reproductive History Menstrual Age of Menarche: 9 Physical Exam Vital Signs: BMI result Body Mass Index 20.8 Assessment & Plan Assessment & Plan (1) Osteoporosis: Code(s): M81.0 - Age-related osteoporosis without current pathological fracture Category: Medical Qualifiers: Osteoporosis type: age-related Presence of current pathological fracture: with current pathological fracture Encounter type: initial encounter Qualified Code(s): M80.00XA - Age-related osteoporosis with current pathological fracture, unspecified site, initial encounter for fracture Plan: This is a 75-year-old female with a history of osteoporosis. Secondary causes have been ruled out. Currently on Prolia but did have a compression f racture of T12 on Prolia since July 2023 Plan is to continue the Prolia for full 5 years. We will receive injection today. We will repeat DEXA bone density of hip and spine. Did tell patient to report any new fractures. Also explained the difference between Prolia which is anti resorptive verse Evenity which is anabolic and the benefits of taking anabolic but patient can not commit to getting an injection once a month for 12 months as she travels back and forth to [place] Orders: Orders XR DEXA axial skeleton Today M80.00XA - Age-related osteoporosis with current pathological fracture, unspecified site, initial encounter for fracture Coding Level of Care Code Est Pt Level 3 (82887) Diagnoses Age-related osteoporosis with current pathological fracture, initial encounter M80.00XA Osteoporosis type: age-related Presence of current pathological fracture: with current pathological fracture Encounter type: initial encounter
[2025-09-04 08:23] VITALS: BP 138/74; PULSE 64; O2SAT 98; BMI 20.8
--- OUTSIDE RECORDS SUMMARY | 2025-09-04 08:36 | XMS_ITS | Encounter Summary ---
Author Organization [facility] Address [address] [place] [address] [place] [address] Phone Care Team Providers Care Director Trust Name Role Phone Unknown, Unknown Primary Care Provider Abby Jaramillo MD Primary Care Provider Encounter Details Date Type Department Care Team (Late st Contact Info) Description 01/25/2018 Ancillary Orders [address] [address] Abby Hale PA-C [address] [place] [address] Orthopedics & Sports Medicine, [place] [address] [email or web address] Left wrist pain Social History Tobacco Use [...] forearm documented in this encounter Care Teams Director Trust Relationship Specialty Start Date End Date Unknown, Unknown, MD PCP - General 12/11/17 05/11/18 Abby Ordaz MD [address] [place] [id number] PCP - General Family Medicine 05/12/18 documented as of this encounter Additional Source Comments The information contained in this document represents components of the legal health record. It is not the complete legal health record.[facility]
--- OUTSIDE RECORDS SUMMARY | 2025-09-04 08:37 | XMS_ITS | Encounter Summary ---
Author Organization [facility] Address [address] [place] [address] Phone Care Team Providers Care Director Of Web Marketing Name Role Phone Unknown, Unknown Primary Care Provider Abby Jaramillo MD Primary Care Provider Encounter Details Date Type Department Care Team (Late st Contact Info) Description 01/25/2018 Ancillary Orders [facility] Orthopedics & Sports Medicine [address] [place] [address] Abby Hale PA-C [address] [place] [address] Orthopedics & Sports Medicine, [facility] [place] [address] [email or web address] Social History Tobacco Use Types [...] on filedocumented in this encounter Care Teams Director Of Web Marketing Relationship Specialty Start Date End Date Unknown, Unknown, PCP - General 12/11/17 05/11/18 Abby Ordaz MD [address] [place] [id number] PCP - General Family Medicine 05/12/18 documented as of this encounter Additional Source Comments The information contained in this document represents components of the legal health record. It is not the complete legal health record.[facility]
--- OUTSIDE RECORDS SUMMARY | 2025-09-04 08:37 | XMS_ITS | Encounter Summary ---
Author Organization [facility] Address [address] [facility] [address] [place] [address] Phone Care Team Providers Care Acupressurist Name Role Phone Unknown, Unknown Primary Care Provider Abby Jaramillo MD Primary Care Provider Encounter Details Date Type Department Care Team (Late st Contact Info) Description 12/16/2017 Procedure Pass OR Admitting Dept - Virtual Department [address] [place] [address] Social History Tobacco Use Types Packs/Day Years [...] on filedocumented in this encounter Care Teams Acupressurist Relationship Specialty Start Date End Date Unknown, Unknown, PCP - General 12/11/17 05/11/18 Abby Ordaz MD [address] [place] [id number] PCP - General Family Medicine 05/12/18 documented as of this encounter Additional Source Comments The information contained in this document represents components of the legal health record. It is not the complete legal health record.[facility]
--- OUTSIDE RECORDS SUMMARY | 2025-09-04 08:37 | XMS_ITS | Clinical Summary ---
Author Organization [facility] Address [address] [facility] [address] [place] [address] Phone Care Team Providers Care In Shop Service Technician Name Role Phone Abby Ordaz MD Primary [...] this topic Medical Devices Implanted Type Area Fiberglass Dowel Drawing Operator Device Identifier Shelf Expiration Date Model / Serial / Lot Pacemaker Plate Hook Volar Distal Radius Geminus Narrow 3hole Left - Discontinued Per Contracts - [id number] Implanted:Qty: 1 on 12/16/2017 by Joellen Allison MD at [facility] Left: [employer]rist [employer] [id number] L-HP / / Peg Threaded Locking [id number] - [id number] Implanted:Qty: 2 on 12/16/2017 by Joellen Allison MD at [facility] Left: [employer]rist [employer] [id number] -TS / / Peg Threaded Locking 2.3x18mm - [id number] Implanted:Qty: 3 on 12/16/2017 by Joellen Allison MD at [facility] Left: Wrist [employer] [id number] -TS / / Screw Bone L10x3.5mm Locking Cortical Geminus Titanium Implantable Non-Sterile Fossa Specific Plating System - [id number] Implanted:Qty: 2 on 12/16/2017 by Joellen Allison MD at [facility] Left: Wrist [employer] [id number] -TS / / Screw Cortical Nonlocking 3.5x10mm - [id number] Implanted:Qty: 1 on 12/16/2017 by Joellen Allison MD at [facility] Left: Wrist [employer] [id number] -TS / / K-Wire Standard Tip [id number] - [id number] Implanted:Qty: 2 on 12/16/2017 by Joellen Allison MD at [facility] Left: Wrist [employer] [id number] / / Insurance MEDICARE PART A & B [facility] TOTAL CHOICE INDEMNITY MEDICARE PART A & B [facility] TOTAL CHOICE INDEMNITY MEDICARE PART A & B [id number] [place] [address] TOTAL CHOICE INDEMNITY MEDICARE PART A & B [facility] TOTAL CHOICE INDEMNITY MEDICARE PART A & B [employer] TOTAL CHOICE INDEMNITY MEDICARE PART A & B [facility] TOTAL CHOICE INDEMNITY MEDICARE PART A & B [facility] TOTAL CHOICE INDEMNITY MEDICARE PART A & B [employer] INDEMNITY MEDICARE PART A & [place] [address] [address] TOTAL CHOICE INDEMNITY Advance Directives For more information, please contact: [phone] (9AM - 5PM [facility], Thursday-Thursday) Documents on File Type Date Recorded Patient Shirt Hemmer Expl anation Healthcare Proxy 12/17/2017 11:03 AM * Full Code (Presumed) (Latest Code Status on File) Date Activated Date Inactivated Comments 12/16/2017 9:43 AM 12/16/2017 6:01 PM Care Teams In Shop Service Technician Relationship Specialty Start Date End Date Abby Ordaz MD [address] [place] [id number] PCP - General Family Medicine 05/12/18 Additional Source Comments The information contained in this document represents components of the legal health record. It is not the complete legal health record.[facility]
--- OUTSIDE RECORDS SUMMARY | 2025-09-04 08:37 | XMS_ITS | Encounter Summary ---
Author Organization [facility] Address [address] [facility] [address] [place] [address] Phone Care Team Providers Care Shopfitter Name Role Phone Unknown, Unknown Primary Care Provider Abby Jaramillo MD Primary Care Provider Encounter Details Date Type Department Care Team (Late st Contact Info) Description 04/22/2018 Procedure Pass [facility], Ct Scan - [address] [address] Social History Tobacco Use Types Packs/Day Years [...] on filedocumented in this encounter Care Teams Shopfitter Relationship Specialty Start Date End Date Unknown, Unknown, PCP - General 12/11/17 05/11/18 Abby Ordaz MD [address] [place] [id number] PCP - General Family Medicine 05/12/18 documented as of this encounter Additional Source Comments The information contained in this document represents components of the legal health record. It is not the complete legal health record.[facility]
--- OUTSIDE RECORDS SUMMARY | 2025-09-04 08:37 | XMS_ITS | Encounter Summary ---
Author Organization [facility] Address [address] [place] [address] Phone Care Team Providers Care Correctional Program Specialist Name Role Phone Unknown, Unknown Primary Care Provider Abby Jaramillo MD Primary Care Provider Encounter Details Date Type Department Care Team (Late st Contact Info) Description 12/29/2017 Ancillary Orders [facility] Orthopedics & Sports Medicine [address] [place] [address] Abby Hale PA-C [address] [place] [address] Orthopedics & Sports Medicine, [place] [address] [email or web address] Social History Tobacco Use Types Packs/Day Years [...] on filedocumented in this encounter Care Teams Correctional Program Specialist Relationship Specialty Start Date End Date Unknown, Unknown, PCP - General 12/11/17 05/11/18 Abby Ordaz MD [address] [place] [id number] PCP - General Family Medicine 05/12/18 documented as of this encounter Additional Source Comments The information contained in this document represents components of the legal health record. It is not the complete legal health record.[facility]
--- OUTSIDE RECORDS SUMMARY | 2025-09-04 08:37 | XMS_ITS | Encounter Summary ---
Author Organization [facility] Address [address] [place] [address] [place] [phone] Phone Care Team Providers Care Customer Advisor Specialist Name Role Phone Unknown, Unknown Primary Care Provider Abby Jaramillo MD Primary Care Provider Encounter Details Date Type Department Care Team (Late st Contact Info) Description 12/29/2017 Ancillary Orders [address] [address] Abby Hale PA-C [address] [place] [address] Orthopedics & Sports Medicine, [place] [address] [email or web address] Left wrist pain Social History Tobacco Use [...] forearm documented in this encounter Care Teams Customer Advisor Specialist Relationship Specialty Start Date End Date Unknown, Unknown, MD PCP - General 12/11/17 05/11/18 Abby Ordaz MD [address] [place] [address] PCP - General Family Medicine 05/12/18 documented as of this encounter Additional Source Comments The information contained in this document represents components of the legal health record. It is not the complete legal health record.[facility]
--- OUTSIDE RECORDS SUMMARY | 2025-09-04 08:37 | XMS_ITS | Encounter Summary ---
Author Organization [facility] Address [address] [place] [address] Phone Care Team Providers Care Cemetery Keeper Name Role Phone Unknown, Unknown Primary Care Provider Abby Jaramillo MD Primary Care Provider Encounter Details Date Type Department Care Team (Latest Contact Info) Description 12/15/2017 Prep for Surgery [facility] Orthopedics & Sports Medicine [address] [place] [address] Joellen Allison MD [address] [place] [address] Orthopedics & Sports Medicine, [facility] [place] [address] [email or web address] Other closed intra-articular fracture of distal end [...] Primary documented in this encounter Care Teams Cemetery Keeper Relationship Specialty Start Date End Date Unknown, Unknown, PCP - General 12/11/17 05/11/18 Abby Ordaz MD [address] [place] [address] [phone] PCP - General Family Medicine 05/12/18 documented as of this encounter Additional Source Comments The information contained in this document represents components of the legal health record. It is not the complete legal health record.[facility]
== END 2025-09-04 08:50 | disposition home or self-care (01) ==
LOC: HO.ENCR 08:18
PROVIDERS: PCP Internal Medicine; Visit Provider Internal Medicine Endocrinology, Diabetes & Metabolism
DX: M80.00XA Age-related osteoporosis with current pathological fracture, unspecified site, initial encounter for fracture (principal)
CPT/HCPCS: 99213

== ENCOUNTER → 2025-09-04 08:17 | Outpatient (BNVA) | payer MEDICARE, OTHER, SELFPAY | PROVIDERS: PCP Internal Medicine; Visit Provider Internal Medicine Endocrinology, Diabetes & Metabolism | DX: M80.08XA Age-related osteoporosis with current pathological fracture, vertebra(e), initial encounter for fracture (principal) | CPT/HCPCS: 96372; 99212; J0897 ==

== ENCOUNTER 2025-09-05 09:04 | Outpatient (AMB) | payer MEDICARE, OTHER, SELFPAY ==
--- NOTE | 2025-09-05 09:13 | A.OFFVIS_ITS ---
Intake Vital Signs 09/05/25 09:18 Height 4 ft 11.8 in Weight 105 lb 6 oz BMI 20.7 BP 122/84 Blood Pressure Location Lt brachial Position Sitting Pulse 60 Pulse Source Pulse Oximeter Pulse Oximetry (%) 99 Oxygen Delivery Method Room Air Intake Visit Reasons: SWV G0439 Prekindergarten Teacher Required: No Accompanied by: Self / Same As Patient Allergies iodine Allergy (Severe, Verified 09/05/25 09:39) swelling, rash Medication List - Last Reconciled 09/05/25 by Lucy Hodge MD aspirin (Adult Low Dose Aspirin) 81 mg PO BEDTIME 90 days atorvastatin 80 mg PO BEDTIME 90 days carvedilol 12.5 mg PO DAILY famotidine (Pepcid) 20 mg PO BEDTIME losartan 100 mg PO DAILY 90 days mirtazapine 7.5 mg PO BEDTIME Do you need a note to return to daycare/school/sports/work: No HPI HPI Comments History of Present Illness Details PPP handed to patient. [place] of care reviewed and updated. The patient is a 75-year-old female presenting with a Medicare wellness exam and management of chronic conditions. The patient has a history of cardiomyopathy, for which a recent echocardiogram showed normal ejection fraction and no valvular abnormalities. She underwent this test approximately two weeks ago, and the results were satisfactory. The patient has severe osteoporosis, which is managed by endocrinology with Prolia injections every six months. She received her latest injection yesterday. The patient reports moderate depression with a PHQ-9 score of 12. She is currently prescribed mirtazapine to manage her symptoms. The patient experiences severe back pain, particularly in the lower back, which has persisted since a fall last year. She has been advised to undergo physical therapy, although the logistics of this are yet to be arranged. The patient has a known allergy to iodine. Preventative care measures include a colonoscopy performed in 2022, which revealed tubular adenomas, and a bone density screening indicating severe osteoporosis. Vaccinations discussed include tetanus and influenza, which are planned for administration during this visit. [facility] Medical History Compression fracture of T12 vertebra Sick sinus syndrome Carotid artery disease Memory loss Tubular adenoma Stenosis of right subclavian artery Dyslipidemia Cardiomyopathy GERD (gastroesophageal reflux disease) Essential hypertension Surgical History History of hysterectomy History of esophagogastroduodenoscopy (EGD) Hx of colonoscopy History of surgical procedure on eye proper using laser History of pacemaker (~09/2012) Family History Father Cancer Mother Stroke Social History Household Members: None Housing: Apartment Alcohol intake: former Patient Tobacco Use Status: Current everyday Tobacco user Tobacco use type: Cigarette Cigarettes Per Day: 4 Years Smoked: 25 e-Cigarette/Vaping Use: Never Used Second Hand Smoke Exposure: No service: No Current occupational status: retired Cognitive needs: No Hearing needs: No Vision needs: Yes Female Reproductive History Menstrual Age of Menarche: 9 Questionnaire Medicare Wellness Checkup [age] What gender do you identify with?: female During the past 4 weeks, how much have you been bothered by emotional problems such as feeling anxious, depressed, irritable, sad or downhearted, and blue?: not at all During the past 4 weeks, has your physical & emotional health limited your social activities with family, friends, neighbors, or groups?: not at all During the past 4 weeks, how much bodily pain have you generally had?: mild pain During the past 4 weeks, was someone available to help you if you needed & wanted help?: yes, quite a bit During the past 4 weeks, what was the hardest physical activity you could do for at least 2 minutes?: light Can you get to places out of walking distance without help? (For eg., can you travel alone on buses, taxis or drive your car?): Yes Can you go shopping for groceries or clothes without someone's help?: No Can you prepare your own meals?: Yes Can you do your housework without help?: Yes Because of any health problems, do you need the help of another person with your personal care needs such as eating, bathing, dressing or getting around the house?: No Can you handle your own money without help?: No During the past 4 weeks, how would you rate your health in general?: good During the past 4 weeks how have things been going for you?: good & bad parts about equal Are you having difficulties driving your car?: no Do you always fasten your seat belt when you are in a car?: yes, usually During past 4 weeks, have you been bothered by the following: never: Falling or dizzy when standing up, Sexual problems?, Trouble eating well?, Teeth or denture problems?, Problems using the telephone? and Tiredness or fatigue? Have you fallen 2 or more times in the past year?: No Are you afraid of falling?: Yes Are you a smoker?: yes, and I might quit During the past 4 weeks, how many drinks of wine, beer, or other alcoholic beverages did you have?: no alcohol at all Do you exercise for about 20 minutes 3 or more times a week?: yes, most of the time Have you been given information to help with the following?: yes: Hazards in your house that might hurt you? and yes: Keeping track of your medications? How often do you have trouble taking medicines the way you have been told to take them?: I always take medicine as prescribed How confident are you that you can control & manage most of your health problems?: very confident What is your race?: or origin or descent Mini Mental State Exam (MMSE) Orientation What is the (year) (season) (date) (day) (month)?: year, season, date, day and month Where are we (state) (county) (town or city) (hospital) (floor)?: state, county, town or city, hospital/clinic and floor Registration Name of 3 unrelated objects clearly and slowly, then ask patient to repeat all 3 of them. (1st repeat determines score. Make sure they can repeat all three): object 1, object 2 and object 3 Attention & Calculation (CHOOSE ONE) Spell WORLD backwards (DLROW): 5 letters Recall Ask patient to repeat the 3 items from question #3.: object 1 and object 2 Language Show patient a wristwatch & ask what it is. Repeat for pencil.: watch and pencil Ask the patient to repeat the phrase 'No ifs, ands, or buts' after you.: correct Ask the patient to 'take a piece of paper with their right hand' 'fold paper in half' 'place paper on floor': take paper in right hand, fold paper in half and place paper on floor Print the sentence 'CLOSE YOUR EYES' on a piece. If patient actually closes eyes then score.: followed written direction Give patient a blank piece of paper & ask to write a sentence. Score if it contains a noun & verb.: sentence contains subject and verb Ask patient to copy figure of intersecting pentagons exactly. Score if all 10 angles & 2 intersects are included.: all 10 angles present & 2 are intersected Score Score: 29 Activity of Daily Living Bathing - sponge bath, tub bath or shower: receives no assistance (gets in/out by self, if usual bathing means Dressing - getting clothes from closets & drawers, including inner/outer garments & fasteners.: gets clothes & gets completely dressed without help Toileting - going to the 'toilet room' for urine/bowel elimination & cleaning self/arranging clothes: goes to toilet room, cleans self, arranges clothes without help Transfer: moves in & out of bed and chair without help (may use support object) Continence: controls urination/bowel movements completely by self Feeding: feeds self without help Total Score: 0 Information obtained from: patient Using telephone: independent Traveling: independent Shopping: needs assistance Preparing meals: independent Housework: independent Taking medicine: independent Managing money: independent PHQ-9 Over the last 2 weeks, how often have you been bothered by any of the following problems? 1. Little interest or pleasure in doing things: not at all 2. Feeling down, depressed, or hopeless: not at all 3. Trouble falling or staying asleep, or sleeping too much: more than half the days 4. Feeling tired or having little energy: more than half the days 5. Poor appetite or overeating: more than half the days 6. Feeling bad about yourself - or that you are a failure or have let yourself or your family down: more than half the days 7. Trouble concentrating on things, such as reading the newspaper or watching television: more than half the days 8. Moving or speaking so slowly that other people could have noticed. Or the opposite - being so fidgety or restless that you have been moving around a lot more than usual: more than half the days 9. Thoughts that you would be better off or of hurting yourself in some way: not at all Total score: 12 Depression Screening Interpretation: Positive Depression Screening Follow-up: Existing condition, In treatment and Follow-up Visit Requested Depression Screening Done: Yes 90571 - PHQ-9 Billing: Yes Source: Developed by Drs. Karlos Espinosa, Denae Buckley, Aayush Veliz and colleagues, with an educational juliet from [employer] PHQ-2/PHQ-9 PHQ-2 Over the last 2 weeks, how often have you been bothered by any of the following problems? 1. Little interest or pleasure in doing things: not at all 2. Feeling down, depressed, or hopeless: not at all Total score: 0 If score is 3 or greater, continue 3. Trouble falling or staying asleep, or sleeping too much: more than half the days 4. Feeling tired or having little energy: more than half the days 5. Poor appetite or overeating: more than half the days 6. Feeling bad about yourself - or that you are a failure or have let yourself or your family down: more than half the days 7. Trouble concentrating on things, such as reading the newspaper or watching television: more than half the days 8. Moving or speaking so slowly that other people could have noticed. Or the opposite - being so fidgety or restless that you have been moving around a lot more than usual: more than half the days 9. Thoughts that you would be better off or of hurting yourself in some way: not at all Total score: 12 0-4 None-Minimal, 5-9 Mild, 10-14 Moderate, 15-19 Moderately Severe, 20-27 Severe Source: Developed by Drs. Karlos Espinosa, Deane Buckley, Aayush Veliz and colleagues, with an educational juliet from [employer] Thrive Questionnaire Date Thrive assessed: 05/03/25 I am a: Patient What is your living situation today?: I have a steady place to live Within the past 12 months, did the food you bought not last and you didn't have the money to get more?: Never true Within the past 12 months, did you worry whether your food would run out before you got money to buy more?: Never true Do you have trouble paying for medicines?: No Do you have trouble getting transportation to medical appointments?: No Do you have trouble paying your heating and electricity bill?: No Do you have trouble taking care of your child, family member or friend?: No Do you have trouble with day-to-day activities such as bathing, preparing meals, shopping, managing finances, etc.?: No Are you currently unemployed and looking for a job?: No Are you interested in more education?: No Please select the resources that you would like help with: None Currently or been in a relationship where the following occur: No concerns reported THRIVE Score: 0 DELIA-7 AMB Questionnaire DELIA-7 Date DELIA - 7 assessed: 03/01/25 Source: Developed by Drs. Karlos Espinosa, Denae Buckley, Aayush Veliz and colleagues, with an educational juliet from [employer] Review of Systems Const All systems reviewed & are unremarkable except as noted in HPI and below Card Denies chest pain at rest, Denies chest pain with activity, Denies edema, Denies irregular heart rhythm, Denies claudication, Denies dyspnea, Denies dyspnea on exertion, Denies orthopnea, Denies paroxysmal nocturnal dyspnea and Denies slow heart rate Resp Denies cough, Denies dyspnea and Denies dyspnea on exertion GI Denies abdominal pain, Denies change in bowel habits, Denies excessive flatus, Denies nausea and Denies vomiting Neuro Denies lack of coordination Physical Exam Vital Signs: Last Vital Signs Pulse 60 09/05/25 09:18 BP 122/84 09/05/25 09:18 Pulse Ox 99 09/05/25 09:18 Oxygen Delivery Method Room Air 09/05/25 09:18 BMI result Body Mass Index 20.7 Resp Effort & Inspection: normal respiratory effort Auscultation: clear to auscultation bilaterally Cardio Jugular venous distension: no JVD Rate: regular rate Rhythm: regular rhythm Heart sounds: S1 normal heart sound present and S2 normal heart sound present Neuro Romberg Test: Negative Extrem General: Yes full ROM Office Procedures Flu Questionnaire Does the patient have a severe egg allergy?: No Does the patient have severe life threatening allergies?: No Does the patient have a fever or illness today?: No Has the patient ever had Guillain-Stirum Syndrome?: No Has the patient ever had any past reaction to a flu shot?: No Immunizations Fluarix [id number] (PF) 45 mcg (15 mcg x 3)/0.5 mL IM syringe Performing Provider: Lucy Hodge MD Performing Location: [facility] Administered by: NATHAN Anderson on 09/05/25 10:08 Dose Route Admin Location Dispensed Lot Number Expiration Date NDC Car Customizer 0.5 mL IM Left Deltoid 0.5 mL [id number] 05/29/26 11387-232-60 GLAXO SMITHKLINE VIS Given Date VIS Provided VIS Publication Date 09/05/25 Single Vaccine 24 Eligibility Eligibility Date Funding Source Not VFC Eligible 09/05/25 Private Tenivac (PF) 5 Lf unit-2 Lf unit/0.5 mL intramuscular syringe Performing Provider: Lucy Hodge MD Performing Location: [facility] Administered by: NATHAN Anderson on 09/05/25 10:08 Dose Route Admin Location Dispensed Lot Number Expiration Date ND Car Customizer 0.5 mL IM Left Deltoid 0.5 mL [id number] 02/28/27 [id number] SANOF I-PASTEUR Total Dispensed Waste 0.5 mL 0 % VIS Given Date VIS Provided VIS Publication Date 09/05/25 Single Vaccine 21 Eligibility Eligibility Date Funding Source Not VFC Eligible 09/05/25 Private Assessment & Plan Assessment & Plan (1) Medicare annual wellness visit, subsequent: Code(s): Z00.00 - Encounter for general adult medical examination without abnormal findings (2) Back pain: Code(s): M54.9 - Dorsalgia, unspecified (3) Cardiomyopathy: Code(s): I42.9 - Cardiomyopathy, unspecified Qualifiers: Cardiomyopathy type: unspecified Qualified Code(s): I42.9 - Cardiomyopathy, unspecified (4) Mild recurrent major depression: Code(s): F33.0 - Major depressive disorder, recurrent, mild Plan Plan Patient was informed and verbally consented to the use of an ambient scribe for clinic note documentation during this visit. 1. Cardiomyopathy The patient underwent an echocardiogram two weeks ago, which showed normal ejection fraction and no valvular abnormalities. No further immediate interventions are required for cardiomyopathy at this time. 2. Depression The patient reports moderate depression with a PHQ-9 score of 12. She is currently on mirtazapine. Consideration for counseling or therapy may be beneficial if symptoms persist. 3. Severe Back Pain The patient experiences severe lower back pain since a fall last year. Physical therapy has been recommended, and arrangements for therapy sessions are to be made. 4. Preventative Care Preventative care measures include a colonoscopy in 2022 revealing tubular adenomas and a bone density screening indicating severe osteoporosis. Vaccinations for tetanus and influenza are planned for administration during this visit. Orders: Orders PT Evaluation and Treatment Today M54.9 - Dorsalgia, unspecified Influenza 5050-6914 Immunization Today Z23 - Encounter for immunization Td Immunization Today Z23 - Encounter for immunization Quality Reporting (2019) Depression/Bipolar (159/160/161/177) PHQ-9: Total score: 12 Coding Level of Care Code Medicare Subsequent (G0439) Est Pt Level 3 (47534) Diagnoses Medicare annual wellness visit, subsequent Z00.00 Back pain M54.9 Cardiomyopathy, unspecified type I42.9 Cardiomyopathy type: unspecified Mild recurrent major depression F33.0 Additional Codes PHQ-9 - 67443 - PHQ-9 Billing: Yes ([id number]) Time Spent (min) 36
[2025-09-05 09:18] VITALS: BP 122/84; PULSE 60; O2SAT 99; BMI 20.7
--- OUTSIDE RECORDS SUMMARY | 2025-09-05 09:58 | XMS_ITS | Encounter Summary ---
Author Organization [facility] Address [address] [place] [address] [place] [id number] Phone Care Team Providers Care Patient Relations Liaison Name Role Phone Unknown, Unknown Primary Care Provider Abby Jaramillo MD Primary Care Provider Encounter Details Date Type Department Care Team (Late st Contact Info) Description 01/25/2018 Ancillary Orders [address] [address] Abby Hale PA-C [address] [place] [address] Orthopedics & Sports Medicine, [place] [address] [email or web address] Left wrist pain Social [...] forearm documented in this encounter Care Teams Patient Relations Liaison Relationship Specialty Start Date End Date Unknown, Unknown, MD PCP - General 12/11/17 05/11/18 Abby Ordaz MD [address] [place] [id number] PCP - General Family Medicine 05/12/18 documented as of this encounter Additional Source Comments The information contained in this document represents components of the legal health record. It is not the complete legal health record.[facility]
--- OUTSIDE RECORDS SUMMARY | 2025-09-05 09:59 | XMS_ITS | Clinical Summary ---
Author Organization [facility] Address [address] [facility] [address] [place] [address] Phone Care Team Providers Care Business Editor Name Role Phone Abby Ordaz MD Primary [...] VACCINE (#1) 2025 COVID-19 VACCINE ( - 2024-2 6 season) 2025 HEPATITIS A VACCINES Aged Out [...] this topic Medical Devices Implanted Type Area Layout Former Device Identifier Shelf Expiration Date Model / Serial / Lot Pacemaker Plate Hook Volar Distal Radius Geminus Narrow 3hole Left - Discontinued Per Contracts - [id number] Implanted:Qty: 1 on 12/16/2017 by Joellen Allison MD at [facility] Left: [employer]rist [employer] [id number] L-HP / / Peg Threaded Locking [id number] - [id number] Implanted:Qty: 2 on 12/16/2017 by Joellen Allison MD at [facility] Left: [employer]rist [employer] [id number] -TS / / Peg Threaded Locking 2.3x18mm - [id number] Implanted:Qty: 3 on 12/16/2017 by Joellen Allison MD at [facility] Left: [employer]rist [employer] [id number] -TS / / Screw Bone L10x3.5mm Locking Cortical Geminus Titanium Implantable Non-Sterile Fossa Specific Plating System - [id number] Implanted:Qty: 2 on 12/16/2017 by Joellen Allison MD at [facility] Left: [employer]rist [employer] [id number] -TS / / Screw Cortical Nonlocking 3.5x10mm - [id number] Implanted:Qty: 1 on 12/16/2017 by Joellen Allison MD at [facility] Left: [employer]rist [employer] [id number] -TS / / K-Wire Standard Tip [id number] - [id number] Implanted:Qty: 2 on 12/16/2017 by Joellen Allison MD at [facility] Left: [employer]rist [employer] [id number] / / Insurance MEDICARE PART A & B [facility] TOTAL CHOICE INDEMNITY MEDICARE PART A & B [facility] TOTAL CHOICE INDEMNITY MEDICARE PART A & B [id number] [place] [address] TOTAL CHOICE INDEMNITY MEDICARE PART A & B [facility] TOTAL CHOICE INDEMNITY MEDICARE PART A & B [employer] TOTAL CHOICE INDEMNITY MEDICARE PART A & B [facility] TOTAL CHOICE INDEMNITY MEDICARE PART A & B [facility] TOTAL CHOICE INDEMNITY MEDICARE PART A & B [employer] INDEMNITY MEDICARE PART A & [place] [address] [place] [address] TOTAL CHOICE INDEMNITY Advance Directives For more information, please contact: [phone] (9AM - 5PM Nesha/[facility], Thursday-Thursday) Documents on File Type Date Recorded Patient Wind Field Manager Expl anation Healthcare Proxy 12/17/2017 11:03 AM * Full Code (Presumed) (Latest Code Status on File) Date Activated Date Inactivated Comments 12/16/2017 9:43 AM 12/16/2017 6:01 PM Care Teams Business Editor Relationship Specialty Start Date End Date Abby Ordaz MD [address] [place] [id number] PCP - General Family Medicine 05/12/18 Additional Source Comments The information contained in this document represents components of the legal health record. It is not the complete legal health record.[facility]
--- OUTSIDE RECORDS SUMMARY | 2025-09-05 09:59 | XMS_ITS | Encounter Summary ---
Author Organization [facility] Address [address] [facility] [address] [place] [address] Phone Care Team Providers Care Field Recorder Name Role Phone Unknown, Unknown Primary Care Provider Abby Jaramillo MD Primary Care Provider Encounter Details Date Type Department Care Team (Late st Contact Info) Description 04/22/2018 Procedure Pass [facility], Ct Scan - [address] [address] Social History Tobacco Use Types Packs/Day Years [...] on filedocumented in this encounter Care Teams Field Recorder Relationship Specialty Start Date End Date Unknown, Unknown, PCP - General 12/11/17 05/11/18 Abby Ordaz MD [address] [place] [id number] PCP - General Family Medicine 05/12/18 documented as of this encounter Additional Source Comments The information contained in this document represents components of the legal health record. It is not the complete legal health record.[facility]
--- OUTSIDE RECORDS SUMMARY | 2025-09-05 09:59 | XMS_ITS | Encounter Summary ---
Author Organization [facility] Address [address] [place] [address] Phone Care Team Providers Care Transfer Table Operator Helper Name Role Phone Unknown, Unknown Primary Care Provider Abby Jaramillo MD Primary Care Provider Encounter Details Date Type Department Care Team (Late st Contact Info) Description 12/29/2017 Ancillary Orders [facility] Orth[facility]ics & Sports Medicine [address] [place] [address] Abby Hale PA-C [address] [place] [address] Orthopedics & Sports Medicine, [place] [address] [email or web address] Social History Tobacco Use [...] on filedocumented in this encounter Care Teams Transfer Table Operator Helper Relationship Specialty Start Date End Date Unknown, Unknown, PCP - General 12/11/17 05/11/18 Abby Ordaz MD [address] [place] [id number] PCP - General Family Medicine 05/12/18 documented as of this encounter Additional Source Comments The information contained in this document represents components of the legal health record. It is not the complete legal health record.[facility]
--- OUTSIDE RECORDS SUMMARY | 2025-09-05 09:59 | XMS_ITS | Encounter Summary ---
Author Organization [facility] Address [address] [place] [address] Phone Care Team Providers Care Edge Plugger Name Role Phone Unknown, Unknown Primary Care Provider Abby Jaramillo MD Primary Care Provider Encounter Details Date Type Department Care Team (Latest Contact Info) Description 12/15/2017 Prep for Surgery [facility] Orthopedics & Sports Medicine [address] [place] [address] Joellen Allison MD [address] [place] [address] Orthopedics & Sports Medicine, [place] [address] [email or web address] Other closed intra-articular fracture of distal end [...] Primary documented in this encounter Care Teams Edge Plugger Relationship Specialty Start Date End Date Unknown, Unknown, PCP - General 12/11/17 05/11/18 Abby Ordaz MD [address] [place] [address] [phone] PCP - General Family Medicine 05/12/18 documented as of this encounter Additional Source Comments The information contained in this document represents components of the legal health record. It is not the complete legal health record.[facility]
--- OUTSIDE RECORDS SUMMARY | 2025-09-05 09:59 | XMS_ITS | Encounter Summary ---
Author Organization [facility] Address [address] [place] [address] [place] [address] Phone Care Team Providers Care Resaw Tailer Name Role Phone Unknown, Unknown Primary Care Provider Abby Jaramillo MD Primary Care Provider Encounter Details Date Type Department Care Team (Late st Contact Info) Description 12/29/2017 Ancillary Orders [address] [address] Abby Hael PA-C [address] [place] [address] Orthopedics & Sports Medicine, [place] [address] [email or web address] Left wrist pain Social History Tobacco Use [...] forearm documented in this encounter Care Teams Resaw Tailer Relationship Specialty Start Date End Date Unknown, Unknown, MD PCP - General 12/11/17 05/11/18 Abby Ordaz MD [address] [place] [address] PCP - General Family Medicine 05/12/18 documented as of this encounter Additional Source Comments The information contained in this document represents components of the legal health record. It is not the complete legal health record.[facility]
--- OUTSIDE RECORDS SUMMARY | 2025-09-05 09:59 | XMS_ITS | Encounter Summary ---
Author Organization [facility] Address [address] [facility] [address] [phone] Phone Care Team Providers Care Hair Boiler Name Role Phone Unknown, Unknown Primary Care Provider Abby Jaramillo MD Primary Care Provider Encounter Details Date Type Department Care Team (Late st Contact Info) Description 12/16/2017 Procedure Pass OR Admitting Dept - Virtual Department [address] [place] [address] Social History Tobacco Use Types Packs/Day Years [...] on filedocumented in this encounter Care Teams Hair Boiler Relationship Specialty Start Date End Date Unknown, Unknown, PCP - General 12/11/17 05/11/18 Abby Ordaz MD [address] [place] [phone] PCP - General Family Medicine 05/12/18 documented as of this encounter Additional Source Comments The information contained in this document represents components of the legal health record. It is not the complete legal health record.[facility]
--- OUTSIDE RECORDS SUMMARY | 2025-09-05 09:59 | XMS_ITS | Encounter Summary ---
Author Organization [facility] Address [address] [place] [address] Phone Care Team Providers Care Cause Analyst Name Role Phone Unknown, Unknown Primary Care Provider Abby Jaramillo MD Primary Care Provider Encounter Details Date Type Department Care Team (Late st Contact Info) Description 01/25/2018 Ancillary Orders [facility] Orthopedics & Sports Medicine [address] [place] [address] Abby Hale PA-C [address] [place] [address] Orthopedics & Sports Medicine, [place] [address] [email or web address] Social History Tobacco Use Types Packs/Day Years [...] on filedocumented in this encounter Care Teams Cause Analyst Relationship Specialty Start Date End Date Unknown, Unknown, PCP - General 12/11/17 05/11/18 Abby Ordaz MD [address] [place] [address] PCP - General Family Medicine 05/12/18 documented as of this encounter Additional Source Comments The information contained in this document represents components of the legal health record. It is not the complete legal health record.[facility]
== END 2025-09-05 11:15 | disposition home or self-care (01) ==
LOC: HO.HMCH 09:05
PROVIDERS: PCP Internal Medicine; Visit Provider Internal Medicine
DX: Z00.00 Encounter for general adult medical examination without abnormal findings (principal); M54.9 Dorsalgia, unspecified; I42.9 Cardiomyopathy, unspecified; F33.0 Major depressive disorder, recurrent, mild; Z23 Encounter for immunization

== ENCOUNTER → 2025-09-05 09:04 | Outpatient (BNVA) | payer MEDICARE, OTHER, SELFPAY | PROVIDERS: PCP Internal Medicine; Visit Provider Internal Medicine | DX: Z00.00 Encounter for general adult medical examination without abnormal findings (principal); M81.0 Age-related osteoporosis without current pathological fracture; M54.50 Low back pain, unspecified; I42.9 Cardiomyopathy, unspecified; F33.0 Major depressive disorder, recurrent, mild; Z23 Encounter for immunization | CPT/HCPCS: 90471; 90472; 90656; 90714; 96127; 99212 ==

== ENCOUNTER 2025-09-12 09:46 | Outpatient (REF) | payer OTHER, SELFPAY | END 2025-09-12 09:47 | disposition home or self-care (01) | LOC: HO.LAB 09:46 | PROVIDERS: Visit Provider Nurse Practitioner Family | DX: R31.29 Other microscopic hematuria (principal); F17.200 Nicotine dependence, unspecified, uncomplicated; Z13.89 Encounter for screening for other disorder | CPT/HCPCS: 81003; 88112 ==

== ENCOUNTER 2025-09-12 09:46 | Outpatient (AMB) | payer OTHER, SELFPAY ==
--- NOTE | 2025-09-12 09:56 | MHC.OFFVIS ---
Intake Visit Reasons: 1Y/ Microscopic hematuria Intake Note: Patient is present for 1Y/ MICROSCOPIC HEMATURIA Urology Medication:NONE Antibiotic Allergy:NONE Blood Thinner:ASPIRIN Act English Tutor Required: No Allergies iodine Allergy (Severe, Verified 09/12/25 10:55) swelling, rash Medication List - Last Reconciled 09/12/25 by GERMAINE Mae aspirin (Adult Low Dose Aspirin) 81 mg PO BEDTIME 90 days atorvastatin 80 mg PO BEDTIME 90 days carvedilol 12.5 mg PO DAILY famotidine (Pepcid) 20 mg PO BEDTIME losartan 100 mg PO DAILY 90 days mirtazapine 7.5 mg PO BEDTIME HPI Comments Details: Sabina is a very pleasant 75-year-old female patient of Dr. Hazel. She has a past medical history of nicotine dependence, sick sinus syndrome, carotid artery disease, memory loss, dyslipidemia, cardiomyopathy, GERD, and hypertension. She presents to the office today for follow-up of her microscopic hematuria. In discussion with the patient today she reports to be doing and feeling well. She discusses her upcoming trip to [place] the end of the month for the holidays. She discusses she continues to follow-up with her PCP for ongoing lumbar discomfort she continues to experience status post a fall last summer. She denies having had any bothersome urinary issues since her last office visit here. Previous workup has included renal ultrasound as patient has allergy to contrast dye. She also underwent bilateral retrogrades in the OR with Dr. Gibson Riggs that was noted to be WNL. She does continue with nicotine dependence. She reports smoking approximately 3-5 cigarettes per day. Urine cytology 07/23 Negative for high-grade urothelial carcinoma. Renal u/s 09/22 bilateral kidneys with no calculi, lesions, and or hydronephrosis. Normal renal ultrasound. In office urinalysis results reviewed with the patient today 2+ microscopic hematuria. We discussed potential causes of microscopic hematuria. Discussed further workup in risks and benefits of these interventions. She otherwise denies any bothersome urinary issues or concerns. She denies urinary urgency, urinary frequency, incontinence, nocturia, dysuria, foul smelling urine, changes to urinary stream, flank pain, fever, and or chills. She is happy with her current voiding parameters. [facility] Medical History Compression fracture of T12 vertebra Sick sinus syndrome Carotid artery disease Memory loss Tubular adenoma Stenosis of right subclavian artery Dyslipidemia Cardiomyopathy GERD (gastroesophageal reflux disease) Essential hypertension Surgical History History of hysterectomy History of esophagogastroduodenoscopy (EGD) Hx of colonoscopy History of surgical procedure on eye proper using laser History of pacemaker (~09/2012) Family History Father Cancer Mother Stroke Social History Household Members: None Housing: Apartment Alcohol intake: former Patient Tobacco Use Status: Current everyday Tobacco user Tobacco use type: Cigarette Cigarettes Per Day: 4 Years Smoked: 25 e-Cigarette/Vaping Use: Never Used Second Hand Smoke Exposure: No service: No Current occupational status: retired Cognitive needs: No Hearing needs: No Vision needs: Yes Female Reproductive History Menstrual Age of Menarche: 9 Review of Systems Eyes Reports no additional complaints ENT Reports no additional complaints Card Reports as per HPI Resp Reports no additional complaints GI Reports as per HPI Reports as per HPI Musc Reports no additional complaints Neuro Reports as per HPI Psych Reports no additional complaints Endo Reports no additional complaints Dusty/Lymph Reports no additional complaints Aller/Immun Reports no additional complaints Physical Exam Const General: cooperative, healthy appearing, comfortable, no acute distress, well developed, alert and awake Orientation/consciousness: patient oriented x3 Limitations: no limitations HEENT Head: Yes normal to inspection, Yes normocephalic and Yes atraumatic Ears: hearing grossly normal bilaterally Eyes General: appearance normal, both eyes and all related structures Neck Neck: Yes normal visual inspection and Yes trachea midline Chest Chest palpation & inspection: normal inspection of the chest Resp Effort & Inspection: normal respiratory effort and able to speak in complete sentences Cardio Rate: regular rate GI Inspection: Yes normal to inspection General: Yes no CVA tenderness Back/Spine/Pelvis Back: no CVA tenderness Skin General skin exam: no rashes or lesions noted Neuro General: patient oriented x3 Extrem General: Yes normal to inspection Psych Appearance: grossly normal and well kempt Mental Status: mental status grossly normal Speech and movement: Normal speech and movement present and Clear speech present Affect: normal affect Attitude: cooperative Thought process: Normal thought process present Thought content: Normal thought content present Insight: Fair insight present (Psych) Judgement: Fair judgement present (Psych) Results AMB Urinalysis, Automated UA Leukoctes 70 Renetta/uL Last Edit by SNOW Amanda on 09/12/25 10:10 UA Nitrite Negative Last Edit by Sedrick Perdomo [facility] on 09/12/25 10:10 UA Urobilinogen 0.2 mg/dL Last Edit by Sedrick Perdomo [facility] on 09/12/25 10:10 UA Protein 15 mg/dL Last Edit by Sedrick Perdomo [facility] on 09/12/25 10:10 UA pH 6.0 Last Edit by Sedrick Perdomo [facility] on 09/12/25 10:10 UA Blood 80 Luigi/uL Last Edit by Sedrick Perdomo [facility] on 09/12/25 10:10 UA Specific [place] 1.025 Last Edit by Sedrick Perdomo [facility] on 09/12/25 10:10 UA Ketone Negative Last Edit by Sedrick Perdomo [facility] on 09/12/25 10:10 UA Bilirubin 0 mg/dL Last Edit by Sedrick Perdomo [facility] on 09/12/25 10:10 UA Glucose 0 mg/dL Last Edit by Sedrick Perdomo [facility] on 09/12/25 10:10 Results Reviewed Results Reviewed: Laboratory Last Values Urine pH (Auto) 6.0 09/12/25 10:09 Specific [place] (Auto) 1.025 09/12/25 10:09 Urine Protein (Auto) 15 mg/dL 09/12/25 10:09 Glucose (UA)(Auto) 0 mg/dL 09/12/25 10:09 Urine Ketones (Auto) Negative 09/12/25 10:09 Urine Blood (Auto) 80 Luigi/uL 09/12/25 10:09 Urine Nitrite (Auto) Negative 09/12/25 10:09 Urine Bilirubin (Auto) 0 mg/dL 09/12/25 10:09 Urine Urobilinogen (Auto) 0.2 mg/dL 09/12/25 10:09 Leukocyte Esterase (Auto) 70 Renetta/uL 09/12/25 10:09 Assessment & Plan Assessment & Plan (1) Microscopic hematuria: Code(s): R31.29 - Other microscopic hematuria Category: Medical (2) Nicotine dependence: Code(s): F17.200 - Nicotine dependence, unspecified, uncomplicated Category: Medical Plan In office urinalysis results reviewed with the patient today; as noted above; will send for urine cytology. We did discussed potential causes of microscopic hematuria as well as further interventions and risks and benefits of these interventions. We discussed the importance of limiting/quitting nicotine dependence for overall health and well-being. All questions were answered. She denies any bothersome urinary issues or concerns. She reports be happy with current voiding parameters. All questions were answered. Will continue with surveillance monitoring. Will obtain retroperitoneal ultrasound for further assessment evaluation Follow-up in 6 months with imaging; or sooner with any issues, concerns, and or questions. Orders: Orders Urine Cytology Today R31.29 - Other microscopic hematuria US retroperitoneal comp Today R31.29 - Other microscopic hematuria AMB Urinalysis Automated Today Z13.9 - Encounter for screening, unspecified Patient Instructions: The patient had an opportunity to ask questions regarding the treatment plan. All questions were answered. Physical exam, labs, and imaging were discussed and reviewed in detail. As well as risks, benefits, and discussion of treatment choices. No major barriers to understanding were identified. The patient expressed understanding and agreement with the above treatment plan. The patient was made aware they should contact our office by phone for worsening of their current condition, the appearance of new symptoms, or with any questions or concerns. Compliance is encouraged with any medications and follow up testing that is ordered. It is a privilege to be allowed the opportunity to participate in? your urological care.? Again, if you have any questions or concerns If you have any questions or concerns please do not hesitate to contact me. The office is [phone]. This note is constructed using voice recognition software. While every effort has been made to ensure accuracy telephone lines repairer errors may have been included. Yours sincerely, GERMAINE Mae Coding Level of Care Code Est Pt Level 3 (38896) Complex EM visit Add On G2211 Diagnoses Microscopic hematuria R31.29 Nicotine dependence F17.200
--- OUTSIDE RECORDS SUMMARY | 2025-09-12 10:59 | XMS_ITS | Encounter Summary ---
Author Organization [facility] Address [address] [place] [address] Phone Care Team Providers Care Home Organizer Name Role Phone Unknown, Unknown Primary Care Provider Abby Jaramillo MD Primary Care Provider Encounter Details Date Type Department Care Team (Latest Contact Info) Description 12/15/2017 Prep for Surgery [facility] Orthopedics & Sports Medicine [address] [place] [address] Joellen Allison MD [address] [place] [address] Orthopedics & Sports Medicine, [place] [address] [email or web address] Other closed intra-articular fracture of distal end [...] Primary documented in this encounter Care Teams Home Organizer Relationship Specialty Start Date End Date Unknown, Unknown, PCP - General 12/11/17 05/11/18 Abby Ordaz MD [address] [place] [address] [phone] PCP - General Family Medicine 05/12/18 documented as of this encounter Additional Source Comments The information contained in this document represents components of the legal health record. It is not the complete legal health record.[facility]
--- OUTSIDE RECORDS SUMMARY | 2025-09-12 10:59 | XMS_ITS | Encounter Summary ---
Author Organization [facility] Address [address] [place] [phone] Phone Care Team Providers Care Signalman Name Role Phone Unknown, Unknown Primary Care Provider Abby Jaramillo MD Primary Care Provider Encounter Details Date Type Department Care Team (Late st Contact Info) Description 01/25/2018 Ancillary Orders [facility] Orthopedics & Sports Medicine [address] [place] [address] Abby Hale PA-C [address] [place] [address] Orthopedics & Sports Medicine, [facility] [place] [address] [email or web address] Social History Tobacco Use [...] on filedocumented in this encounter Care Teams Signalman Relationship Specialty Start Date End Date Unknown, Unknown, PCP - General 12/11/17 05/11/18 Abby Ordaz MD [address] [place] [address] PCP - General Family Medicine 05/12/18 documented as of this encounter Additional Source Comments The information contained in this document represents components of the legal health record. It is not the complete legal health record.[facility]
--- OUTSIDE RECORDS SUMMARY | 2025-09-12 10:59 | XMS_ITS | Encounter Summary ---
Author Organization [facility] Address [address] [place] [address] [place] [address] Phone Care Team Providers Care Receptionist Telephone Operator Name Role Phone Unknown, Unknown Primary Care Provider Abby Jaramillo MD Primary Care Provider Encounter Details Date Type Department Care Team (Late st Contact Info) Description 12/29/2017 Ancillary Orders [address] [address] Abby Hale PA-C [address] [place] [address] Orthopedics & Sports Medicine, [place] [address] [email or web address] Left wrist pain Social History Tobacco Use [...] forearm documented in this encounter Care Teams Receptionist Telephone Operator Relationship Specialty Start Date End Date Unknown, Unknown, MD PCP - General 12/11/17 05/11/18 Abby Ordaz MD [address] [place] [address] PCP - General Family Medicine 05/12/18 documented as of this encounter Additional Source Comments The information contained in this document represents components of the legal health record. It is not the complete legal health record.[facility]
--- OUTSIDE RECORDS SUMMARY | 2025-09-12 10:59 | XMS_ITS | Encounter Summary ---
Author Organization [facility] Address [address] [facility] [address] [place] [address] Phone Care Team Providers Care Psychologist Private Practice Name Role Phone Unknown, Unknown Primary Care Provider Abby Jaramillo MD Primary Care Provider Encounter Details Date Type Department Care Team (Late st Contact Info) Description 04/22/2018 Procedure Pass [facility], Ct Scan - [address] [address] Social History Tobacco Use Types Packs/Day Years [...] on filedocumented in this encounter Care Teams Psychologist Private Practice Relationship Specialty Start Date End Date Unknown, Unknown, PCP - General 12/11/17 05/11/18 Abby Ordaz MD [address] [place] [address] PCP - General Family Medicine 05/12/18 documented as of this encounter Additional Source Comments The information contained in this document represents components of the legal health record. It is not the complete legal health record.[facility]
--- OUTSIDE RECORDS SUMMARY | 2025-09-12 10:59 | XMS_ITS | Encounter Summary ---
Author Organization [facility] Address [address] [place] [address] [place] [address] Phone Care Team Providers Care Magisterial District Judge Name Role Phone Unknown, Unknown Primary Care Provider Abby Jaramillo MD Primary Care Provider Encounter Details Date Type Department Care Team (Late st Contact Info) Description 12/29/2017 Ancillary Orders [facility] Orthopedics & Sports Medicine [address] [place] [address] Abby Hale PA-C [address] [place] [address] Orthopedics & Sports Medicine, [facility] [place] [address] [email or web address] Social History Tobacco Use [...] on filedocumented in this encounter Care Teams Magisterial District Judge Relationship Specialty Start Date End Date Unknown, Unknown, PCP - General 12/11/17 05/11/18 Abby Ordaz MD [address] [place] [phone] PCP - General Family Medicine 05/12/18 documented as of this encounter Additional Source Comments The information contained in this document represents components of the legal health record. It is not the complete legal health record.[facility]
--- OUTSIDE RECORDS SUMMARY | 2025-09-12 10:59 | XMS_ITS | Encounter Summary ---
Author Organization [facility] Address [address] [facility] [address] [place] [address] Phone Care Team Providers Care Med Peds Name Role Phone Unknown, Unknown Primary Care Provider Abby Jaramillo MD Primary Care Provider Encounter Details Date Type Department Care Team (Late st Contact Info) Description 01/25/2018 Ancillary Orders [address] [address] Abby Hale PA-C [address] [place] [address] Orthopedics & Sports Medicine, [place] [address] [email or web address] Left wrist pain Social History Tobacco Use [...] forearm documented in this encounter Care Teams Med Peds Relationship Specialty Start Date End Date Unknown, Unknown, MD PCP - General 12/11/17 05/11/18 Abby Ordaz MD [address] [place] [address] PCP - General Family Medicine 05/12/18 documented as of this encounter Additional Source Comments The information contained in this document represents components of the legal health record. It is not the complete legal health record.[facility]
--- OUTSIDE RECORDS SUMMARY | 2025-09-12 10:59 | XMS_ITS | Clinical Summary ---
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 Superintendent Construction Device Identifier Shelf Expiration Date Model / Serial / Lot Pacemaker Plate Hook Volar Distal Radius Geminus Narrow 3hole Left - Discontinued Per Contracts - [id number] Implanted:Qty: 1 on 12/16/2017 by Joellen Allison MD at [facility] Left: [employer]rist [employer] [id number]-HP / / Peg Threaded Locking 2.3pob40xw - [id number] Implanted:Qty: 2 on 12/16/2017 by Joellen Allison MD at [facility] Left: Wrist [employer] [id number] -TS / / Peg Threaded Locking 2.3x18mm - [id number] Implanted:Qty: 3 on 12/16/2017 by Joellen Allison MD at [facility] Left: Wrist [employer] [id number] -TS / / Screw Bone L10x3.5mm Locking Cortical Geminus Titanium Implantable Non-Sterile Fossa Specific Plating System - [id number] Implanted:Qty: 2 on 12/16/2017 by Joellen Allison MD at [facility] Left: Wrist [employer] [id number] -TS / / Screw Cortical Nonlocking 3.5x10mm - [id number] Implanted:Qty: 1 on 12/16/2017 by Joellen Allison MD at [facility] Left: Wrist [employer] [id number] -TS / / K-Wire Standard Tip [id number] - [id number] Implanted:Qty: 2 on 12/16/2017 by Joellen Allison MD at [facility] Left: Wrist [employer] [id number] / / Insurance MEDICARE PART A & B [facility] TOTAL CHOICE INDEMNITY MEDICARE PART A & B [facility] TOTAL CHOICE INDEMNITY MEDICARE PART A & B [id number] [place] [address] TOTAL CHOICE INDEMNITY MEDICARE PART A & B [facility] TOTAL CHOICE INDEMNITY MEDICARE PART A & B [facility] TOTAL CHOICE INDEMNITY MEDICARE PART A & B [facility] TOTAL CHOICE INDEMNITY MEDICARE PART A & B [facility] TOTAL CHOICE INDEMNITY MEDICARE PART A & B TOTAL CHOICE INDEMNITY MEDICARE PART A & B [address] [place] [address] TOTAL CHOICE INDEMNITY Advance Directives For more information, please contact: [phone] (9AM - 5PM Nesha/[facility], Thursday-Thursday) Documents on File Type Date Recorded 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 It is not the complete legal health record.[facility]
--- OUTSIDE RECORDS SUMMARY | 2025-09-12 10:59 | XMS_ITS | Encounter Summary ---
Author Organization [facility] Address [address] [place] [phone] Phone Care Team Providers Care Curtain Mender Name Role Phone Unknown, Unknown Primary Care Provider Abby Jaramillo MD Primary Care Provider Encounter Details Date Type Department Care Team (Late st Contact Info) Description 12/16/2017 Procedure Pass [place] Admitting Dept - Virtual Department [address] [place] [address] Social History Tobacco Use Types Packs/Day Years [...] on filedocumented in this encounter Care Teams Curtain Mender Relationship Specialty Start Date End Date Unknown, Unknown, PCP - General 12/11/17 05/11/18 Abby Ordaz MD [address] [place] [id number] PCP - General Family Medicine 05/12/18 documented as of this encounter Additional Source Comments The information contained in this document represents components of the legal health record. It is not the complete legal health record.[facility]
== END 2025-09-12 10:28 | disposition home or self-care (01) ==
LOC: HO.HUSH 09:47
PROVIDERS: Visit Provider Nurse Practitioner Family
DX: R31.29 Other microscopic hematuria (principal); F17.200 Nicotine dependence, unspecified, uncomplicated; Z13.9 Encounter for screening, unspecified
CPT/HCPCS: 99213

== ENCOUNTER → 2025-11-21 08:36 | Outpatient (BNV) | payer MEDICARE, OTHER, SELFPAY | PROVIDERS: Visit Provider Internal Medicine | DX: I42.9 Cardiomyopathy, unspecified (principal) | CPT/HCPCS: 93294 ==